=== PATIENT | female | born 1950 | race Caucasian/White ===

== ENCOUNTER → 2017-01-12 | Outpatient (CLI) | payer BC, OTHER ==
[~2017-01-12] MED LIST: ASPCH81X PO; CALC-338 PO; CEPH500C2 PO; CHOL2000 PO; CITA40TA12 PO; CYAN500T PO; PEDICHW80 PO; TRAZ50TA35 PO; VITAMIN B IM; ZNTT/150 PO; ZOLP5TAB PO
== END | disposition home or self-care (01) ==
LOC: C.RDSM 09:00
PROVIDERS: ATTEND Physical Medicine & Rehabilitation Sports Medicine
DX: M75.42 Impingement syndrome of left shoulder (principal); M25.511 Pain in right shoulder

== ENCOUNTER 2017-04-21 18:00 | Emergency (ER) | payer BC ==
[~2017-04-21] VITALS: Ht 158.8 cm; Wt 61.0 kg
[~2017-04-21 18:00] MED LIST changes: -VITAMIN B IM; -ZNTT/150 PO
[2017-04-21 18:04] VITALS: BP 122/72; PULSE 76; TEMP 36.7; O2SAT 97; Ht 158.8 cm; Wt 61.0 kg
[2017-04-21] MEDS ORDERED: XYLOCAINE 1%/SOD BICARB 20 ML VIAL INFIL ONE (18:10)
--- NOTE | 2017-04-22 00:16 | EMERGENCY ROOM VISIT NOTE ---
History First contact with patient: 18:06 Chief Complaint: FOREIGNBODY ANY BODY PART Stated Complaint: SPLINTER IN R ARM History of Present Illness The patient is a 66 year old female who presents to the Emergency Room with complaints of foreign body to right forearm while dusting. Patient states there is a splinter there. She tried to remove it. Tetanus is current. Patient denies numbness, tingling or any other medical complaints. Review of Systems See HPI for pertinent positives & negatives. A total of 6 systems reviewed and were otherwise negative. Past Medical/Surgical History Medical Problems: (1) Anxiety (2) Benign neoplasm of colon (3) BPPV (benign paroxysmal positional vertigo) (4) Depression (5) Hyperlipidemia (6) Hypertension (7) Osteoarthritis (8) Sleep apnea Surgical Problems: (1) H/O esophagogastroduodenoscopy (2) History of pubovaginal sling (3) History of tubal ligation (4) Hx of bariatric surgery (5) s/p repair of trigger finger Family History Asthma FATHER Diabetes mellitus SISTER FH: migraines SISTER FHx: cancer FATHER (throat CA) FHx: diabetes FHx: hypertension MOTHER FHx: lung disease Social History Smoking Status: Never Smoker Alcohol Use: none Drug Use: none Marital Status: Housing Status: lives with significant other Occupation Status: employed Current/Historical Medications Scheduled Aspirin (Aspirin Chewable), 81 MG PO QAM Calcium Citrate-Vitamin D (Citracal/Vitamin D), 2 TABS PO QAM Cephalexin Monohydrate (Keflex), Unknown Dose PO DAILY Cholecalciferol (Vitamin D3), 1 CAP PO QAM Citalopram Hydrobromide (Celexa), 40 MG PO QAM Cyanocobalamin (Vitamin B-12), 500 MCG PO QAM Pediatric Multiple Vitamin W/ (Childrens Multivitamin), 2 TABS PO QAM Trazodone Hcl (Trazodone), 50 MG PO HS Scheduled PRN Zolpidem Tartrate (Ambien), 5 MG PO HS PRN for Sleep Allergies Coded Allergies: YAIR Inhibitors (Verified Adverse Reaction, Intermediate, COUGH, 02/13/17) Physical Exam Vital Signs Date Time Temp Pulse Resp B/P Pulse Ox O2 Delivery O2 Flow Rate FiO2 04/21/17 18:04 36.7 76 16 122/72 97 Room Air Pain Rating (0-10): 0 Physical Exam VITALS: Vitals are noted on the nurse's note and reviewed by myself. Vital signs stable. GENERAL: Pleasant female, in no acute distress, nondiaphoretic, well-developed well-nourished. SKIN: Capillary reflex less than 2 seconds. HEENT: Normocephalic. PERRLA. EOMI. Nares patent. Mucous membranes moist. HEART: Regular rate and rhythm without murmurs gallops or rubs. LUNGS: Clear to auscultation bilaterally without wheezes, rales or rhonchi. No retractions or accessory muscle use. MUSCULOSKELETAL: No gross musculoskeletal defects. Right forearm with palpable splinter in place. NEURO: Patient was alert and oriented to person place and time. Normal sensation to light and sharp touch. No focal neurological deficits. Medical Decision & Procedures ED Course Prior records reviewed and summarized as above. Triage Nursing notes reviewed. Additional history obtained from family. The patient's history was concerning for possible foreign body of the forearm. Differential diagnosis: Etiologies such as foreign body of the forearm, cellulitis, abscess, MRSA infection, DVT, necrotizing fasciitis, dermatitis, drug eruption, as well as others were entertained.. Physical examination: The physical examination was consistent with foreign body of the forearm ER treatment provided: The area is cleansed and Betadine was placed. The area was anesthetized with lidocaine 2 mL's and using forceps the splinter was removed. There is cleansed and dressed with bacitracin and bandage. Patient tolerated procedure well. On reassessment the patient felt better. Diagnostics interpreted by me: Deferred This appears to be isolated foreign body of the forearm that is removed. Patient is advised to apply bacitracin bandage daily and watch for signs and symptoms of infection. She is advised to follow-up family care in a few days or here in the ER sooner for fevers, redness, drainage, worsening signs or symptoms or as needed. Patient was neurovascular and neurologic intact. She is well-appearing.. By the evaluation outlined above emergent etiologies such as abscess, necrotizing fasciitis, DVT, as well as others were deemed relatively unlikely. The pt informed about the findings as listed above. All questions were answered and pleased with the treatment. Return instructions were outlined and the patient was discharged in stable condition. Referral: The patient was referred back to primary care physician for follow-up in 2 to 3 days for a recheck of the current condition. Medical Decision As above Impression Primary Impression: Acute foreign body of right forearm Departure Information Dispostion Home / Self-Care Condition GOOD Referrals Pallavi Miranda M.D. (PCP) Forms WORK / SCHOOL INSTRUCTIONS, HOME CARE DOCUMENTATION FORM, IMPORTANT VISIT INFORMATION Patient Instructions [facility], ED Foreign Body Splinter Removal Additional Instructions Antibiotic ointment and bandage to the areas until healed. Follow up with family doctor or return for any signs of infection (increasing redness, swelling , drainage, or fever). Keep covered when in sun until fully healed then SPF 50 or higher until scar healed. Problem Qualifiers Primary Impression: Acute foreign body of right forearm Encounter type: initial encounter Qualified Codes: S50.851A - Superficial foreign body of right forearm, initial encounter
[2017-05-18] MEDS ORDERED: VITAMIN B IM (07:58)
[2017-05-18] MEDS ORDERED: ZNTT/150 PO (07:58)
== END 2017-04-21 18:27 | disposition home or self-care (01) ==
LOC: C.EDB 18:01 → C.EDD 18:27
DX: S50.851A Superficial foreign body of right forearm, initial encounter (principal); W45.8XXA Other foreign body or object entering through skin, initial encounter; I10 Essential (primary) hypertension; F32.9 Major depressive disorder, single episode, unspecified; M19.90 Unspecified osteoarthritis, unspecified site; Z82.5 Family history of asthma and other chronic lower respiratory diseases; Z83.3 Family history of diabetes mellitus; Z82.0 Family history of epilepsy and other diseases of the nervous system; Z80.8 Family history of malignant neoplasm of other organs or systems; Z82.49 Family history of ischemic heart disease and other diseases of the circulatory system; Z79.82 Long term (current) use of aspirin; Z79.899 Other long term (current) drug therapy

== ENCOUNTER → 2017-06-23 | Outpatient (CLI) | payer BC ==
[~2017-06-23] MED LIST changes: -ASPCH81X PO; -CEPH500C2 PO; -CYAN500T PO; +VITAMIN B IM; +ZNTT/150 PO
--- NOTE | 2017-06-23 09:09 | DIAGNOSTIC IMAGING REPORT ---
LEFT PELVIS UNILATERAL HIP 1 VIEW CLINICAL HISTORY: LEFT HIP PAIN pain COMPARISON: None. DISCUSSION: Moderate degenerative change of the hips bilaterally. No evidence for acetabular protrusion. Moderate degenerative change sacroiliac joints and lower lumbar spine. There is no evidence for soft tissue swelling. IMPRESSION: Moderate degenerative change. No acute process. The above report was generated using voice recognition software. It may contain grammatical, syntax or spelling errors. Electronically signed by: Mikal Goff M.D. 06/23/2017 9:08 AM Dictated Date/Time: 06/23/2017 9:07 AM
== END | disposition home or self-care (01) ==
LOC: C.RDSM 11:14
PROVIDERS: ATTEND Physician Assistant
DX: M25.552 Pain in left hip (principal)

== ENCOUNTER → 2017-07-06 | Outpatient (CLI) | payer BC ==
[~2017-07-06] MED LIST changes: -CHOL2000 PO; -CITA40TA12 PO
== END | disposition home or self-care (01) ==
LOC: C.RDSM 12:26
PROVIDERS: ATTEND Physical Medicine & Rehabilitation Sports Medicine
DX: M17.0 Bilateral primary osteoarthritis of knee (principal)

== ENCOUNTER 2017-09-20 14:35 | Emergency (ER) | payer BC ==
[~2017-09-20] VITALS: Ht 157.5 cm; Wt 61.0 kg
[2017-09-20 14:39] VITALS: TEMP 37.2; Ht 157.5 cm; Wt 61.0 kg
[2017-09-20] MEDS ORDERED: HYDROCODONE/ACETAMOPHEN 5/325MG TAB PO STA (15:39)
[2017-09-20] MEDS ORDERED: NORCO 5/325MG HOME PACK PO ONE (15:45)
[2017-09-20 16:01] LABS: URINE APPEARANCE CLEAR (CLEAR); URINE BILIRUBIN NEG (NEG); URINE COLOR YELLOW; URINE EPITHELIAL CELL AUTO 0-5 /lpf (0-5); URINE NITRITE NEG (NEG); URINE SPECIFIC GRAVITY 1.018 (1.000-1.030); UROBILINOGEN NEG (NEG); ZZUR CULT IF INDIC CLEAN CATCH NO
[2017-09-20 16:04] LABS: MANUAL MICROSCOPIC REQUIRED? NO; REVIEW REQ? NO
[2017-09-20] MEDS ORDERED: CALC600T9 PO (16:10)
[2017-09-20] MEDS ORDERED: TOCI20IN INJ (16:10)
[2017-09-20] MEDS ORDERED: PRLSR20 PO (16:10)
[2017-09-20] MEDS ORDERED: CLX40 PO (16:10)
[2017-09-20] MEDS ORDERED: PRED20TA PO (16:10)
[2017-09-20] MEDS ORDERED: VALA1TAB31 PO (16:23)
[2017-09-20] MEDS ORDERED: HYDR-5688 PO (16:23)
[2017-09-20 16:42] VITALS: BP 122/67; PULSE 71; O2SAT 99
--- NOTE | 2017-09-20 18:42 | EMERGENCY ROOM VISIT NOTE ---
History Report prepared by Laura: Yemi Almaraz Under the Supervision of: Dr. Evan Dennison M.D. First contact with patient: 15:27 Chief Complaint: FLANK PAIN Stated Complaint: PAIN IN LEFT SIDE,RADIATING TO STOMACH History of Present Illness The patient is a 66 year old female who presents to the Emergency Room with complaints of waxing and waning left flank pain that started 4 days ago. She says that the pain radiates to the left side of her abdomen. The patient rates the pain currently as a 7 out of 10 in severity, and at worst is a 9 out of 10 in severity. She notes that her skin around the painful area has been itchy recently. She says that she has taken Tylenol with a bit of relief. The patient adds that she has a history of pancreatis, bariatric surgery, and gallbladder surgery.The patient notes that she was told by her GI doctor that she has a small kidney stone. The patient adds that she has had a bit of trouble urinating. Pt denies LOC, headache, fevers, chills, diaphoresis, visual changes , neck pain, chest pain, breathing difficulties, nausea, vomiting, melena, hematochezia, numbness, weakness, lymphadenopathy, or other complaints. Source of History: patient Onset: 4 days ago Position: other (left flank) Symptom Intensity: at worst a 9 out of 10 in severity Timing: waxes/wanes Associated Symptoms: + abdominal pain (left), + back pain, + urinary symptoms Note: Associated symptoms: Itchy skin where pain is. Review of Systems See HPI for pertinent positives and negatives. A total of ten systems were reviewed and were otherwise negative. Past Medical & Surgical Medical Problems: (1) Anxiety (2) Benign neoplasm of colon (3) BPPV (benign paroxysmal positional vertigo) (4) Depression (5) Hyperlipidemia (6) Hypertension (7) Osteoarthritis (8) Sleep apnea Surgical Problems: (1) H/O esophagogastroduodenoscopy (2) History of pubovaginal sling (3) History of tubal ligation (4) Hx of bariatric surgery (5) s/p repair of trigger finger Family History Asthma FATHER Diabetes mellitus SISTER FH: migraines SISTER FHx: cancer FATHER (throat CA) FHx: diabetes FHx: hypertension MOTHER FHx: lung disease Social History Smoking Status: Never Smoker Alcohol Use: none Drug Use: none Marital Status: Housing Status: lives with significant other Occupation Status: employed Current/Historical Medications Scheduled Calcium Carbonate-Vitamin D (Calcium + D), 2 TABS PO QAM Citalopram (Citalopram Hydrobromide), 40 MG PO QAM Omeprazole (Prilosec), 20 MG PO QAM Pediatric Multiple Vitamin W/ (Childrens Multivitamin), 2 TABS PO QAM Prednisone (Prednisone), 10 MG PO DAILY Ranitidine (Zantac), 150 MG PO BID Tocilizumab (Actemra), 1 DOSE INJ EVERY 2 WEEKS Trazodone Hcl (Trazodone), 50 MG PO HS Valacyclovir Hcl (Valtrex), 1 GM PO TID Scheduled PRN Hydrocodone/Acetaminophen 5MG/325MG ([place] 5MG/325MG), 1-2 TABS PO Q6H PRN for Pain Zolpidem Tartrate (Ambien), 5 MG PO HS PRN for Sleep Allergies Coded Allergies: YAIR Inhibitors (Verified Adverse Reaction, Intermediate, COUGH, 09/20/17) Aspirin (Verified Adverse Reaction, Unknown, instructed by PCP not to take=had bariatric surgery, 09/20/17) Ibuprofen (Verified Adverse Reaction, Unknown, instructed not totake per PCP;had bariatric surgery, 09/20/17) Naproxen (Verified Adverse Reaction, Unknown, instructed by PCP not to take;had bariatric surgery, 09/20/17) Physical Exam Vital Signs Date Time Temp Pulse Resp B/P (MAP) Pulse Ox O2 Delivery O2 Flow Rate FiO2 09/20/17 16:42 71 14 122/67 99 09/20/17 14:39 37.2 81 16 109/69 98 Room Air Physical Exam GENERAL: Awake, alert, well-appearing, in no distress HENT: Normocephalic, atraumatic. Oropharynx unremarkable. EYES: Normal conjunctiva. Sclera non-icteric. NECK: Supple. No nuchal rigidity. FROM. No JVD. RESPIRATORY: Clear to auscultation. CARDIAC: Regular rate, normal rhythm. Extremities warm and well perfused. Pulses equal. ABDOMEN: Soft, non-distended. No tenderness to palpation. No rebound or guarding. No masses. RECTAL: Deferred. MUSCULOSKELETAL: Chest examination reveals no tenderness. The back is symmetrical on inspection without obvious abnormality. There is no CVA tenderness to palpation. No joint edema. LOWER EXTREMITIES: Calves are equal size bilaterally and non-tender. No edema. No discoloration. NEURO: Normal sensorium. No sensory or motor deficits noted. SKIN: T-10 dermatome: there is a vesicular rash on the right side. Medical Decision & Procedures Laboratory Results Test 09/20/17 15:44 Urine Color YELLOW Urine Appearance CLEAR (CLEAR) Urine pH 5.0 (4.5-7.5) Urine Specific [place] 1.018 (1.000-1.030) Urine Protein NEG (NEG) Urine Glucose (UA) NEG (NEG) Urine Ketones NEG (NEG) Urine Occult Blood TRACE (NEG) Urine Nitrite NEG (NEG) Urine Bilirubin NEG (NEG) Urine Urobilinogen NEG (NEG) Urine Leukocyte Esterase NEG (NEG) Urine WBC (Auto) 1-5 /hpf (0-5) Urine RBC (Auto) 0-4 /hpf (0-4) Urine Hyaline Casts (Auto) 0 /lpf (0-5) Urine Epithelial Cells (Auto) 0-5 /lpf (0-5) Urine Bacteria (Auto) NEG (NEG) Laboratory results reviewed by me Medications Administered Medications (Trade) Dose Ordered Sig/Nghia Route Start Time Stop Time Status Last Admin Dose Admin Valacyclovir HCl (Valtrex Tab) 500 mg NOW ONCE PO 09/20/17 15:45 09/20/17 15:46 DC 09/20/17 15:58 500 MG Acetaminophen/ Hydrocodone Bitart ([place] 5/325 Tab) 1 tab NOW STAT PO 09/20/17 15:39 09/20/17 15:43 DC 09/20/17 15:59 1 TAB Acetaminophen/ Hydrocodone Bitart ([place] 5/325mg Home Pack) 1 homepack UD ONCE PO 09/20/17 15:45 09/20/17 15:46 DC 09/20/17 15:59 1 HOMEPACK Valacyclovir HCl (Valtrex Tab) 500 mg NOW ONCE PO 09/20/17 16:30 09/20/17 16:31 DC 09/20/17 16:33 500 MG Valacyclovir HCl (Valtrex Tab) 1,000 mg NOW ONCE PO 09/20/17 16:30 09/20/17 16:31 DC 09/20/17 16:34 1,000 MG ED Course 1533: The patient was evaluated in room C11B. A complete history and physical exam was performed. 1539: Ordered [place] 5/325 Tab 1 tab PO. 1545: Ordered [place] 5/325mg Home Pack 1 homepack PO, Valtrex Tab 500 mg PO. 1611: I reevaluated the patient and she is stable. Discussed results and discharge instructions: she verbalized understanding and agreement. The patient is ready for discharge. Medical Decision Triage Nursing notes reviewed. The patient's presentation and history were concerning for left flank pain Etiologies such as renal colic, appendicitis, diverticulitis, mesenteric ischemia, aortic pathology, infections, inflammatory bowel disease, PUD, biliary pathology, UTI, as well as others were entertained. The patient was evaluated. She describes extreme pain and some urinary symptoms. Physical examination was performed as above. The patient had a dermatomal-like vesicular eruption noted in the T10 dermatome on the left. This looks very consistent with shingles. The patient was tender right over the area of the rash. The rash just began today. Because of this only a urinalysis was sent. This did not reveal any clear evidence of infection and a culture was performed. The patient was treated with hydrocodone and Valtrex 1000 mg in the Emergency Room. She is given 1000 mg to go for this evening as the pharmacies are currently closed. The patient was educated. She will follow -up closely as an outpatient. If she worsens in any way she will be back. I gave my usual and customary discussion regarding this issue. By the evaluation outlined above other emergent etiologies such as those listed in the differential, as well as others, were deemed relatively unlikely. The patient was educated about the findings as listed above. All questions were answered and the patient was pleased with the treatment. Return instructions were outlined and the patient was discharged in stable condition. The patient was referred to her PCP for follow-up for a recheck of the current condition. Medication Reconcilliation Current Medication List: was personally reviewed by me Blood Pressure Screening Patient's blood pressure: Normal blood pressure Impression Primary Impression: Shingles Additional Impression: Left flank pain Scribe Attestation The scribe's documentation has been prepared under my direction and personally reviewed by me in its entirety. I confirm that the note above accurately reflects all work, treatment, procedures, and medical decision making performed by me. Departure Information Dispostion Home / Self-Care Prescriptions Hydrocodone/Acetaminophen 5MG/325MG ([place] 5MG/325MG) Tab 1-2 TABS PO Q6H Y for Pain, #20 TAB Prov: Evan Dennison MD 09/20/17 Valacyclovir Hcl (VALTREX) 1 Gm Tab 1 GM PO TID, #20 TAB Prov: Evan Dennison MD 09/20/17 Referrals Pallavi Miranda M.D. (PCP) Patient Instructions My [facility], Shingles Herpes [place] Additional Instructions Valtrex 1000 mg 3 times daily for 7 days. Hydrocodone/acetaminophen 5/325mg: Take 1-2 pills every 6 hours as needed for pain. Avoid additional Acetaminophen/Tylenol, alcohol, operating machinery or dangerous equipment, working on ladders or roofs, DRIVING, or situations where being under the influence may be dangerous. It is recommended to use a stool softener such as Colace, 100mg twice daily while taking this medication to avoid constipation. Rest and drink plenty of fluids. A urine culture is pending. If this is abnormal you should hear from the Emergency Room in 48 hours. Avoid contact with women or anyone with a compromised immune system. Follow-up with your primary care physician in 2 to 3 days for a recheck of your current condition. Problem Qualifiers
== END 2017-09-20 16:44 | disposition home or self-care (01) ==
LOC: C.EDB 14:37 → C.EDC 16:44
DX: B02.9 Zoster without complications (principal); R10.12 Left upper quadrant pain; R10.32 Left lower quadrant pain; F41.9 Anxiety disorder, unspecified; D12.6 Benign neoplasm of colon, unspecified; H81.10 Benign paroxysmal vertigo, unspecified ear; F32.9 Major depressive disorder, single episode, unspecified; E78.5 Hyperlipidemia, unspecified; I10 Essential (primary) hypertension; M19.90 Unspecified osteoarthritis, unspecified site; G47.30 Sleep apnea, unspecified; Z98.51 Tubal ligation status; Z98.84 Bariatric surgery status; Z82.5 Family history of asthma and other chronic lower respiratory diseases; Z83.3 Family history of diabetes mellitus; Z82.49 Family history of ischemic heart disease and other diseases of the circulatory system; Z82.0 Family history of epilepsy and other diseases of the nervous system

== ENCOUNTER → 2017-11-17 | Outpatient (CLI) | payer BC ==
[~2017-11-17] MED LIST changes: +ACTEMRA INJ; -CALC-338 PO; +CALC600T9 PO; +CHOL1000 PO; +CIPR1TAB10 PO; +CIPR250T3 PO; +CLX40 PO; +FLUT1SPR12; +HYDR-5688 PO; +LORA-741 PO; +OXYB1TAB31 PO; +OXYC-57 PO; +OXYC7.5T65 PO; +PEDICHW50 PO; +PHEN-1042 PO; +PRED-301 PO; +PRED20TA PO; +PRLSR20 PO; +RANI150T85 PO; +TAMS0.4C38 PO; +TOCI20IN IM; +TOCI20IN INJ; -VITAMIN B IM; -ZNTT/150 PO; +ZOLP5TAB6 PO
--- NOTE | 2017-11-17 10:48 | DIAGNOSTIC IMAGING REPORT ---
L UPPER EXT JOINT WITHOUT CLINICAL HISTORY: IMPINGEMENT SYNDROME OF L SHOULDER left shoulder pain x1 year COMPARISON STUDY: Conventional radiographic study dated 01/12/2017 FINDINGS: Imaging was performed in the sagittal, coronal, and axial planes. There are no areas of marrow edema to indicate occult fracture or bone bruise. The bicipital tendon appears normal. Degenerative changes are present within the acromial clavicular joint. There is trace fluid within the subacromial bursa. There is a subcentimeter ganglion present at this level. There is supraspinatus tendinopathy. There is an equivocal tiny full-thickness tear. The post arthrographic study would be more sensitive in this regard. There is no tendinous retraction. There is a suspected tear of the posterior superior glenoid labrum. IMPRESSION: 1. Supraspinatus tendinopathy. Equivocal tiny full-thickness tear. 2. Suspected tear of the posterior superior glenoid labrum 3. Subcentimeter ganglion just inferior to the acromioclavicular joint. Electronically signed by: Jovi Quintanilla M.D. 11/17/2017 10:47 AM Dictated Date/Time: 11/17/2017 10:36 AM
== END | disposition home or self-care (01) ==
LOC: C.MRI 09:32
PROVIDERS: ATTEND Physician Assistant
DX: M75.42 Impingement syndrome of left shoulder (principal); M67.412 Ganglion, left shoulder

== ENCOUNTER → 2017-12-08 | Outpatient (CLI) | payer BC ==
[~2017-12-08] MED LIST changes: -CIPR1TAB10 PO; -CIPR250T3 PO; -FLUT1SPR12; -HYDR-5688 PO; -OXYB1TAB31 PO; -OXYC-57 PO; -OXYC7.5T65 PO; -PEDICHW50 PO; -PHEN-1042 PO; -PRED20TA PO; -RANI150T85 PO; -TAMS0.4C38 PO; -TOCI20IN IM; -TOCI20IN INJ; +ZNTT/150 PO; -ZOLP5TAB PO; -ZOLP5TAB6 PO
--- NOTE | 2017-12-08 14:39 | DIAGNOSTIC IMAGING REPORT ---
MRI OF THE ABDOMEN WITHOUT IV CONTRAST CLINICAL HISTORY: Generalized abdominal pain and nausea. COMPARISON STUDY: Abdominal CT dated 11/25/2013. TECHNIQUE: MRI of the abdomen is performed transverse T1 and T2-weighted sequences in the axial and coronal planes. IV contrast was not administered for this examination due to poor renal function. MRCP and diffusion-weighted imaging was performed. FINDINGS: Lower chest: No pleural effusion is identified. The heart is normal in size. Liver: The liver is normal in size, contour, and signal intensity. There is mild central intrahepatic biliary ductal dilatation. Gallbladder: The gallbladder is surgically absent. The common bile duct is dilated measuring up to 10 mm in diameter. There is no evidence of choledocholithiasis. The pancreatic duct is normal in caliber. Spleen: Normal in size and signal intensity. Pancreas: The pancreas is atrophic. There is a 12 mm ovoid cystic lesion in the pancreatic head seen on axial image #14, likely representing a small sidebranch IPMN. Additional subcentimeter IPMN's are noted. Adrenal glands: Unremarkable. Kidneys: The kidneys are atrophic and without hydronephrosis. Abdominal aorta: Normal in course and caliber. Bowel: Postoperative change suggests a history of Zac-en-Y gastric bypass surgery. No bowel obstruction is seen. Pelvis: Survey images of the pelvis show a 4.0 cm cystic lesion in the left adnexa, likely related to the left ovary. Peritoneum: There is no abdominal ascites. Lymphadenopathy: None. Skeletal structures: Visualized skeletal structures times are normal marrow signal intensity. IMPRESSION: 1. No acute abnormality is identified. 2. 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 No bowel obstruction is seen. 3. There are several sidebranch IPMN's suspected in the pancreas measuring up to 12 mm. If further evaluation is desired then endoscopic ultrasound would be appropriate. 4. There is a 4 cm cystic structure in the left adnexa, likely related to left ovary. Follow-up with a pelvic ultrasound is recommended for further assessment. Electronically signed by: Philip Yung M.D. 12/08/2017 2:38 PM Dictated Date/Time: 12/08/2017 2:14 PM
== END | disposition home or self-care (01) ==
LOC: C.MRI 13:14
PROVIDERS: ATTEND Internal Medicine Hematology & Oncology
DX: K86.2 Cyst of pancreas (principal); E83.10 Disorder of iron metabolism, unspecified

== ENCOUNTER → 2017-12-22 | Day surgery (SDC) | payer BC ==
[2017-12-04 11:38] VITALS: Ht 158.8 cm; Wt 59.5 kg
[2017-12-11 12:36] LABS: BASO % 0.2 %; BASO ABS # 0.02 K/uL (0-0.2); EOS % 0.1 %; EOS ABS # 0.01 K/uL (0-0.5); HEMATOCRIT 37.1 % (37-47); HEMOGLOBIN 11.7 g/dL (12.0-16.0); IG# 0.07 K/uL (0.00-0.02); LYMPH % 10.8 %; LYMPH ABS # 1.16 K/uL (1.2-3.4); MEAN CELL VOLUME 100.8 fL (80-100); MEAN CORPUSCULAR HEMOGLOBIN 31.8 pg (25-34); MEAN CORPUSCULAR HGB CONC 31.5 g/dl (32-36); MEAN PLATELET VOLUME 10.6 fL (7.4-10.4); MONO % 5.2 %; MONO ABS # 0.56 K/uL (0.11-0.59); NEUT ABS # 8.92 K/uL (1.4-6.5); PLATELET COUNT 351 K/uL (130-400); RED CELL DISTRIBUTION WIDTH CV 14.8 % (11.5-14.5); RED CELL DISTRIBUTION WIDTH SD 54.8 fL (36.4-46.3); WHITE BLOOD COUNT 10.74 K/uL (4.8-10.8)
[2017-12-11 13:27] LABS: CALCIUM 9.2 mg/dl (8.5-10.1); CREATININE 1.19 mg/dl (0.60-1.20); POTASSIUM 3.9 mmol/L (3.5-5.1)
[~2017-12-22] VITALS: Ht 158.8 cm; Wt 59.5 kg
[~2017-12-22] MED LIST changes: +ATROPINE SULFATE 0.1 MG/ML 5ML SYR IV PRN; +BUPIVACAINE/EPINEPHRINE 0.5% MPF 1:200,000 30 ML VIAL ONE; +CEFAZOLIN 2000MG IV PUSH 10 ML IV SCH; +DEXAMETHASONE SOD INJ 4 MG/ML VIAL ONE; +EpHEDrine SULFATE INJ 50 MG/ML AMP IV PRN; +EpHEDrine SULFATE INJ 50 MG/ML AMP ONE; +EpINEphrine HCL INJ 1 MG/ML 5ML SYRINGE ONE; +FENTANYL CITRATE INJ 50 MCG/1 ML 2 ML VIAL IV PRN; +FENTANYL CITRATE INJ 50 MCG/1 ML 2 ML VIAL ONE; +GLYCOPYRROLATE INJ 0.2 MG/ML VIAL ONE; +LABETALOL HCL IV 5 MG/ML 20ML IV ONE; +LACTATED RINGER'S 1000ML 1,000 ML IV SCH; +LIDOCAINE HCL 2% 2 ML VIAL (20MG/ML) ONE; +MIDAZOLAM HCL 1 MG/ML 2ML VIAL ONE; +ONDANSETRON INJ 2 MG/ML 2 ML VIAL IV PRN; +ONDANSETRON INJ 2 MG/ML 2 ML VIAL ONE; +OXYCODONE/ACETAMINOPHEN 5-325 TAB PO PRN; +PROPOFOL IV EMULSION 10 MG/ML 20 ML VIAL IV ONE; +ROPIVACAINE 0.5% 5 MG/ML 30 ML VIAL ONE; +SODIUM CHLORIDE 0.9% 1000ML 1,000 ML IV SCH; +SODIUM CHLORIDE 0.9% INJ 10 ML VIAL ONE
--- NOTE | 2017-12-22 07:02 | History & Physical Bridge Note ---
H&P Re-Evaluation Bridge Note: I have examined the patient, reviewed the History & Physical and in the interval since the performance of the History & Physical I have noted the following changes of clinical significance:consent obtained. No changes noted
--- NOTE | 2017-12-22 07:04 | Discharge Instructions ---
Discharge Instructions Date of Service Dec 22, 2017. Visit Reason for Visit: Lt Shoulder Rotator Cuff Tear, Impingement;Z01.818 Discharge Discharge Diagnosis / Problem: same Discharge Goals Goal(s): Decrease discomfort, Improve function, Increase independence Medications Stopped Medications Name(s): na Restart Stopped Medication(s): use all scripts as directed Activity Recommendations Activity Limitations: as noted below Lifting Limitations: until after follow-up appointment Exercise/Sports Limitations: until after follow-up appointment May Resume Sexual Activity: after follow-up appointment Shower/Bathe: keep incision dry Driving or Machine Use: Anesthesia . Post Anesthesia Instructions: If you have had General Anesthesia or IV Sedation: * Do not drive today. * Resume driving when surgeon permits. * Do not make important decisions or sign legal documents today. * Call surgeon for: 1. Temperature elevations greater than 101 degrees F. 2. Uncontrollable pain. 3. Excessive bleeding. 4. Persistent nausea and vomiting. 5. Medication intolerance (nausea, vomiting or rash). * For nausea and vomiting use only clear liquids such as: tea, soda, bouillon until nausea subsides, then gradually increase diet as tolerated. * If you have any concerns or questions, call your surgeon's office. If physician is unavailable and it is an emergency, call 911 or go to the nearest emergency room. . Instructions / Follow-Up Instructions / Follow-Up The following are instructions to follow after "Shoulder Surgery" including, Acromioplasty, Rotator Cuff Repair and Instability Surgery ACTIVITY RECOMMENDATIONS: * Minimize activity after surgery. * No excessive walking, jogging, sports or laboring. * Return to activity is individualized depending on the patient and type of surgery. * Driving is not permitted until at least your first post operative visit. Please ask your doctor when it is safe to resume driving. * Expect increased discomfort with increased activity. Continue to ice the shoulder as needed. SCHOOL/WORK RECOMMENDATIONS: * You may return to sedentary work or school when you are feeling more comfortable. This is usually 3-7 days after surgery. MEDICATIONS: * You will have a prescription for pain medication and an anti-inflammatory medication after surgery. * Use the pain medication for severe pain and the anti-inflammatory for less severe pain. Once the pain medication has run out, try to use the anti-inflammatory medication. If this is not effective, contact the office for assistance. * The pain medication may cause nausea, constipation and drowsiness. You should see how they affect you before driving or similar activity. * The anti-inflammatory medication may cause stomach upset and bleeding. If this occurs let your doctor know immediately . * Take a stool softener like Colace or a laxative like Senokot to prevent constipation. DIET: * Resume previous diet. SPECIAL CARE: ICE: You have the option of an ice cooler, gel packs or ice bags. * If you have an ice cooler, refer to the instructions for that device. The ice cooler may be used continuously. * If you do not have an ice cooler, you will need to use ice bags or gel packs. Do not apply ice directly to the skin. Use a thin dressing or michael shirt between the skin and ice bag. Apply ice for 20-30 minutes and repeat every 2-4 hours. This is especially important for the first 7-10 days after surgery. Once the pain improves, use ice as needed. ELEVATION: * You may be more comfortable sleeping in an upright position. Use the sling to elevate your arm. DRESSING: * Your dressing will be changed at your first therapy appointment approximately 4-5 days after surgery. Band-aids, tape strips or gauze may be applied. You may then change your dressing daily. * Reapply dressing followed by the EBIce cooling pad (if chosen) and then the sling. * Always wash your hands prior to touching the incision area. * Once the stitches are removed, you may leave the wound open to air or cover with gauze. * Expect some bloody drainage for the first few days after surgery. * Leave the tape strips, if present, in place for 5-7 days. * Band-aids and gauze may be changed daily. * There may be a gauze pad in your armpit area. This can be changed daily or replaced by a dry washcloth. SLING/BRACE: * You will need to use a sling or brace after surgery. The length of time the sling is used is dependent upon the type of surgery performed. * Arthroscopic Acromioplasty requires use of the sling for 2-4 weeks for comfort. * Labral procedures and Rotator Cuff Repairs require use of the sling for a longer period of time. Please check with your doctor prior to discontinuing the sling. BATHING: * You may shower or sponge-bathe immediately after surgery. The post operative shoulder dressing is mostly water-tight. You may shower right over this dressing, but be reasonably careful not to get the gauze or incision wet. * Once the dressing has been changed on the fourth or fifth day after surgery, you may shower and get the incision wet. * Wash with regular soap and water. * Do not bathe (submerge the incision), soak, swim or use a hot tub until the incision is completely healed over with normal skin and the doctor has given the OK to proceed. * There is no need to apply any ointments, powders or salves to your incision. * Do not apply alcohol or hydrogen peroxide directly to the incision. * Diluted peroxide (50:50 mixture with sterile saline) may be used to clean dried blood from around the incision area. THERAPY: * You will begin therapy four or five days after surgery. * Organized therapy with the therapist is important for the first 2-4 months after surgery depending on the type of procedure. During that time you will attend therapy 1-3 times per week. * You will also need to do daily exercises for range of motion and strength as instructed. * Patients who have a Capsular Shift Procedure will need to abide by temporary range of motion limitations. * Patients having Rotator Cuff Surgery are not allowed to actively lift their arms until 4-6 weeks after surgery. * Please check with your doctor regarding appropriate motion restrictions. FOLLOW UP VISIT: * If not already scheduled, please call the office at to schedule a follow-up appointment for 10 days after surgery and monthly thereafter. Diet Recommendations Recommended Home Diet: resume previous diet Procedures Procedures Performed: see op note Pending Studies Studies pending at discharge: no Medical Emergencies . Who to Call and When: Medical Emergencies: If at any time you feel your situation is an emergency, please call 911 immediately. . Non-Emergent Contact Non-Emergency issues call your: Specialist Call Non-Emergent contact if: temperature is above 101.5, wound has increased drainage, wound has increased redness, wound has increased pain . . "Provider Documentation" section prepared by Spencer Hernandez. .
--- NOTE | 2017-12-22 10:15 | [facility] Post Operative Brief Note ---
Immediate Operative Summary Operative Date Dec 22, 2017. Pre-Operative Diagnosis Left Shoulder Rotator Cuff Tear, Impingement Post-Operative Diagnosis Same Procedure(s) Performed Left Shoulder Arthroscopy, Rotator Cuff Repair, Subacromial Decompression, Excision of Distal Clavicle Surgeon Dr. Hernandez Stevedoring Superintendent Surgeon(s) Holly Gray PA-c Estimated Blood Loss Trace Findings Consistent with Post-Op Diagnosis Fluids (cc crystalloids) 1400cc Specimens None Drains None Anesthesia Type General Regional Complication(s) none Disposition Accompanied Pt To Recover: no Disposition: Recovery Room / PACU
--- NOTE | 2017-12-22 10:36 | OPERATIVE REPORT ---
DATE OF OPERATION: 12/22/2017 SURGEON: Spencer Hernandez MD. HAND CIGAR MAKING SUPERVISOR: Sam Gray PA-C. No resident or fellow available. PREOPERATIVE DIAGNOSIS: Chronic impingement syndrome with rotator cuff tear. POSTOPERATIVE DIAGNOSIS: Same with AC joint arthropathy. OPERATION PERFORMED: 1. Exam under anesthesia. 2. Diagnostic arthroscopy. 3. Arthroscopic subacromial decompression. 4. Arthroscopic excision of distal clavicle. 5. Arthroscopic moderate rotator cuff repair. PERIOPERATIVE SITUATION: Medically cleared female with intractable shoulder pain with physical exam, x-ray and MRI scan consistent with the above diagnosis. It was also noted that she may have some biceps tendinopathy, but however due to her small size, elected not to do any biceps tenontotomy or tenodesis. She also had a stiff shoulder so was worried about tenodesing. The arm was then examined revealing no instability. It had a slight loss of forward flexion, abduction, external rotation, combined but consistent with her age. OPERATION: The patient was appropriately identified. The patient consented and antibiotics confirmed as being given. Consent verified. The arm was prepped and draped in usual routine fashion and inframedial portal made 2 cm medial, inferior and posterolateral tip of the acromion. Inspection of the joint at that point in time revealed some hyperemia of the synovium, some scarring of the biceps and a moderate rotator cuff tear in the supraspinatus area. This area was then lightly debrided intraarticularly and then the subacromial space entered. There was a large bursa and large CA ligament with frayed tendon. This was then resected with the thermal ablator. The hook of the acromion was then flattened. The AC joint had a big hook inferiorly. This was flattened and then slightly shaved distally. It was minimal excision. Rotator cuff was then debrided of all the tissue and then mobilized and using 2 accessory anterior portals, 3 sutures were placed and 5.5 anchor placed and additional suture was then placed and 1 more anchor, 475 anchor placed anteriorly. This allowed the rotator cuff to be placed back into the most central zone of the footprint. The shoulder was then moved. There was no retraction of the tendon. The shoulder was then examined from the medial side, nothing additional found and then the instruments and fluid were all removed and the portals closed with 4-0 nylon, dressed with Xeroform, 4 x 4 gauze, ABD pads and Ioban dressing. There were 4 portals total. DVT prophylaxis will be mobilization. ESTIMATED BLOOD LOSS: Trace. CRYSTALLOID: Roughly 1400 mL. No pathology pending. I attest to the content of the Intraoperative Record and any orders documented therein. Any exceptions are noted below. MTDD
[2017-12-22 11:20] VITALS: TEMP 36.8
[2017-12-22 12:01] VITALS: BP 104/66; PULSE 87; O2SAT 97
--- NOTE | 2017-12-22 12:07 | Anesthesia Progress Nt - [facility] ---
Anesthesia Post Op Note Date & Time Dec 22, 2017 at 12:06 Vital Signs Pain Intensity: 0 Vital Signs Past 12 Hours Date Time Temp Pulse Resp B/P (MAP) Pulse Ox O2 Delivery O2 Flow Rate FiO2 12/22/17 12:01 87 16 104/66 (79) 97 Room Air 12/22/17 11:20 36.8 85 16 109/67 (81) 95 Room Air 12/22/17 11:12 36.7 86 1 12/22/17 11:12 84 1 98 12/22/17 11:11 116/58 12/22/17 11:07 91 5 12/22/17 11:07 91 5 97 12/22/17 11:06 112/62 12/22/17 11:02 95 3 12/22/17 11:02 95 3 95 12/22/17 11:01 112/60 12/22/17 10:57 94 9 100 12/22/17 10:57 94 9 12/22/17 10:56 111/62 12/22/17 10:52 93 9 12/22/17 10:52 93 9 100 12/22/17 10:51 114/62 12/22/17 10:47 98 12 100 12/22/17 10:47 95 12 12/22/17 10:46 108/63 12/22/17 10:42 95 11 12/22/17 10:42 94 11 99 12/22/17 10:41 107/67 12/22/17 10:37 97 7 12/22/17 10:37 95 7 99 12/22/17 10:36 121/64 12/22/17 10:32 93 14 99 12/22/17 10:32 92 14 12/22/17 10:30 36.2 96 16 116/73 98 Mask 6 12/22/17 10:30 116/73 12/22/17 09:07 0 12/22/17 09:06 0 12/22/17 09:01 66 15 137/63 100 12/22/17 09:01 67 12/22/17 08:56 56 4 128/60 100 12/22/17 08:56 55 12/22/17 08:51 53 13 133/65 100 12/22/17 08:51 53 12/22/17 08:46 60 8 126/65 100 12/22/17 08:46 60 12/22/17 08:41 54 14 131/64 100 12/22/17 08:41 54 12/22/17 08:36 59 16 125/64 100 12/22/17 08:36 59 12/22/17 08:31 67 12/22/17 08:31 67 7 133/69 100 12/22/17 08:26 71 12/22/17 08:26 74 6 146/81 100 12/22/17 08:21 63 0 141/73 100 12/22/17 08:21 63 12/22/17 08:16 71 6 143/73 100 12/22/17 08:16 66 12/22/17 08:14 142/81 12/22/17 08:14 69 12 142/81 (101) 98 Mask 6 12/22/17 08:11 68 0 98 12/22/17 08:11 69 12/22/17 08:06 60 12/22/17 08:06 61 0 98 12/22/17 08:01 61 0 98 12/22/17 08:01 62 12/22/17 07:56 65 0 98 12/22/17 07:56 65 12/22/17 07:51 68 0 12/22/17 07:46 68 12/22/17 07:46 71 0 98 12/22/17 07:41 66 0 12/22/17 07:14 36.6 72 16 116/63 (80) 96 Room Air 12/22/17 07:11 0 12/22/17 07:06 0 116/63 Notes Mental Status: alert / awake / arousable, participated in evaluation Pt Amnestic to Procedure: Yes Nausea / Vomiting: adequately controlled Pain: adequately controlled Airway Patency, RR, SpO2: stable & adequate BP & HR: stable & adequate Hydration State: stable & adequate Anesthetic Complications: no major complications apparent
--- NOTE | 2017-12-22 18:09 | [facility] Operative Report ---
Operative Report Operative Date Dec 22, 2017. Pre-Operative Diagnosis Left Shoulder Rotator Cuff Tear, Impingement Post-Operative Diagnosis Left shoulder Same Procedure(s) Performed Left Shoulder Arthroscopy, Rotator Cuff Repair, Subacromial Decompression, Excision of Distal Clavicle Surgeon Dr. Hernandez Household Personal Assistant Surgeon(s) Holly Gray PA-c Estimated Blood Loss Trace Findings rotator cuff tear, impingement Fluids (cc crystalloids) 1400cc Specimens None Drains none Complication(s) None Disposition Recovery Room / PACU Indications This 67-year-old white female presented to the office with complaints of intractable left shoulder pain. She had tried conservative care measures without success. Shoulder pain was long-standing. She elected to proceed with surgical intervention in hopes of alleviating her pain. Preoperative imaging was obtained. Description of Procedure The patient was administered a regional block and then taken to the operating room where she was given general anesthesia. She was prepped and draped in usual sterile fashion. Please see Dr. Hernandez's operative report for specifics of the procedure. I was present for the entire case from initial patient positioning through final wound closure. Assistance was provided in patient positioning, arthroscopy, implant placement, and final wound closure. Patient was taken to the recovery room in satisfactory condition. I attest to the content of the Intraoperative Record and any orders documented therein. Any exceptions are noted below.
== END | disposition home or self-care (01) ==
LOC: X.SURG 07:01
PROVIDERS: ATTEND Physical Medicine & Rehabilitation Sports Medicine
DX: M75.102 Unspecified rotator cuff tear or rupture of left shoulder, not specified as traumatic (principal); M75.42 Impingement syndrome of left shoulder; G47.33 Obstructive sleep apnea (adult) (pediatric); N18.9 Chronic kidney disease, unspecified; M06.9 Rheumatoid arthritis, unspecified; M19.90 Unspecified osteoarthritis, unspecified site; N18.3 Chronic kidney disease, stage 3 (moderate); K21.9 Gastro-esophageal reflux disease without esophagitis; I12.9 Hypertensive chronic kidney disease with stage 1 through stage 4 chronic kidney disease, or unspecified chronic kidney disease; Z90.49 Acquired absence of other specified parts of digestive tract; Z82.5 Family history of asthma and other chronic lower respiratory diseases; Z82.49 Family history of ischemic heart disease and other diseases of the circulatory system

== ENCOUNTER → 2018-01-04 | Outpatient (CLI) | payer BC ==
[~2018-01-04] MED LIST changes: -ATROPINE SULFATE 0.1 MG/ML 5ML SYR IV PRN; -BUPIVACAINE/EPINEPHRINE 0.5% MPF 1:200,000 30 ML VIAL ONE; -CEFAZOLIN 2000MG IV PUSH 10 ML IV SCH; -DEXAMETHASONE SOD INJ 4 MG/ML VIAL ONE; -EpHEDrine SULFATE INJ 50 MG/ML AMP IV PRN; -EpHEDrine SULFATE INJ 50 MG/ML AMP ONE; -EpINEphrine HCL INJ 1 MG/ML 5ML SYRINGE ONE; -FENTANYL CITRATE INJ 50 MCG/1 ML 2 ML VIAL IV PRN; -FENTANYL CITRATE INJ 50 MCG/1 ML 2 ML VIAL ONE; -GLYCOPYRROLATE INJ 0.2 MG/ML VIAL ONE; -LABETALOL HCL IV 5 MG/ML 20ML IV ONE; -LACTATED RINGER'S 1000ML 1,000 ML IV SCH; -LIDOCAINE HCL 2% 2 ML VIAL (20MG/ML) ONE; -MIDAZOLAM HCL 1 MG/ML 2ML VIAL ONE; -ONDANSETRON INJ 2 MG/ML 2 ML VIAL IV PRN; -ONDANSETRON INJ 2 MG/ML 2 ML VIAL ONE; -OXYCODONE/ACETAMINOPHEN 5-325 TAB PO PRN; -PROPOFOL IV EMULSION 10 MG/ML 20 ML VIAL IV ONE; -ROPIVACAINE 0.5% 5 MG/ML 30 ML VIAL ONE; -SODIUM CHLORIDE 0.9% 1000ML 1,000 ML IV SCH; -SODIUM CHLORIDE 0.9% INJ 10 ML VIAL ONE
== END | disposition home or self-care (01) ==
LOC: C.LAB1850 16:48
PROVIDERS: ATTEND Obstetrics & Gynecology
DX: N83.209 Unspecified ovarian cyst, unspecified side (principal)

== ENCOUNTER → 2018-02-01 | Outpatient (CLI) | payer BC ==
[~2018-02-01] MED LIST changes: +RANI150T85 PO; -ZNTT/150 PO
== END | disposition home or self-care (01) ==
LOC: C.RDSM 08:38
PROVIDERS: ATTEND Physical Medicine & Rehabilitation Sports Medicine
DX: M75.42 Impingement syndrome of left shoulder (principal); Z09 Encounter for follow-up examination after completed treatment for conditions other than malignant neoplasm

== ENCOUNTER → 2018-03-26 | Outpatient (CLI) | payer BC ==
--- NOTE | 2018-03-26 08:29 | DIAGNOSTIC IMAGING REPORT ---
MRI OF THE LUMBAR SPINE WITHOUT CONTRAST CLINICAL HISTORY: Lumbar radiculopathy. Low back pain radiating into right lower extremity. COMPARISON STUDY: Lumbar spine radiographs June 03, 2006 TECHNIQUE: Utilizing a 1.5 Scarlett magnet and dedicated coil, multiplanar, multiecho imaging of the lumbar spine was performed without IV contrast. FINDINGS: For purposes of numbering on this exam, the L5-S1 disc space is assigned to axial image 23 of 25. Vertebral body heights are maintained. There is no marrow replacement or marrow edema. Paravertebral soft tissues are unremarkable. Conus terminates at the lower L1 level. Note is made of a 3.9 cm cystic left adnexal lesion. L1-2: There is a small central disc extrusion with inferior subligamentous migration that results in mild narrowing of the central canal. The neural foramen are patent. L2-3: There is mild facet arthrosis. Central canal and right neural foramen are patent. There is mild narrowing of the left neural foramen. L3-4: There is facet arthrosis with mild disc bulge. There is mild narrowing of the central canal, lateral recesses and neural foramen. L4-5: There is moderate disc space narrowing with disc bulge, eccentric to the left. There is mild narrowing of the central canal and lateral recesses with moderate narrowing of both neural foramen, greater on the left. L5-S1: There is facet arthrosis, greater on the right. Central canal is patent. There is mild narrowing of both neural foramen. IMPRESSION: 1. Moderate multilevel degenerative disc disease and facet arthrosis. No severe central canal stenosis. Mild multilevel central canal stenosis, as detailed above. 2. Moderate bilateral neural foraminal stenosis at L4-L5, greater on the left. 3. No compression fracture. 4. Small central disc extrusion with inferior subligamentous migration at L1-L2 that results in mild narrowing of the central canal. 5. 3.9 cm cystic left adnexal lesion. A follow-up nonemergent pelvic ultrasound is recommended. Electronically signed by: Amado Ramirez M.D. 03/26/2018 8:28 AM Dictated Date/Time: 03/26/2018 8:19 AM
== END | disposition home or self-care (01) ==
LOC: C.MRI 07:32
PROVIDERS: ATTEND Pain Medicine Interventional Pain Medicine
DX: M54.16 Radiculopathy, lumbar region (principal); R19.09 Other intra-abdominal and pelvic swelling, mass and lump

== ENCOUNTER → 2018-06-18 | Outpatient (CLI) | payer BC ==
[~2018-06-18] MED LIST changes: -ACTEMRA INJ; -CALC600T9 PO; -CHOL1000 PO; +FLUT1SPR12; +OPTIRAY 300 IV PRN; +OXYB1TAB31 PO; +PEDICHW50 PO; -PEDICHW80 PO; -PRED-301 PO; +TOCI20IN IM; +ZOLP5TAB6 PO
--- NOTE | 2018-06-18 14:31 | DIAGNOSTIC IMAGING REPORT ---
IVP W/OR W/O TOMOGRAMS CLINICAL HISTORY: URETERAL CALCULUS pain COMPARISON STUDY: 05/04/2018 FINDINGS: Bilateral nephrocalcinosis similar compared to the prior study. No evidence for an obstructing urinary tract calculus. 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 Bladder fills well with no sign deformity of filling defect. Post void shows no significant residual. IMPRESSION: 1. Bilateral nonobstructing nephrocalcinosis. 2. 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 3. No evidence for an obstructing urinary tract calculus. The above report was generated using voice recognition software. It may contain grammatical, syntax or spelling errors. Electronically signed by: Mikal Goff M.D. 06/18/2018 2:29 PM Dictated Date/Time: 06/18/2018 2:26 PM
== END | disposition home or self-care (01) ==
LOC: C.RAD 12:42
PROVIDERS: ATTEND Urology
DX: N20.1 Calculus of ureter (principal); E83.59 Other disorders of calcium metabolism; N29 Other disorders of kidney and ureter in diseases classified elsewhere

== ENCOUNTER → 2018-07-05 | Outpatient (CLI) | payer BC ==
[~2018-07-05] MED LIST changes: +CIPR1TAB10 PO; -OPTIRAY 300 IV PRN; +OXYC7.5T65 PO; +TAMS0.4C38 PO
--- NOTE | 2018-07-05 12:09 | DIAGNOSTIC IMAGING REPORT ---
CHEST 2 VIEWS ROUTINE HISTORY: Preop. N20.0 Nephrolithiasis COMPARISON: Chest 06/17/2015. FINDINGS: The lungs are clear. Cardiac silhouette is normal in size. No pleural effusions. No pneumothorax. Prior cholecystectomy. IMPRESSION: No acute process. Electronically signed by: Delroy Mueller M.D. 07/05/2018 12:07 PM Dictated Date/Time: 07/05/2018 12:03 PM
[2018-07-05 12:35] LABS: BASO % 0.5 %; BASO ABS # 0.03 K/uL (0-0.2); EOS % 2.6 %; EOS ABS # 0.15 K/uL (0-0.5); HEMOGLOBIN 11.7 g/dL (12.0-16.0); IG# 0.01 K/uL (0.00-0.02); LYMPH % 31.9 %; LYMPH ABS # 1.87 K/uL (1.2-3.4); MEAN CELL VOLUME 100.8 fL (80-100); MEAN CORPUSCULAR HEMOGLOBIN 31.9 pg (25-34); MEAN CORPUSCULAR HGB CONC 31.6 g/dl (32-36); MONO % 11.1 %; MONO ABS # 0.65 K/uL (0.11-0.59); NEUT % 53.7 %; NEUT ABS # 3.16 K/uL (1.4-6.5); PLATELET COUNT 229 K/uL (130-400); RED CELL DISTRIBUTION WIDTH CV 13.3 % (11.5-14.5); RED CELL DISTRIBUTION WIDTH SD 49.4 fL (36.4-46.3); WHITE BLOOD COUNT 5.87 K/uL (4.8-10.8)
[2018-07-05 13:15] LABS: BLOOD UREA NITROGEN 22 mg/dl (7-18); CARBON DIOXIDE 26 mmol/L (21-32); CREATININE 1.09 mg/dl (0.60-1.20); POTASSIUM 4.3 mmol/L (3.5-5.1); SODIUM 138 mmol/L (136-145)
== END | disposition home or self-care (01) ==
LOC: C.RAD 10:57
PROVIDERS: ATTEND Urology
DX: N20.0 Calculus of kidney (principal)

== ENCOUNTER → 2018-07-09 | Day surgery (SDC) | payer BC ==
[2018-06-30 13:27] VITALS: Ht 157.5 cm; Wt 59.5 kg
--- NOTE | 2018-07-08 18:36 | DIAGNOSTIC IMAGING REPORT ---
KUB CLINICAL HISTORY: Nephrolithiasis. FINDINGS: 2 AP supine abdominal radiographs are compared to study dated 05/04/2018 and correlated with abdominal CT dated 04/24/2018. Cholecystectomy clips are seen in the right upper quadrant. There is a nonobstructed abdominal bowel gas pattern noting moderate colonic fecal retention. Suture material is seen in the left upper quadrant. A right ureteral stent has been removed from previous. Small nonobstructing calculi project over the right kidney and measure up to 3 mm. No definite calcifications are seen projecting over the left kidney which is largely obscured by overlying bowel contents. There is no radiographic evidence of ureteral stone. A 3.9 cm soft tissue calcification projects of the upper pelvis. A surgical clip is noted in the left pelvis. The skeletal structures are osteopenic. Degenerative change is seen in the hips and lumbar spine. IMPRESSION: 1. A right ureteral stent has been removed. 2. Small nonobstructing right renal calculi are identified. 3. No calcifications are seen projecting over the left kidney or along the course of ureters Electronically signed by: Philip Yung M.D. 07/08/2018 6:35 PM Dictated Date/Time: 07/08/2018 6:32 PM
[~2018-07-09] VITALS: Ht 157.5 cm; Wt 59.5 kg
[~2018-07-09] MED LIST changes: +ATROPINE SULFATE 0.1 MG/ML 5ML SYR IV PRN; +CIPROFLOXACIN 400MG / D5W IV SCH; +DEXAMETHASONE SOD INJ 4 MG/ML VIAL ONE; +EpHEDrine SULFATE INJ 50 MG/ML AMP IV PRN; +FENTANYL CITRATE INJ 50 MCG/1 ML 2 ML VIAL ONE; +LACTATED RINGER'S 1000ML 1,000 ML IV SCH; +LIDOCAINE HCL 2% 2 ML VIAL (20MG/ML) ONE; +MIDAZOLAM HCL 1 MG/ML 2ML VIAL ONE; +ONDANSETRON INJ 2 MG/ML 2 ML VIAL ONE; +PROPOFOL IV EMULSION 10 MG/ML 20 ML VIAL ONE
--- NOTE | 2018-07-09 09:50 | History & Physical Bridge Note ---
H&P Re-Evaluation Bridge Note: I have examined the patient, reviewed the History & Physical and in the interval since the performance of the History & Physical I have noted the following changes of clinical significance: No changes noted
--- NOTE | 2018-07-09 09:57 | Discharge Instructions ---
Discharge Instructions Date of Service Jul 09, 2018. Admission Reason for Admission: Nephrolithiasis Discharge Discharge Diagnosis / Problem: Stone Discharge Goals Goal(s): Decrease discomfort, Improve function Activity Recommendations Activity Limitations: resume your previous activity Lifting Limitations: gradually increase as tolerated Exercise/Sports Limitations: gradually increase as tolerated . Current Hospital Diet Patient's current hospital diet: Discharge Diet Recommended Diet: Regular Diet Procedures Procedures Performed: R ESWL Pending Studies Studies pending at discharge: no Medical Emergencies . Who to Call and When: Medical Emergencies: If at any time you feel your situation is an emergency, please call 911 immediately. . Non-Emergent Contact Non-Emergency issues call your: Primary Care Provider, Urologist Call Non-Emergent contact if: you have a fever, temperature is above 100.5, temperature is above 101, temperature is above 101.5, your pain is not controlled, your pain is worsening, your pain is unusual for you . . "Provider Documentation" section prepared by Angel Cantu. .
--- NOTE | 2018-07-09 10:33 | [facility] Operative Report ---
Operative Report Operative Date Jul 09, 2018. Pre-Operative Diagnosis Right Renal Stone Post-Operative Diagnosis Same Procedure(s) Performed R ESWL Surgeon Pepe Estimated Blood Loss Minimal Findings Right Renal Stone Specimens none Drains None Anesthesia Type General Complication(s) none Disposition Recovery Room / PACU Indications Right stone. Risks and benefits discussed. Description of Procedure Patient was consented and brought back to the operating room. Patient was placed under anesthesia in the supine position. Patient was prepped and draped in the regular sterile fashion. A time out was completed. With the time out completed, The patient was assessed with fluoroscopy. The stone was identified and position was triangulated. At this point, the shock waves commenced. The stone was monitored throughout the process with fluoroscopy to assess progression and maintain position. Please see the [place] [facility] Stone Management Sheet for full report and detailed summary of procedure. With the stone treated, the procedure ended. The patient was cleaned, aroused from anesthesia, and transferred to the pacu in stable condition having tolerated the procedure well with no complications. I was present and participated in all aspects of the procedure. The patient will be monitored in the PACU until transferred. I attest to the content of the Intraoperative Record and any orders documented therein. Any exceptions are noted below.
[2018-07-09 11:13] VITALS: TEMP 36.6
[2018-07-09 11:38] VITALS: BP 132/74; PULSE 80; O2SAT 99
--- NOTE | 2018-07-09 11:52 | Anesthesia Progress Nt - [facility] ---
Anesthesia Post Op Note Date & Time Jul 09, 2018 at 11:51 Vital Signs Pain Intensity: 0 Vital Signs Past 12 Hours Date Time Temp Pulse Resp B/P (MAP) Pulse Ox O2 Delivery O2 Flow Rate FiO2 07/09/18 11:38 80 16 132/74 (93) 99 Room Air 07/09/18 11:13 36.6 84 16 135/82 (99) 99 Room Air 07/09/18 11:05 36.6 07/09/18 11:01 144/70 07/09/18 11:00 89 18 98 07/09/18 11:00 90 18 07/09/18 10:56 142/73 07/09/18 10:55 89 15 07/09/18 10:55 89 15 100 07/09/18 10:54 Room Air 07/09/18 10:51 140/77 07/09/18 10:50 87 10 07/09/18 10:50 87 10 100 07/09/18 10:46 137/74 07/09/18 10:45 90 4 07/09/18 10:45 90 4 100 07/09/18 10:41 152/80 07/09/18 10:40 102 16 07/09/18 10:40 102 16 100 07/09/18 10:37 156/75 07/09/18 10:35 36.6 90 16 156/75 100 Diffusion Mask 5 07/09/18 08:11 36.9 64 16 121/64 (83) 97 Room Air Notes Mental Status: alert / awake / arousable, participated in evaluation Pt Amnestic to Procedure: Yes Nausea / Vomiting: adequately controlled Pain: adequately controlled Airway Patency, RR, SpO2: stable & adequate BP & HR: stable & adequate Hydration State: stable & adequate Anesthetic Complications: no major complications apparent
== END | disposition home or self-care (01) ==
LOC: X.SURG 08:03
PROVIDERS: ATTEND Urology
DX: N20.2 Calculus of kidney with calculus of ureter (principal); N18.3 Chronic kidney disease, stage 3 (moderate); Z88.8 Allergy status to other drugs, medicaments and biological substances; K21.9 Gastro-esophageal reflux disease without esophagitis; M19.90 Unspecified osteoarthritis, unspecified site; F41.9 Anxiety disorder, unspecified; Z87.442 Personal history of urinary calculi; Z95.5 Presence of coronary angioplasty implant and graft

== ENCOUNTER → 2018-07-19 | Outpatient (CLI) | payer BC ==
[~2018-07-19] MED LIST changes: -ATROPINE SULFATE 0.1 MG/ML 5ML SYR IV PRN; -CIPROFLOXACIN 400MG / D5W IV SCH; -DEXAMETHASONE SOD INJ 4 MG/ML VIAL ONE; -EpHEDrine SULFATE INJ 50 MG/ML AMP IV PRN; -FENTANYL CITRATE INJ 50 MCG/1 ML 2 ML VIAL ONE; -LACTATED RINGER'S 1000ML 1,000 ML IV SCH; -LIDOCAINE HCL 2% 2 ML VIAL (20MG/ML) ONE; -MIDAZOLAM HCL 1 MG/ML 2ML VIAL ONE; -ONDANSETRON INJ 2 MG/ML 2 ML VIAL ONE; -PROPOFOL IV EMULSION 10 MG/ML 20 ML VIAL ONE
--- NOTE | 2018-07-19 08:48 | DIAGNOSTIC IMAGING REPORT ---
KUB HISTORY: Follow-up study in a patient with nephrolithiasis N20.0 [id number] COMPARISON: KUB 07/08/2018, CT 04/24/2018 FINDINGS: The bowel gas pattern is non-obstructive. Moderate formed colonic stool suggests constipation. There is no organomegaly. 3.7 cm linear calcification about the upper right hemipelvis redemonstrated correlating with calcified granuloma of the right paraspinal tissues. Bilateral nephrolithiasis redemonstrated with 4 mm calculus projecting over the superior pole right kidney. No ureteral calculi are identified. Surgical clip projects about the left hemipelvis with surgical suture material of the epigastric region related to prior gastric bypass. Prior cholecystectomy. No pneumoperitoneum or pneumatosis. No fracture. Moderate right and mild left hip osteoarthritis with degenerative changes noted about the spine. IMPRESSION: 1. Bilateral nephrolithiasis without ureteral calculi identified. 2. Suggested constipation. Electronically signed by: Eusebio Doe M.D. 07/19/2018 8:46 AM Dictated Date/Time: 07/19/2018 8:43 AM
== END | disposition home or self-care (01) ==
LOC: C.RAD 08:10
PROVIDERS: ATTEND Urology
DX: N20.0 Calculus of kidney (principal)

== ENCOUNTER 2024-12-29 11:33 | Inpatient (IN) ==
[2024-12-29] MEDS ORDERED: SODIUM CHLORIDE 0.9% 100 ML IV PRN ×2 (12:06→12:39)
[2024-12-29] MEDS ORDERED: SODIUM CHLORIDE 0.9% 50 ML IV PRN ×2 (12:06→12:39)
--- NOTE | 2024-12-29 12:08 | Emergency Department Note ---
Impression & Plan Acute upper gastrointestinal bleeding, Acute GI bleeding, Anemia ED Provider Note NAME: STEPHEN PIERRE AGE: 74 SEX: F : 1950 ARRIVES VIA: Walk-In INFORMANT: Patient ED PROVIDER(S): Wolf Solitario DO CHIEF COMPLAINT: Black stools and vomiting coffee-ground emesis HPI: Patient is a 74-year-old female with a past medical history of ULISES, bariatric surgery at [facility] who presents to the ER for periumbilical abdominal pain associated with nausea and vomiting. Symptoms started last night and have been progressing. She admits to black stools and coffee-ground emesis. She does feel lightheaded. She did fall and hit her head when she tried to get up from bed. She notes she was very weak and lightheaded. She admits to a headache. No neck pain. No chest pain or shortness of breath. No dysuria, urgency, or frequency. No other exacerbating or remitting factors. ADDITIONAL HISTORY OBTAINED: Per HPI Chronic Medical/Social Conditions Affecting Care: Per HPI PAST MEDICAL HISTORY:See Below PAST SURGICAL HISTORY:See Below FAMILY HISTORY:See Below SOCIAL HISTORY:See Below HOME MEDICATIONS:See Below ALLERGIES:See Below VITALS:See Below PHYSICAL EXAMINATION: GENERAL: Sitting up in bed, alert, slightly ill-appearing, disheveled HEAD: Contusion to the left frontal region EYE EXAM: normal conjunctiva. PERRL and EOM's grossly intact. OROPHARYNX: Dry mucous membranes NECK: supple, no nuchal rigidity, no adenopathy, non-tender LUNGS: Clear to auscultation. Normal chest wall mechanics HEART: no murmurs, S1 normal and S2 normal ABDOMEN: abdomen soft, non-tender, normo-active bowel sounds, no masses, no rebound or guarding. RECTAL: Hem + black stools UPPER EXTREMITIES: upper extremities are grossly normal. LOWER EXTREMITIES: No pitting edema. NEURO EXAM: Normal sensorium, cranial nerves II-XII grossly intact, normal speech, no gross weakness of arms, no gross weakness of legs. MEDICAL DECISION MAKING: Patient is a 74-year-old female who presents ER for above-stated complaint. IV was established and blood work was obtained. Labs show no significant leukocytosis. Anemia at 9.9 down from baseline 11.5. INR was unremarkable. No blood thinners per patient. BMP with significantly elevated BUN consistent with an upper GI bleed especially in light of black tarry stools heme positive on rectal and vomiting coffee ground emesis. Patient was given Protonix drip and bolus. Lactate was elevated 2.6 and trended down to 1. LFTs and bilirubin were unremarkable. Pro-Constantin was normal. Initially patient was found to be hypothermic at 34 and consequently blood cultures, lactate, Pro-Constantin and IV antibiotics were given. On repeat temperature was significantly elevated at 98. Case was discussed with the hospitalist for further evaluation management treatment. Did discuss with gastroenterology and they recommended admission and they will likely scope. Consults/Care Managements Discussions: Per MDM Triage Nursing notes reviewed. Limited review of prior medical records performed Vital Signs: reviewed and remarkable for hypothermic and tachy Differential diagnosis: Differential diagnosis includes etiologies such as sepsis, UTI, pneumonia, metabolic, electrolyte abnormalities, cardiac sources, intracerebral event, toxicologic, neurological, as well as others were entertained. ER treatment provided: See below Diagnostics interpreted by me include EKG and cardiac monitoring as listed below: -Cardiac Monitoring: An order was placed for continuous cardiac monitoring. The monitor shows a rate of 110 with sinus rhythm. -ECG: none -Laboratory studies:Interpreted by me as stated above in MDM and shown below. Imaging studies: Xrays: As interpreted by me:none CTs show: CT abdomen pelvis per my preliminary interpretation showed no obvious bowel obstruction CT abdomen pelvis per radiology as described above Procedures:none Critical Care: I have personally spent 35 minutes of critical care time in the direct management of this patient. This includes bedside care, interpretation of diagnostic studies, and testing, discussion with consultants, patient, and family members, and other required patient management activities. This 35 minutes is in excess of all separately billable procedures. Past Med/Surg History Problem List Anemia (Acute) Acute GI bleeding (Acute) Acute upper gastrointestinal bleeding (Acute) Coffee ground emesis Melena Hypertension (Chronic) Hyperlipidemia (Chronic) Acute pancreatitis (Acute) Depression (Chronic) Benign neoplasm of colon (Chronic) Pancreatitis (Acute) Acute foreign body of right forearm (Acute) Shingles (Acute) Left flank pain (Acute) Pancreatitis Herpes zoster Hx of bariatric surgery (Chronic) "09/2013" ULISES (acute kidney injury) Encounter for pre-operative examination Nephrolithiasis Renal calculus, bilateral Calculus of left kidney Sleep apnea (Chronic) "resolved" with weight loss > no formal retesting Osteoarthritis (Chronic) BPPV (benign paroxysmal positional vertigo) (Chronic) No issues x 10+ years History of tubal ligation (Chronic) History of pubovaginal sling (Chronic) H/O esophagogastroduodenoscopy (Chronic) Medical History (Updated 12/29/24 @ 14:36 by Wolf Solitario DO) CKD (chronic kidney disease), stage III Hyperlipidemia no meds yet Kidney stones Hypertension 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 Hurd) > hasn't seen in a while> stable Hx of pancreatitis 5+ years ago > led to cholecystectomy Anemia "Mild"/no known hx of blood transfusion Anxiety and depression Restless leg syndrome Surgical History History of cystoscopy Cystoscopy, laser lithotripsy: 04/15/18: LMA#4 at [facility] History of lithotripsy History of repair of rotator cuff R/L History of colonoscopy History of gastric bypass 09/2013 History of cholecystectomy History of tooth extraction History of cataract surgery R/L Family History Sister Family history of diabetes mellitus Father Family history of esophageal cancer Mother Family history of reaction to anesthesia SLOW TO WAKE UP Social History Smoking Status: Former smoker Second Hand Exposure: No; Do You Dip or Chew Tobacco: No; Hx Alcohol Use: No Hx Substance Use: No Preferred Language: Gibraltarian Communication Ability: Effective Cosmetology Teacher Required: No Beliefs That Will Affect Care: None Current Living Situation: Spouse Feels Safe at Home: Yes Assistive Devices: Glasses Allergies Allergies Allergy/AdvReac Type Severity Reaction Status Date / Time YAIR Inhibitors AdvReac Intermediate Cough Verified 03/29/21 07:41 aspirin AdvReac Mild Advised to Verified 03/29/21 07:41 avoid 2/2 hx bariatric surgery ibuprofen AdvReac Mild Advised to Verified 03/29/21 07:41 avoid 2/2 hx bariatric surgery naproxen AdvReac Mild Advised to Verified 03/29/21 07:41 avoid 2/2 hx bariatric surgery Home Meds Home Medications Medication Instructions Recorded Confirmed lorazepam 0.5 mg tablet (Ativan) 0.5 mg PO HS 09/21/18 12/29/24 multivitamin 2 tab PO QAM 09/21/18 12/29/24 acetaminophen 500 mg tablet 1,000 mg PO Q6H PRN Pain 09/23/19 12/29/24 (Tylenol Extra Strength) cholecalciferol (vitamin D3) 25 50 mcg PO DAILY 02/28/23 12/29/24 mcg (1,000 unit) tablet duloxetine 60 mg capsule,delayed 60 mg PO QAM 02/28/23 12/29/24 release potassium citrate 10 mEq (1,080 30 meq PO TID 02/28/23 12/29/24 mg) tablet,extended release trazodone 100 mg tablet 100 mg PO HS 02/28/23 12/29/24 zolpidem 5 mg tablet 5 mg PO HS PRN Insomnia 02/28/23 12/29/24 aspirin 81 mg tablet 81 mg PO DAILY 12/29/24 12/29/24 duloxetine 30 mg capsule,delayed 30 mg PO DAILY 12/29/24 12/29/24 release Results & Data (ED) Vital Signs Vital Signs - 24 hr 12/29/24 11:35 12/29/24 12:00 12/29/24 12:26 Temperature 34.7 C L Temperature Source Oral Pulse Rate 115 H 93 H 93 H Pulse Rate from SpO2 Sensor 96 H Pulse Rhythm Respiratory Rate 20 24 Respiratory Effort / Characteristics Non-Labored Spontaneous Respiratory Depth Normal Blood Pressure 119/66 Blood Pressure Mean 83 Pulse Oximetry 97 97 Oxygen Delivery Method Sepsis Recent Fever Within 48 Hours No Sepsis New/Unexplained Change in Mental Status N/A Sepsis Action Taken by Nursing No Action Required 12/29/24 13:10 12/29/24 13:21 12/29/24 13:27 Temperature 36.5 C Temperature Source Oral Pulse Rate 90 93 H Pulse Rate from SpO2 Sensor 95 H Pulse Rhythm Regular Respiratory Rate 19 18 Respiratory Effort / Characteristics Respiratory Depth Blood Pressure 142/80 H Blood Pressure Mean 100 Pulse Oximetry 96 94 Oxygen Delivery Method Room Air Room Air Sepsis Recent Fever Within 48 Hours Sepsis New/Unexplained Change in Mental Status Sepsis Action Taken by Nursing 12/29/24 13:27 12/29/24 13:36 Temperature Temperature Source Pulse Rate 114 H 95 H Pulse Rate from SpO2 Sensor 110 H 93 H Pulse Rhythm Respiratory Rate 26 H 18 Respiratory Effort / Characteristics Respiratory Depth Blood Pressure 145/83 H Blood Pressure Mean 103 Pulse Oximetry 100 97 Oxygen Delivery Method Room Air Sepsis Recent Fever Within 48 Hours Sepsis New/Unexplained Change in Mental Status Sepsis Action Taken by Nursing Laboratory Data 12/29/24 11:54 12/29/24 11:54 Lab Results 12/29/24 12/29/24 12/29/24 Range/Units 11:52 11:54 12:08 WBC 9.62 (4.8-10.8) K/ul RBC 3.03 L (4.20-5.40) M/uL Hgb 9.9 L (12.0-16.0) g/dl POC Hgb 9.2 L (12.0-16.0) g/dl Hct 30.5 L (37.0-47.0) % POC Hct 27 L (37-47) % MCV 100.7 H (80.0-100.0) fL MCH 32.7 (25.0-34.0) pg MCHC 32.5 (32.0-36.0) g/dL RDW Std Deviation 51.4 H (36.4-46.3) fL RDW Coeff of Brandon 13.8 (11.5-14.5) % Plt Count 379 (130-400) K/uL MPV 9.5 (9.4-12.4) fL Immature Gran % (Auto) 0.7 % Neut % (Auto) 88.0 % Lymph % (Auto) 7.7 % [place] % (Auto) 3.4 % Eos % (Auto) 0.0 % Baso % (Auto) 0.2 % Neut # (Auto) 8.46 H (1.40-6.50) K/uL Lymph # (Auto) 0.74 L (1.20-3.40) K/uL [place] # (Auto) 0.33 (0.11-0.59) K/uL Eos # (Auto) 0.00 (0.00-0.50) K/uL Baso # (Auto) 0.02 (0.00-0.20) K/uL Immature Gran # (Auto) 0.07 (0.01-0.20) K/uL PT 11.2 (9.0-12.0) Seconds INR 1.0 (0.9-1.1) APTT 23 (21-31) Seconds PTT Ratio 0.9 POC Sodium 139 (135-144) mmol/L Sodium 139 (136-145) mmol/L POC Potassium 4.2 (3.3-5.0) mmol/L Potassium 4.4 (3.5-5.1) mmol/L POC Chloride 104 (101-112) mmol/L Chloride 103 (98-107) mmol/L Carbon Dioxide 29 (21-32) mmol/L POC Total CO2 26 (24-31) mmol/L Anion Gap 7 (3-11) POC Anion Gap 15.0 L (16-25) mmol/L POC BUN 42 H (7-18) mg/dl BUN 51 H (6-23) mg/dl Creatinine 1.11 (0.6-1.2) mg/dl POC Creatinine 1.3 (0.6-1.3) mg/dl Est Cr Clr Drug Dosing 32.4 ml/min eGFR 51.84 BUN/Creatinine Ratio 45.9 H (10-20) Glucose 184 H (70-99(Fasting)) mg/dl POC Glucose (other) 174 H (70-99) mg/dl Lactate (0.4-2.0) mmol/L Calcium 8.9 (8.6-10.3) mg/dl POC Ioniz Calcium Abdulkadir 1.12 (1.12-1.32) mmol/l Total Bilirubin 0.9 (0.2-1.0) mg/dl AST 21 (13-39) U/L ALT 17 (7-52) U/L Alkaline Phosphatase 87 (34-104) U/L Total Protein 6.7 (6.0-8.3) gm/dl Albumin 3.6 (3.4-5.0) gm/dl Globulin 3.1 (2.5-4.0) gm/dl Albumin/Globulin Ratio 1.2 (0.9-2) Procalcitonin 0.06 (0-0.5) ng/ml POC Stool Occult Blood (Negative) Blood Type O Positive Antibody Screen NEGATIVE Crossmatch See Detail 12/29/24 12/29/24 12/29/24 Range/Units 12:24 13:27 14:20 WBC (4.8-10.8) K/ul RBC (4.20-5.40) M/uL Hgb (12.0-16.0) g/dl POC Hgb (12.0-16.0) g/dl Hct (37.0-47.0) % POC Hct (37-47) % MCV (80.0-100.0) fL MCH (25.0-34.0) pg MCHC (32.0-36.0) g/dL RDW Std Deviation (36.4-46.3) fL RDW Coeff of Brandon (11.5-14.5) % Plt Count (130-400) K/uL MPV (9.4-12.4) fL Immature Gran % (Auto) % Neut % (Auto) % Lymph % (Auto) % [place] % (Auto) % Eos % (Auto) % Baso % (Auto) % Neut # (Auto) (1.40-6.50) K/uL Lymph # (Auto) (1.20-3.40) K/uL [place] # (Auto) (0.11-0.59) K/uL Eos # (Auto) (0.00-0.50) K/uL Baso # (Auto) (0.00-0.20) K/uL Immature Gran # (Auto) (0.01-0.20) K/uL PT (9.0-12.0) Seconds INR (0.9-1.1) APTT (21-31) Seconds PTT Ratio POC Sodium (135-144) mmol/L Sodium (136-145) mmol/L POC Potassium (3.3-5.0) mmol/L Potassium (3.5-5.1) mmol/L POC Chloride (101-112) mmol/L Chloride (98-107) mmol/L Carbon Dioxide (21-32) mmol/L POC Total CO2 (24-31) mmol/L Anion Gap (3-11) POC Anion Gap (16-25) mmol/L POC BUN (7-18) mg/dl BUN (6-23) mg/dl Creatinine (0.6-1.2) mg/dl POC Creatinine (0.6-1.3) mg/dl Est Cr Clr Drug Dosing ml/min eGFR BUN/Creatinine Ratio (10-20) Glucose (70-99(Fasting)) mg/dl POC Glucose (other) (70-99) mg/dl Lactate 2.6 H* 1.0 (0.4-2.0) mmol/L Calcium (8.6-10.3) mg/dl POC Ioniz Calcium Abdulkadir (1.12-1.32) mmol/l Total Bilirubin (0.2-1.0) mg/dl AST (13-39) U/L ALT (7-52) U/L Alkaline Phosphatase (34-104) U/L Total Protein (6.0-8.3) gm/dl Albumin (3.4-5.0) gm/dl Globulin (2.5-4.0) gm/dl Albumin/Globulin Ratio (0.9-2) Procalcitonin (0-0.5) ng/ml POC Stool Occult Blood Positive A (Negative) Blood Type Antibody Screen Crossmatch Administered Medications Pantoprazole Sodium 40 mg/ (Dextrose) 100 mls @ 20 mls/hr IV Q5H THERESA Stop: 01/28/25 12:29 Last Admin: 12/29/24 13:15 Dose: 8 mg/hr, 20 mls/hr Documented By: RONNIE Discontinued Medications Pantoprazole Sodium 80 mg/ (Dextrose) 120 mls @ 480 mls/hr IV NOW ONE Stop: 12/29/24 12:20 Last Infusion: 12/29/24 13:56 Dose: Infused Documented By: [facility] Admin: 12/29/24 12:51 Dose: 480 mls/hr Documented By: RONNIE Sodium Chloride (Nss) 1,000 mls @ 999 mls/hr IV .Q1H1M ONE Stop: 12/29/24 13:06 Last Infusion: 12/29/24 13:56 Dose: Infused Documented By: [facility] Admin: 12/29/24 12:51 Dose: 999 mls/hr Documented By: RONNIE Piperacillin Sod/Tazobactam Sod (Zosyn) 4.5 gm in 100 mls @ 200 mls/hr IV NOW ONE; Protocol Stop: 12/29/24 12:35 Last Infusion: 12/29/24 13:56 Dose: Infused Documented By: [facility] Admin: 12/29/24 13:06 Dose: 200 mls/hr Documented By: RONNIE Ioversol (Optiray 320 100ml) 93 ml IV ONCE ONE Stop: 12/29/24 12:43 Last Admin: 12/29/24 12:42 Dose: 93 ml Documented By: LAUREANO Pantoprazole Sodium (Pantoprazole Bolus/Drip) 1 each IV NOW STA Stop: 12/29/24 12:07 Last Admin: 12/29/24 13:56 Dose: Not Given Documented By: NEO Imaging Data Radiologist's Impression: Abdomen/Pelvis CT 12/29/24 12:[address] WITH IV CONTRAST CT DOSE: 1689.5 mGy.cm HISTORY: Acute GI bleed gi bleed TECHNIQUE: Multiaxial CT images of the abdomen and pelvis were performed following the IV administration of 93 cc of Optiray, A dose lowering technique was utilized adhering to the principles of ALARA. COMPARISON STUDY: 02/28/2023, 02/08/2020. FINDINGS: Coronary artery calcifications. Cylindrical bibasilar bronchiectasis with subsegmental fibrotic changes of the right middle lobe. Subpleural reticulation of the basal lower lobes. Mild bibasilar mucous plugging. No pneumatosis or pneumoperitoneum. Unremarkable spleen, atrophic pancreas and adrenal glands. 1.8 cm ovoid cystic focus within the right upper quadrant abdomen on image 106 series 9 but the adjacent pancreatic head and duodenum. This is nonspecific however favored to be benign. Cholecystectomy is likely postsurgical biliary ductal dilation. Unremarkable liver. There is patency of the hepatic and portal veins. Nonobstructing calculi in the left kidney measure up to 6 mm. There are a few punctate nonobstructing calculi in the left kidney. No ureteral calculi or hydronephrosis. Unremarkable urinary bladder. There is apparent loculated fluid within the fundal endometrial cavity on image 260 series 9. 6.0 x 3.6 cm left adnexal cystic lesion. This measured 3.9 cm on the study from 2019. Atherosclerosis of the aorta without aneurysm. No lymphadenopathy. Fluid-filled distal esophagus with tiny hiatal hernia. Zac-en-Y gastric bypass. No bowel obstruction. Mild rectal wall thickening. The appendix is reportedly surgically absent. Unremarkable soft tissues. Degenerative changes of the spine, pelvis and hips. IMPRESSION: 1. No bowel obstruction or pneumoperitoneum. 2. Equivocal wall thickening of the rectum. Correlate clinically to exclude a nonspecific proctitis. 3. Loculated fluid within the fundal endometrial cavity, considered pathologic in a postmenopausal patient. Gynecologic follow-up recommended. 4. Chronic left adnexal cystic lesion has slowly increased in size compared to the study from 2019. 5. Nonobstructing bilateral nephrolithiasis. 6. Additional findings as above. ACT 112: Negative or not required by law. The above report was generated using voice recognition software. It may contain grammatical, syntax or spelling errors. Electronically signed by: Haim Doe M.D. 12/29/2024 1:[address] 12/29/24 12:08 CT cervical spine wo con CLINICAL HISTORY: fall. COMPARISON: 02/28/2023 TECHNIQUE: Multiple axial CT images of the cervical spine were obtained without contrast. A dose lowering technique was utilized adhering to the principles of ALARA. FINDINGS: No significant interval changes have occurred. There is no evidence of fracture or traumatic malalignment. Minimal changes of spondylosis are present at C3-4, C4-5, C5-6. The prevertebral soft tissues are not swollen. The odontoid is intact. There is no definite soft tissue lesion of significance. The epiglottis is normal. IMPRESSION: No evidence of acute traumatic cervical spine injury. ACT 112: Negative or not required by law. The above report was generated using voice recognition software. It may contain grammatical, syntax or spelling errors. Electronically signed by: Lupe Mena M.D. 12/29/2024 1:[address] 12/29/24 12:08 CT head/brain wo con CLINICAL HISTORY: fall hit head. TECHNIQUE: Multiple axial CT images of the head were obtained without contrast. A dose lowering technique was utilized adhering to the principles of ALARA. CT DOSE: 624 COMPARISON: 02/28/2023 FINDINGS: There is stable severe patchy periventricular hypodensity, nonspecific, but usually represents chronic small vessel ischemic changes. Stable globus pallidus calcifications, unremarkable in this age group. No intracranial hemorrhage seen. No mass effect, midline shift, or hydrocephalus. There is a small left frontal scalp hematoma. No skull fracture seen. Clear visualized paranasal sinuses and mastoid air cells. IMPRESSION: No acute intracranial findings. Otherwise as described. ACT 112: Negative or not required by law. The above report was generated using voice recognition software. It may contain grammatical, syntax or spelling errors. Electronically signed by: Tyson Perez M.D. 12/29/2024 1:01 PM Discharge Plan Visit Data Chief Complaint: Vomiting Stated Complaint: VOMIT, WEAK, ED Provider: Wolf Solitario Discharge Problem: Acute upper gastrointestinal bleeding, Acute GI bleeding, Anemia Forms Stand Alone Forms: My [facility] Prescriptions Prescriptions: No Action lorazepam [Ativan] 0.5 mg Tablet 0.5 mg PO HS multivitamin Tablet 2 tab PO QAM Rx Instructions: TAKE TWO [place] CHEWABLES EVERY MORNING acetaminophen [Tylenol Extra Strength] 500 mg Tablet 1,000 mg PO Q6H PRN (Reason: Pain) trazodone 100 mg tablet 100 mg PO HS potassium citrate 10 mEq (1,080 mg) tablet extended release 30 meq PO TID duloxetine 60 mg capsule,delayed release(DR/EC) 60 mg PO QAM zolpidem 5 mg tablet 5 mg PO HS PRN (Reason: Insomnia) cholecalciferol (vitamin D3) 25 mcg (1,000 unit) Tablet 50 mcg PO DAILY aspirin 81 mg Tablet 81 mg PO DAILY duloxetine 30 mg capsule,delayed release(DR/EC) 30 mg PO DAILY Rx Instructions: takes in addition to 60mg daily for total of 90 mg Referrals Referrals: Juan Jay DO [Primary Care Provider] - Discharge Problem: Anemia Qualifiers: Anemia type: unspecified type Qualified Code(s): D64.9 - Anemia, unspecified
[2024-12-29 12:17] LABS: Basophils # (auto) 0.02 K/uL (0.00-0.20); Basophils % (auto) 0.2 %; Hematocrit (blood only) 30.5 % (37.0-47.0); Hemoglobin 9.9 g/dl (12.0-16.0); Immature Granulocytes # (auto) 0.07 K/uL (0.01-0.20); Immature Granulocytes % (auto) 0.7 %; Lymphocytes # (auto) 0.74 K/uL (1.20-3.40); Lymphocytes % (auto) 7.7 %; Mean Corpuscular Hemoglobin 32.7 pg (25.0-34.0); Mean Corpuscular Hgb Conc 32.5 g/dL (32.0-36.0); Mean Corpuscular Volume 100.7 fL (80.0-100.0); Mean Platelet Volume 9.5 fL (9.4-12.4); Monocytes # (auto) 0.33 K/uL (0.11-0.59); Monocytes % (auto) 3.4 %; Neutrophils # (auto) 8.46 K/uL (1.40-6.50); Platelet Count 379 K/uL (130-400); RDW Coefficient of Variation 13.8 % (11.5-14.5); RDW Standard Deviation 51.4 fL (36.4-46.3); Red Blood Count 3.03 M/uL (4.20-5.40); White Blood Count 9.62 K/ul (4.8-10.8)
[2024-12-29 12:21] LABS: iSTAT Creatinine 1.3 mg/dl (0.6-1.3); iSTAT Hemoglobin 9.2 g/dl (12.0-16.0); iSTAT Ionized Calcium 1.12 mmol/l (1.12-1.32); iSTAT Potassium 4.2 mmol/L (3.3-5.0)
--- NOTE | 2024-12-29 12:31 | Gastrointestinal Consultation ---
Date of Consultation December 29, 2024 Assessment & Plan (1) Hx of bariatric surgery: 74 year old female w/ history of hyperparathyroidism, giant cell arteritis, HTN, CKD, RLS, DDD, BPPV, anxiety, depression, obesity s/p RYGB in 2012 presenting to the ED w/ report of epigastric abd pain and four episodes coffee ground emesis and melena. She is hemodynamically stable w/ HGB 9.2 and BP 119/66 Last EGD in 2019 w/ erosion at the gastric side of the anastomosis, she denies NSAIDs, ETOH or tobacco use. DDX discussed: erosion, PUD, gastritis, esophagitis, MWT vs other - Follow CT results when able - Continue supportive measures today - NPO after midnight - Trend H&H - Monitor and document GI output - Transfuse PRN per primary team - Continue IV PPI bolus/drip - No NSAIDs - EGD 12/30/24 unless urgently indicated We appreciate assistance in the management of any serological abnormality and corrections to include: hemoglobin >7, INR <2, platelets >50,000, potassium levels >3.5 but <5.3, and sodium levels within 5 points of the reference range prior to endoscopic evaluation. I spent a total of 60 minutes on the date of service in review of patient's record, and previously obtained information in person and appropriate medical visit, discussion and education of plan, with patient and/or caregiver, placing orders for tests/referral/procedures as medically necessary and documentation of pertinent clinical information in patient's medical records for their visit today. Thank you for allowing us to participate in the care of this patient. Please call with any acute changes, questions or concerns. Please see addendum below with additional recommendation from my supervising physician. Supervising Physician Co-Signing Physician Notes I personally saw and examined the patient. I have reviewed the chart and agree with the documentation provided by the BLOOD BANK CALENDAR CONTROL CLERK including discussion about the assessment, treatment and plan. Briefly, 74 year old female w/ history of hyperparathyroidism, giant cell arteritis, HTN, CKD, RLS, DDD, BPPV, anxiety, depression, obesity s/p RYGB in 2012 presenting to the ED w/ report of epigastric abd pain and four episodes coffee ground emesis and melena. She is hemodynamically stable w/ HGB 9.2 and BP 119/66. She is on baby aspirin daily but denies any NSAID use. She does take Tylenol for aches and pains. On arrival to the emergency room she did have some coffee-ground emesis. She is tachycardic and feels a little nauseous. CT shows a fluid-filled esophagus. We will give her IV Reglan IV PPI twice daily fluids and keep her n.p.o. Our plan is to do an endoscopy tomorrow as likely would need intubation in [place] if we were going to do it today given her fluid-filled esophagus and stomach. Keep hemoglobin over 8 History of Present Illness Reason for Consultation: coffee ground emesis Requesting Physician: Dr. Solitario Attending Physician: Dr. Solitario History of Present Illness 74 year old female w/ history of hyperparathyroidism, giant cell arteritis, HTN, CKD, RLS, DDD, BPPV, anxiety, depression, obesity s/p RYGB in 2012 presenting to the ED w/ report of coffee ground emesis and dark stools - GI was asked to evaluate. Pt was seen and evaluated, chart reviewed. Family at bedside. Nursing staff in room in anticipation of CT scan. She notes symptoms started last evening. Upper abd pain/discomfort followed by large volume emesis. Black in col or. Endorses shortly after emesis she developed dark, tarry stools. She estimates about four episodes of coffee ground emesis and four episodes of melena. No report of hematemesis hematochezia. Suggests last episode of emesis was around 09/09 today. There is report of a fall - head CT, cervical spine CT and abd/pelvis CT ordered. HGB 11.2 --> 9.9 --> 9.2 BUN 42 w/ MILLER DISTILLERY 1.3 On a baby ASA No other NSAIDs No ETOH Denies tobacco Head CT: pending Cervical spine CT: pending CTAP 2024: pending Colonoscopy 2022: Diverticulosis in the sigmoid colon and in the descending colon. One 4 mm polyp at the hepatic flexure, removed with a cold snare. Resected and retrieved. The examination was otherwise normal. EGD 2019: There was no submucosal nodule at 15 cm. There was a small inlet patch at 15 cm. There was columnar appearing mucosa beginning at 35 cm. The GE junction was at 36 cm. This was biopsied. There was a gastroenteric anastamosis. The stomach pouch was normal. There was an erosion at the gastric side of the anastamosis. There was some granulation tissue and nodularity at the GE junction. This was biopsied.The small intestine was normal. EGD 2019: There was a small nodule in the upper esophagus at 15 cm that was soft to probing and biopsied. There was a small papilloma in the distal esophagus. The esophagus and gastroesophageal junction were examined with white light from a forward view and retroflexed position. There were esophageal mucosal changes secondary to established short-segment Lewis's disease. These changes involved the mucosa at the upper extent of the gastric folds (36 cm from the incisors) extending to the Z-line (35 cm from the incisors). One tongue of salmon-colored mucosa was present. The maximum longitudinal extent of these esophageal mucosal changes was 1 cm in length. Mucosa was biopsied with a cold forceps for histology. One specimen bottle was sent to pathology. There was evidence of a prior gastric bypass. The stomach mucosa and anastamosis was entirely normal. Random biopsies taken from throughout the stomach. The small intestine was normal. EGD 2014: Normal esophagus. Biopsied.Z-line regular, 34 cm from the incisors. R oux-en-Y gastrojejunostomy. The gastrojejunal anastomosis had healthy appearing mucosa. Biopsied. Normal examined jejunum. Colonoscopy 2012: The examined portion of the ileum was normal. Mild diverti culosis in the sigmoid colon.Internal hemorrhoids. One 10 mm polyp in the transverse colon. Allergies Allergy/AdvReac Type Severity Reaction Status Date / Time YAIR Inhibitors AdvReac Intermediate Cough Verified 03/29/21 07:41 aspirin AdvReac Mild Advised to Verified 03/29/21 07:41 avoid 2/2 hx bariatric surgery ibuprofen AdvReac Mild Advised to Verified 03/29/21 07:41 avoid 2/2 hx bariatric surgery naproxen AdvReac Mild Advised to Verified 03/29/21 07:41 avoid 2/2 hx bariatric surgery Home Medications Medication Instructions Recorded Confirmed Type lorazepam 0.5 mg tablet (Ativan) 0.5 mg PO HS 09/21/18 12/29/24 History multivitamin 2 tab PO QAM 09/21/18 12/29/24 History acetaminophen 500 mg tablet 1,000 mg PO Q6H PRN Pain 09/23/19 12/29/24 History (Tylenol Extra Strength) cholecalciferol (vitamin D3) 25 50 mcg PO DAILY 02/28/23 12/29/24 History mcg (1,000 unit) tablet duloxetine 60 mg capsule,delayed 60 mg PO QAM 02/28/23 12/29/24 History release potassium citrate 10 mEq (1,080 30 meq PO TID 02/28/23 12/29/24 History mg) tablet,extended release trazodone 100 mg tablet 100 mg PO HS 02/28/23 12/29/24 History zolpidem 5 mg tablet 5 mg PO HS PRN Insomnia 02/28/23 12/29/24 History aspirin 81 mg tablet 81 mg PO DAILY 12/29/24 12/29/24 History duloxetine 30 mg capsule,delayed 30 mg PO DAILY 12/29/24 12/29/24 History release Patient History Medical History (Updated 12/29/24 @ 14:36 by Wolf Solitario DO) CKD (chronic kidney disease), stage III Hyperlipidemia no meds yet Kidney stones Hypertension Giant cell arteritis remote hx (2018) > resolved Degenerative disc disease Urinary urgency Chronic kidney disease Stage III, follows with [facility] nephrology (Dr. Hurd) > hasn't seen in a while> stable Hx of pancreatitis 5+ years ago > led to cholecystectomy Anemia "Mild"/no known hx of blood transfusion Anxiety and depression Restless leg syndrome Surgical History History of cystoscopy Cystoscopy, laser lithotripsy: 04/15/18: LMA#4 at [facility] History of lithotripsy History of repair of rotator cuff R/L History of colonoscopy History of gastric bypass 09/2013 History of cholecystectomy History of tooth extraction History of cataract surgery R/L Family History Sister Family history of diabetes mellitus Father Family history of esophageal cancer Mother Family history of reaction to anesthesia SLOW TO WAKE UP Social History Smoking Status: Former smoker Second Hand Exposure: No; Do You Dip or Chew Tobacco: No; Hx Alcohol Use: No Hx Substance Use: No Preferred Language: [place] Communication Ability: Effective Machine Installer Required: No Beliefs That Will Affect Care: None Current Living Situation: Spouse Feels Safe at Home: Yes Assistive Devices: Glasses Review of Systems Review of Systems: All other findings negative except as noted in HPI. Physical Exam Constitutional: WD/WN, vitals as above Respiratory: normal respiratory effort Cardiovascular: Rate/Rhythm: regular rate and regular rhythm Gastrointestinal (Abdomen): normal bowel sounds, soft, nontender, no hepatosplenomegaly Skin: no rashes, warm and dry Results & Data Vital Signs (Past 12 Hours) Vital Signs Temp Pulse Resp BP Pulse Ox 12/29/24 11:35 94.5 F L 115 H 20 119/66 97 Laboratory Results 12/29/24 12/29/24 12/29/24 Range/Units 12:08 11:54 11:52 WBC 9.62 (4.8-10.8) K/ul RBC 3.03 L (4.20-5.40) M/uL Hgb 9.9 L (12.0-16.0) g/dl POC Hgb 9.2 L (12.0-16.0) g/dl Hct 30.5 L (37.0-47.0) % POC Hct 27 L (37-47) % MCV 100.7 H (80.0-100.0) fL MCH 32.7 (25.0-34.0) pg MCHC 32.5 (32.0-36.0) g/dL RDW Std Deviation 51.4 H (36.4-46.3) fL RDW Coeff of Brandon 13.8 (11.5-14.5) % Plt Count 379 (130-400) K/uL MPV 9.5 (9.4-12.4) fL Immature Gran % (Auto) 0.7 % Neut % (Auto) 88.0 % Lymph % (Auto) 7.7 % Ada % (Auto) 3.4 % Eos % (Auto) 0.0 % Baso % (Auto) 0.2 % Neut # (Auto) 8.46 H (1.40-6.50) K/uL Lymph # (Auto) 0.74 L (1.20-3.40) K/uL Ada # (Auto) 0.33 (0.11-0.59) K/uL Eos # (Auto) 0.00 (0.00-0.50) K/uL Baso # (Auto) 0.02 (0.00-0.20) K/uL Immature Gran # (Auto) 0.07 (0.01-0.20) K/uL PT Pending INR Pending APTT Pending PTT Ratio Pending POC Sodium 139 (135-144) mmol/L Sodium Pending POC Potassium 4.2 (3.3-5.0) mmol/L Potassium Pending POC Chloride 104 (101-112) mmol/L Chloride Pending Carbon Dioxide Pending POC Total CO2 26 (24-31) mmol/L Anion Gap Pending POC Anion Gap 15.0 L (16-25) mmol/L POC BUN 42 H (7-18) mg/dl BUN Pending Creatinine Pending POC Creatinine 1.3 (0.6-1.3) mg/dl Est Cr Clr Drug Dosing Pending eGFR Pending BUN/Creatinine Ratio Pending Glucose Pending POC Glucose (other) 174 H (70-99) mg/dl Calcium Pending POC Ioniz Calcium Abdulkadir 1.12 (1.12-1.32) mmol/l Total Bilirubin Pending AST Pending ALT Pending Alkaline Phosphatase Pending Total Protein Pending Albumin Pending Globulin Pending Albumin/Globulin Ratio Pending Blood Type Pending Antibody Screen Pending PG Care Time/CCT Total # of Minutes Spent Total Time Spent with Patient: Total time spent is greater than 50% in coordination of care (as documented) at patient's floor/unit and/or counseling patient: Coding Level of Care Code 57320 INT INP/OBS CARE MIN Diagnoses Hx of bariatric surgery Z98.84
[2024-12-29 12:37] LABS: Albumin Globulin Ratio 1.2 (0.9-2); Albumin Level 3.6 gm/dl (3.4-5.0); BUN Creatinine Ratio 45.9 (10-20); Bilirubin,Total 0.9 mg/dl (0.2-1.0); Calcium 8.9 mg/dl (8.6-10.3); Creatinine Clr Calc Pharmacy 32.4 ml/min; Globulin 3.1 gm/dl (2.5-4.0); Potassium 4.4 mmol/L (3.5-5.1); Total Protein 6.7 gm/dl (6.0-8.3)
[2024-12-29] MEDS: OPTIRAY 320 100ml IV ONE (12:42)
[2024-12-29] MEDS: PANTOprazole 80 MG in DEXTROSE 5% 100 ML IV ONE (12:51)
[2024-12-29] MEDS: SODIUM CHLORIDE 0.9% 1,000 ML IV ONE (12:51)
[2024-12-29 12:52] LABS: Partial Thromboplastin Ratio 0.9; Partial Thromboplastin Time 23 Seconds (21-31); Prothrombin Time 11.2 Seconds (9.0-12.0)
--- NOTE | 2024-12-29 13:02 | CT Scan Report ---
CT cervical spine wo con CLINICAL HISTORY: fall. COMPARISON: 02/28/2023 TECHNIQUE: Multiple axial CT images of the cervical spine were obtained without contrast. A dose low ering technique was utilized adhering to the principles of ALARA. FINDINGS: No significant interval changes have occurred. There is no evidence of fracture or traumati c malalignment. Minimal changes of spondylosis are present at C3-4, C4-5, C5-6. The prevertebral soft tissues are not swollen. The odontoid is intact. There is no definite soft tissue lesion of signific ance. The epiglottis is normal. IMPRESSION: No evidence of acute traumatic cervical spine injury. ACT 112: Negative or not required by law. The above report was generated using voice recognition software. It may contain grammatical, syntax o r spelling errors. Electronically signed by: Lupe Mena M.D. 12/29/2024 1:01 PM
--- NOTE | 2024-12-29 13:03 | CT Scan Report ---
CT head/brain wo con CLINICAL HISTORY: fall hit head. TECHNIQUE: Multiple axial CT images of the head were obtained without contrast. A dose lowering tech nique was utilized adhering to the principles of ALARA. CT DOSE: 624 COMPARISON: 02/28/2023 FINDINGS: There is stable severe patchy periventricular hypodensity, nonspecific, but usually represe nts chronic small vessel ischemic changes. Stable globus pallidus calcifications, unremarkable in thi s age group. No intracranial hemorrhage seen. No mass effect, midline shift, or hydrocephalus. There is a small left frontal scalp hematoma. No skull fracture seen. Clear visualized paranasal sinuses an d mastoid air cells. IMPRESSION: No acute intracranial findings. Otherwise as described. ACT 112: Negative or not required by law. The above report was generated using voice recognition software. It may contain grammatical, syntax o r spelling errors. Electronically signed by: Tyson Perez M.D. 12/29/2024 1:01 PM
[2024-12-29] MEDS: PIPERACILLIN/TAZOBACTAM 4.5 GM/100 ML BAG IV ONE (13:06)
[2024-12-29] MEDS: PANTOprazole 40 MG in DEXTROSE 5% MINI-B 100 ML IV SCH (13:15)
--- NOTE | 2024-12-29 13:22 | History & Physical Report ---
Date of Service December 29, 2024 Assessment & Plan (1) Melena: (2) Coffee ground emesis: (3) CKD (chronic kidney disease), stage III: (4) Hypertension: (5) Anxiety and depression: Plan This is a 74-year-old female with PMH of hypertension, history of gastric bypass, CKD 3, restless leg syndrome, mood disorder, giant cell arteritis, hyperparathyroidism and other medical problems listed below presents from home with epigastric pain, nausea and vomiting since yesterday evening. Upper GI bleed History of gastric bypass surgery Coffee ground emesis and melena since last night, last episode of emesis 10 AM today Hgb 9.9 (11.2 in Sep 2024), symptomatic with lightheadedness Lactate 2.6 -> trend Transfusing 1u PRBCs now, repeat CBC Q6H starting this evening Continue PPI bolus and drip GI evaluated in ED - planning for EGD 12/30/24 unless urgently indicated NPO except meds + sips for now NPO after midnight Holding aspirin, no NSAIDs IV fluids, antiemetics History of hypokalemia Takes 30meq Kcl TID at home - continue, repeat BMP this evening Abnormal CT abd/pelvis Loculated fluid within the fundal endometrial cavity, considered pathologic in a postmenopausal patient. Gynecologic follow-up recommended Added routine pelvic ultrasound for tomorrow Fall Hit head at home overnight No acute findings on CT head, cervical CT spine Fall precautions, volume resuscitation May benefit from PT/OT later once stabilized CKD III Cr 1.1 (baseline 1.1-1.3) Monitor with daily BMP Mood disorder Insomnia Grieving recent loss of Continue duloxetine, ativan, trazodone DVT Ppx: SCDs given GI bleed as above Code status: FULL PCP: Pierre Dispo: Admitted to PCU Patient seen in collaboration with Dr. Novak. Please see addendum. I spent a total of 75 minutes coordinating, documenting, and providing care for this patient excluding time spent in the performance of separately billed services or time spent by another provider/QHP. History of Present Illness Chief Complaint: melena Primary Care Provider: Juan Jay, DO This is a 74-year-old female with PMH of hypertension, history of gastric bypass, CKD 3, restless leg syndrome, mood disorder, giant cell arteritis, hyperparathyroidism and other medical problems listed below presents from home with epigastric pain, nausea and vomiting since yesterday evening. Symptoms started last evening and describes as sudden lower abdominal cramping pain that then moved towards her upper abdomen. Had a large volume emesis that was black in color, followed by 3 additional episodes of coffee-ground emesis. Also endorses 4 episodes of black stool that started last evening and continued overnight. Last episode of vomiting was around 10 AM this AM prior to arrival. Did have a fall overnight when she tried to get up from bed. No LOC. Still feels weak and lightheaded. Pain and nausea have improved since arrival. No additional emesis or melanotic events while in ER. Does have remote history of gastric bypass surgery. Does not use ibuprofen but has been on aspirin 81mg since knee surgery in September. Does not remember being instructed on how long to continue taking it. Otherwise uses PRN Tylenol for pain. Of note, patient's passed recently and has experiencing insomnia and reduced appetite. Had duloxetine increased from 60 to 90mg daily and has been using ativan and trazodone to sleep. No F/C, cough, congestion, CP, SOB, palpitations, dysuria. Allergies Allergy/AdvReac Type Severity Reaction Status Date / Time YAIR Inhibitors AdvReac Intermediate Cough Verified 03/29/21 07:41 aspirin AdvReac Mild Advised to Verified 03/29/21 07:41 avoid 2/2 hx bariatric surgery ibuprofen AdvReac Mild Advised to Verified 03/29/21 07:41 avoid 2/2 hx bariatric surgery naproxen AdvReac Mild Advised to Verified 03/29/21 07:41 avoid 2/2 hx bariatric surgery Home Medications Medication Instructions Recorded Confirmed Type lorazepam 0.5 mg tablet (Ativan) 0.5 mg PO HS 09/21/18 12/29/24 History multivitamin 2 tab PO QAM 09/21/18 12/29/24 History acetaminophen 500 mg tablet 1,000 mg PO Q6H PRN Pain 09/23/19 12/29/24 History (Tylenol Extra Strength) cholecalciferol (vitamin D3) 25 50 mcg PO DAILY 02/28/23 12/29/24 History mcg (1,000 unit) tablet duloxetine 60 mg capsule,delayed 60 mg PO QAM 02/28/23 12/29/24 History release potassium citrate 10 mEq (1,080 30 meq PO TID 02/28/23 12/29/24 History mg) tablet,extended release trazodone 100 mg tablet 100 mg PO HS 02/28/23 12/29/24 History zolpidem 5 mg tablet 5 mg PO HS PRN Insomnia 02/28/23 12/29/24 History aspirin 81 mg tablet 81 mg PO DAILY 12/29/24 12/29/24 History duloxetine 30 mg capsule,delayed 30 mg PO DAILY 12/29/24 12/29/24 History release Past Med/Surg History Problem List Anemia (Acute) Acute GI bleeding (Acute) Acute upper gastrointestinal bleeding (Acute) Coffee ground emesis Melena Hypertension (Chronic) Hyperlipidemia (Chronic) Acute pancreatitis (Acute) Depression (Chronic) Benign neoplasm of colon (Chronic) Pancreatitis (Acute) Acute foreign body of right forearm (Acute) Shingles (Acute) Left flank pain (Acute) Pancreatitis Herpes zoster Hx of bariatric surgery (Chronic) "09/2013" ULISES (acute kidney injury) Encounter for pre-operative examination Nephrolithiasis Renal calculus, bilateral Calculus of left kidney Sleep apnea (Chronic) "resolved" with weight loss > no formal retesting Osteoarthritis (Chronic) BPPV (benign paroxysmal positional vertigo) (Chronic) No issues x 10+ years History of tubal ligation (Chronic) History of pubovaginal sling (Chronic) H/O esophagogastroduodenoscopy (Chronic) Medical History (Updated 12/29/24 @ 14:36 by Wolf Solitario DO) CKD (chronic kidney disease), stage III Hyperlipidemia no meds yet Kidney stones Hypertension Giant cell arteritis remote hx (2018) > resolved Degenerative disc disease Urinary urgency Chronic kidney disease Stage III, follows with [facility] nephrology (Dr. Hurd) > hasn't seen in a while> stable Hx of pancreatitis 5+ years ago > led to cholecystectomy Anemia "Mild"/no known hx of blood transfusion Anxiety and depression Restless leg syndrome Surgical History History of cystoscopy Cystoscopy, laser lithotripsy: 04/15/18: LMA#4 at [facility] History of lithotripsy History of repair of rotator cuff R/L History of colonoscopy History of gastric bypass 09/2013 History of cholecystectomy History of tooth extraction History of cataract surgery R/L Family History Sister Family history of diabetes mellitus Father Family history of esophageal cancer Mother Family history of reaction to anesthesia SLOW TO WAKE UP Social History Smoking Status: Former smoker Second Hand Exposure: No; Do You Dip or Chew Tobacco: No; Hx Alcohol Use: No Hx Substance Use: No Preferred Language: Estonian Communication Ability: Effective Automatic Maintainer Required: No Beliefs That Will Affect Care: None Current Living Situation: Spouse Feels Safe at Home: Yes Assistive Devices: Glasses Review of Systems Review of Systems: At least ten systems reviewed and negative except as noted in the HPI. Physical Exam Physical Exam: General Appearance: WD/WN, vitals as above, NAD, sitting up in bed, pleasant, appears ill Head: normocephalic, atraumatic Eyes: normal inspection, PERRL, conjunctivae normal, anicteric sclerae ENT: external ear and nose normal, oropharynx normal Neck: normal visual inspection, trachea midline, no thyromegaly Respiratory: normal respiratory effort, lungs clear to auscultation, no wheeze, rales, rhonchi. No accessory muscle use Cardiovascular: tachycardic rate, regular rhythm, normal peripheral pulses, no BLE edema. Vessels: no JVD Chest: normal inspection of chest Abdomen/GI: normal bowel sounds, soft, nontender, no hepatosplenomegaly Extremities/Musculoskeletal: no cyanosis or clubbing, extremities motor strength 5/5 Neurologic: PERRL, EOMI, accommodation nl, no face palsy, no dysarthria, CN's II-XI intact bilaterally and moves all extremities Psychiatric: A+Ox3, euthymic affect Skin: no rashes, warm/dry, + pale Results & Data Results & Data Vital Signs (Past 12 Hours) Vital Signs Temp Pulse Resp BP Pulse Ox 12/29/24 13:10 36.5 C 12/29/24 12:26 93 H 12/29/24 11:35 34.7 C L 115 H 20 119/66 97 Laboratory Results Short CBC 12/29/24 Range/Units 11:54 WBC 9.62 (4.8-10.8) K/ul Hgb 9.9 L (12.0-16.0) g/dl Hct 30.5 L (37.0-47.0) % Plt Count 379 (130-400) K/uL BMP 12/29/24 11:54 Sodium 139 Potassium 4.4 Chloride 103 Carbon Dioxide 29 BUN 51 H Creatinine 1.11 Glucose 184 H Calcium 8.9 Liver Function 12/29/24 Range/Units 11:54 Total Bilirubin 0.9 (0.2-1.0) mg/dl AST 21 (13-39) U/L ALT 17 (7-52) U/L Alkaline Phosphatase 87 (34-104) U/L Albumin 3.6 (3.4-5.0) gm/dl Diagnostic Findings Abdomen/Pelvis CT 12/29/24 12:[address] WITH IV CONTRAST CT DOSE: 1689.5 mGy.cm HISTORY: Acute GI bleed gi bleed TECHNIQUE: Multiaxial CT images of the abdomen and pelvis were performed following the IV administration of 93 cc of Optiray, A dose lowering technique was utilized adhering to the principles of ALARA. COMPARISON STUDY: 02/28/2023, 02/08/2020. FINDINGS: Coronary artery calcifications. Cylindrical bibasilar bronchiectasis with subsegmental fibrotic changes of the right middle lobe. Subpleural reticulation of the basal lower lobes. Mild bibasilar mucous plugging. No pneumatosis or pneumoperitoneum. Unremarkable spleen, atrophic pancreas and adrenal glands. 1.8 cm ovoid cystic focus within the right upper quadrant abdomen on image 106 series 9 but the adjacent pancreatic head and duodenum. This is nonspecific however favored to be benign. Cholecystectomy is likely postsurgical biliary ductal dilation. Unremarkable liver. There is patency of the hepatic and portal veins. Nonobstructing calculi in the left kidney measure up to 6 mm. There are a few punctate nonobstructing calculi in the left kidney. No ureteral calculi or hydronephrosis. Unremarkable urinary bladder. There is apparent loculated fluid within the fundal endometrial cavity on image 260 series 9. 6.0 x 3.6 cm left adnexal cystic lesion. This measured 3.9 cm on the study from 2019. Atherosclerosis of the aorta without aneurysm. No lymphadenopathy. Fluid-filled distal esophagus with tiny hiatal hernia. Zac-en-Y gastric bypass. No bowel obstruction. Mild rectal wall thickening. The appendix is reportedly surgically absent. Unremarkable soft tissues. Degenerative changes of the spine, pelvis and hips. IMPRESSION: 1. No bowel obstruction or pneumoperitoneum. 2. Equivocal wall thickening of the rectum. Correlate clinically to exclude a nonspecific proctitis. 3. Loculated fluid within the fundal endometrial cavity, considered pathologic in a postmenopausal patient. Gynecologic follow-up recommended. 4. Chronic left adnexal cystic lesion has slowly increased in size compared to the study from 2019. 5. Nonobstructing bilateral nephrolithiasis. 6. Additional findings as above. ACT 112: Negative or not required by law. The above report was generated using voice recognition software. It may contain grammatical, syntax or spelling errors. Electronically signed by: Haim Doe M.D. 12/29/2024 1:[address] 12/29/24 12:08 CT cervical spine wo con CLINICAL HISTORY: fall. COMPARISON: 02/28/2023 TECHNIQUE: Multiple axial CT images of the cervical spine were obtained without contrast. A dose lowering technique was utilized adhering to the principles of ALARA. FINDINGS: No significant interval changes have occurred. There is no evidence of fracture or traumatic malalignment. Minimal changes of spondylosis are present at C3-4, C4-5, C5-6. The prevertebral soft tissues are not swollen. The odontoid is intact. There is no definite soft tissue lesion of significance. The epiglottis is normal. IMPRESSION: No evidence of acute traumatic cervical spine injury. ACT 112: Negative or not required by law. The above report was generated using voice recognition software. It may contain grammatical, syntax or spelling errors. Electronically signed by: Lupe Mena M.D. 12/29/2024 1:[address] 12/29/24 12:08 CT head/brain wo con CLINICAL HISTORY: fall hit head. TECHNIQUE: Multiple axial CT images of the head were obtained without contrast. A dose lowering technique was utilized adhering to the principles of ALARA. CT DOSE: 624 COMPARISON: 02/28/2023 FINDINGS: There is stable severe patchy periventricular hypodensity, nonspecific, but usually represents chronic small vessel ischemic changes. Stable globus pallidus calcifications, unremarkable in this age group. No intracranial hemorrhage seen. No mass effect, midline shift, or hydrocephalus. There is a small left frontal scalp hematoma. No skull fracture seen. Clear visualized paranasal sinuses and mastoid air cells. IMPRESSION: No acute intracranial findings. Otherwise as described. ACT 112: Negative or not required by law. The above report was generated using voice recognition software. It may contain grammatical, syntax or spelling errors. Electronically signed by: Tyson Perez M.D. 12/29/2024 1:01 PM Code Status & VTE Plan VTE Prophylaxis Plan VTE Prophylaxis will be ordered: Yes Supervising Physician Co-Signing Physician Notes Patient seen and examined independently. Discussed with over provider Patient is a 74-year-old female with past medical history of bariatric bypass surgery who presents to the hospital with coffee-ground emesis, melena and epigastric pain. CBC reveals hemoglobin of 9 g/dL; lower than her baseline of 11.2. On physical examination; Constitutional: Awake, alert oriented x 3. Appears tired, pale. Respiratory: Bilateral vesicular breath sound Cardiovascular: RRR, no murmur, no edema Vessels: no JVD or carotid bruit Chest: normal inspection of chest Abdomen: Tenderness present in epigastric region. Musculoskeletal: no cyanosis or clubbing, extremities motor strength 5/5 Skin: no rashes, warm and dry normal turgor Neurologic: PERRL, EOMI, accommodation nl, no face palsy, no dysarthria CN's II- XI intact bilaterally and moves all extremities Assessment/plan Upper GI bleed; Continue on Protonix drip CBC every 6 hours; transfuse if hemoglobin is less than 7 or acute hemorrhage is present. Patient is going to receive 1 unit of packed RBC at this time. Reached out to GI if patient can undergo EGD today; awaiting to hear back. Ana for nausea Stop aspirin indefinitely I have reviewed the advanced practitioner's documentation, and I agree with, and take responsibility for the plan of care I spent a total of 30 minutes coordinating, documenting, and providing care for this patient excluding time spent in the performance of separately billed services. All of the aforementioned completed while collaborating with the assigned advanced practitioner for a full treatment plan
--- NOTE | 2024-12-29 13:34 | CT Scan Report ---
ABDOMEN AND PELVIS CT WITH IV CONTRAST CT DOSE: 1689.5 mGy.cm HISTORY: Acute GI bleed gi bleed TECHNIQUE: Multiaxial CT images of the abdomen and pelvis were performed following the IV administrat ion of 93 cc of Optiray, A dose lowering technique was utilized adhering to the principles of ALARA. COMPARISON STUDY: 02/28/2023, 02/08/2020. FINDINGS: Coronary artery calcifications. Cylindrical bibasilar bronchiectasis with subsegmental fibr otic changes of the right middle lobe. Subpleural reticulation of the basal lower lobes. Mild bibasil ar mucous plugging. No pneumatosis or pneumoperitoneum. Unremarkable spleen, atrophic pancreas and adrenal glands. 1.8 cm ovoid cystic focus within the right upper quadrant abdomen on image 106 series 9 but the adjacent pancreatic head and duodenum. This is nonspecific however favored to be benign. Cholecystectomy is likely postsurgical biliary ductal dilat ion. Unremarkable liver. There is patency of the hepatic and portal veins. Nonobstructing calculi in the left kidney measure up to 6 mm. There are a few punctate nonobstructing calculi in the left kidney. No ureteral calculi or hydronephrosis. Unremarkable urinary bladder. The re is apparent loculated fluid within the fundal endometrial cavity on image 260 series 9. 6.0 x 3.6 cm left adnexal cystic lesion. This measured 3.9 cm on the study from 2019. Atherosclerosis of the ao rta without aneurysm. No lymphadenopathy. Fluid-filled distal esophagus with tiny hiatal hernia. Zac-en-Y gastric bypass. No bowel obstruction . Mild rectal wall thickening. The appendix is reportedly surgically absent. Unremarkable soft tissue s. Degenerative changes of the spine, pelvis and hips. IMPRESSION: 1. No bowel obstruction or pneumoperitoneum. 2. Equivocal wall thickening of the rectum. Correlate clinically to exclude a nonspecific proctitis. 3. Loculated fluid within the fundal endometrial cavity, considered pathologic in a postmenopausal pa tient. Gynecologic follow-up recommended. 4. Chronic left adnexal cystic lesion has slowly increased in size compared to the study from 2019. 5. Nonobstructing bilateral nephrolithiasis. 6. Additional findings as above. ACT 112: Negative or not required by law. The above report was generated using voice recognition software. It may contain grammatical, syntax o r spelling errors. Electronically signed by: Haim Doe M.D. 12/29/2024 1:32 PM
[2024-12-29] MEDS: PANTOPRAZOLE BOLUS/DRIP IV STA (13:56)
[2024-12-29] MEDS ORDERED: ONDANSETRON INJ 2 MG/ML 2 ML VIAL IV PRN (14:58)
[2024-12-29] MEDS: ONDANSETRON INJ 2 MG/ML 2 ML VIAL ONE (15:00)
[2024-12-29] MEDS: SODIUM CHLORIDE 0.9% 1,000 ML IV SCH (15:19)
[2024-12-29] MEDS ORDERED: ZOLPIDEM TARTRATE 5 MG TAB PO PRN (15:59)
--- NOTE | 2024-12-29 16:01 | Electrocardiogram Report ---
Test Reason : Blood Pressure : */* mmHG Vent. Rate : 108 BPM Atrial Rate : 108 BPM P-R Int : 156 ms QRS Dur : 66 ms QT Int : 336 ms P-R-T Axes : 44 42 96 degrees QTcB Int : 450 ms Sinus tachycardia Anteroseptal infarct (cited on or before 28-Feb-2023) Abnormal ECG When compared with ECG of 28-Feb-2023 17:45, No significant change was found Confirmed by Max Hernandez ([id number]) on 12/29/2024 4:01:16 PM Referred By: NO PCP Confirmed By: Max Hernandez
[2024-12-29] MEDS: SODIUM CHLORIDE 0.9% 500 ML IV ONE (16:50)
[2024-12-29] MEDS: ALPRAZolam 0.25 MG TABLET PO ONE (16:50)
[2024-12-29] MEDS: POTASSIUM CITRATE 10 MEQ TAB PO SCH (17:36)
--- OUTSIDE RECORDS SUMMARY | 2024-12-29 17:56 | External Medical Summary | Summary of Care ---
Author Name Unknown Organization [facility] Address [address] [place] [address] Phone [phone] Care Team Providers Care Business Development Manager Name Role Phone Arlen Jay DO Primary Care Provider Reason for Visit * Reason Onset Date Comments Medication Refill 12/19/2024 Encounter Details Date Type Department Care Team (Late st Contact Info) Description 12/19/2024 Refill Family Practice [facility] [address] [place] [address] Arlen Jay DO [address] [place] [address] BRADY (generalized anxiety disorder) Allergies Active Allergy Reactions Criticality Noted Date Comments Kraig Inhibitors 05/17/2007 Cough Nsaids Other (Please comment) 07/02/2018 Due to kidney issues documented as of this encounter (statuses as of 12/20/2024) Medications acetaminophen (TYLENOL) 500 MG Tablet 2 Tablets. 9 Active Multivitamins Oral Capsule Take 1 Capsule by mouth in the morning. Active Vitamin D 50 MCG (1999) Oral Tablet Take 2,000 Units by mouth in the morning. 12/15/202 2 Active Potassium Citrate ER 10 MEQ (1080 MG) Oral Tablet Extended Release (Urocit-K)Indicati ons:Hypertensive kidney disease with stage 3b chronic kidney disease (HCC) take 3 tablets by mouth three times a day (MORNING, NOON, BEDTIME) 270 Tablet 3 4 Active Zolpidem Tartrate 5 MG Oral Tablet (Ambien)Indication s:Major depressive disorder, single episode, moderate (HCC) Take 1 Tablet by mouth at bedtime as needed for Sleep. 30 Tablet 5 4 Active traZODone HCl 100 MG Oral Tablet (Desyrel)Indicatio ns:Persistent insomnia take 1 tablet by mouth at bedtime 90 Tablet 3 4 Active Solifenacin Succinate 5 MG Oral Tablet (VESIcare) Take 1 Tablet by mouth in the morning. 90 Tablet 3 4 Active Mirabegron ER 50 MG Oral Tablet Extended Release 24 Hour (Myrbetriq) Take 1 Tablet by mouth in the morning. 90 Tablet 3 4 Active DULoxetine HCl 60 MG Oral Capsule Delayed Release Particles (Cymbalta)Indicati ons:Osteoarthritis of right knee, unspecified osteoarthritis type TAKE 1 CAPSULE BY MOUTH EVERY MORNING DO NOT CRUSH, CHEW, AND/OR DIVIDE 90 Capsule 5 4 Active Aspirin 81 MG Oral Tablet Delayed ReleaseIndications :Status post total right knee replacement Take 1 tablet by mouth in the morning, and 1 tablet by mouth at bedtime. - Oral 60 Tablet 4 Active Ferrous Sulfate 325 (65 Fe) MG Oral Tablet (Feosol)Indication s:Status post total right knee replacement Take 1 tablet by mouth at noon, and 1 tablet by mouth in the evening. - Oral. 14 Tablet 4 Active oxyCODONE HCl 5 MG Oral Tablet (Oxy IR)Indications:Sta tus post total right knee replacement Take 1 Tablet by mouth every 4 hours as needed for Pain, Severe. 30 Tablet 4 Active Sennosides 8.6 MG Oral Tablet (Senokot)Indicatio ns:Status post total right knee replacement Take 2 tablets by mouth in the morning. 14 Tablet 4 Active oxyCODONE HCl 5 MG Oral Capsule (Oxy IR)Indications:Aft ercare following right knee joint replacement surgery,Status post total right knee replacement Take 1 Capsule by mouth every 6 hours as needed for Pain, Severe. 20 Capsule 4 Active DULoxetine HCl 30 MG Oral Capsule Delayed Release Particles (Cymbalta)Indicati ons:Grief,Primary osteoarthritis of right knee Take 1 Capsule by mouth in the morning. Take in addition to the 60mg dose for a total of 90mg daily. Do not cut, crush or chew. 90 Capsule 3 4 Active LORazepam 0.5 MG Oral Tablet (Ativan)Indication s:BRADY (generalized anxiety disorder) Take 1 Tablet by mouth every 8 hours as needed for Anxiety. 30 Tablet 5 Active LORazepam 0.5 MG Oral Tablet (Ativan)Indication s:BRADY (generalized anxiety disorder) TAKE 1 TABLET BY MOUTH EVERY 8 HOURS NEEDED FOR ANXIETY 30 Tablet 4 025 Discontin ued(Refil l) documented as of this encounter (statuses as of 12/20/2024) Active Problems Problem Noted Date Diagnosed Date Primary osteoarthritis of right knee 09/15/2024 Depression with anxiety 05/25/2024 Persistent insomnia 05/25/2024 OAB (overactive bladder) 05/25/2024 Hyperparathyroidism 05/12/2022 Chronic kidney disease, stage 3b 12/09/2021 Overview: Per CKD protocol Senile osteoporosis 02/10/2020 DDD (degenerative disc disease), lumbar 12/15/19 18 Giant cell arteritis 07/09/2017 BPPV (benign paroxysmal positional vertigo) 11/2013 Gastric bypass status for obesity 10/18/2013 Restless legs syndrome 07/18/2011 HTN, goal below 130/80 10/05/2009 Overview (10/05/2009): Modified per HTN Taxonomy. documented as of this encounter (statuses as of 12/20/2024) Resolved Problems Problem Noted Date Diagnosed Date Resolved Date Hypertensive kidney disease with stage 3b chronic kidney disease 12/09/2021 05/25/2024 Overview: Per CKD protocol Chronic kidney disease, stage 3a 04/09/2021 12/12/2021 Overview: Per CKD protocol Other anemias due to enzyme disorders 02/18/2021 05/25/2024 Hypertensive kidney disease with stage 3a chronic kidney disease 10/08/2020 12/12/2021 Overview: Per CKD protocol Chronic inflammatory demyeli nating polyneuritis 02/14/2020 02/14/2020 Hypertensive kidney disease with chronic kidney disease stage III 05/03/2019 10/11/2020 Overview: Per CKD protocol Encounter for examination fo r normal comparison and control in clinical research program 03/01/2019 07/02/2020 Overview (03/18/2021): DO NOT DELETE [facility] [place] DETECT Study: Project # [id number], Supervisor Assembly: Tyson Atwood, PhD. SUMMARY: Goal: Establish test characteristics (sensitivity, specificity, PPV, NPV) of a circulating tumor DNA (ctDNA)-based test for cancer. Hypothesis: Circulating tumor DNA (ctDNA) and elevated protein biomarkers (together, the marker panel) can be detected in asymptomatic individuals with early cancer. Specific Aim 1: Determine the prevalence of a positive marker panel test in a prospective clinical cohort of 10,000 asymptomatic women ages 65 to 75 years. Specific Aim 2: Determine the sensitivity, specificity, positive predictive value (PPV) and negative predictive value (NPV) of a marker panel test to identify histologically proven cancers that develop within 5-years of the marker panel evaluation. CONTACTS: During normal business hours, contact study staff at ; after hours Supervisor Assembly via the [facility] hospital popcorn machine operator . Please contact study team before resolving/deleting from patients problem list. Study phone number: [phone]. Diagnosis changed due to Research Module. Go to Snapshot for study details. Encounter for examination fo r normal comparison and control in clinical research program 03/01/2019 07/31/2022 Overview (03/18/2021): DO NOT DELETE [facility] [place] DETECT Study: Project # [id number], Supervisor Assembly: Jack Herrera, MS, MPH. SUMMARY: Goal: Establish test characteristics (sensitivity, specificity, PPV, NPV) of a circulating tumor DNA (ctDNA)-based test for cancer. - Hypothesis: Circulating tumor DNA (ctDNA) and elevated protein biomarkers (together, the marker panel) can be detected in asymptomatic individuals with early cancer. - Specific Aim 1: Determine the prevalence of a positive marker panel test in a prospective clinical cohort of 10,000 asymptomatic women ages 65 to 75 years. - Specific Aim 2: Determine the sensitivity, specificity, positive predictive value (PPV) and negative predictive value (NPV) of a marker panel test to identify histologically proven cancers that develop within 5-years of the marker panel evaluation. - CONTACTS: During normal business hours, contact study staff at ; after hours Supervisor Assembly via the [facility] hospital popcorn machine operator . - Please contact study team before resolving/deleting from patients problem list. Study phone number: [phone]. Diagnosis changed due to Research Module. Go to Snapshot for study details. Major depressive disorder, s dunia episode, moderate 05/13/2018 05/25/2024 Kidney disease, chronic, sta ge III (GFR 30-59 ml/min) 03/09/2018 05/11/2019 Overview: Per CKD protocol #1 Long-term use of immunosuppressant medication 12/15/19 18 05/25/2024 Elevated sedimentation rate 07/08/2017 02/14/2020 Elevated ferritin 07/08/2017 05/25/2024 Anemia 07/08/2017 05/25/2024 Gallstone pancreatitis 06/20/201505/11 Rhinitis, nonallergic 02/26/20152023 Lichenoid keratosis 03/03/2013 05/11/20 17 Obstructive sleep apnea 07/18/201104/30 Overview (08/31/2017): 07/30 to 09/14/11 -- 96% days >=4 hrs, AHI 1.4, 90th% pressure 8.6, no excessive leak 08/12/11 CPAP/RA -- low 84%, time <89% 3:40 mins, ZAN 2.3 07/18/11 - CPAP 7-10 05/2011 PSG -- CPAP 7, hypoxia 03/2011 PSG -- AHI 30 AHP ICD-10 update of inactive term HYPOXEMIA, nocturnal: Resolved with CPAP 07/18/2011 05/11/2017 Overview (08/19/2011): 08/12/11 Nocturnal ox CPAP/RA -- low 84%, time <89% 3:40 mins, ZAN 2.3 Herpes zoster 07/21/2010 05/11/2017 Dysfunction of eustachian tube 07/21/2010 05/11/2017 Obesity, Class II, BMI 35-39 .9, isolated (see actual BMI) 05/13/2010 05/11/2017 Overview (05/13/2010): Per Obesity Protocol, #19 HTN, goal below 140/90 07/28/200810/05 Overview (10/05/2009): Modified per HTN Taxonomy. Other demyelinating diseases of central nervous system 02/19/2007 05/11/2017 Overview (03/21/2011): ? MS ADVANCE DIRECTIVE INFORMATION 05/11/2006 05/25/2024 Overview (05/11/2006): No, Advance Directive brochure given to patient. DUPLICATED COLLECTION SYSTEM ON LEFT KIDNEY 01/16/2004 05/25/2024 GENERALIZED ANXIETY DIS 08/24/200101/29 Depression 03/18/2000 05/11/2017 Corns and callosities 09/04/19982006 Menopause 08/01/1998 02/19/2007 Major depressive disorder 12/14/1997 Overview (09/22/2017): ICD-10 update of inactive term Displacement of lumbar inter vertebral disc without myelopathy 05/11/2017 Thrombocytopathy 05/01/2016 Rotator cuff syndrome of right shoulder 05/25/2024 History of giant cell arteritis 02/14/2020 documented as of this encounter (statuses as of 12/20/2024) Immunizations Name Administration Dates Next Due COVID-19 mRNA, LNP-s, No Pre serve, 2-Dose Series (Moderna) 01/12/2021,12/29/2020 COVID-19, LNP-s, No Preserve , Felton-sucrose, Ages 12+ (Pfizer) 09/30/2021 COVID-19, MRNA-LNP, 24-25, P R, 30MCG/0.3ML, IM, 12YRS AND ABOVE ([facility]) 08/22/2024 COVID-19, MRNA-LNP, PF, 30 M CG/0.3 mL, 12 YRS AND ABOVE, IM ([facility]) 09/11/2023 PPD 07/15/2022,07/21/2019 Pneumococcal Conjugate Vacc, 13 Valent (Prevnar) 06/07/2015,11/13/2014 Pneumococcal Polysaccharide PPV23 (Pneumovax) 05/11/2017 RSV Vac., Bivalent, Perfusio n F, Pf,0.5 Ml (Abrysvo) 09/16/2023 Season Influenza, Quad, PF, Adjuvanted, 65+ Yrs, IM (FLUAD) 08/17/2020 Seasonal Influenza Vac., MDV , IM, 0.5 mL (Fluzone) 11/13/2014,09/30/2012,10/17/2011,12/11,09/27/2008 Seasonal Influenza, High Dos e, Trivalent, PF, IM (Fluzone HD) 08/22/2024 Seasonal Influenza, PF, 6 M & above, IM , (FluLaval or Fluzone) 08/23/2018,08/19/2017 Seasonal Influenza, Quadriva lent Hd (Fluzone Hd) 08/01/2022,08/26/2021 Seasonal Influenza, Quadriva lent, No Preserve, IM 09/16/2016,09/04/2015 Seasonal Influenza, Trivalen t, Adjuvanted, 65+ YRS, PF, (Fluad) 09/05/2019 TDAP (age 10 and older)(Boostrix) 05/13/2018 TDAP, Age 7 and older, IM (Adacel) 09/27/2008 Varicella Zoster Vaccine (Adult) 07/16/2013 Zoster Vaccine Recombinant (Shingrix) 02/02/2019 ,11/10/2018 documented as of this encounter Social History Tobacco Use Types Packs/Day Years Used Date Smoking Tobacco: Never Smokeless Tobacco: Never Comments:no passive smoke Alcohol Use Standard Drinks/Week Comments No 0 (1 standard drink = 0.6 oz pur e alcohol) PHQ-2 Answer Date Recorded PHQ Adult Total Score 2 01/18/2024 Hunger Vital Sign Answer Date Recorded Within the past 12 months, y ou worried that your food would run out before you got the money to buy more. Never true 09/29/20 24 Within the past 12 months, t he food you bought just didn't last and you didn't have money to get more. Never true 09/29/2024 Childcare Answer Date Recorded Do you feel overwhelmed with taking care of a child, family member or friend? No 09/29/2024 Does your family need help f inding childcare? (Household - for ages 0-17 years) Not on file 09/29/2024 Clothing Answer Date Recorded Have you been unable to get clothing when it was really needed? No 09/29/2024 Is your family able to get c lothes or diapers when needed? (Household - for ages 0-17 years) Not on file 09/29/2024 Personal Safety Answer Date Recorded Do you feel unsafe or have concerns for your saf ety? No 10/17/2024 Do you have concerns for you r family's safety? (Household - for ages 0-17 years) Not on file 10/17/2024 Utilities Answer Date Recorded Do you have trouble paying y our heating, water, or electric bill? No 10/17/2024 Is your family able to pay t he heat, water, or electric bill? (Household - for ages 0-17 years) Not on file 10/17/2024 Does your family have access to good internet? (Household - for ages 0-17 years) Not on file 10/17/2024 Employment Status Answer Date Recorded Are you unemployed or without regular income? No 09/29/2024 Does the household have a re gular source of income? (Household - for ages 0-17 years) Not on file 09/29/2024 Social Connections Answer Date Recorded How often do you feel lonely or isolated from th ose around you? Never 09/29/2024 Financial Resource Strain Answer Date R ecorded Do you have any trouble payi ng for your medications, or do you think you might in the future? No 09/29/2024 Does your family have troubl e paying for medicine? (Household - for ages 0-17 years) Not on file 09/29/2024 Transportation Needs Answer Date Record ed Do you have trouble getting a ride to medical visits or work? (Adult - for ages 18 years and over) Not on file 10/17/2024 Does your family have a hard time getting a ride to doctors visits? (Household - for ages 0-17 years) Not on file 10/17/2024 Has lack of transportation k ept you from medical appointments, meetings, work, or from getting things needed for daily living? Check all that apply. No 10/17/2024 Do you (or your family) have trouble finding or paying for a ride (transportation)? (Household - for ages 0-17 years) Not on file 10/17/2024 Housing Stability Answer Date Recorded Do you currently live in a s helter or have no steady place to sleep at night? No 10/17/2024 Do you think you are at risk of becoming homeless? (Adult - for ages 18 years and over) Not on file 10/17/2024 Does your family worry about paying for your home or becoming homeless? (Household - for ages 0-17 years) Not on file 1 12/17/2023 Are you homeless or worried that you might be in the future? No 10/17/2024 Are you (or your family) gnozález eless or worried that you might be in the future? (Household - for ages 0-17 years) Not on file Food Insecurity Answer Date Recorded Do you need food for this week? No 10/17/2024 Are you able to get enough f ood for your family? (Household - for ages 0-17 years) Not on file 10/17/2024 Does your family need food t his week? (Household - for ages 0-17 years) Not on file 10/17/2024 Do you always have enough fo od for your family? 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 Answer Date of Assessment Author No 10/17/2024 2:53 PM Mira Henao RN * Are you blind or do you have serious difficulty seeing, even when wearing glasses? Answer Date of Assessment Author No 10/17/2024 2:53 PM Mira Henao RN * Do you have serious difficulty walking or climbing stairs? (5 years old or older) Answer Date of Assessment Author No 10/17/2024 2:53 PM Mira Henao RN * Do you have difficulty dressing or bathing? (5 years old or older) Answer Date of Assessment Author No 10/17/2024 2:53 PM Mira Henao RN * Because of a physical, mental, or emotional condition, do you have difficulty doing errands alone such as visiting a doctors office or shopping? (15 years old or older) Answer Date of Assessment Author No 10/17/2024 2:53 PM Mira Henao RN documented as of this encounter Mental Status * Because of a physical, mental, or emotional condition, do you have serious difficulty concentrating, remembering, or making decisions? (5 years old or older) Answer Entry Date Author No 10/17/2024 2:53 PM Mira Henao RN documented in this encounter Miscellaneous Notes * Telephone Encounter - Arlen Jay DO - 12/20/2024 9:38 AM EST Signed Prescriptions: Disp Refills LORazepam 0.5 MG Oral Tablet (Ativan) 30 Tab*0 Sig: Take 1 Tablet by mouth every 8 hours as needed for Anxiety. Authorizing Provider: ARLEN JAY * Telephone Encounter - Sara Ojeda [facility] - 12/19/2024 4:09 PM ESTPending Prescriptions: Disp Refills LORazepam 0.5 MG Oral Tablet (Ativan) 30 Tab*0 Sig: Take 1 Tablet by mouth every 8 hours as needed for Anxiety. * Telephone Encounter - Sara Ojeda [facility] - 12/19/2024 4:06 PM EST I have reviewed the patients controlled substance dispensing history in the Prescription Drug Monitoring Program in compliance with the [facility] regulations before prescribing a controlled substance. PDMP checked on 12/19/2024. Pending Prescriptions: Disp Refills LORazepam 0.5 MG Oral Tablet (Ativan) 30 Tab*0 Sig: Take 1 Tablet by mouth every 8 hours as needed for Anxiety. Last Visit: 11/07/2024 (in office), Visit date not found (telemedicine) Next Visit: Visit date not found Date medication was last filled: 11/02/24 Date medication is due for refill: 11/11/24 Pharmacy: [id number] Is this request for a controlled substance? Yes and Urine Drug Screen Not completed Toxicology results: No results found. However, due to the size of the patient record, not all encounters were searched.Please check Results Review for a complete set of results. Please approve if appropriate. Thank you, Sara Ojeda, PharmD Clinical Pharmacist [facility] ([facility]) 12/19/24 4:07 PM [phone] * Telephone Encounter - Florence Riley CPhT - 12/19/2024 10:39 AM EST Did you pend patient's preferred pharmacy and medication before forwarding?yes Pharmacy: [id number] [address] [facility] Pending Prescriptions: Disp Refills LORazepam 0.5 MG Oral Tablet (Ativan) 30 Tab*0 Sig: Take 1 Tablet by mouth every 8 hours as needed for Anxiety. Last Visit: 11/07/2024 (in office), Visit date not found (telemedicine) Next Visit: Visit date not found If no future appointments scheduled, and last appointment is greater than a year ago, please schedule patient for a follow-up appointment Last date the medication was ordered: 11/02/24 Is this request for a controlled substance?Yes, What was the last refill date 11/02/24 w/ quantity 30 and dosage 0.5 MG and Urine Drug Screen Not completed Urine Drug Screen:No results found. However, due to the size of the patient record, not all encounters were searched. Please check Results Review for a complete set of results. Patient Phone Numbers Labs: Lab Results Component Value Date/Time CREAT 1.1 (H) 10/18/2024 04:41 AM CREAT 1.2 (H) 08/14/2020 10:17 AM POTASSIUM 4.0 10/18/2024 04:41 AM POTASSIUM 4.9 08/14/2020 10:17 AM TSH 1.64 09/29/2024 12:25 PM TSH 1.83 08/14/2020 10:18 AM LDL 61 09/29/2024 12:25 PM LDL 72 08/14/2020 10:17 AM LDL NOT APPLICABLE 08/14/2020 10:17 AM ALT 15 09/29/2024 12:25 PM ALT <5 (L) 08/07/2020 12:03 PM HGBA1C 5.0 10/15/2024 08:31 AM HGBA1C 5.4 08/14/2020 10:17 AM documented in this encounter Plan of Treatment Upcoming Encounters Date Type Department Care Team (Late st Contact Info) Description 12/22/2024 2:45 PM EST Imaging Radiology [facility] [facility] [place] [address] [place] [phone] 12/29/2024 2:40 PM EST Office Visit Nephrology, [facility] [address] [facility] [place] [address] Stacy Hoang MD [address] [facility] [place] [address] 01/19/2025 3:00 PM EST Office Visit Orthopaedics [facility] [address] [place] [phone] Maikel Norman PA-C [address] [place] [address] 01/23/2025 12:30 PM EST Office Visit Hematology/Oncology [facility] [address] [facility] [place] [phone] Megan Robledo MD [address] [facility] [place] [address] 06/30/2025 1:45 PM EDT Office Visit Dermatology [facility] [address] [facility] [place] [address] Sarwta Shoemaker MD [address] [facility] [place] [address] 07/11/2025 10:15 AM EDT Office Visit [facility], [facility] [place] [address] Chapito Solorzano MD [address] [place] [address] Health Maintenance Due Date Last Done Comments Adult Wellness Visit 2015 *BISPHONATE OR OTHER ACCEPTABLE MEDICATION NEEDED FOR OSTEOPOROSIS (REFER TO SMARTSET #1146) 06/06/2023 COVID-19 Vaccine ( season) 2024 08/22/2024, 08/22/2024, 09/11/2023, Additional history exists Depression Monitoring 01/18/2025 01/18/2024 GFR 04/17/2025 10/18/2024, 09/01, 05/16/2024, Additional history exists Albumin/Creatinine Ratio 09/29/2025 024, 07/13/2023, 09/10/2022, Additional history exists CKD PHOS USE SMARTSET 59240 09/29/202509/01, 07/13/2023, 12/20/2021, Additional history exists CKD HGB USE SMARTSET 90490 10/18/202510/18, 10/17/2024, 09/29/2024, Additional history exists DXA Scan 12/09/2025 12/09/2023, 1205/2021, 10/25/2019, Additional history exists DTap/Tdap Vaccines (3 - Td or Tdap) 05/13/2028 05/13/2018, 09/27/2008 Pneumococcal Vaccine: 50+ Years Completed 05/11/2017, 06/07/2015, 11/13/2014 Zoster Vaccines Completed 02/02/2019, 10/30, 07/16/2013 VITAMIN D LEVEL ONCE IN A LIFETIME-USE SMARTSET# [id number] Completed 09/10/2022, 02/21/2022, 12/02/2021, Additional history exists Colonoscopy Discontinued 08/24/2023, 08/01, 06/08/2018, Additional history exists Colorectal Cancer Screening Discontinued RETIRED - COLONOSCOPY-EVERY 5 YRS AGES 18-100 Discontinued 08/24/2023, 08/24/2023, 06/08/2018, Additional history exists Influenza Vaccine (FLU shot) Completed 08/22/2024, 08/01/2022, 08/26/2021, Additional history exists Cologuard Discontinued Fecal Occult Blood Test Discontinued HPV (Gardasil) Vaccine Aged Out No lo nger eligible based on patient's age to complete this topic Hepatitis B Vaccine Aged Out No longe r eligible based on patient's age to complete this topic MENINGOCOCCAL (MENACTRA/MENVEO) Aged Out No longer eligible based on patient's age to complete this topic Sigmoidoscopy Discontinued documented as of this encounter Medical Devices Implanted Type Area Business Integration Manager Device Identifier Shelf Expiration Date Model / Serial / Lot Cement Bone Simplex Hv & G - [id number] Implanted:Qty: 1 on 10/17/2024 by Morales Hendricks, DO at OR [facility] Right: Knee SATYA : ORTH[employer] 09/29/2025 6195-1-010 / / [id number] Cement Bone Simplex Hv & G - [id number] Implanted:Qty: 1 on 10/17/2024 by Morales Hendricks DO at OR [facility] Right: Knee [employer]YA : ORTH[employer] 08/29/2025 6195-1-010 / / [id number] Femoral Rt Size 5 T - [id number] Implanted:Qty: 1 on 10/17/2024 by Morales Hendricks, DO at OR [facility] Right: Knee [employer]YA : ORTHOP[employer] 07/22/2029 [id number] / / [id number] Knee Baseplate Tri Tib Sz 4 - [id number] Implanted:Qty: 1 on 10/17/2024 by Morales Hendricks, DO at [facility] Right: Knee [employer]YA : ORTH[employer] 02/15/2028 5521-[id number] / / [id number] Knee X3 Ins Pos Cs Sz4 9 - [id number] Implanted:Qty: 1 on 10/17/2024 by Morales Hendricks, DO at OR [facility] Right: Knee [employer]YA : ORTHOPA[employer] 06/26/2029 [id number] / / [id number] documented as of this encounter Visit Diagnoses Diagnosis BRADY (generalized anxiety disorder) Generalized anxiety disorder documented in this encounter Advance Directives * Full Code (Latest Code Status on File) Date Activated Date Inactivated Comments 10/17/2024 1:10 PM 10/19/2024 1:55 PM This order reflects the patients wishes and were consensually agreed upon. Question Answer Comments Discussion of Advance Directives occurred with: Patient * Full Code Date Activated Date Inactivated Comments 12/14/2023 8:58 AM 12/14/2023 2:20 PM This order r eflects the patients wishes and were consensually agreed upon. Question Answer Comments Discussion of Advance Directives occurred with: Patient * Full Code Date Activated Date Inactivated Comments 12/14/2023 6:39 AM 12/14/2023 8:58 AM This order r eflects the patients wishes and were consensually agreed upon. Question Answer Comments Discussion of Advance Directives occurred with: Patient * Full Code Date Activated Date Inactivated Comments 06/17/2015 10:21 PM 06/20/2015 3:18 PM This order reflects the patients wishes and were consensually agreed upon. Question Answer Comments Discussion of Advance Directives occurred with: Patient Does the patient have a Living Will? No Does the patient have Health Care Power of Attor paolo? No * Full Code Date Activated Date Inactivated Comments 10/06/2013 4:09 PM 10/08/2013 4:24 PM This order r eflects the patients wishes and were consensually agreed upon. Care Teams Business Development Manager Relationship Specialty Start Date End Date Arlen Jay DO [address] [place] [address] PCP - General Family Medicine 12/22/19 documented as of this encounter
--- OUTSIDE RECORDS SUMMARY | 2024-12-29 17:56 | External Medical Summary | Summary of Care ---
Author Name Unknown Organization [facility] Address [address] [place] [address] Phone [phone] Care Team Providers Care Dispatcher Clerk Name Role Phone Juan Jay DO Primary Care Provider Reason for Visit * Reason Onset Date Comments Advice 12/26/2024 Encounter Details Date Type Department Care Team (Late st Contact Info) Description 12/26/2024 Telephone Nephrology, [facility] [address] [place] [address] Services, Scheduling [address] [place] [address] Advice Allergies Active Allergy Reactions Criticality Noted Date Comments Kraig Inhibitors 05/17/2007 Cough Nsaids Other (Please comment) 07/02/2018 Due to kidney issues documented as of this encounter (statuses as of 12/26/2024) Medications acetaminophen (TYLENOL) 500 MG Tablet 2 Tablets. 9 Active Multivitamins Oral Capsule Take 1 Capsule by mouth in the morning. Active Vitamin D 50 MCG (2000 UT) Oral Tablet Take 2,000 Units by mouth in the morning. 2 Active Potassium Citrate ER 10 MEQ (1080 MG) Oral Tablet Extended Release (Urocit-K)Indicatio ns:Hypertensive kidney disease with stage 3b chronic kidney disease (HCC) take 3 tablets by mouth three times a day (MORNING, NOON, BEDTIME) 270 Tablet 3 4 Active Zolpidem Tartrate 5 MG Oral Tablet (Ambien)Indications :Major depressive disorder, single episode, moderate (HCC) Take 1 Tablet by mouth at bedtime as needed for Sleep. 30 Tablet 5 4 Active traZODone HCl 100 MG Oral Tablet (Desyrel)Indication s:Persistent insomnia take 1 tablet by mouth at [...] 60 MG Oral Capsule Delayed Release Particles (Cymbalta)Indicatio ns:Osteoarthritis of right knee, unspecified osteoarthritis type TAKE 1 CAPSULE BY MOUTH EVERY MORNING DO NOT CRUSH, CHEW, AND/OR DIVIDE 90 Capsule 5 4 Active Aspirin 81 MG Oral Tablet Delayed ReleaseIndications: Status post total right knee replacement Take 1 tablet by mouth in the morning, and 1 tablet by mouth at bedtime. - Oral 60 Tablet 4 Active Ferrous Sulfate 325 (65 Fe) MG Oral Tablet (Feosol)Indications :Status post total right knee replacement Take 1 tablet by mouth at noon, and 1 tablet by mouth in the evening. - Oral. 14 Tablet 4 Active oxyCODONE HCl 5 MG Oral Tablet (Oxy IR)Indications:Stat us post total right knee replacement Take 1 Tablet by mouth every 4 hours as needed for Pain, Severe. 30 Tablet 4 Active Sennosides 8.6 MG Oral Tablet (Senokot)Indication s:Status post total right knee replacement Take 2 tablets by mouth in the morning. 14 Tablet 4 Active oxyCODONE HCl 5 MG Oral Capsule (Oxy IR)Indications:Afte rcare following right knee joint replacement surgery,Status post total right knee replacement Take 1 Capsule by mouth every 6 hours as needed for Pain, Severe. 20 Capsule 4 Active DULoxetine HCl 30 MG Oral Capsule Delayed Release Particles (Cymbalta)Indicatio ns:Grief,Primary osteoarthritis of right knee Take 1 Capsule by mouth in the morning. Take in addition to the 60mg dose for a total of 90mg daily. Do not cut, crush or chew. 90 Capsule 3 4 Active LORazepam 0.5 MG Oral Tablet (Ativan)Indications :BRADY (generalized anxiety disorder) Take 1 Tablet by mouth every 8 hours as needed for Anxiety. 30 Tablet 5 Active documented as of this encounter (statuses as of 12/26/2024) Active Problems Problem Noted Date Diagnosed Date [...] as of this encounter (statuses as of 12/26/2024) Resolved Problems Problem Noted Date Diagnosed Date [...] 03/01/2019 07/02/2020 Overview (03/18/2021): DO NOT DELETE [facility] Study: Project # [id number], Ribbon Weaver: Tyson Atwood, PhD. SUMMARY: Goal: Establish test [...] contact study staff at ; after hours Ribbon Weaver via the [facility] hospital driller operator . Please contact study team before resolving/deleting from patients problem list. Study phone number: [phone]. Diagnosis changed due to Research Module. Go to Snapshot for study details. Encounter for examination fo r normal comparison and control in clinical research program 03/01/2019 07/31/2022 Overview (03/18/2021): DO NOT DELETE - [facility] DETECT Study: Project # [id number], Ribbon Weaver: Jack Herrera, MS, MPH. SUMMARY: Goal: Establish [...] contact study staff at ; after hours Ribbon Weaver via the [facility] hospital driller operator . - Please contact study team before resolving/deleting from patients problem list. Study phone number: [phone]. Diagnosis changed due to Research Module. Go [...] Rhinitis, nonallergic 02/26/20152023 Lichenoid keratosis 03/03/2013 05/11/20 Obstructive sleep apnea 07/18/201104/30 Overview (08/31/2017): 07/30 [...] as of this encounter (statuses as of 12/26/2024) Immunizations Name Administration Dates Next Due COVID-19 mRNA, LNP-s, No Pre serve, 2-Dose Series (Moderna) 01/12/2021,12/29/2020 COVID-19, LNP-s, No Preserve , Felton-sucrose, Ages 12+ (Pfizer) 09/30/2021 COVID-19, MRNA-LNP, 24-25, P R, 30MCG/0.3ML, IM, 12YRS AND ABOVE (Pfizer-Comirnaty) 08/22/2024 COVID-19, MRNA-LNP, PF, 30 M CG/0.3 mL, 12 YRS AND ABOVE, IM (OPTIMIZERx-Comirnaty) 09/11/2023 PPD 07/15/2022,07/21/2019 Pneumococcal Conjugate Vacc, 13 [...] 09/29/2024 Does the household have a re lar source of income? 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 Will [address] new order and pt is going to obtain container to collect the test. * Telephone Encounter - Ciera Lama OSA - 12/26/2024 2:18 PM EST Received call from pt, she said that she has an appt on Thursday with Dr Hoang and would like to supervisor picking crew her kit from the office for the 24 hr urine test tomorrow so that she can have it done prior to the appt. Please reach out to pt at [phone]. Thank You, Ernestine documented in this encounter Plan of Treatment Upcoming Encounters Date Type Department Care Team (Late st Contact Info) Description 12/29/2024 2:40 PM EST Office Visit Nephrology, [address] [place] [address] Stacy Hoang MD [address] [facility] [place] [address] 01/19/2025 3:00 PM EST Office Visit Orthopaedics [facility] [address] [facility] [place] [phone] Maikel Norman PA-C [address] [place] [address] 01/23/2025 12:30 PM EST Office Visit Hematology/Oncology [facility] [address] [facility] [place] [phone] Megan Robledo MD [address] [facility] [place] [address] 06/30/2025 1:45 PM EDT Office Visit Dermatology [facility] [address] [facility] [place] [address] Sarwat Shoemaker MD [address] [facility] [place] [address] 07/11/2025 10:15 AM EDT Office Visit Urology, [facility] [address] [facility] [place] [address] Chapito Solorzano MD [address] [place] [address] Scheduled Orders Name Type Priority Associated Diagnoses Orde r Schedule URORISK(R) PANEL Lab Routine Nephrolithiasis Hyperkalemia Expected: 12/26/2024 (Approximate), Expires: 12/26/2025 Health Maintenance Due Date Last Done Comments Adult Wellness Visit 2015 *BISPHONATE OR OTHER ACCEPTABLE MEDICATION NEEDED FOR OSTEOPOROSIS (REFER TO SMARTSET #1146) 06/06/2023 COVID-19 Vaccine ( season) 2024 08/22/2024, 08/22/2024, 09/11/2023, Additional history exists Depression Monitoring 01/18/2025 01/18/2024 GFR 04/17/2025 10/18/2024, 09/01, 05/16/2024, Additional history exists Albumin/Creatinine Ratio 09/29/2025 024, 07/13/2023, 09/10/2022, Additional history exists CKD PHOS USE SMARTSET 16271 09/29/202509/01, 07/13/2023, 12/20/2021, Additional history exists CKD HGB USE SMARTSET 75123 10/18/202510/18, 10/17/2024, 09/29/2024, Additional history exists DXA Scan 12/09/2025 12/09/2023, 1205/2021, 10/25/2019, Additional history exists DTap/Tdap Vaccines (3 - Td or Tdap) 05/13/2028 05/13/2018, 09/27/2008 Pneumococcal Vaccine: 50+ Years Completed 05/11/2017, 06/07/2015, 11/13/2014 Zoster Vaccines Completed 02/02/2019, 10/30, 07/16/2013 VITAMIN D LEVEL ONCE IN A LIFETIME-USE SMARTSET# [id number] Completed 09/10/2022, 02/21/2022, 12/02/2021, Additional history exists [...] this encounter Medical Devices Implanted Type Area Head Mechanic Device Identifier Shelf Expiration Date Model / Serial / Lot Cement Bone Simplex Hv & G - [id number] Implanted:Qty: 1 on 10/17/2024 by Morales Hendricks, at OR [facility] Right: Knee SATYA : ORTHOPAEDICS 09/29/2025 6195-1-010 / / [id number] Cement Bone Simplex Hv & G - [id number] Implanted:Qty: 1 on 10/17/2024 by Morales Hendricks DO at OR [facility] Right: Knee SATYA : ORTHOPAEDICS 08/29/2025 6195-1-010 / / [id number] Component Femoral Rt Size 5 T - [id number] Implanted:Qty: 1 on 10/17/2024 by Morales Hendricks DO at OR [facility] Right: Knee SATYA : ORTHOPAEDICS 07/22/2029 5510-F-502 / / [id number] Knee Baseplate Tri Tib Sz 4 - [id number] Implanted:Qty: 1 on 10/17/2024 by Morales Hendricks DO at OR [facility] Right: Knee SATYA : ORTHOPAEDICS 02/15/2028 5521-B-400 / / [id number] Knee X3 Ins Pos Cs Sz4 9 - [id number] Implanted:Qty: 1 on 10/17/2024 by Morales Hendricks DO at OR [facility] Right: Knee SATYA : ORTHOPAEDICS 06/26/2029 5531-G-409 -E / / [id number] documented as of this encounter Visit Diagnoses Diagnosis Nephrolithiasis- Primary Calculus of kidney Hyperkalemia Hyperpotassemia documented in this encounter Advance Directives * [...] and were consensually agreed upon. Care Teams Dispatcher Clerk Relationship Specialty Start Date End Date Juan Jay DO [address] [place] [address] PCP - General Family Medicine 12/22/19 documented as of this encounter
--- OUTSIDE RECORDS SUMMARY | 2024-12-29 17:56 | External Medical Summary | Summary of Care ---
Author Name Unknown Organization [facility] Address [address] [place] [address] Phone [phone] Care Team Providers Care Anode Machine Operator Name Role Phone Juan Jay DO Primary Care Provider Encounter Details Date Type Department Care Team (Late st Contact Info) Description 12/20/2024 Patient Reported Data Patient Survey Ortho FORCE Allergies Active Allergy Reactions Criticality Noted Date [...] 03/01/2019 07/02/2020 Overview (03/18/2021): DO NOT DELETE [facility] DETECT Study: Project # [id number], Classified Advertising Supervisor: Tyson Atwood, PhD. SUMMARY: Goal: Establish test [...] contact study staff at ; after hours Classified Advertising Supervisor via the [facility] hospital lasting machine operator . Please contact study team before resolving/deleting from patients problem list. Study phone number: [phone]. Diagnosis changed due to Research Module. Go to Snapshot for study details. Encounter for examination fo r normal comparison and control in clinical research program 03/01/2019 07/31/2022 Overview (03/18/2021): DO NOT DELETE - [facility] DETECT Study: Project # [id number], Classified Advertising Supervisor: Jack Herrera, MS, MPH. SUMMARY: Goal: Establish [...] contact study staff at ; after hours Classified Advertising Supervisor via the [facility] hospital lasting machine operator . - Please contact study team before resolving/deleting from patients problem list. Study phone number: [phone]. Diagnosis changed due to Research Module. 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 [address] [place] [phone] 12/29/2024 2:40 PM EST Office Visit Nephrology, [facility] [address] [place] [address] Stacy Hoang MD 200 [facility] [place] [address] 01/19/2025 3:00 PM EST Office Visit Orthopaedics [facility] [address] [place] [phone] Maikel Norman PA-C [address] [place] [address] 01/23/2025 12:30 PM EST Office Visit Hematology/Oncology [facility] [address] [facility] [place] [phone] Megan Robledo MD [address] [facility] [place] [address] 06/30/2025 1:45 PM EDT Office Visit Dermatology [facility] [address] [facility] [place] [address] Sarwat Shoemaker MD [facility] [place] [address] 07/11/2025 10:15 AM EDT Office Visit Urology, [facility] [address] [place] [address] Chapito Solorzano MD [address] [place] [address] Health Maintenance Due Date Last Done Comments Adult Wellness Visit 2015 *BISPHONATE OR OTHER ACCEPTABLE MEDICATION NEEDED FOR OSTEOPOROSIS (REFER TO SMARTSET #1146) 06/06/2023 COVID-19 Vaccine ( season) 2024 08/22/2024, 08/22/2024, 09/11/2023, Additional history exists Depression Monitoring 01/18/2025 01/18/2024 GFR 04/17/2025 10/18/2024, 09/01, 05/16/2024, Additional history exists Albumin/Creatinine Ratio 09/29/2025 024, 07/13/2023, 09/10/2022, Additional history exists CKD PHOS USE SMARTSET 61300 09/29/202509/01, 07/13/2023, 12/20/2021, Additional history exists CKD HGB USE SMARTSET 99086 10/18/202510/18, 10/17/2024, 09/29/2024, Additional history exists DXA Scan 12/09/2025 12/09/2023, 05/2021, 10/25/2019, Additional history exists DTap/Tdap Vaccines (3 - Td or Tdap) 05/13/2028 05/13/2018, 09/27/2008 Pneumococcal Vaccine: 50+ Years Completed 05/11/2017, 06/07/2015, 11/13/2014 Zoster Vaccines Completed 02/02/2019, 10/30, 07/16/2013 VITAMIN D LEVEL ONCE IN A LIFETIME-USE SMARTSET# [id number] Completed 09/10/2022, 02/21/2022, 12/02/2021, Additional history exists [...] this encounter Medical Devices Implanted Type Area Field Operations Manager Device Identifier Shelf Expiration Date Model / Serial / Lot Cement Bone Simplex Hv & G - [id number] Implanted:Qty: 1 on 10/17/2024 by Morales Hendricks DO at OR [facility] Right: Knee SATYA : ORTHOPAEDICS 09/29/2025 6195-1-010 / / [id number] Cement Bone Simplex Hv & G - [id number] Implanted:Qty: 1 on 10/17/2024 by Morales Hendricks DO at OR [facility] Right: Knee SATYA : ORTHOPAEDICS 08/29/2025 6195-1-010 / / [id number] Component Femoral Rt Size 5 T - [id number] Implanted:Qty: 1 on 10/17/2024 by Morales Hendricks DO at OR [facility] Right: Knee SATYA : ORTHOPAEDICS 07/22/2029 5510-F-502 / / [id number] Knee Baseplate Tri Tib Sz 4 - [id number] Implanted:Qty: 1 on 10/17/2024 by Morales Hendricks DO at OR [facility] Right: Knee SATYA : ORTHOPAEDICS 02/15/2028 5521-B-400 / / [id number] Knee X3 Ins Pos Cs Sz4 9 - [id number] Implanted:Qty: 1 on 10/17/2024 by Morales Hendricks DO at OR [facility] Right: Knee SATYA : ORTHOPAEDICS 06/26/2029 5531-G-409 -E / / [id number] documented as of this encounter Advance Directives * Full Code [...] and were consensually agreed upon. Care Teams Anode Machine Operator Relationship Specialty Start Date End Date Juan Jay DO [facility] [place] [address] PCP - General Family Medicine 12/22/19 documented as of this encounter
--- OUTSIDE RECORDS SUMMARY | 2024-12-29 17:56 | External Medical Summary | Summary of Care ---
Author Name Unknown Organization [facility] Address [address] [place] [address] Phone [phone] Care Team Providers Care Emergency Department Aide Name Role Phone Juan Jay DO Primary Care Provider Reason for Visit * Reason Onset Date Comments Appointment 12/05/2024 Encounter Details Date Type Department Care Team (Late st Contact Info) Description 12/05/2024 Telephone Urology, [facility] [address] [place] [address] Services, Scheduling [address] [place] [address] Appointment Allergies Active Allergy Reactions Criticality Noted Date Comments Kraig Inhibitors 05/17/2007 Cough Nsaids Other (Please comment) 07/02/2018 Due to kidney issues documented as of this encounter (statuses as of 12/06/2024) Medications acetaminophen (TYLENOL) 500 MG Tablet 2 [...] for Pain, Severe. 20 Capsule 4 Active LORazepam 0.5 MG Oral Tablet (Ativan)Indications :BRADY (generalized anxiety disorder) TAKE 1 TABLET BY MOUTH EVERY 8 HOURS NEEDED FOR ANXIETY 30 Tablet 4 Active DULoxetine HCl 30 MG Oral Capsule Delayed Release Particles (Cymbalta)Indicatio ns:Grief,Primary osteoarthritis of right knee Take 1 Capsule by mouth in the morning. Take in addition to the 60mg dose for a total of 90mg daily. Do not cut, crush or chew. 90 Capsule 3 4 Active documented as of this encounter (statuses as of 12/06/2024) Active Problems Problem Noted Date Diagnosed Date [...] as of this encounter (statuses as of 12/06/2024) Resolved Problems Problem Noted Date Diagnosed Date [...] 07/02/2020 Overview (03/18/2021): DO NOT DELETE Jose Hooja MERCEDES Study: Project # [id number], Computed Tomography Technician: Tyson Atwood, PhD. SUMMARY: Goal: Establish test [...] contact study staff at ; after hours Computed Tomography Technician via the [facility] hospital shipping and receiving operator . Please contact study team before resolving/deleting from patients problem list. Study phone number: [phone]. Diagnosis changed due to Research Module. Go to Snapshot for study details. Encounter for examination fo r normal comparison and control in clinical research program 03/01/2019 07/31/2022 Overview (03/18/2021): DO NOT DELETE - [employer] DETECT Study: Project # [id number], Computed Tomography Technician: Jack Herrera, MS, MPH. SUMMARY: Goal: Establish [...] contact study staff at ; after hours Computed Tomography Technician via the [facility] hospital shipping and receiving operator . - Please contact study team before resolving/deleting from patients problem list. Study phone number: [phone]. Diagnosis changed due to Research Module. Go [...] as of this encounter (statuses as of 12/06/2024) Immunizations Name Administration Dates Next Due COVID-19 mRNA, LNP-s, No Pre serve, 2-Dose Series (Moderna) 01/12/2021,12/29/2020 COVID-19, LNP-s, No Preserve , [place]-sucrose, Ages 12+ (Pfizer) 09/30/2021 COVID-19, MRNA-LNP, 24-25, P R, 30MCG/0.3ML, IM, 12YRS AND ABOVE ([facility]-Comirnat) 08/22/2024 COVID-19, MRNA-LNP, PF, 30 M CG/0.3 mL, 12 YRS AND ABOVE, IM (PFIZER-Comirnaty) 09/11/2023 PPD 07/15/2022,07/21/2019 Pneumococcal Conjugate Vacc, 13 Valent (Prevnar) 06/07/2015,11/13/2014 Pneumococcal Polysaccharide PPV23 (Pneumovax) 05/11/2017 RSV Vac., Bivalent, Perfusio n F, Pf,0.5 Ml (Abrysvo) 09/16/2023 Season Influenza, Quad, PF, Adjuvanted, 65+ Yrs, IM (FLUAD) 08/17/2020 Seasonal Influenza Vac., MDV , IM, 0.5 mL (Fluzone) 11/13/2014,09/30/2012,10/17/2011,12/11,09/27/2008,09/23/2005,10/08/2004 ,09/27/2003,09/29/2002,11/08/2001,08/30 Seasonal Influenza, High Dos e, Trivalent, PF, [...] 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 * Telephone Encounter - Alexus Najera OSA - 12/05/2024 4:21 PM EST Pt requesting an office visit appointment. She was unable to attend the one scheduled for a Video call on 11/11/[address] Solorzano due to her passing and knee surgery. Pt was due for a 3 month follow up visit and states that she will like to go in to be seen. Please call back. documented in this encounter Plan of Treatment Upcoming Encounters Date Type Department Care Team (Late st Contact Info) Description 12/13/2024 10:00 AM EST Therapy Psychology [facility] 132 [facility] [place] [address] Chyna Walsh, [facility] [address] [place] [address] 12/19/2024 11:30 AM EST Imaging Radiology [facility] 1st [facility] 132 [facility] [place] [address] 12/29/2024 2:40 PM EST Office Visit Nephrology, [facility] [address] [facility] [place] [address] Stacy Hoang MD [address] [facility] [place] [address] 01/19/2025 3:00 PM EST Office Visit Orthopaedics [facility] [address] [place] [phone] Maikel Norman PA-C [address] [place] [address] 01/23/2025 12:30 PM EST Office Visit Hematology/Oncology [facility] [address] [place] [phone] Megan Robledo MD [address] [place] [address] 06/30/2025 1:45 PM EDT Office Visit Dermatology [facility] [address] [place] [address] Sarwat Shoemaker MD [address] [facility] [place] [address] 07/11/2025 10:15 AM EDT Office Visit Urology, [facility] 132 [facility] [place] [address] Chapito Solorzano MD [address] [place] [address] Health Maintenance Due Date Last Done Comments Adult Wellness Visit 2015 *BISPHONATE OR OTHER ACCEPTABLE MEDICATION NEEDED FOR OSTEOPOROSIS (REFER TO SMARTSET #1146) 06/06/2023 COVID-19 Vaccine ( season) 2024 08/22/2024, 08/22/2024, 09/11/2023, Additional history exists Depression Monitoring 01/18/2025 01/18/2024 GFR 04/17/2025 10/18/2024, 09/01, 05/16/2024, Additional history exists Albumin/Creatinine Ratio 09/29/2025 024, 07/13/2023, 09/10/2022, Additional history exists CKD PHOS USE SMARTSET 31864 09/29/202509/01, 07/13/2023, 12/20/2021, Additional history exists CKD HGB USE SMARTSET 12143 10/18/202510/18, 10/17/2024, 09/29/2024, Additional history exists DXA Scan 12/09/2025 12/09/2023, 05/2021, 10/25/2019, Additional history exists DTap/Tdap Vaccines (3 - Td or Tdap) 05/13/2028 05/13/2018, 09/27/2008 Pneumococcal Vaccine: 50+ Years Completed 05/11/2017, 06/07/2015, 11/13/2014 Zoster Vaccines Completed 02/02/2019, 10/30, 07/16/2013 VITAMIN D LEVEL ONCE IN A LIFETIME-USE SMARTSET# 74113 Completed 09/10/2022, 02/21/2022, 12/02/2021, Additional history exists [...] this encounter Medical Devices Implanted Type Area Entry Analyst Device Identifier Shelf Expiration Date Model / Serial / Lot Cement Bone Simplex Hv & G - [id number] Implanted:Qty: 1 on 10/17/2024 by Morales Hendricks DO at OR [facility] Right: Knee SATYA : ORTHOPAEDICS 09/29/2025 6195-1-010 / / [id number] Cement Bone Simplex Hv & G - [id number] Implanted:Qty: 1 on 10/17/2024 by Morales Hendricks DO at OR [facility] Right: Knee SATYA : ORTHOPAEDICS 08/29/2025 6195-1-010 / / [id number] Component Femoral Rt Size 5 T - [id number] Implanted:Qty: 1 on 10/17/2024 by Morales Hendricks DO at OR [facility] Right: Knee SATYA : ORTHOPAEDICS 07/22/2029 5510-F-502 / / [id number] Knee Baseplate Tri Tib Sz 4 - [id number] Implanted:Qty: 1 on 10/17/2024 by Morales Hendricks DO at OR [facility] Right: Knee SATYA : ORTHOPAEDICS 02/15/2028 5521-B-400 / / [id number] Knee X3 Ins Pos Cs Sz4 9 - [id number] Implanted:Qty: 1 on 10/17/2024 by Morales Hendricks DO at OR [facility] Right: Knee SATYA : ORTHOPAEDICS 06/26/2029 5531-G-409 [...] and were consensually agreed upon. Care Teams Emergency Department Aide Relationship Specialty Start Date End Date Juan Jay DO [address] [place] [address] PCP - General Family Medicine 12/22/19 documented as of this encounter
--- OUTSIDE RECORDS SUMMARY | 2024-12-29 17:57 | External Medical Summary | Summary of Care ---
Author Name Unknown Organization [facility] Address [address] [place] [address] Phone [phone] Care Team Providers Care Jewel Hole Cornerer Name Role Phone Juan Jay DO Primary Care Provider Encounter Details Date Type Department Care Team (Late st Contact Info) Description 11/25/2024 Patient Reported Data Patient Survey Ortho [facility] Allergies Active Allergy Reactions Criticality Noted Date Comments Kraig Inhibitors 05/17/2007 Cough Nsaids Other (Please comment) 07/02/2018 Due to kidney issues documented as of this encounter (statuses as of 11/25/2024) Medications acetaminophen (TYLENOL) 500 MG Tablet 2 [...] as of this encounter (statuses as of 11/25/2024) Active Problems Problem Noted Date Diagnosed Date [...] as of this encounter (statuses as of 11/25/2024) Resolved Problems Problem Noted Date Diagnosed Date [...] 03/01/2019 07/02/2020 Overview (03/18/2021): DO NOT DELETE [employer] DETECT Study: Project # [id number], Drop Hammer Operator Helper: Tyson Atwood, PhD. SUMMARY: Goal: Establish test [...] contact study staff at ; after hours Drop Hammer Operator Helper via the [facility] hospital casting machine operator automatic . Please contact study team before resolving/deleting from patients problem list. Study phone number: [phone]. Diagnosis changed due to Research Module. Go to Snapshot for study details. Encounter for examination fo r normal comparison and control in clinical research program 03/01/2019 07/31/2022 Overview (03/18/2021): DO NOT DELETE - Jose [facility] DETECT Study: Project # [id number], Drop Hammer Operator Helper: Jack Herrera, MS, MPH. SUMMARY: Goal: Establish [...] contact study staff at ; after hours Drop Hammer Operator Helper via the [facility] hospital casting machine operator automatic . - Please contact study team before resolving/deleting from patients problem list. Study phone number: [phone]. Diagnosis changed due to Research Module. 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 [...] Care Team (Late st Contact Info) Description 12/01/2024 2:00 PM EST Office Visit Orthopaedics [facility] [address] [place] [address] Maikel Norman PA-C [address] [place] [address] 12/13/2024 10:00 AM EST Therapy Psychology [facility] [address] [place] [address] Chyna Walsh, [facility] 132 [facility] [place] [address] 12/19/2024 11:30 AM EST Imaging Radiology [facility] 1st [facility] [address] [place] [address] 01/23/2025 12:30 PM EST Office Visit [facility]ology[facility] [place] [address] [place] [phone] Megan Robledo MD [address] [place] [address] Health Maintenance Due Date Last Done Comments Adult Wellness Visit 2015 *BISPHONATE OR OTHER ACCEPTABLE MEDICATION NEEDED FOR OSTEOPOROSIS (REFER TO SMARTSET #1146) 06/06/2023 COVID-19 Vaccine ( season) 2024 08/22/2024, 08/22/2024, 09/11/2023, Additional history exists Depression Monitoring 01/18/2025 01/18/2024 GFR 04/17/2025 10/18/2024, 09/01, 05/16/2024, Additional history exists Albumin/Creatinine Ratio 09/29/2025 024, 07/13/2023, 09/10/2022, Additional history exists CKD PHOS USE SMARTSET 28917 09/29/202509/01, 07/13/2023, 12/20/2021, Additional history exists CKD HGB USE SMARTSET 55031 10/18/202510/18, 10/17/2024, 09/29/2024, Additional history exists DXA Scan 12/09/2025 12/09/2023, 1205/2021, 10/25/2019, Additional history exists DTap/Tdap Vaccines (3 - Td or Tdap) 05/13/2028 05/13/2018, 09/27/2008 Pneumococcal Vaccine: 50+ Years Completed 05/11/2017, 06/07/2015, 11/13/2014 Zoster Vaccines Completed 02/02/2019, 10/30, 07/16/2013 VITAMIN D LEVEL ONCE IN A LIFETIME-USE SMARTSET# [id number] Completed 09/10/2022, 02/21/2022, 12/02/2021, Additional history exists [...] this encounter Medical Devices Implanted Type Area Physical Therapist Device Identifier Shelf Expiration Date Model / Serial / Lot Cement Bone Simplex Hv & G - [id number] Implanted:Qty: 1 on 10/17/2024 by Morales Hendricks, DO at OR [facility] Right: Knee SATYA : ORTHOPAEDICS 09/29/2025 6195-1-010 / / [id number] Cement Bone Simplex Hv & G - [id number] Implanted:Qty: 1 on 10/17/2024 by Morales Hendricks, at OR [facility] Right: Knee SATYA : ORTHOPAEDICS 08/29/2025 6195-1-010 / / [id number] Component Femoral Rt Size 5 T - [id number] Implanted:Qty: 1 on 10/17/2024 by Morales Hendricks DO at OR [facility] Right: Knee SATYA : ORTHOPAEDICS 07/22/2029 5510-F-502 / / [id number] Knee Baseplate Tri Tib Sz 4 - [id number] Implanted:Qty: 1 on 10/17/2024 by Morales Hendricks, DO at OR [facility] Right: Knee SATYA : ORTHOPAEDICS 02/15/2028 5521-B-400 / / [id number] Knee X3 Ins Pos Cs Sz4 9 - [id number] Implanted:Qty: 1 on 10/17/2024 by Morales Hendricks, at OR [facility] Right: Knee SATYA : ORTHOPAEDICS [...] and were consensually agreed upon. Care Teams Jewel Hole Cornerer Relationship Specialty Start Date End Date Juan Jay DO [address] [place] [address] PCP - General Family Medicine 12/22/19 documented as of this encounter
--- OUTSIDE RECORDS SUMMARY | 2024-12-29 17:57 | External Medical Summary | Summary of Care ---
Author Name Unknown Organization [facility] Address [address] [place] [address] Phone [phone] Care Team Providers Care Computer Project Manager Name Role Phone Juan Jay DO Primary Care Provider Reason for Visit * Reason Onset Date Comments Appointment 12/05/2024 Encounter Details Date Type Department Care Team (Late st Contact Info) Description 12/05/2024 Telephone Urology, [facility] [address] [place] [address] Services, Scheduling [address] [place] [address] Appointment Allergies Active Allergy Reactions Criticality Noted Date Comments Kraig Inhibitors 05/17/2007 Cough Nsaids Other (Please comment) 07/02/2018 Due to kidney issues documented as of this encounter (statuses as of 12/05/2024) Medications acetaminophen (TYLENOL) 500 MG Tablet 2 [...] as of this encounter (statuses as of 12/05/2024) Active Problems Problem Noted Date Diagnosed Date [...] as of this encounter (statuses as of 12/05/2024) Resolved Problems Problem Noted Date Diagnosed Date [...] 03/01/2019 07/02/2020 Overview (03/18/2021): DO NOT DELETE [employer] MERCEDES Study: Project # [id number], Newspaper Delivery Driver: Tyson Atwood, PhD. SUMMARY: Goal: Establish test [...] contact study staff at ; after hours Newspaper Delivery Driver via the [facility] hospital handle sander operator . Please contact study team before resolving/deleting from patients problem list. Study phone number: [phone]. Diagnosis changed due to Research Module. Go to Snapshot for study details. Encounter for examination fo r normal comparison and control in clinical research program 03/01/2019 07/31/2022 Overview (03/18/2021): DO NOT DELETE - [employer] DETECT Study: Project # [id number], Newspaper Delivery Driver: Jack Herrera, MS, MPH. SUMMARY: Goal: Establish [...] contact study staff at ; after hours Newspaper Delivery Driver via the [facility] hospital handle sander operator . - Please contact study team before resolving/deleting from patients problem list. Study phone number: [phone]. Diagnosis changed due to Research Module. Go [...] as of this encounter (statuses as of 12/05/2024) Immunizations Name Administration Dates Next Due COVID-19 mRNA, LNP-s, No Pre serve, 2-Dose Series (Moderna) 01/12/2021,12/29/2020 COVID-19, LNP-s, No Preserve , Fel[place]-sucrose, Ages 12+ (Pfizer) 09/30/2021 COVID-19, MRNA-LNP, 24-25, P R, 30MCG/0.3ML, IM, 12YRS AND ABOVE (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 [...] encounter Miscellaneous Notes * Telephone Encounter - Alexus Najera OSA [...] Description 12/13/2024 10:00 AM EST Therapy Psychology [facility] 132 [facility] [place] [address] Chyna Walsh, [facility] 132 [facility] [place] [address] 12/19/2024 11:30 AM EST Imaging Radiology [facility] 1st [facility] [address] [place] [address] 12/29/2024 2:40 PM EST Office Visit Nephrology, [facility] 200 [facility], [place] [address] Stacy Hoang MD [address] [facility] [place] [address] 01/23/2025 12:30 PM EST Office Visit Hematology/Oncology [facility] [address] [facility] [place] [phone] Megan Robledo MD 200 [facility], [place] [address] 06/30/2025 1:45 PM EDT Office Visit Dermatology [facility] [address] [facility], [place] [address] Sarwat Shoemaker MD [address] [facility], [place] [address] Health Maintenance Due Date Last Done Comments Adult Wellness Visit 2015 *BISPHONATE OR OTHER ACCEPTABLE MEDICATION NEEDED FOR OSTEOPOROSIS (REFER TO SMARTSET #1146) 06/06/2023 COVID-19 Vaccine ( season) 2024 08/22/2024, 08/22/2024, 09/11/2023, Additional history exists Depression Monitoring 01/18/2025 01/18/2024 GFR 04/17/2025 10/18/2024, 09/01, 05/16/2024, Additional history exists Albumin/Creatinine Ratio 09/29/2025 024, 07/13/2023, 09/10/2022, Additional history exists CKD PHOS USE SMARTSET 17275 09/29/202509/01, 07/13/2023, 12/20/2021, Additional history exists CKD HGB USE SMARTSET 21111 10/18/202510/18, 10/17/2024, 09/29/2024, Additional history exists DXA Scan 12/09/2025 12/09/2023, 05/2021, 10/25/2019, Additional history exists DTap/Tdap Vaccines (3 - Td or Tdap) 05/13/2028 05/13/2018, 09/27/2008 Pneumococcal Vaccine: 50+ Years Completed 05/11/2017, 06/07/2015, 11/13/2014 Zoster Vaccines Completed 02/02/2019, 10/30, 07/16/2013 VITAMIN D LEVEL ONCE IN A LIFETIME-USE SMARTSET# 51751 Completed 09/10/2022, 02/21/2022, 12/02/2021, Additional history exists [...] this encounter Medical Devices Implanted Type Area Burglar Alarm Inspector Device Identifier Shelf Expiration Date Model / Serial / Lot Cement Bone Simplex Hv & G - [id number] Implanted:Qty: 1 on 10/17/2024 by Morales Hendricks DO at OR [facility] Right: Knee SATYA : ORTHOPAEDICS 09/29/2025 6195-1-010 / / [id number] Cement Bone Simplex Hv & G - [id number] Implanted:Qty: 1 on 10/17/2024 by Morales Hendricks DO at OR [facility] Right: Knee SATYA : ORTHOPAEDICS 08/29/2025 6195-1-010 / / [id number] Femoral Rt Size 5 T - [id number] Implanted:Qty: 1 on 10/17/2024 by Morales Hendricks, DO at OR [facility] Right: Knee SATYA : ORTHOPAEDICS 07/22/2029 5510-F-502 / / [id number] Knee Baseplate Tri Tib Sz 4 - [id number] Implanted:Qty: 1 on 10/17/2024 by Morales Hendricks, DO at OR [facility] Right: Knee SATYA : ORTHOPAEDICS 02/15/2028 5521-B-400 / / [id number] Knee X3 Ins Pos Cs Sz4 9 - [id number] Implanted:Qty: 1 on 10/17/2024 by Morales Hendricks, DO at OR [facility] Right: Knee SATYA : ORTHOPAEDICS [...] and were consensually agreed upon. Care Teams Computer Project Manager Relationship Specialty Start Date End Date Juan Jay DO [address] [place] [address] PCP - General Family Medicine 12/22/19 documented as of this encounter
--- OUTSIDE RECORDS SUMMARY | 2024-12-29 17:57 | External Medical Summary | Summary of Care ---
Author Name Unknown Organization [facility] Address [address] [place] [address] Phone [phone] Care Team Providers Care Anthropology Department Chair Name Role Phone Juan Jay DO Primary Care Provider Encounter Details Date Type Department Care Team (Late st Contact Info) Description 12/01/2024 Patient Reported Data Patient Survey Ortho OBERD Allergies Active Allergy Reactions Criticality Noted Date Comments Kraig Inhibitors 05/17/2007 Cough Nsaids Other (Please comment) 07/02/2018 Due to kidney issues documented as of this encounter (statuses as of 12/01/2024) Medications acetaminophen (TYLENOL) 500 MG Tablet 2 [...] as of this encounter (statuses as of 12/01/2024) Active Problems Problem Noted Date Diagnosed Date [...] as of this encounter (statuses as of 12/01/2024) Resolved Problems Problem Noted Date Diagnosed Date [...] 03/01/2019 07/02/2020 Overview (03/18/2021): DO NOT DELETE [email or web address] DETECT Study: Project # [id number], Lbd Teacher: Tyson Atwood, PhD. SUMMARY: Goal: Establish test [...] contact study staff at ; after hours Lbd Teacher via the [facility] hospital rough and truing machine operator . Please contact study team before resolving/deleting from patients problem list. Study phone number: [phone]. Diagnosis changed due to Research Module. Go to Snapshot for study details. Encounter for examination fo r normal comparison and control in clinical research program 03/01/2019 07/31/2022 Overview (03/18/2021): DO NOT DELETE - Jose [facility] DETECT Study: Project # [id number], Lbd Teacher: Jack Herrera, MS, MPH. SUMMARY: Goal: Establish [...] contact study staff at ; after hours Lbd Teacher via the [facility] hospital rough and truing machine operator . - Please contact study team before resolving/deleting from patients problem list. Study phone number: [phone]. Diagnosis changed due to Research Module. 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 [place] [address] 12/19/2024 11:30 AM EST Imaging Radiology [address] [place] [address] 01/23/2025 12:30 PM EST Office Visit Hematology/Oncology [facility] [address] [place] [phone] Megan Robledo MD [address] [place] [address] Health Maintenance Due Date Last Done Comments Adult Wellness Visit 2015 *BISPHONATE OR OTHER ACCEPTABLE MEDICATION NEEDED FOR OSTEOPOROSIS (REFER TO SMARTSET #1146) 06/06/2023 COVID-19 Vaccine ( season) 2024 08/22/2024, 08/22/2024, 09/11/2023, Additional history exists Depression Monitoring 01/18/2025 01/18/2024 GFR 04/17/2025 10/18/2024, 09/01, 05/16/2024, Additional history exists Albumin/Creatinine Ratio 09/29/2025 024, 07/13/2023, 09/10/2022, Additional history exists CKD PHOS USE SMARTSET 81321 09/29/202509/01, 07/13/2023, 12/20/2021, Additional history exists CKD HGB USE SMARTSET 81745 10/18/202510/18, 10/17/2024, 09/29/2024, Additional history exists DXA Scan 12/09/2025 12/09/2023, 05/2021, 10/25/2019, Additional history exists DTap/Tdap Vaccines (3 - Td or Tdap) 05/13/2028 05/13/2018, 09/27/2008 Pneumococcal Vaccine: 50+ Years Completed 05/11/2017, 06/07/2015, 11/13/2014 Zoster Vaccines Completed 02/02/2019, 10/30, 07/16/2013 VITAMIN D LEVEL ONCE IN A LIFETIME-USE SMARTSET# [id number] Completed 09/10/2022, 02/21/2022, 12/02/2021, Additional history exists [...] this encounter Medical Devices Implanted Type Area Steam Pan Sponger Device Identifier Shelf Expiration Date Model / Serial / Lot Cement Bone Simplex Hv & G - [id number] Implanted:Qty: 1 on 10/17/2024 by Morales Hendricks DO at OR [facility] Right: Knee SATYA : ORTHOPAEDICS 09/29/2025 6195-1-010 / / [id number] Cement Bone Simplex Hv & G - [id number] Implanted:Qty: 1 on 10/17/2024 by Morales Hendricks DO at OR [facility] Right: Knee SATYA : ORTHOPAEDICS 08/29/2025 6195-1-010 / / [id number] Component Femoral Rt Size 5 T - [id number] Implanted:Qty: 1 on 10/17/2024 by Morales Hendricks DO at OR [facility] Right: Knee SATYA : ORTHOPAEDICS 07/22/2029 5510-F-502 / / [id number] Knee Baseplate Tri Tib Sz 4 - [id number] Implanted:Qty: 1 on 10/17/2024 by Morales Hendricks DO at OR [facility] Right: Knee SATYA : ORTHOPAEDICS 02/15/2028 5521-B-400 / / [id number] Knee X3 Ins Pos Cs Sz4 9 - [id number] Implanted:Qty: 1 on 10/17/2024 by Morales Hendricks DO at OR [facility] Right: Knee SATYA : ORTHOPAEDICS 06/26/2029 [...] and were consensually agreed upon. Care Teams Anthropology Department Chair Relationship Specialty Start Date End Date Juan Jay DO [address] [place] [address] PCP - General Family Medicine 12/22/19 documented as of this encounter
--- OUTSIDE RECORDS SUMMARY | 2024-12-29 17:57 | External Medical Summary | Summary of Care ---
Author Name Unknown Organization [facility] Address [address] [place] [address] Phone [phone] Care Team Providers Care Air Conditioning Coil Assembler Name Role Phone Juan Jay DO Primary [...] 03/01/2019 07/02/2020 Overview (03/18/2021): DO NOT DELETE [facility] DETECT Study: Project # [id number], Industrial Roof Plumber: Tyson Atwood, PhD. SUMMARY: Goal: Establish test [...] contact study staff at ; after hours Industrial Roof Plumber via the [facility] briquetter operator . Please contact study team before resolving/deleting from patients problem list. Study phone number: [phone]. Diagnosis changed due to Research Module. Go to Snapshot for study details. Encounter for examination fo r normal comparison and control in clinical research program 03/01/2019 07/31/2022 Overview (03/18/2021): DO NOT DELETE - Jose [facility] DETECT Study: Project # [id number], Industrial Roof Plumber: Jack Herrera, MS, MPH. SUMMARY: Goal: Establish [...] contact study staff at ; after hours Industrial Roof Plumber via the [facility] briquetter operator . - Please contact study team before resolving/deleting from patients problem list. Study phone number: [phone]. Diagnosis changed due to Research Module. 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 Not [...] 12/01/2024 2:00 PM EST Office Visit Orthopaedics [facility] [address] [place] [address] Maikel Norman PA-C [address] [place] [address] 12/13/2024 10:00 AM EST Therapy Psychology [facility] [address] [place] [address] Chyna Walsh, [facility] 132 [facility] [place] [address] 12/19/2024 11:30 AM EST Imaging Radiology [facility] 1st [facility] [address] [place] [address] 01/23/2025 12:30 PM EST [facility] [place] [address] [place] [phone] Megan Robledo MD [address] [place] [address] Health Maintenance Due Date Last Done Comments Adult Wellness Visit 2015 *BISPHONATE OR OTHER ACCEPTABLE MEDICATION NEEDED FOR OSTEOPOROSIS (REFER TO SMARTSET #1146) 06/06/2023 COVID-19 Vaccine ( season) 2024 08/22/2024, 08/22/2024, 09/11/2023, Additional history exists Depression Monitoring 01/18/2025 01/18/2024 GFR 04/17/2025 10/18/2024, 09/01, 05/16/2024, Additional history exists Albumin/Creatinine Ratio 09/29/2025 024, 07/13/2023, 09/10/2022, Additional history exists CKD PHOS USE SMARTSET 35682 09/29/202509/01, 07/13/2023, 12/20/2021, Additional history exists CKD HGB USE SMARTSET 83201 10/18/202510/18, 10/17/2024, 09/29/2024, Additional history exists DXA Scan 12/09/2025 12/09/2023, 1205/2021, 10/25/2019, Additional history exists DTap/Tdap Vaccines (3 - Td or Tdap) 05/13/2028 05/13/2018, 09/27/2008 Pneumococcal Vaccine: 50+ Years Completed 05/11/2017, 06/07/2015, 11/13/2014 Zoster Vaccines Completed 02/02/2019, 10/30, 07/16/2013 VITAMIN D LEVEL ONCE IN A LIFETIME-USE SMARTSET# 59952 Completed 09/10/2022, 02/21/2022, 12/02/2021, Additional history exists [...] this encounter Medical Devices Implanted Type Area Corrosion Control Fitter Device Identifier Shelf Expiration Date Model / Serial / Lot Cement Bone Simplex Hv & G - [id number] Implanted:Qty: 1 on 10/17/2024 by Morales Hendricks, DO at OR [facility] Right: Knee SATYA : ORTHOPAEDICS 09/29/2025 6195-1-010 / / [id number] Cement Bone Simplex Hv & G - [id number] Implanted:Qty: 1 on 10/17/2024 by Morales Hendricks, at OR [facility] Right: Knee SATYA : ORTHOPAEDICS 08/29/2025 6195-1-010 / / [id number] Component Femoral Rt Size 5 T - [id number] Implanted:Qty: 1 on 10/17/2024 by Morales Hendricks DO at OR [facility] Right: Knee SATYA : ORTHOPAEDICS 07/22/2029 5510-F-502 / / [id number] Knee Baseplate Tri Tib Sz 4 - [id number] Implanted:Qty: 1 on 10/17/2024 by Morales Hendricks, DO at OR [facility] Right: Knee SATYA : ORTHOPAEDICS 02/15/2028 5521-B-400 / / [id number] Knee X3 Ins Pos Cs Sz4 9 - [id number] Implanted:Qty: 1 on 10/17/2024 by Morales Hendricks, at OR [facility] Right: Knee SATYA : ORTHOPAEDICS 06/26/2029 [...] and were consensually agreed upon. Care Teams Air Conditioning Coil Assembler Relationship Specialty Start Date End Date Juan Jay DO [address] [place] [address] PCP - General Family Medicine 12/22/19 documented as of this encounter
--- OUTSIDE RECORDS SUMMARY | 2024-12-29 17:57 | External Medical Summary | Summary of Care ---
Author Name Unknown Organization [facility] Address [address] [place] [address] Phone [phone] Care Team Providers Care Medical Videographer Name Role Phone Juan Jay DO Primary Care Provider Reason for Referral * Evaluate & Treat - Unlimited Visits (Within 10 days (routine)) - Authorized Specialty Diagnoses / Procedures Referred By Mike mulligan Referred To Contact HOME CARE / Home Care Diagnoses Aftercare following right knee joint replacement surgery Status post total right knee replacement Maikel Norman PA-C [address] [place] [address] [place] [address] Phone: tel: fax: Referral ID Status Reason Start Date Expiration Date Visits Requested Visits Authorized [id number] Authorized Specialty Services Required 12/01/[phone] Question Answer Referral Priority Within 10 days (routine) Where should this appointment be scheduled? [facility] Comments Documentation of Ipkj-bk-Grkj Encounter Addendum Patient Name: Paige Cervantes I certify that this patient is under my care and that I, or a nurse practitioner or physician's assistant professor of psychology working with me, had a lbbo-ce-jqse encounter that meets the physician goik-sa-ldgn encounter requirements with this patient on: 12/01/2024. The encounter with the patient was in whole, or in part, for the following medical condition, which is the primary reason for home health care (List medical condition): Convalescence from surgery I certify that, based on my findings, the following services are medically necessary home health services: Physical Therapy To provide the following care/treatments: (All hospitalists not following the patient after discharge should complete this section): Total right knee arthroplasty rehabilitative protocol with focus on extension range of motion. My clinical findings support the need for the above services because: Ambulatory dysfunction; recent surgery. Further, I certify that my clinical findings support that this patient is homebound (i.e. Absences from home require considerable and taxing effort and are for medical reasons or oriental orthodox services or infrequently or of short duration when for other reason) because: Ambulatory dysfunction; recent surgery Physician Signature: Date of Signature: Physician Printed Name: Maikel Norman PA-C Reason for Visit * Reason Comments Post-Op R knee Encounter Details Date Type Department Care Team (Late st Contact Info) Description 12/01/2024 2:00 PM EST Office Visit Orthopaedics [address] [place] [address] Maikel Norman PA-C [address] [place] [address] [place] [phone] Aftercare following right knee joint replacement surgery*; Status post total right knee replacement Allergies Active Allergy Reactions Criticality Noted Date [...] 07/02/2020 Overview (03/18/2021): DO NOT DELETE Jose [facility] DETECT Study: Project # [id number], Ems Coordinator: Tyson Atwood, PhD. SUMMARY: Goal: Establish test [...] contact study staff at ; after hours Ems Coordinator via the [facility] extruder operator . Please contact study team before resolving/deleting from patients problem list. Study phone number: [phone]. Diagnosis changed due to Research Module. Go to Snapshot for study details. Encounter for examination fo r normal comparison and control in clinical research program 03/01/2019 07/31/2022 Overview (03/18/2021): DO NOT DELETE AT [employer] DETECT Study: Project # [id number], Ems Coordinator: Jack Herrera, MS, MPH. SUMMARY: Goal: Establish [...] contact study staff at ; after hours Ems Coordinator via the [facility] extruder operator . - Please contact study team before resolving/deleting from patients problem list. Study phone number: [phone]. Diagnosis changed due to Research Module. 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 Chief Complaint Patient presents with Post-Op R knee HPI: Arleen is a very pleasant 74-year-old female who presents to the clinic today for surgical follow up 6 weeks removed from total right knee arthroplasty. Today she reports that she is doing quite well, and has been progressing well with physical therapy. She reports that she is quite pleased withher recovery thus far, despite the recent passing of her in October. She reports that painis minimal, and is usually most prominent in the evening times over the lateral and medial aspects of the knee. She denies fevers, chills, or night sweats. No reported calf pain. She is tolerating her activities and ambulation well. Review of patient's allergies indicates: Allergen Reactions Kraig Inhibitors Cough Nsaids Other (Please comment) Due to kidney issues Current Outpatient Medications Medication Sig Dispense Refill acetaminophen (TYLENOL) 500 MG Tablet 2 Tablets. Multivitamins Oral Capsule Take 1 Capsule by mouth in the morning. Vitamin D 50 MCG (2000 UT) Oral Tablet Take 2,000 Units by mouth in the morning. Potassium Citrate ER 10 MEQ (1080 MG) Oral Tablet Extended Release (Urocit-K) take 3 tablets by mouth three times a day (MORNING, NOON, BEDTIME) 270 Tablet 3 Zolpidem Tartrate 5 MG Oral Tablet (Ambien) Take 1 Tablet by mouth at bedtime as needed for Sleep. 30 Tablet 5 traZODone HCl 100 MG Oral Tablet (Desyrel) take 1 tablet by mouth at bedtime 90 Tablet 3 Solifenacin Succinate 5 MG Oral Tablet (VESIcare) Take 1 Tablet by mouth in the morning. 90 Tablet 3 Mirabegron ER 50 MG Oral Tablet Extended Release 24 Hour (Myrbetriq) Take 1 Tablet by mouth in the morning. 90 Tablet 3 DULoxetine HCl 60 MG Oral Capsule Delayed Release Particles (Cymbalta) TAKE 1 CAPSULE BY MOUTH EVERY MORNING DO NOT CRUSH, CHEW, AND/OR DIVIDE 90 Capsule 5 Aspirin 81 MG Oral Tablet Delayed Release Take 1 tablet by mouth in the morning, and 1 tablet by mouth at bedtime. - Oral 60 Tablet 0 Ferrous Sulfate 325 (65 Fe) MG Oral Tablet (Feosol) Take 1 tablet by mouth at noon, and 1 tablet bymouth in the evening. - Oral. 14 Tablet 0 oxyCODONE HCl 5 MG Oral Tablet (Oxy IR) Take 1 Tablet by mouth every 4 hours as needed for Pain, Severe. 30 Tablet 0 Sennosides 8.6 MG Oral Tablet (Senokot) Take 2 tablets by mouth in the morning. 14 Tablet 0 oxyCODONE HCl 5 MG Oral Capsule (Oxy IR) Take 1 Capsule by mouth every 6 hours as needed for Pain, Severe. 20 Capsule 0 LORazepam 0.5 MG Oral Tablet (Ativan) TAKE 1 TABLET BY MOUTH EVERY 8 HOURS NEEDED FOR ANXIETY 30Tablet 0 DULoxetine HCl 30 MG Oral Capsule Delayed Release Particles (Cymbalta) Take 1 Capsule by mouth in the morning. Take in addition to the 60mg dose for a total of 90mg daily. Do not cut, crush or chew. 90 Capsule 3 No current facility-administered medications for this visit. OBJECTIVE: Diagnostic studies: Repeat x-rays of the right knee obtained in the office today were viewed, independently interpreted, compared with previous, and demonstrate a stable total right knee arthroplasty prosthesis without evidence of hardware complication or prosthetic loosening. Vital Signs: LMP 04/30/2001 Physical Exam: Examination of the right knee reveals a well-healing surgical incision and pin sites without evidence of complication or infection. There is no erythema, ecchymosis, or skin breakdown. No palpable effusion or significant soft tissue swelling. There is an area of acute ecchymosis over the anterior aspect of the leg which appears to be resolving. She is able to demonstrate a straight leg raise and range the knee from roughly 5 shy of full extension to roughly 115 to 120 flexion without difficulty. Collateral stability is intact and without laxity. Calf is supple and nontender. She is distally neurovascularly intact. Gait assessment is nonantalgic and of normal ashlee without the use ofan assistive device.. ASSESSMENT: Aftercare following right knee joint replacement surgery (Primary) - XR KNEE 3 VIEWS - HOME HEALTH REFERRAL OP Status post total right knee replacement - HOME HEALTH REFERRAL OP Follow Up: Return in about 6 weeks (around 01/12/2025) for Clinic Visit. | For: Clinic Visit PLAN: She is doing remarkably well just 6 weeks removed from her right knee replacement. She is progressing well with physical therapy and is tolerating her activities. Her updated radiographs were reviewed with her in the office today demonstrating a stable prosthesis. We discussed continued physical therapy for maximization of her rehabilitation with regard to extension knee. I recommended patient continue to progress her activities as tolerated and ambulate frequently. Patient may utilize aukj-eum-yylzchq medications as needed at night for pain. I would like patient to follow up in 6 weeks for clinical re- evaluation and repeat x-rays of the right knee before being seen. Patient was certainly urged to contact clinic in the interim with any questions, concerns, or worsening of symptoms. Patient is comfortable with the plan, questions were answered. This chart was completed in part utilizing [employer] Speech Voice Recognition Software. Grammatical errors, random word insertions, pronoun errors, and incomplete sentences are an occasional consequence of this system due to software limitations, ambient noise, and hardware issues. Any formal questions or concerns about the content, text, or information contained within the body of this dictation should be directly addressed to the provider for clarification. Maikel Norman PA-C 12/01/2024 2:04 PM documented in this encounter Nursing Notes * Monica Hammonds LPN - 12/01/2024 1:47 PM EST Pt presents for post op visit, s/p R TKA 10/07/2024. States has 'a little pain on the sides today', a 1-2/10. Has in home PT 2 times/week, planning discharge next week. documented in this encounter Plan of Treatment Upcoming Encounters Date Type Department Care Team (Late st Contact Info) Description 12/13/2024 10:00 AM EST Therapy Psychology [facility] 132 [facility] [place] [address] Chyna Walsh, SUPERVISOR PHOSPHORIC ACID 132 [facility] [place] [address] 12/19/2024 11:30 AM EST Imaging Radiology [facility] 1st [facility] 132 [facility] [place] [address] 01/23/2025 12:30 PM EST Office Visit Hematology/Oncology [address] [place] [address] [place] [phone] Megan Robledo MD 200 [facility] [place] [address] Pending Results Name Type Priority Associated Diagnoses Date /Time XR KNEE 3 VIEWS Medical Imaging Routine Aftercare following right knee joint replacement surgery 12/01/2024 2:01 PM EST Scheduled Referrals Name Type Priority Associated Diagnoses Orde r Schedule HOME HEALTH REFERRAL OP Referral Within 10 days (routine) Aftercare following right knee joint replacement surgery Status post total right knee replacement Ordered: 12/01/2024 Health Maintenance Due Date Last Done Comments Adult Wellness Visit 2015 *BISPHONATE OR OTHER ACCEPTABLE MEDICATION NEEDED FOR OSTEOPOROSIS (REFER TO SMARTSET #1146) 06/06/2023 COVID-19 Vaccine ( season) 2024 08/22/2024, 08/22/2024, 09/11/2023, Additional history exists Depression Monitoring 01/18/2025 01/18/2024 GFR 04/17/2025 10/18/2024, 09/01, 05/16/2024, Additional history exists Albumin/Creatinine Ratio 09/29/2025 024, 07/13/2023, 09/10/2022, Additional history exists CKD PHOS USE SMARTSET 41721 09/29/202509/01, 07/13/2023, 12/20/2021, Additional history exists CKD HGB USE SMARTSET 23091 10/18/202510/18, 10/17/2024, 09/29/2024, Additional history exists DXA Scan 12/09/2025 12/09/2023, 1205/2021, 10/25/2019, Additional history exists DTap/Tdap Vaccines (3 - Td or Tdap) 05/13/2028 05/13/2018, 09/27/2008 Pneumococcal Vaccine: 50+ Years Completed 05/11/2017, 06/07/2015, 11/13/2014 Zoster Vaccines Completed 02/02/2019, 10/30, 07/16/2013 VITAMIN D LEVEL ONCE IN A LIFETIME-USE SMARTSET# [id number] Completed 09/10/2022, 02/21/2022, 12/02/2021, Additional history exists [...] this encounter Medical Devices Implanted Type Area Acls Nurse Device Identifier Shelf Expiration Date Model / Serial / Lot Cement Bone Simplex Hv & G - [id number] Implanted:Qty: 1 on 10/17/2024 by Morales Hendricks DO at OR [facility] Right: Knee SATYA : ORTHOPAEDICS 09/29/2025 6195-1-010 / / [id number] Cement Bone Simplex Hv & G - [id number] Implanted:Qty: 1 on 10/17/2024 by Morales Hendricks DO at OR [facility] Right: Knee SATYA : ORTHOPAEDICS 08/29/2025 6195-1-010 / / [id number] Component Femoral Rt Size 5 T - [id number] Implanted:Qty: 1 on 10/17/2024 by Morales Hendricks DO at OR [facility] Right: Knee SATYA : ORTHOPAEDICS 07/22/2029 5510-F-502 / / [id number] Knee Baseplate Tri Tib Sz 4 - [id number] Implanted:Qty: 1 on 10/17/2024 by Morales Hendricks DO at OR [facility] Right: Knee SATYA : ORTHOPAEDICS 02/15/2028 5521-B-400 / / [id number] Knee X3 Ins Pos Cs Sz4 9 - [id number] Implanted:Qty: 1 on 10/17/2024 by Morales Hendricks DO at OR [facility] Right: Knee SATYA : ORTHOPAEDICS 06/26/2029 5531-G-409 -E / / [id number] documented as of this encounter Visit Diagnoses Diagnosis Aftercare following right knee joint replacement surgery- Primary Status post total right knee replacement documented in this encounter Advance Directives * [...] and were consensually agreed upon. Care Teams Medical Videographer Relationship Specialty Start Date End Date Juan Jay DO [address] [place] [address] PCP - General Family Medicine 12/22/19 documented as of this encounter"
--- OUTSIDE RECORDS SUMMARY | 2024-12-29 17:57 | External Medical Summary | Summary of Care ---
Author Name Unknown Organization [facility] Address [address] [place] [address] Phone [phone] Care Team Providers Care Inspector Precision Name Role Phone Juan Jay DO Primary [...] 03/01/2019 07/02/2020 Overview (03/18/2021): DO NOT DELETE [facility] DETECT Study: Project # [id number], Dining Room Host/Hostess: Tyson Atwood, PhD. SUMMARY: Goal: Establish test [...] contact study staff at ; after hours Dining Room Host/Hostess via the [facility] hospital marshmallow machine operator . Please contact study team before resolving/deleting from patients problem list. Study phone number: [phone]. Diagnosis changed due to Research Module. Go to Snapshot for study details. Encounter for examination fo r normal comparison and control in clinical research program 03/01/2019 07/31/2022 Overview (03/18/2021): DO NOT DELETE - Jose [facility] DETECT Study: Project # [id number], Dining Room Host/Hostess: Jack Herrera, MS, MPH. SUMMARY: Goal: Establish [...] contact study staff at ; after hours Dining Room Host/Hostess via the [facility] hospital marshmallow machine operator . - Please contact study team before resolving/deleting from patients problem list. Study phone number: [phone]. Diagnosis changed due to Research Module. 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 [...] of Assessment Author No 10/17/2024 2:53 PM Mria Henao RN * Do you have serious [...] 12/01/2024 2:00 PM EST Office Visit [facility] [address] [place] [address] Maikel Norman PA-C [address] [place] [address] 12/13/2024 10:00 AM EST Therapy Psychology [facility] [address] [place] [address] Chyna Walsh, [facility] 132 [facility] [place] [address] 12/19/2024 11:30 AM EST Imaging Radiology [facility] 1st [facility] [address] [place] [address] 01/23/2025 12:30 PM EST Office Visit Hematology/Oncology [facility] [place] [address] [place] [phone] Megan Robledo MD [address] [place] [address] Health Maintenance Due Date Last Done Comments Adult Wellness Visit 2015 *BISPHONATE OR OTHER ACCEPTABLE MEDICATION NEEDED FOR OSTEOPOROSIS (REFER TO SMARTSET #1146) 06/06/2023 COVID-19 Vaccine ( season) 2024 08/22/2024, 08/22/2024, 09/11/2023, Additional history exists Depression Monitoring 01/18/2025 01/18/2024 GFR 04/17/2025 10/18/2024, 09/01, 05/16/2024, Additional history exists Albumin/Creatinine Ratio 09/29/2025 024, 07/13/2023, 09/10/2022, Additional history exists CKD PHOS USE SMARTSET 68459 09/29/202509/01, 07/13/2023, 12/20/2021, Additional history exists CKD HGB USE SMARTSET 08013 10/18/202510/18, 10/17/2024, 09/29/2024, Additional history exists DXA Scan 12/09/2025 12/09/2023, 1205/2021, 10/25/2019, Additional history exists DTap/Tdap Vaccines (3 - Td or Tdap) 05/13/2028 05/13/2018, 09/27/2008 Pneumococcal Vaccine: 50+ Years Completed 05/11/2017, 06/07/2015, 11/13/2014 Zoster Vaccines Completed 02/02/2019, 10/30, 07/16/2013 VITAMIN D LEVEL ONCE IN A LIFETIME-USE SMARTSET# 45151 Completed 09/10/2022, 02/21/2022, 12/02/2021, Additional history exists [...] this encounter Medical Devices Implanted Type Area Photographer Helper Device Identifier Shelf Expiration Date Model / Serial / Lot Cement Bone Simplex Hv & G - [id number] Implanted:Qty: 1 on 10/17/2024 by Morales Hendricks, DO at OR [facility] Right: Knee SATYA : ORTHOPAEDICS 09/29/2025 6195-1-010 / / [id number] Cement Bone Simplex Hv & G - [id number] Implanted:Qty: 1 on 10/17/2024 by Morales Hendricks, at OR [facility] Right: Knee SATYA : ORTHOPAEDICS 08/29/2025 6195-1-010 / / [id number] Femoral Rt Size 5 T - [id number] Implanted:Qty: 1 on 10/17/2024 by Morales Hendricks DO at OR [facility] Right: Knee SATYA : ORTHOPAEDICS 07/22/2029 5510-F-502 / / [id number] Knee Baseplate Tri Tib Sz 4 - [id number] Implanted:Qty: 1 on 10/17/2024 by Morales Hendricks, DO at OR [facility] Right: Knee SATYA : ORTHOPAEDICS 02/15/2028 5521-B-400 / / [id number] Knee X3 Ins Pos Cs Sz4 9 - [id number] Implanted:Qty: 1 on 10/17/2024 by Morales Hendricks, at OR [facility] Right: Knee SATYA : ORTHOPAEDICS [...] and were consensually agreed upon. Care Teams Inspector Precision Relationship Specialty Start Date End Date Juan Jay DO [address] [place] [address] PCP - General Family Medicine 12/22/19 documented as of this encounter
--- OUTSIDE RECORDS SUMMARY | 2024-12-29 17:57 | External Medical Summary | Summary of Care ---
Author Name Unknown Organization [facility] Address [address] [place] [address] Phone [phone] Care Team Providers Care Network Coordinator Name Role Phone Juan Jay DO Primary [...] 03/01/2019 07/02/2020 Overview (03/18/2021): DO NOT DELETE [facility] DETECT Study: Project # [id number], Distributor Publications: Tyson Atwood, PhD. SUMMARY: Goal: Establish test [...] contact study staff at ; after hours Distributor Publications via the [facility] automatic lathe operator . Please contact study team before resolving/deleting from patients problem list. Study phone number: [phone]. Diagnosis changed due to Research Module. Go to Snapshot for study details. Encounter for examination fo r normal comparison and control in clinical research program 03/01/2019 07/31/2022 Overview (03/18/2021): DO NOT DELETE - Jose [facility] DETECT Study: Project # [id number], Distributor Publications: Jack Herrera, MS, MPH. SUMMARY: Goal: Establish [...] contact study staff at ; after hours Distributor Publications via the [facility] hospital automatic lathe operator . - Please contact study team before resolving/deleting from patients problem list. Study phone number: [phone]. Diagnosis changed due to Research Module. 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 Not [...] Description 12/13/2024 10:00 AM EST Therapy Psychology [facility] 132 [facility] [place] [address] Chyna Walsh FLEX O WRITER OPERATOR 132 [facility] [place] [address] 12/19/2024 11:30 AM EST Imaging Radiology [address] [place] [address] 01/23/2025 12:30 PM EST Office Visit Hematology/Oncology [facility] [address] [place] [phone] Megan Robledo MD [address] [place] [address] Health Maintenance Due Date Last Done Comments Adult Wellness Visit 2015 *BISPHONATE OR OTHER ACCEPTABLE MEDICATION NEEDED FOR OSTEOPOROSIS (REFER TO SMARTSET #1146) 06/06/2023 COVID-19 Vaccine ( season) 2024 08/22/2024, 08/22/2024, 09/11/2023, Additional history exists Depression Monitoring 01/18/2025 01/18/2024 GFR 04/17/2025 10/18/2024, 09/01, 05/16/2024, Additional history exists Albumin/Creatinine Ratio 09/29/2025 024, 07/13/2023, 09/10/2022, Additional history exists CKD PHOS USE SMARTSET 91404 09/29/202509/01, 07/13/2023, 12/20/2021, Additional history exists CKD HGB USE SMARTSET 01491 10/18/202510/18, 10/17/2024, 09/29/2024, Additional history exists DXA Scan 12/09/2025 12/09/2023, 05/2021, 10/25/2019, Additional history exists DTap/Tdap Vaccines (3 - Td or Tdap) 05/13/2028 05/13/2018, 09/27/2008 Pneumococcal Vaccine: 50+ Years Completed 05/11/2017, 06/07/2015, 11/13/2014 Zoster Vaccines Completed 02/02/2019, 10/30, 07/16/2013 VITAMIN D LEVEL ONCE IN A LIFETIME-USE SMARTSET# 91506 Completed 09/10/2022, 02/21/2022, 12/02/2021, Additional history exists [...] this encounter Medical Devices Implanted Type Area Transmission Builder Device Identifier Shelf Expiration Date Model / Serial / Lot Cement Bone Simplex Hv & G - [id number] Implanted:Qty: 1 on 10/17/2024 by Morales Hendricks DO at OR [facility] Right: Knee SATYA : ORTHOPAEDICS 09/29/2025 6195-1-010 / / [id number] Cement Bone Simplex Hv & G - [id number] Implanted:Qty: 1 on 10/17/2024 by Morales Hendricks DO at OR [facility] Right: Knee SATYA : ORTHOPAEDICS 08/29/2025 6195-1-010 / / [id number] Component Femoral Rt Size 5 T - [id number] Implanted:Qty: 1 on 10/17/2024 by Morales Hendricks DO at OR [facility] Right: Knee SATYA : ORTHOPAEDICS 07/22/2029 5510-F-502 / / [id number] Knee Baseplate Tri Tib Sz 4 - [id number] Implanted:Qty: 1 on 10/17/2024 by Morales Hendricks DO at OR [facility] Right: Knee SATYA : ORTHOPAEDICS 02/15/2028 5521-B-400 / / [id number] Knee X3 Ins Pos Cs Sz4 9 - [id number] Implanted:Qty: 1 on 10/17/2024 by Morales Hendricks DO at OR [facility] Right: Knee SATYA : ORTHOPAEDICS 06/26/2029 5531-G-409 [...] and were consensually agreed upon. Care Teams Network Coordinator Relationship Specialty Start Date End Date Juan Jay DO [address] [place] [address] PCP - General Family Medicine 12/22/19 documented as of this encounter
--- OUTSIDE RECORDS SUMMARY | 2024-12-29 17:57 | External Medical Summary | Summary of Care ---
Author Name Unknown Organization [facility] Address [address] [facility] [address] Phone [phone] Care Team Providers Care Deputy Sheriff/Investigator Name Role Phone Juan Jay DO Primary Care Provider Encounter Details Date Type Department Care Team (Late st Contact Info) Description 11/09/2024 Orders Only PATIENT PORTAL DO NOT DELETE THIS DEPT USED BY [place] [id number] Allergies Active Allergy Reactions Criticality Noted Date Comments Kraig Inhibitors 05/17/2007 Cough Nsaids Other (Please comment) 07/02/2018 Due to kidney issues documented as of this encounter (statuses as of 11/09/2024) Medications acetaminophen (TYLENOL) 500 MG Tablet 2 [...] as of this encounter (statuses as of 11/09/2024) Active Problems Problem Noted Date Diagnosed Date [...] as of this encounter (statuses as of 11/09/2024) Resolved Problems Problem Noted Date Diagnosed Date [...] 03/01/2019 07/02/2020 Overview (03/18/2021): DO NOT DELETE [facility] DETECT Study: Project # [id number], Job Compositor: Tyson Atwood, PhD. SUMMARY: Goal: Establish test [...] contact study staff at ; after hours Job Compositor via the [facility] hospital capping machine operator . Please contact study team before resolving/deleting from patients problem list. Study phone number: [phone]. Diagnosis changed due to Research Module. Go to Snapshot for study details. Encounter for examination fo r normal comparison and control in clinical research program 03/01/2019 07/31/2022 Overview (03/18/2021): DO NOT DELETE - [facility] DETECT Study: Project # [id number], Job Compositor: Jack Herrera, MS, MPH. SUMMARY: Goal: Establish [...] contact study staff at ; after hours Job Compositor via the [facility] hospital capping machine operator . - Please contact study team before resolving/deleting from patients problem list. Study phone number: [phone]. Diagnosis changed due to Research Module. 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 [...] 12/01/2024 2:00 PM EST Office Visit Orthopaedics [facility] 132 [facility] [place] [address] Maikel Norman PA-C [address] [place] [address] 12/13/2024 10:00 AM EST Therapy Psychology [facility] [address] [address] Chyna Walsh, [facility] 132 [facility] [place] [address] 12/19/2024 11:30 AM EST Imaging Radiology [facility]st [facility] [address] [place] [address] 01/23/2025 12:30 PM EST Office Visit Hematology/Oncology [place] [facility] [place] 200 [facility] [place] [phone] Megan Robledo MD [address] [place] [address] Health Maintenance Due Date Last Done Comments Adult Wellness Visit 2015 *BISPHONATE OR OTHER ACCEPTABLE MEDICATION NEEDED FOR OSTEOPOROSIS (REFER TO SMARTSET #1146) 06/06/2023 COVID-19 Vaccine ( season) 2024 08/22/2024, 08/22/2024, 09/11/2023, Additional history exists Depression Monitoring 01/18/2025 01/18/2024 GFR 04/17/2025 10/18/2024, 09/01, 05/16/2024, Additional history exists Albumin/Creatinine Ratio 09/29/2025 024, 07/13/2023, 09/10/2022, Additional history exists CKD PHOS USE SMARTSET 20097 09/29/202509/01, 07/13/2023, 12/20/2021, Additional history exists CKD HGB USE SMARTSET 35354 10/18/202510/18, 10/17/2024, 09/29/2024, Additional history exists DXA Scan 12/09/2025 12/09/2023, 1205/2021, 10/25/2019, Additional history exists DTap/Tdap Vaccines (3 - Td or Tdap) 05/13/2028 05/13/2018, 09/27/2008 Pneumococcal Vaccine: 65+ Years Completed 05/11/2017, 06/07/2015, 11/13/2014 Zoster Vaccines Completed 02/02/2019, 10/30, 07/16/2013 VITAMIN D LEVEL ONCE IN A LIFETIME-USE SMARTSET# 27438 Completed 09/10/2022, 02/21/2022, 12/02/2021, Additional history exists [...] this encounter Medical Devices Implanted Type Area Harvesting Supervisor Device Identifier Shelf Expiration Date Model / Serial / Lot Cement Bone Simplex Hv & G - [id number] Implanted:Qty: 1 on 10/17/2024 by Morales Hendricks DO at OR [facility] Right: Knee SATYA : ORTHOPAEDICS 09/29/2025 6195-1-010 / / [id number] Cement Bone Simplex Hv & G - [id number] Implanted:Qty: 1 on 10/17/2024 by Morales Hendricks DO at OR [facility] Right: Knee SATYA : ORTHOPAEDICS 08/29/2025 6195-1-010 / / [id number] Component Femoral Rt Size 5 T - [id number] Implanted:Qty: 1 on 10/17/2024 by Morales Hendricks DO at OR [facility] Right: Knee SATYA : ORTHOPAEDICS 07/22/2029 5510-F-502 / / [id number] Knee Baseplate Tri Tib Sz 4 - [id number] Implanted:Qty: 1 on 10/17/2024 by Morales Hendricks DO at OR [facility] Right: Knee SATYA : ORTHOPAEDICS 02/15/2028 5521-B-400 / / [id number] Knee X3 Ins Pos Cs Sz4 9 - [id number] Implanted:Qty: 1 on 10/17/2024 by Morales Hendricks DO at OR [facility] Right: Knee SATYA : ORTHOPAEDICS 06/26/2029 [...] and were consensually agreed upon. Care Teams Deputy Sheriff/Investigator Relationship Specialty Start Date End Date Juan Jay DO [address] [place] [address] PCP - General Family Medicine 12/22/19 documented as of this encounter
--- OUTSIDE RECORDS SUMMARY | 2024-12-29 17:57 | External Medical Summary | Summary of Care ---
Author Name Unknown Organization [facility] Address [address] [place] [address] Phone [phone] Care Team Providers Care Baling Press Operator Name Role Phone Juan Jay DO [...] 03/01/2019 07/02/2020 Overview (03/18/2021): DO NOT DELETE [facility] DETECT Study: Project # [id number], Boat Deckhand: Tyson Atwood, PhD. SUMMARY: Goal: Establish test [...] contact study staff at ; after hours Boat Deckhand via the [facility] hospital press operator carbon products . Please contact study team before resolving/deleting from patients problem list. Study phone number: [phone]. Diagnosis changed due to Research Module. Go to Snapshot for study details. Encounter for examination fo r normal comparison and control in clinical research program 03/01/2019 07/31/2022 Overview (03/18/2021): DO NOT DELETE - Jose [facility] DETECT Study: Project # [id number], Boat Deckhand: Jack Herrera, MS, MPH. SUMMARY: Goal: Establish [...] contact study staff at ; after hours Boat Deckhand via the [facility] hospital press operator carbon products . - Please contact study team before resolving/deleting from patients problem list. Study phone number: [phone]. Diagnosis changed due to Research Module. 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 Not [...] Description 12/13/2024 10:00 AM EST Therapy Psychology [facility] 132 [facility] [place] [address] Chyna Walsh ORTHOTIC/PROSTHETIC CLINICIAN 132 [facility] [place] [address] 12/19/2024 11:30 AM EST Imaging Radiology [address] [place] [address] 01/23/2025 12:30 PM EST Office Visit Hematology/Oncology [facility] [address] [place] [phone] Megan Robledo MD [address] [place] [address] Health Maintenance Due Date Last Done Comments Adult Wellness Visit 2015 *BISPHONATE OR OTHER ACCEPTABLE MEDICATION NEEDED FOR OSTEOPOROSIS (REFER TO SMARTSET #1146) 06/06/2023 COVID-19 Vaccine ( season) 2024 08/22/2024, 08/22/2024, 09/11/2023, Additional history exists Depression Monitoring 01/18/2025 01/18/2024 GFR 04/17/2025 10/18/2024, 09/01, 05/16/2024, Additional history exists Albumin/Creatinine Ratio 09/29/2025 024, 07/13/2023, 09/10/2022, Additional history exists CKD PHOS USE SMARTSET 53206 09/29/202509/01, 07/13/2023, 12/20/2021, Additional history exists CKD HGB USE SMARTSET 73976 10/18/202510/18, 10/17/2024, 09/29/2024, Additional history exists DXA Scan 12/09/2025 12/09/2023, 05/2021, 10/25/2019, Additional history exists DTap/Tdap Vaccines (3 - Td or Tdap) 05/13/2028 05/13/2018, 09/27/2008 Pneumococcal Vaccine: 50+ Years Completed 05/11/2017, 06/07/2015, 11/13/2014 Zoster Vaccines Completed 02/02/2019, 10/30, 07/16/2013 VITAMIN D LEVEL ONCE IN A LIFETIME-USE SMARTSET# 51092 Completed 09/10/2022, 02/21/2022, 12/02/2021, Additional history exists [...] this encounter Medical Devices Implanted Type Area Skin Care Therapist Device Identifier Shelf Expiration Date Model / Serial / Lot Cement Bone Simplex Hv & G - [id number] Implanted:Qty: 1 on 10/17/2024 by Morales Hendricks DO at OR [facility] Right: Knee STAYA : ORTHOPAEDICS 09/29/2025 6195-1-010 / / [id number] Cement Bone Simplex Hv & G - [id number] Implanted:Qty: 1 on 10/17/2024 by Morales Hendricks DO at OR [facility] Right: Knee SATYA : ORTHOPAEDICS 08/29/2025 6195-1-010 / / [id number] Component Femoral Rt Size 5 T - [id number] Implanted:Qty: 1 on 10/17/2024 by Morales Hendricks DO at OR [facility] Right: Knee SATYA : ORTHOPAEDICS 07/22/2029 5510-F-502 / / [id number] Knee Baseplate Tri Tib Sz 4 - [id number] Implanted:Qty: 1 on 10/17/2024 by Morales Hendricks DO at OR [facility] Right: Knee SATYA : ORTHOPAEDICS 02/15/2028 5521-B-400 / / [id number] Knee X3 Ins Pos Cs Sz4 9 - [id number] Implanted:Qty: 1 on 10/17/2024 by Morales Hendricks DO at OR [facility] Right: Knee SATYA : ORTHOPAEDICS 06/26/2029 [...] and were consensually agreed upon. Care Teams Baling Press Operator Relationship Specialty Start Date End Date Juan Jay DO [address] [place] [address] PCP - General Family Medicine 12/22/19 documented as of this encounter
--- OUTSIDE RECORDS SUMMARY | 2024-12-29 17:58 | External Medical Summary | Summary of Care ---
Author Name Unknown Organization [facility] Address [address] [place] [address] Phone [phone] Care Team Providers Care Home Health Rn Name Role Phone Juan Jay DO Primary Care Provider Encounter Details Date Type Department Care Team (Late st Contact Info) Description 10/24/2024 Patient Reported Data Patient Survey Ortho FORCE Allergies Active Allergy Reactions Criticality Noted Date Comments Kraig Inhibitors 05/17/2007 Cough Nsaids Other (Please comment) 07/02/2018 Due to kidney issues documented as of this encounter (statuses as of 10/24/2024) Medications acetaminophen (TYLENOL) 500 MG Tablet 2 [...] AND/OR DIVIDE 90 Capsule 5 4 Active LORazepam 0.5 MG Oral Tablet (Ativan)Indications :BRADY (generalized anxiety disorder) Take 1 Tablet by mouth every 8 hours as needed for Anxiety. 30 Tablet 4 Active Aspirin 81 MG Oral Tablet [...] in the morning. 14 Tablet 4 Active documented as of this encounter (statuses as of 10/24/2024) Active Problems Problem Noted Date Diagnosed Date Primary osteoarthritis of right knee 09/15/2024 Depression with anxiety 05/25/2024 Persistent insomnia 05/25/2024 OAB (overactive bladder) 05/25/2024 Hyperparathyroidism 05/12/2022 Chronic kidney disease, stage 3b 12/09/2021 Overview: Per CKD protocol Senile osteoporosis 02/10/2020 DDD (degenerative disc disease), lumbar 12/15/19 18 Giant cell arteritis 07/09/2017 BPPV (benign paroxysmal positional vertigo) 07/0 11/2013 Gastric bypass status for obesity 10/18/2013 Restless legs syndrome 07/18/2011 HTN, goal below 130/80 10/05/2009 Overview (10/05/2009): Modified per HTN Taxonomy. documented as of this encounter (statuses as of 10/24/2024) Resolved Problems Problem Noted Date Diagnosed Date [...] 03/01/2019 07/02/2020 Overview (03/18/2021): DO NOT DELETE [facility] DETECT Study: Project # [id number], Hydrotel Operator: Tyson Atwood, PhD. SUMMARY: Goal: Establish test [...] contact study staff at ; after hours Hydrotel Operator via the [facility] underground truck operator . Please contact study team before resolving/deleting from patients problem list. Study phone number: [phone]. Diagnosis changed due to Research Module. Go to Snapshot for study details. Encounter for examination fo r normal comparison and control in clinical research program 03/01/2019 07/31/2022 Overview (03/18/2021): DO NOT DELETE - [facility] Study: Project # [id number], Hydrotel Operator: Jack Herrera, MS, MPH. SUMMARY: Goal: Establish [...] contact study staff at ; after hours Hydrotel Operator via the [facility] underground truck operator . - Please contact study team before resolving/deleting from patients problem list. Study phone number: [phone]. Diagnosis changed due to Research Module. 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 [...] Entry Date Author No 10/17/2024 2:53 PM EST Mira Jay RN documented in this encounter Plan of Treatment Upcoming Encounters Date Type Department Care Team (Late st Contact Info) Description 10/25/2024 2:30 PM EST Office Visit Orthopaedics, [place] [address] [place] [address] Maikel Norman PA-C [address] [place] [address] 11/03/2024 4:20 PM EST Office Visit Family Practice [facility] [address] [place] [address] Juan Jay DO [address] [address] 11/11/2024 10:00 AM EST Telemedicine Urology [facility] [address] [place] [address] Chapito Solorzano MD [address] [address] 12/19/2024 11:30 AM EST Imaging Radiology [facility] [address] [place] [address] 01/23/2025 12:30 PM EST Office Visit Hematology/Oncology [facility] [place] [address] [place] [id number] Megan Robledo MD [address] [facility] [place] [place] [address] Health Maintenance Due Date Last Done Comments Cologuard 1994 Fecal Occult Blood Test 1994 Sigmoidoscopy 1994 Adult Wellness Visit 2015 *BISPHONATE OR OTHER ACCEPTABLE MEDICATION NEEDED FOR OSTEOPOROSIS (REFER TO SMARTSET #1146) 06/06/2023 COVID-19 Vaccine ( season) 2024 08/22/2024, 09/11/2023, 09/30/2021, Additional history exists Mammogram 12/16/2024 12/16/2023, 11/30, 11/04/2021, Additional history exists Depression Monitoring 01/18/2025 01/18/2024 GFR 04/17/2025 10/18/2024, 09/01, 05/16/2024, Additional history exists Albumin/Creatinine Ratio 09/29/2025 024, 07/13/2023, 09/10/2022, Additional history exists CKD PHOS USE SMARTSET 93930 09/29/202509/01, 07/13/2023, 12/20/2021, Additional history exists CKD HGB USE SMARTSET 66359 10/18/202510/18, 10/17/2024, 09/29/2024, Additional history exists DXA Scan 12/09/2025 12/09/2023, 12/05/2021, 10/25/2019, Additional history exists DTap/Tdap Vaccines (3 - Td or Tdap) 05/13/2028 05/13/2018, 09/27/2008 Lipid Panel 09/29/2029 09/29/2024, 06/30, 09/10/2022, Additional history exists Colonoscopy 08/24/2033 08/24/2023, 08/01, 06/08/2018, Additional history exists Colorectal Cancer Screening 08/24/2033 Pneumococcal Vaccine: 65+ Years Completed 05/11/2017, 06/07/2015, 11/13/2014 Zoster Vaccines Completed 02/02/2019, 10/30, 07/16/2013 VITAMIN D LEVEL ONCE IN A LIFETIME-USE SMARTSET# 17989 Completed 09/10/2022, 02/21/2022, 12/02/2021, Additional history exists RETIRED - COLONOSCOPY-EVERY 5 YRS AGES 18-100 Discontinued 08/24/2023, 08/24/2023, 06/08/2018, Additional history exists Influenza Vaccine (FLU shot) Completed 08/22/2024, 08/01/2022, 08/26/2021, Additional history exists HPV (Gardasil) Vaccine Aged Out No lo nger eligible based on patient's age to complete this topic Hepatitis B Vaccine Aged Out No longe r eligible based on patient's age to complete this topic MENINGOCOCCAL (MENACTRA/MENVEO) Aged Out No longer eligible based on patient's age to complete this topic documented as of this encounter Medical Devices Implanted Type Area Customer Assistance Representative Device Identifier Shelf Expiration Date Model / Serial / Lot Cement Bone Simplex Hv & G - [id number] Implanted:Qty: 1 on 10/17/2024 by Morales Hendricks DO at OR [facility] Right: Knee SATYA : ORTHOPAEDICS 09/29/2025 6195-1-010 / / [id number] Cement Bone Simplex Hv & G - [id number] Implanted:Qty: 1 on 10/17/2024 by Morales Hendricks DO at OR [facility] Right: Knee SATYA : ORTHOPAEDICS 08/29/2025 6195-1-010 / / [id number] Femoral Rt Size 5 T - [id number] Implanted:Qty: 1 on 10/17/2024 by Morales Hendricks DO at OR [facility] Right: Knee SATYA : ORTHOPAEDICS 07/22/2029 5510-F-502 / / [id number] Knee Baseplate Tri Tib Sz 4 - [id number] Implanted:Qty: 1 on 10/17/2024 by Morales Hendricks DO at OR [facility] Right: Knee SATYA : ORTHOPAEDICS 02/15/2028 5521-B-400 / / [id number] Knee X3 Ins Pos Cs Sz4 9 - [id number] Implanted:Qty: 1 on 10/17/2024 by Morales Hendricks DO at OR [facility] Right: Knee SATYA : ORTHOPAEDICS 06/26/2029 [...] and were consensually agreed upon. Care Teams Home Health Rn Relationship Specialty Start Date End Date Juan Jay DO [address] [place] [address] PCP - General Family Medicine 12/22/19 documented as of this encounter
--- OUTSIDE RECORDS SUMMARY | 2024-12-29 17:58 | External Medical Summary | Summary of Care ---
Author Name Unknown Organization [facility] Address [address] [facility] [address] Phone [phone] Care Team Providers Care Contractor Buyer Name Role Phone Juan Jay DO Primary Care Provider Encounter Details Date Type Department Care Team (Latest Contact Info) Description 10/25/2024 2:26 PM EST - 10/25/2024 11:59 PM EST Hospital Encounter Orthopaedics, [place] [address] [place], [place] [phone] Arrived Discharge Disposition: Home - Self Care Allergies Active Allergy Reactions Criticality Noted Date Comments Kraig Inhibitors 05/17/2007 Cough Nsaids Other (Please comment) 07/02/2018 Due to kidney issues documented as of this encounter (statuses as of 10/26/2024) Medications acetaminophen (TYLENOL) 500 MG Tablet 2 [...] as needed for Pain, Severe. 20 Capsule Active documented as of this encounter (statuses as of 10/26/2024) Active Problems Problem Noted Date Diagnosed Date [...] as of this encounter (statuses as of 10/26/2024) Resolved Problems Problem Noted Date Diagnosed Date [...] 03/01/2019 07/02/2020 Overview (03/18/2021): DO NOT DELETE [facility] Study: Project # [id number], Garnisher: Tyson Atwood, PhD. SUMMARY: Goal: Establish test [...] contact study staff at ; after hours Garnisher via the [facility] subway train operator . Please contact study team before resolving/deleting from patients problem list. Study phone number: [phone]. Diagnosis changed due to Research Module. Go to Snapshot for study details. Encounter for examination fo r normal comparison and control in clinical research program 03/01/2019 07/31/2022 Overview (03/18/2021): DO NOT DELETE - [facility] DETECT Study: Project # [id number], Garnisher: Jack Herrera, MS, MPH. SUMMARY: Goal: Establish [...] contact study staff at ; after hours Garnisher via the [facility] subway train operator . - Please contact study team before resolving/deleting from patients problem list. Study phone number: [phone]. Diagnosis changed due to Research Module. Go [...] as of this encounter (statuses as of 10/26/2024) Immunizations Name Administration Dates Next Due COVID-19 [...] No 09/29/2024 Does the household have a [facility] source of income? 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 [address] [address] Juan Jay, DO [address] [place] [address] 11/07/2024 11:00 AM EST Office Visit [facility] [address] [address] Juan Jay, [address] [address] 11/11/2024 10:00 AM EST Telemedicine Urology [facility] [address] [place] [address] Chapito Solorzano MD [address] [address] 12/01/2024 2:00 PM EST Office Visit Orthopaedics [facility] [address] [address] Maikel Norman PA-C [address] [place] [address] 12/19/2024 11:30 AM EST Imaging Radiology [facility] [address] [facility] [place] [address] 01/23/2025 12:30 PM EST Office Visit Hematology/Oncology [facility] [address] [facility] [place] [phone] Megan Robledo MD [address] [facility] [place] [address] Pending Results Name Type Priority Associated Diagnoses Date /Time XR KNEE 3 VIEWS Medical Imaging Routine Aftercare following right knee joint replacement surgery 10/25/2024 4:09 PM EST Health Maintenance Due Date Last Done Comments [...] 09/01, 05/16/2024, Additional history exists Albumin/Creatinine Ratio 09/29/202509/29/2 024, 07/13/2023, 09/10/2022, Additional history exists CKD PHOS USE SMARTSET 75608 09/29/202509/01, 07/13/2023, 12/20/2021, Additional history exists CKD HGB USE SMARTSET 86560 10/18/202510/18, 10/17/2024, 09/29/2024, Additional history exists DXA [...] D LEVEL ONCE IN A LIFETIME-USE SMARTSET# 18277 Completed 09/10/2022, 02/21/2022, 12/02/2021, Additional history exists [...] this encounter Medical Devices Implanted Type Area Code Enforcement Inspector Device Identifier Shelf Expiration Date Model / Serial / Lot Cement Bone Simplex Hv & G - [id number] Implanted:Qty: 1 on 10/17/2024 by Morales Hendricks, DO at OR [facility] Right: Knee SATYA : ORTHOPAEDICS 09/29/2025 6195-1-010 / / [id number] Cement Bone Simplex Hv & G - [id number] Implanted:Qty: 1 on 10/17/2024 by Morales Hendricks, DO at OR [facility] Right: Knee SATYA : ORTHOPAEDICS 08/29/2025 6195-1-010 / / [id number] Component Femoral Rt Size 5 T - [id number] Implanted:Qty: 1 on 10/17/2024 by Morales Hendricks, DO at OR [facility] Right: Knee SATYA : ORTHOPAEDICS 07/22/2029 5510-F-502 / / [id number] Knee Baseplate Tri Tib Sz 4 - [id number] Implanted:Qty: 1 on 10/17/2024 by Morales Hendricks, DO at OR [facility] Right: Knee SATYA : ORTHOPAEDICS 02/15/2028 5521-B-400 / / [id number] Knee X3 Ins Pos Cs Sz4 9 - [id number] Implanted:Qty: 1 on 10/17/2024 by Morales Hendricks, DO at OR [facility] Right: Knee SATYA : ORTHOPAEDICS 06/26/2029 [...] and were consensually agreed upon. Care Teams Contractor Buyer Relationship Specialty Start Date End Date Juan Jay DO [address] [address] PCP - General Family Medicine 12/22/19 documented as of this encounter
--- OUTSIDE RECORDS SUMMARY | 2024-12-29 17:58 | External Medical Summary | Summary of Care ---
Author Name Unknown Organization [facility] Address [address] [place] [address] Phone [phone] Care Team Providers Care Automatic Drill Operator Name Role Phone Juan Jay DO Primary Care Provider Reason for Referral * Evaluate & Treat - Unlimited Visits (Within 3 days (urgent)) - Authorized Specialty Diagnoses / Procedures Referred By Mike mulligan Referred To Contact HOME CARE / Home Care Diagnoses Aftercare following joint replacement surgery Status post total right knee replacement Maikel Norman PA-C [facility] [place] [address] Phone: tel: fax: Referral ID Status Reason Start Date Expiration Date Visits Requested Visits Authorized [id number] Authorized Specialty Services Required 4 [phone] Question Answer Referral Priority Within 3 days (urgent) Where should this appointment be scheduled? External - Any Comments Documentation of Mkjc-bd-Fyzb Encounter Addendum Patient Name: Paige Cervantes I certify that this patient is under my care and that I, or a nurse practitioner or physician's mri assistant working with me, had a tkyt-dx-yrhs encounter that meets the physician vkjk-cf-nftt encounter requirements with this patient on: 10/25/2024. The encounter with the patient was in [...] patient after discharge should complete this section): Rehabilitation total right knee arthroplasty rehabilitative protocol, focus on range of motion and strengthening. My clinical findings support the need for the above services because: Access to transportation, ambulatory dysfunction; recent surgery. Further, I certify that my clinical findings support that this patient is homebound (i.e. Absences from home require considerable and taxing effort and are for medical reasons or jew services or infrequently or of short duration when for other reason) because: Ambulatory dysfunction; recent surgery. Physician Signature: Date of Signature: Physician Printed Name: Maikel Norman PA-C Reason for Visit * Reason Comments Post-Op DOS: 10/07/24 R TKA Encounter Details Date Type Department Care Team (Late st Contact Info) Description 10/25/2024 2:30 PM EST Office Visit Orthopaedics, [facility] [address] [place] [address] Maikel Norman PA-C [address] [place] [address] Aftercare following right knee joint replacement surgery*; Status post total right knee replacement Allergies Active Allergy Reactions Criticality Noted Date Comments Kraig Inhibitors 05/17/2007 Cough Nsaids Other (Please comment) 07/02/2018 Due to kidney issues documented as of this encounter (statuses as of 10/25/2024) Medications acetaminophen (TYLENOL) 500 MG Tablet 2 [...] for Pain, Severe. 20 Capsule 4 Active documented as of this encounter (statuses as of 10/25/2024) Active Problems Problem Noted Date Diagnosed Date [...] as of this encounter (statuses as of 10/25/2024) Resolved Problems Problem Noted Date Diagnosed Date [...] 07/02/2020 Overview (03/18/2021): DO NOT DELETE [facility] DETECT Study: Project # [id number], Material Processor: Tyson Atwood, PhD. SUMMARY: Goal: Establish test [...] contact study staff at ; after hours Material Processor via the [facility] tempering machine operator . Please contact study team before resolving/deleting from patients problem list. Study phone number: [phone]. Diagnosis changed due to Research Module. Go to Snapshot for study details. Encounter for examination fo r normal comparison and control in clinical research program 03/01/2019 07/31/2022 Overview (03/18/2021): DO NOT DELETE - [employer] DETECT Study: Project # [id number], Material Processor: Jack Herrera, MS, MPH. SUMMARY: Goal: Establish [...] contact study staff at ; after hours Material Processor via the [facility] tempering machine operator . - Please contact study team before resolving/deleting from patients problem list. Study phone number: [phone]. Diagnosis changed due to Research Module. Go [...] as of this encounter (statuses as of 10/25/2024) Immunizations Name Administration Dates Next Due COVID-19 mRNA, LNP-s, No Pre serve, 2-Dose Series (Moderna) 01/12/2021,12/29/2020 COVID-19, LNP-s, No Preserve , Felton-sucrose, Ages 12+ ([place]) 09/30/2021 COVID-19, MRNA-LNP, 24-25, P R, 30MCG/0.3ML, [...] No 09/29/2024 Does the household have a presbyterian kaseman hospitallar source of income? (Household - for ages [...] of Assessment Author No 10/17/2024 2:53 PM Marva Henao RN * Because of a physical, [...] Progress Notes * Maikel Norman PA-C - 10/25/2024 2:35 PM EST ORTHOPAEDIC SURGERY - Post-Op Clinic Note SUBJECTIVE: Paige Cervantes is a 73 year old female. Chief Complaint Patient presents with Post-Op DOS: 10/07/24 R TKA HPI: Paige is a very pleasant 73-year-old female who presents to the clinic today for surgical follow up 1 week removed from total right knee arthroplasty. Today she reports that she is doing well despite significant difficulty she has experienced at her rehab center. She reports pain is relatively well controlled. She denies fevers, chills, although she did experience a bout of night sweats which she states was related to her just being warm. No reported chest pain, shortness of breath, or calf pain. She is eager to return home from her rehab facility. Review of patient's allergies indicates: Allergen Reactions [...] CRUSH, CHEW, AND/OR DIVIDE 90 Capsule 5 LORazepam 0.5 MG Oral Tablet (Ativan) Take 1 Tablet by mouth every 8 hours as needed for Anxiety. 30 Tablet 0 Aspirin 81 MG Oral Tablet Delayed Release [...] needed for Pain, Severe. 20 Capsule 0 No current facility-administered medications for this visit. OBJECTIVE: Diagnostic studies: Updated radiographs of the right knee obtained in the office today were viewed, independently interpreted, compared with previous, and demonstrate a stable total right knee arthroplasty prosthesis without evidence of hardware complication or loosening. Vital Signs: LMP 04/30/2001 Physical Exam: Examination of the right knee reveals well-healing surgical incision and pin sites without evidenceof bleeding, drainage, or signs of infection. There is no erythema, skin breakdown, soft tissue swelling, or palpable effusion. There is no significant tenderness to palpation. She is able to demonstrate a straight leg raise and range the knee from roughly 5 shy of full extension to roughly 95 to100 flexion. Collateral stability is intact. Calf is supple and nontender. She is distally neurovascularly intact with appropriate sensation to light touch, pulses, and intact distal motor functionto include strong great toe dorsiflexion. ASSESSMENT: Aftercare following joint replacement surgery (Primary) - XR KNEE 3 VIEWS - HOME HEALTH REFERRAL OP - oxyCODONE HCl 5 MG Oral Capsule (Oxy IR); Take 1 Capsule by mouth every 6 hours as needed for Pain, Severe. Status post total right knee replacement - HOME HEALTH REFERRAL OP - oxyCODONE HCl 5 MG Oral Capsule (Oxy IR); Take 1 Capsule by mouth every 6 hours as needed for Pain, Severe. Follow Up: Return in about 5 weeks (around 11/29/2024) for Clinic Visit. | For: Clinic Visit PLAN: She is doing quite well 1 week removed from her right knee replacement despite significant difficulty she has experienced at her rehab facility. We discussed her updated x-rays in the office today demonstrating a stable prosthesis, and discussed her well-healing surgical incisions. We also discussed her excellent range of motion with regard to flexion, and discussed the importance of qdyan-om-zuthjh exercises to achieve full extension. Patient is understanding. An updated referral for home health was placed due to patient's inability to secure transportation for outpatient therapy. I also placed an updated prescription for pain medication per patient's request as patient will be returning home tomorrow. Patient may shower normally. We discussed she may drive in 2-3 weeks' time. We also discussed continuation of her postoperative medications as directed as well as regular ice and elevation. I would like patient to follow up in 4-5 weeks for clinical re-evaluation and repeat x-rays of the right knee before being seen. Patient was certainly urged to contact clinic in the interim with any questions, concerns, or worsening of symptoms. Patient is comfortable with the plan, and all questions were answered. This chart was completed in part utilizing [employer] Speech Voice Recognition Software. Grammatical errors, random word insertions, pronoun errors, and incomplete sentences are an occasional consequence of this system due to software limitations, ambient noise, and hardware issues. Any formal questions or concerns about the content, text, or information contained within the body of this dictation should be directly addressed to the provider for clarification. Maikel Norman PA-C 10/25/2024 2:35 PM documented in this encounter Nursing Notes * Michelle Larkin, RN - 10/25/2024 2:46 PM EST DOS: 10/07/24; R TKA Dressing intact on arrival. Using walker. Rates pain at 3/10, increases to 9- 10/10 with PT / exercise. documented in this encounter Plan of Treatment Upcoming Encounters Date Type Department Care Team (Late st Contact Info) Description 11/03/2024 4:20 PM EST Office Visit [facility] [address] [address] Juan Jay, [address] [address] 11/07/2024 11:00 AM EST Office Visit [facility] [address] [address] Juan Jay, [address] [place] [address] 11/11/2024 10:00 AM EST Telemedicine Urology [facility] [address] [address] Chapito Solorzano MD [address] [address] 12/01/2024 2:00 PM EST Office Visit Orthopaedics [facility] [address] [facility] [place] [address] Maikel Norman PA-C [address] [place] [address] 12/19/2024 11:30 AM EST Imaging Radiology [facility] [address] [facility] [place] [address] 01/23/2025 12:30 PM EST Office Visit Hematology/Oncology [facility] [address] [place] [id number] Megan Robledo MD [address] [place] [address] Pending Results Name Type Priority Associated Diagnoses Date /Time XR KNEE 3 VIEWS Medical Imaging Routine Aftercare following right knee joint replacement surgery 10/25/2024 2:28 PM EST Scheduled Referrals Name Type Priority Associated Diagnoses Orde r Schedule HOME HEALTH REFERRAL OP Referral Within 3 days (urgent) Aftercare following right knee joint replacement surgery Status post total right knee replacement Ordered: 10/25/2024 Health Maintenance Due Date Last Done Comments [...] 09/01, 05/16/2024, Additional history exists Albumin/Creatinine Ratio 09/29/202509/29/ 024, 07/13/2023, 09/10/2022, Additional history exists CKD PHOS USE SMARTSET 01762 09/29/202509/01, 07/13/2023, 12/20/2021, Additional history exists CKD HGB USE SMARTSET 32754 10/18/202510/18, 10/17/2024, 09/29/2024, Additional history exists DXA [...] D LEVEL ONCE IN A LIFETIME-USE SMARTSET# [id number] Completed 09/10/2022, 02/21/2022, 12/02/2021, Additional history exists [...] this encounter Medical Devices Implanted Type Area Sports Agent Device Identifier Shelf Expiration Date Model / Serial / Lot Cement Bone Simplex Hv & G - [id number] Implanted:Qty: 1 on 10/17/2024 by Morales Hendricks, DO at OR [facility] Right: Knee [employer] : ORTHOPAEDICS 09/29/2025 6195-1-010 / / [id number] Cement Bone Simplex Hv & G - [id number] Implanted:Qty: 1 on 10/17/2024 by Morales Hendricks, DO at OR [facility] Right: Knee [employer] : ORTHOPAEDICS 08/29/2025 [id number] / / [id number] Component Femoral Rt Size 5 T - [id number] Implanted:Qty: 1 on 10/17/2024 by Morales Hendricks, DO at OR [facility] Right: Knee [employer] : ORTHOPAEDICS 07/22/2029 [id number] / / [id number] Knee Baseplate Tri Tib Sz 4 - [id number] Implanted:Qty: 1 on 10/17/2024 by Morales Hendricks, at OR [facility] Right: Knee [employer] : ORTHOPAEDICS 02/15/2028 [id number] / / [id number] Knee X3 Ins Pos Cs Sz4 9 - [id number] Implanted:Qty: 1 on 10/17/2024 by Morales Hendricks, at OR [facility] Right: Knee [employer] : ORTHOPAEDICS 06/26/2029 [...] and were consensually agreed upon. Care Teams Automatic Drill Operator Relationship Specialty Start Date End Date Juan Jay DO [address] [address] PCP - General Family Medicine 12/22/19 documented as of this encounter"
--- OUTSIDE RECORDS SUMMARY | 2024-12-29 17:58 | External Medical Summary | Summary of Care ---
Author Name Unknown Organization [facility] Address [address] [place] [address] Phone [phone] Care Team Providers Care Class B Truck Driver Name Role Phone Arlen Jay DO Primary Care Provider Reason for Referral * Evaluate & Treat - Unlimited Visits (Within 10 days (routine)) - Authorized Specialty Diagnoses / Procedures Referred By Mike mulilgan Referred To Contact Psychology Diagnoses Grief Arlen Jay DO [address] [place] [address] Phone: tel: fax: Referral ID Status Reason Start Date Expiration Date Visits Requested Visits Authorized [id number] Authorized Specialty Services Required 11/07/2024 999 999 Question Answer Referral Priority Within 10 days (routine) Where should this appointment be scheduled? [facility] Is this referral for medication management? No Reason for Referral: Adjustment/Stress/Grief Reason for Visit * Reason Comments Return Visit Pt here for 6 mo ret urn, pt's passed this past Thursday. Encounter Details Date Type Department Care Team (Latest Contact Info) Description 11/07/2024 1:20 PM EST Office Visit Family Practice [facility] [address] [place] [address] Arlen Jay, DO [address] [place] [address] Hyperparathyroidism (HCC)*; Giant cell arteritis (HCC); HTN, goal below 130/80; Gastric bypass status for obesity; Chronic kidney disease, stage 3b (HCC); S/P TKR (total knee replacement), right; Vitamin D deficiency; Other iron deficiency anemia; Grief; Primary osteoarthritis of right knee Allergies Active Allergy Reactions Criticality Noted Date Comments Kraig Inhibitors 05/17/2007 Cough Nsaids Other (Please comment) 07/02/2018 Due to kidney issues documented as of this encounter (statuses as of 11/07/2024) Medications acetaminophen (TYLENOL) 500 MG Tablet 2 Tablets. 9 Active Multivitamins Oral Capsule Take 1 Capsule by mouth in the morning. Active Vitamin D 50 MCG (2000 UT) Oral Tablet Take 2,000 Units by mouth in the morning. 2 Active Potassium Citrate ER 10 MEQ (1080 MG) Oral Tablet Extended Release (Urocit-K)Deborahtio ns:Hypertensive kidney disease with stage 3b chronic [...] as of this encounter (statuses as of 11/07/2024) Active Problems Problem Noted Date Diagnosed Date [...] as of this encounter (statuses as of 11/07/2024) Resolved Problems Problem Noted Date Diagnosed Date [...] 03/01/2019 07/02/2020 Overview (03/18/2021): DO NOT DELETE [facility] DETECT Study: Project # [id number], Driver/Merchandiser: Tyson Atwood, PhD. SUMMARY: Goal: Establish test [...] contact study staff at ; after hours Driver/Merchandiser via the [facility] base draw operator . Please contact study team before resolving/deleting from patients problem list. Study phone number: [phone]. Diagnosis changed due to Research Module. Go to Snapshot for study details. Encounter for examination fo r normal comparison and control in clinical research program 03/01/2019 07/31/2022 Overview (03/18/2021): DO NOT DELETE - [facility] Study: Project # [id number], Driver/Merchandiser: Jack Herrera, MS, MPH. SUMMARY: Goal: Establish [...] contact study staff at ; after hours Driver/Merchandiser via the [facility] base draw operator . - Please contact study team before resolving/deleting from patients problem list. Study phone number: [phone]. Diagnosis changed due to Research Module. Go to [employer] for study details. 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 Answer Date of Assessment Author No 10/17/2024 2:53 PM EST Mira Jay RN * Are you blind or do you have serious difficulty seeing, even when wearing glasses? Answer Date of Assessment Author No 10/17/2024 2:53 PM EST Mira Jay RN * Do you have serious difficulty [...] documented in this encounter Progress Notes * Quan Jayvotacos Sims, - 11/07/2024 1:22 PM EST Images from the original note were not included. Assessment and Plan Assessment & Plan Post-operative Knee Replacement Pain and swelling noted, particularly on both sides of the knee. The patient is managing pain with oxycodone at night. -Continue physical therapy at home. -Apply Vaseline to the knee a couple of times a day to help with dry skin and to loosen up the tissue under the scar. -Follow-up with Dr. Abraham on December 01. HTN Well controlled Continue to monitor lab work Hx of gastric bipass Stable, weight in good place Ckd stage 3b Actually reading out stage 3a right now Renal function is doing well Grief and Anxiety Recent loss of , experiencing difficulty sleeping and decreased appetite. Currently taking lorazepam at night and duloxetine 60mg daily. -Increase duloxetine by adding 20mg daily to help with anxiety and mood. -Consider grief counseling with [facility], pending insurance coverage. Iron Deficiency Last ferritin level was on the low side of normal. -Reduce iron supplementation to every other day to improve absorption and lessen impact on GI system. General Health Maintenance -Check Vitamin D level at next lab draw. -Encourage high-calorie meals and addition of olive oil to diet to maintain weight. Monitor for continued weight loss. History of Present Illness Paige Cervantes is a 74 year old female that presents for Return Visit (Pt here for 6 mo return, pt's passed this past Thursday.) History of Present Illness The patient, a recent , presents for a follow-up visit after undergoing knee replacement surgery. She reports experiencing pain and discomfort in her knee, particularly on both sides. The pain is described as a sensation of "snakes" in the area. The patient notes that the pain is more pronounced at night, causing difficulty in sleeping. She is currently taking oxycodone at night to manage the pain. In addition to her physical health, the patient is also dealing with the recent loss of her . She expresses feelings of guilt and responsibility for his , despite acknowledging his declining health. The patient is currently not working and is receiving home-based physical therapy. She reports that she is managing to get around as needed and has even started driving again. The patient also mentions a history of low iron levels and is currently taking iron supplements daily. She is also taking lorazepam at night and duloxetine for pain management. The patient has been adhering to her medication regimen but expresses concern about becoming dependent on lorazepam. Physical Exam Vitals: 11/07/24 1317 Temp: 98.4 F (36.9 C) Pulse: 74 Resp: 16 SpO2: 94% BP: 140/82 Physical Exam Constitutional: Appearance: Normal appearance. HENT: Head: Normocephalic and atraumatic. Eyes: Extraocular Movements: Extraocular movements intact. Pupils: Pupils are equal, round, and reactive to light. Cardiovascular: Rate and Rhythm: Normal rate and regular rhythm. Pulmonary: Effort: Pulmonary effort is normal. Breath sounds: Normal breath sounds. Neurological: General: No focal deficit present. Mental Status: She is alert and oriented to person, place, and time. Psychiatric: Mood and Affect: Mood normal. Behavior: Behavior normal. Wrap-Up Time: Total time today was 42 minutes excluding any time spent in the performance of separately billed services. Text in this note was generated using an ambient documentation service. I discussed the use of a device to record and summarize our discussion today. All persons present during the encounter consented to its use. documented in this encounter Miscellaneous Notes * Addendum Note - Arlen Jay DO - 11/07/2024 4:53 PM ESTAddended by: ARLEN JAY on: 11/07/2024 04:53 PM Modules accepted: Orders documented in this encounter Plan of Treatment Upcoming Encounters Date Type Department Care Team (Late st Contact Info) Description 12/01/2024 2:00 PM EST Office Visit Orthopaedics [address] [place] [address] Maikel Norman PA-C [address] [place] [address] 12/13/2024 10:00 AM EST Therapy Psychology [address] [place] [address] Chyna Walsh, [facility] [address] [facility] [place] [address] 12/19/2024 11:30 AM EST Imaging Radiology [facility] [address] [place] [address] 01/23/2025 12:30 PM EST Office Visit Hematology/Oncology [facility] [address] [facility] [id number] Megan Robledo MD [address] [facility] [place] [address] Scheduled Orders Name Type Priority Associated Diagnoses Orde r Schedule 25-HYDROXY VITAMIN D Lab Routine Vitamin D deficiency Expected: 11/07/2024 (Approximate), Expires: 11/07/2025 FERRITIN Lab Routine Other iron deficiency anemia Expected: 11/07/2024 (Approximate), Expires: 11/07/2025 IRON SCREEN, INCLUDING TIBC Lab Routine Other iron deficiency anemia Expected: 11/07/2024 (Approximate), Expires: 11/07/2025 Scheduled Referrals Name Type Priority Associated Diagnoses Orde r Schedule ADULT/PEDS PSYCHOLOGY REFERRAL OP Referral Within 10 days (routine) Grief Ordered: 11/07/2024 Health Maintenance Due Date Last Done Comments Adult Wellness Visit 2015 *BISPHONATE OR OTHER ACCEPTABLE MEDICATION NEEDED FOR OSTEOPOROSIS (REFER TO SMARTSET #1146) 06/06/2023 COVID-19 Vaccine ( season) 2024 08/22/2024, 08/22/2024, 09/11/2023, Additional history exists Depression Monitoring 01/18/2025 01/18/2024 GFR 04/17/2025 10/18/2024, 09/01, 05/16/2024, Additional history exists Albumin/Creatinine Ratio 09/29/2025 024, 07/13/2023, 09/10/2022, Additional history exists CKD PHOS USE SMARTSET 71188 09/29/202509/01, 07/13/2023, 12/20/2021, Additional history exists CKD HGB USE SMARTSET 32822 10/18/202510/18, 10/17/2024, 09/29/2024, Additional history exists DXA Scan 12/09/2025 12/09/2023, 05/2021, 10/25/2019, Additional history exists DTap/Tdap Vaccines (3 - Td or Tdap) 05/13/2028 05/13/2018, 09/27/2008 Pneumococcal Vaccine: 65+ Years Completed 05/11/2017, 06/07/2015, 11/13/2014 Zoster Vaccines Completed 02/02/2019, 10/30, 07/16/2013 VITAMIN D LEVEL ONCE IN A LIFETIME-USE SMARTSET# 22830 Completed 09/10/2022, 02/21/2022, 12/02/2021, Additional history exists [...] this encounter Medical Devices Implanted Type Area Bond Runner Device Identifier Shelf Expiration Date Model / Serial / Lot Cement Bone Simplex Hv & G - [id number] Implanted:Qty: 1 on 10/17/2024 by Morales Hendricks DO at OR [facility] Right: Knee SATYA : ORTHOPAEDICS 09/29/2025 6195-1-010 / / [id number] Cement Bone Simplex Hv & G - [id number] Implanted:Qty: 1 on 10/17/2024 by Morales Hendricks DO at OR [facility] Right: Knee SATYA : ORTHOPAEDICS 08/29/2025 6195-1-010 / / [id number] Component Femoral Rt Size 5 T - [id number] Implanted:Qty: 1 on 10/17/2024 by Morales Hendricks DO at OR [facility] Right: Knee SATYA : ORTHOPAEDICS 07/22/2029 5510-F-502 / / [id number] Knee Baseplate Tri Tib Sz 4 - [id number] Implanted:Qty: 1 on 10/17/2024 by Morales Hendricks DO at OR [facility] Right: Knee SATYA : ORTHOPAEDICS 02/15/2028 5521-B-400 / / [id number] Knee X3 Ins Pos Cs Sz4 9 - [id number] Implanted:Qty: 1 on 10/17/2024 by Morales Hendricks DO at OR [facility] Right: Knee SATYA : ORTHOPAEDICS 06/26/2029 5531-G-409 -[id number] / / [id number] documented as of this encounter Visit Diagnoses Diagnosis Hyperparathyroidism (HCC)- Primary Hyperparathyroidism, unspecified Giant cell arteritis (HCC) Giant cell arteritis HTN, goal below 130/80 Unspecified essential hypertension Gastric bypass status for obesity Bariatric surgery status Chronic kidney disease, stage 3b (HCC) S/P TKR (total knee replacement), right Vitamin D deficiency Unspecified vitamin D deficiency Other iron deficiency anemia Grief Adjustment disorder with depressed mood Primary osteoarthritis of right knee Primary localized osteoarthrosis, lower leg documented in this encounter Advance Directives * [...] and were consensually agreed upon. Care Teams Class B Truck Driver Relationship Specialty Start Date End Date Arlen Jay DO [address] [place] [address] PCP - General Family Medicine 12/22/19 documented as of this encounter
--- OUTSIDE RECORDS SUMMARY | 2024-12-29 17:58 | External Medical Summary | Summary of Care ---
Author Name Unknown Organization [facility] Address [address] [place] [address] Phone [phone] Care Team Providers Care Energy Sales Consultant Name Role Phone Juan Jay DO Primary Care Provider Reason for Visit * Reason Onset Date Comments Advice 10/21/2024 Encounter Details Date Type Department Care Team (Late st Contact Info) Description 10/21/2024 Telephone Orthopaedics [facility] [address] [place] [address] Morales Hendricks DO [address] [place] [address] Advice Allergies Active Allergy Reactions Criticality Noted Date Comments Kraig Inhibitors 05/17/2007 Cough Nsaids Other (Please comment) 07/02/2018 Due to kidney issues documented as of this encounter (statuses as of 10/21/2024) Medications acetaminophen (TYLENOL) 500 MG Tablet 2 Tablets. 9 Active Multivitamins Oral Capsule Take 1 Capsule by mouth in the morning. Active Vitamin D 50 MCG (1999 UT) Oral Tablet Take 2,000 Units by [...] by mouth in the morning. 14 Tablet Active documented as of this encounter (statuses as of 10/21/2024) Active Problems Problem Noted Date Diagnosed Date [...] as of this encounter (statuses as of 10/21/2024) Resolved Problems Problem Noted Date Diagnosed Date [...] [facility] DETECT Study: Project # [id number], Digital Strategist Senior Manager: Tyson Atwood, PhD. SUMMARY: Goal: Establish test [...] contact study staff at ; after hours Digital Strategist Senior Manager via the [facility] combination operator . Please contact study team before resolving/deleting from patients problem list. Study phone number: [phone]. Diagnosis changed due to Research Module. Go to Snapshot for study details. Encounter for examination fo r normal comparison and control in clinical research program 03/01/2019 07/31/2022 Overview (03/18/2021): DO NOT DELETE - [facility] Study: Project # [id number], Digital Strategist Senior Manager: Jack Herrera, MS, MPH. SUMMARY: Goal: Establish [...] contact study staff at ; after hours Digital Strategist Senior Manager via the [facility] combination operator . - Please contact study team before resolving/deleting from patients problem list. Study phone number: [phone]. Diagnosis changed due to Research Module. 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 (5 years old or older) Answer Entry Date Author No 10/17/2024 2:53 PM EST Mira Jay RN documented in this encounter Miscellaneous Notes * Telephone Encounter - Cassia Acosta MED ASSIST - 10/21/2024 4:01 PM EST Called and left message for patient to return to call * Telephone Encounter - Aleisha Jay OSA - 10/21/2024 9:23 AM EST Pt had knee surgery on Thursday. The rehab she is at to be with her is not working out well. They have 2 times now almost given her the wrong medication. She is asking for Dr. Hendricks to send for authorization for her to get home health. She said she knows she will heal better that way. She is also interested in PT. She said homemaker services. Please call pt back. She would like a return call as she said they are not helping her at all. Please call: [phone] documented in this encounter Plan of Treatment Upcoming Encounters Date Type Department Care Team (Late st Contact Info) Description 10/25/2024 2:30 PM EST Office Visit Orthopaedics, [facility] [address] [place] [address] Maikel Norman PA-C [address] [place] [address] 11/03/2024 4:20 PM EST Office Visit Family Practice [facility] [address] [place] [address] Juan Jay DO [address] [place] [address] 11/11/2024 10:00 AM EST Telemedicine Urology [facility] [address] [place] [address] Chapito Solorzano MD [address] [place] [address] 12/19/2024 11:30 AM EST Imaging Radiology [address] [place] [address] 01/23/2025 12:30 PM EST Office Visit Hematology/Oncology [facility] [address] [place] [id number] Megan Robledo MD [address] [facility] [place] [address] Health Maintenance Due Date Last Done Comments [...] Additional history exists CKD PHOS USE SMARTSET 72700 09/29/202509/01, 07/13/2023, 12/20/2021, Additional history exists CKD HGB USE SMARTSET 40424 10/18/202510/18, 10/17/2024, 09/29/2024, Additional history exists DXA [...] D LEVEL ONCE IN A LIFETIME-USE SMARTSET# 99747 Completed 09/10/2022, 02/21/2022, 12/02/2021, Additional history exists [...] this encounter Medical Devices Implanted Type Area Material Handler Floorperson Device Identifier Shelf Expiration Date Model / Serial / Lot Cement Bone Simplex Hv & G - [id number] Implanted:Qty: 1 on 10/17/2024 by Morales Hendricks, DO at OR [facility] Right: Knee SATYA : ORTHOPAEDICS 09/29/2025 6195-1-010 / / [id number] Cement Bone Simplex Hv & G - [id number] Implanted:Qty: 1 on 10/17/2024 by Morales Hendricks, DO at [facility] Right: Knee SATYA : ORTHOPAEDICS 08/29/2025 6195-1-010 / / [id number] Femoral Rt Size 5 T - [id number] Implanted:Qty: 1 on 10/17/2024 by Morales Hendricks DO at OR [facility] Right: Knee SATYA : ORTHOPAEDICS 07/22/2029 5510-F-502 / / [id number] Knee Baseplate Tri Tib Sz 4 - [id number] Implanted:Qty: 1 on 10/17/2024 by Morales Hendricks DO at OR [facility] Right: Knee SATYA : ORTHOPAEDICS 02/15/2028 5521-B-400 / / [id number] Knee X3 Ins Pos Cs Sz4 9 - [id number] Implanted:Qty: 1 on 10/17/2024 by Morales Hendricks DO at OR [facility] Right: Knee SATYA : [...] and were consensually agreed upon. Care Teams Energy Sales Consultant Relationship Specialty Start Date End Date Juan Jay DO [address] [place] [address] PCP - General Family Medicine 12/22/19 documented as of this encounter
--- OUTSIDE RECORDS SUMMARY | 2024-12-29 17:58 | External Medical Summary | Summary of Care ---
Author Name Unknown Organization [facility] Address [address] [place] [address] Phone [phone] Care Team Providers Care Soda Jerker Name Role Phone Juan Jay DO Primary Care Provider Reason for Visit * Reason Onset Date Comments Advice 10/21/2024 Encounter Details Date Type Department Care Team (Late st Contact Info) Description 10/21/2024 Telephone Orthopaedics [facility] [address] [place] [address] Morales Hendricks DO [address] [place] [address] Advice Allergies Active Allergy Reactions Criticality Noted [...] 03/01/2019 07/02/2020 Overview (03/18/2021): DO NOT DELETE [facility] DETECT Study: Project # [id number], Moving Consultant: Tyson Atwood, PhD. SUMMARY: Goal: Establish test [...] contact study staff at ; after hours Moving Consultant via the [facility] sweatband decorating machine operator . Please contact study team before resolving/deleting from patients problem list. Study phone number: [phone]. Diagnosis changed due to Research Module. Go to Snapshot for study details. Encounter for examination fo r normal comparison and control in clinical research program 03/01/2019 07/31/2022 Overview (03/18/2021): DO NOT DELETE - [facility] Study: Project # [id number], Moving Consultant: Jack Herrera, MS, MPH. SUMMARY: Goal: Establish [...] contact study staff at ; after hours Moving Consultant via the [facility] sweatband decorating machine operator . - Please contact study team before resolving/deleting from patients problem list. Study phone number: [phone]. Diagnosis changed due to Research Module. Go [...] No 09/29/2024 Does the household have a [facility] source of income? 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 Please call: [phone] documented in this encounter Plan of Treatment Upcoming Encounters Date Type Department Care Team (Late st Contact Info) Description 10/25/2024 2:30 PM EST Office Visit Orthopaedics, [facility] [address] [place] [address] Maikel Norman PA-C [address] [place] [address] 11/03/2024 4:20 PM EST Office Visit Family Practice [facility] [address] [facility] [place] [address] Juan Jay DO [address] [place] [address] 11/11/2024 10:00 AM EST Telemedicine Urology [facility] [address] [place] [address] Chapito Solorzano MD [address] [place] [address] 12/19/2024 11:30 AM EST Imaging Radiology [address] [place] [address] 01/23/2025 12:30 PM EST Office Visit Hematology/Oncology [facility] [address] [place] [phone] Megan Robledo MD [address] [place] [address] Health Maintenance Due Date Last Done Comments [...] Additional history exists CKD PHOS USE SMARTSET 14082 09/29/202509/01, 07/13/2023, 12/20/2021, Additional history exists CKD HGB USE SMARTSET 50925 10/18/202510/18, 10/17/2024, 09/29/2024, Additional history exists DXA [...] D LEVEL ONCE IN A LIFETIME-USE SMARTSET# 66864 Completed 09/10/2022, 02/21/2022, 12/02/2021, Additional history exists [...] this encounter Medical Devices Implanted Type Area Cocoa Roaster Device Identifier Shelf Expiration Date Model / Serial / Lot Cement Bone Simplex Hv & G - [id number] Implanted:Qty: 1 on 10/17/2024 by Morales Hendricks, DO at OR [facility] Right: Knee SATYA : ORTHOPAEDICS 09/29/2025 6195-1-010 / / [id number] Cement Bone Simplex Hv & G - [id number] Implanted:Qty: 1 on 10/17/2024 by Morales Hendricks, DO at OR [facility] Right: Knee SATYA : ORTHOPAEDICS 08/29/2025 6195-1-010 / / [id number] Femoral Rt Size 5 T - [id number] Implanted:Qty: 1 on 10/17/2024 by Morales Hendricks, at OR [facility] Right: Knee SATYA : ORTHOPAEDICS 07/22/2029 5510-F-502 / / [id number] Knee Baseplate Tri Tib Sz 4 - [id number] Implanted:Qty: 1 on 10/17/2024 by Morales Hendricks, at OR [facility] Right: Knee SATYA : ORTHOPAEDICS 02/15/2028 5521-B-400 / / [id number] Knee X3 Ins Pos Cs Sz4 9 - [id number] Implanted:Qty: 1 on 10/17/2024 by Morales Hendricks, at OR [facility] Right: Knee SATYA : ORTHOPAEDICS 06/26/2029 [...] and were consensually agreed upon. Care Teams Soda Jerker Relationship Specialty Start Date End Date Juan Jay DO [address] [place] [address] PCP - General Family Medicine 12/22/19 documented as of this encounter
--- OUTSIDE RECORDS SUMMARY | 2024-12-29 17:58 | External Medical Summary | Summary of Care ---
Author Name Unknown Organization [facility] Address [address] [place] [address] Phone [phone] Care Team Providers Care Nail Specialist Name Role Phone Arlen Jay DO Primary Care Provider Reason for Visit * Reason Comments eRx-Medication Refill Encounter Details Date Type Department Care Team (Late st Contact Info) Description 10/31/2024 Refill Family Practice [facility] [address] [place] [address] Arlen Jay DO [address] [place] [address] BRADY (generalized anxiety disorder) Allergies Active Allergy Reactions Criticality Noted Date Comments Kraig Inhibitors 05/17/2007 Cough Nsaids Other (Please comment) 07/02/2018 Due to kidney issues documented as of this encounter (statuses as of 11/02/2024) Medications acetaminophen (TYLENOL) 500 MG Tablet 2 Tablets. 09/23/20 19 Active Multivitamins Oral Capsule Take 1 Capsule by mouth in the morning. Active Vitamin D 50 MCG (1999 UT) Oral Tablet Take 2,000 Units by mouth in the morning. 11/13/20 22 Active Potassium Citrate ER 10 MEQ (1080 MG) Oral Tablet Extended Release (Urocit-K)Indicati ons:Hypertensive kidney disease with stage 3b chronic kidney disease (HCC) take 3 tablets by mouth three times a day (MORNING, NOON, BEDTIME) 270 Tablet 3 12/23/19 24 Active Zolpidem Tartrate 5 MG Oral Tablet (Ambien)Indication s:Major depressive disorder, single episode, moderate (HCC) Take 1 Tablet by mouth at bedtime as needed for Sleep. 30 Tablet 5 01/26/20 24 Active traZODone HCl 100 MG Oral Tablet (Desyrel)Indicatio ns:Persistent insomnia take 1 tablet by mouth at bedtime 90 Tablet 3 03/14/20 24 Active Solifenacin Succinate 5 MG Oral Tablet (VESIcare) Take 1 Tablet by mouth in the morning. 90 Tablet 3 08/02/20 24 Active Mirabegron ER 50 MG Oral Tablet Extended Release 24 Hour (Myrbetriq) Take 1 Tablet by mouth in the morning. 90 Tablet 3 08/02/20 24 Active DULoxetine HCl 60 MG Oral Capsule Delayed Release Particles (Cymbalta)Indicati ons:Osteoarthritis of right knee, unspecified osteoarthritis type TAKE 1 CAPSULE BY MOUTH EVERY MORNING DO NOT CRUSH, CHEW, AND/OR DIVIDE 90 Capsule 5 08/11/20 24 Active Aspirin 81 MG Oral Tablet Delayed ReleaseIndications :Status post total right knee replacement Take 1 tablet by mouth in the morning, and 1 tablet by mouth at bedtime. - Oral 60 Tablet 10/19/20 24 Active Ferrous Sulfate 325 (65 Fe) MG Oral Tablet (Feosol)Indication s:Status post total right knee replacement Take 1 tablet by mouth at noon, and 1 tablet by mouth in the evening. - Oral. 14 Tablet 10/19/20 24 Active oxyCODONE HCl 5 MG Oral Tablet (Oxy IR)Indications:Sta tus post total right knee replacement Take 1 Tablet by mouth every 4 hours as needed for Pain, Severe. 30 Tablet 10/19/20 24 Active Sennosides 8.6 MG Oral Tablet (Senokot)Indicatio ns:Status post total right knee replacement Take 2 tablets by mouth in the morning. 14 Tablet 10/19/20 24 Active oxyCODONE HCl 5 MG Oral Capsule (Oxy IR)Indications:Aft ercare following right knee joint replacement surgery,Status post total right knee replacement Take 1 Capsule by mouth every 6 hours as needed for Pain, Severe. 20 Capsule 10/25/20 24 Active LORazepam 0.5 MG Oral Tablet (Ativan)Indication s:BRADY (generalized anxiety disorder) TAKE 1 TABLET BY MOUTH EVERY 8 HOURS NEEDED FOR ANXIETY 30 Tablet 11/02/20 24 Active LORazepam 0.5 MG Oral Tablet (Ativan)Indication s:BRADY (generalized anxiety disorder) Take 1 Tablet by mouth every 8 hours as needed for Anxiety. 30 Tablet 10/11/20 24 024 Discontinued documented as of this encounter (statuses as of 11/02/2024) Active Problems Problem Noted Date Diagnosed Date [...] as of this encounter (statuses as of 11/02/2024) Resolved Problems Problem Noted Date Diagnosed Date [...] 07/02/2020 Overview (03/18/2021): DO NOT DELETE [facility] DETECT Study: Project # [id number], Oriental Rug Repairer: Tyson Atwood, PhD. SUMMARY: Goal: Establish test [...] contact study staff at ; after hours Oriental Rug Repairer via the [facility] hospital vac press operator . Please contact study team before resolving/deleting from patients problem list. Study phone number: [phone]. Diagnosis changed due to Research Module. Go to Snapshot for study details. Encounter for examination fo r normal comparison and control in clinical research program 03/01/2019 07/31/2022 Overview (03/18/2021): DO NOT DELETE - [facility] DETECT Study: Project # [id number], Oriental Rug Repairer: Jack Herrera, MS, MPH. SUMMARY: Goal: Establish [...] contact study staff at ; after hours Oriental Rug Repairer via the [facility] hospital vac press operator . - Please contact study team before resolving/deleting from patients problem list. Study phone number: [phone]. Diagnosis changed due to Research Module. 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 file Not [...] Telephone Encounter - Arlen Jay DO - 11/02/2024 10:21 AM EST Signed Prescriptions: Disp Refills LORazepam 0.5 MG Oral Tablet (Ativan) 30 Tab*0 Sig: TAKE 1 TABLET BY MOUTH EVERY 8 HOURS NEEDED FOR ANXIETY Authorizing Provider: ARLEN JAY * Telephone Encounter - Richelle Arriaga [facility] - 11/02/2024 6:07 AM EST Pending Prescriptions: Disp Refills LORazepam 0.5 MG Oral Tablet (Ativan) 30 Tab*0 Sig: TAKE 1 TABLET BY MOUTH EVERY 8 HOURS NEEDED FOR ANXIETY * Telephone Encounter - Richelle Arriaga RP - 11/02/2024 6:07 AM EST I have reviewed the patients controlled substance dispensing history in the Prescription Drug Monitoring Program in compliance with the [facility] regulations before prescribing a controlled substance. PDMP checked on 11/02/2024. Pending Prescriptions: Disp Refills LORazepam 0.5 MG Oral Tablet (Ativan) [Ph*30 Tab*0 Sig: TAKE 1 TABLET BY MOUTH EVERY 8 HOURS NEEDED FOR ANXIETY Last Visit: 09/29/2024 (in office), Visit date not found (telemedicine) Next Visit: 11/03/2024 Date medication was last filled: 10/19 Date medication is due for refill: 10/29 Pharmacy: [id number] [facility] Is this request for a controlled substance? Yes and Urine Drug Screen Not completed Toxicology results: No results found. However, due to the size of the patient record, not all encounters were searched.Please check Results Review for a complete set of results. Please approve if appropriate. Thank you, Richelle Arriaga, PharmD. Clinical Pharmacist [facility] ([facility]) 11/02/2024, 6:07 AM documented in this encounter Plan of Treatment Upcoming Encounters Date Type Department Care Team (Late st Contact Info) Description 11/03/2024 4:20 PM EST Office Visit [facility] [address] [place] [address] Arlen Jay, [address] [place] [address] 11/11/2024 10:00 AM EST Telemedicine Urology [facility] [address] [place] [address] Chapito Solorzano MD [address] [place] [address] 12/01/2024 2:00 PM EST Office Visit Orthopaedics [facility] 132 [facility] [place] [address] Maikel Norman PA-C [address] [place] [address] 12/19/2024 11:30 AM EST Imaging Radiology [facility] [address] [facility] [place] [address] 01/23/2025 12:30 PM EST Office Visit Hematology/Oncology [facility] [address] [place] [address] Megan Robledo MD [address] [place] [address] Health Maintenance Due Date Last Done Comments Adult Wellness Visit 2015 *BISPHONATE OR OTHER ACCEPTABLE MEDICATION NEEDED FOR OSTEOPOROSIS (REFER TO SMARTSET #1146) 06/06/2023 COVID-19 Vaccine ( season) 2024 08/22/2024, 09/11/2023, 09/30/2021, Additional history exists Depression Monitoring 01/18/2025 01/18/2024 GFR 04/17/2025 10/18/2024, 09/01, 05/16/2024, Additional history exists Albumin/Creatinine Ratio 09/29/2025 024, 07/13/2023, 09/10/2022, Additional history exists CKD PHOS USE SMARTSET 72625 09/29/202509/01, 07/13/2023, 12/20/2021, Additional history exists CKD HGB USE SMARTSET 13975 10/18/202510/18, 10/17/2024, 09/29/2024, Additional history exists DXA Scan 12/09/2025 12/09/2023, 1205/2021, 10/25/2019, Additional history exists DTap/Tdap Vaccines (3 - Td or Tdap) 05/13/2028 05/13/2018, 09/27/2008 Pneumococcal Vaccine: 65+ Years Completed 05/11/2017, 06/07/2015, 11/13/2014 Zoster Vaccines Completed 02/02/2019, 10/30, 07/16/2013 VITAMIN D LEVEL ONCE IN A LIFETIME-USE SMARTSET# 85858 Completed 09/10/2022, 02/21/2022, 12/02/2021, Additional history exists [...] this encounter Medical Devices Implanted Type Area Wreath And Garland Maker Hand Device Identifier Shelf Expiration Date Model / Serial / Lot Cement Bone Simplex Hv & G - [id number] Implanted:Qty: 1 on 10/17/2024 by Morales Hendricks, DO at OR [facility] Right: Knee SATYA : ORTHOPAEDICS 09/29/2025 6195-1-010 / / [id number] Cement Bone Simplex Hv & G - [id number] Implanted:Qty: 1 on 10/17/2024 by Morales Hendricks DO at OR [facility] Right: Knee SATYA : ORTHOPAEDICS 08/29/2025 6195-1-010 / / [id number] Component Femoral Rt Size 5 T - [id number] Implanted:Qty: 1 on 10/17/2024 by Morales Hendricks, DO at OR [facility] Right: Knee SATYA : ORTHOPAEDICS 07/22/2029 5510-F-502 / / [id number] Knee Baseplate Tri Tib Sz 4 - [id number] Implanted:Qty: 1 on 10/17/2024 by Morales Hendricks, DO at OR [facility] Right: Knee SATYA : ORTHOPAEDICS 02/15/2028 5521-B-400 / / [id number] Knee X3 Ins Pos Cs Sz4 9 - [id number] Implanted:Qty: 1 on 10/17/2024 by Morales Hendricks, DO at OR [facility] Right: Knee SATYA : ORTHOPAEDICS 06/26/2029 [...] and were consensually agreed upon. Care Teams Nail Specialist Relationship Specialty Start Date End Date Arlen Jay DO [address] [place] [address] PCP - General Family Medicine 12/22/19 documented as of this encounter
--- OUTSIDE RECORDS SUMMARY | 2024-12-29 17:58 | External Medical Summary | Summary of Care ---
Author Name Unknown Organization [facility] Address [address] [place] [address] Phone [phone] Care Team Providers Care Head Custodian Name Role Phone Juan Jay DO Primary Care Provider Reason for Visit * Reason Comments Consultation Encounter Details Date Type Department Care Team (Late st Contact Info) Description 11/07/2024 1:30 PM EST Therapy Psychology [facility] [place] [address] Chyna Walsh, [facility] [address] [place] [address] Observation for suspected mental condition* Allergies Active Allergy Reactions Criticality Noted Date [...] DELETE [facility] DETECT Study: Project # [id number], Ceo And Founder: Tyson Atwood, PhD. SUMMARY: Goal: Establish test [...] contact study staff at ; after hours Ceo And Founder via the [facility] hospital bullet assembly press operator . Please contact study team before resolving/deleting from patients problem list. Study phone number: [phone]. Diagnosis changed due to Research Module. Go to Snapshot for study details. Encounter for examination fo r normal comparison and control in clinical research program 03/01/2019 07/31/2022 Overview (03/18/2021): DO NOT DELETE - [facility] DETECT Study: Project # [id number], Ceo And Founder: Jack Herrera, MS, MPH. SUMMARY: Goal: Establish [...] contact study staff at ; after hours Ceo And Founder via the [facility] hospital bullet assembly press operator . - Please contact study team before resolving/deleting from patients problem list. Study phone number: [phone]. Diagnosis changed due to Research Module. 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 Presenting Problem: I met with pt briefly today at the request of pt's PCP. Dr Jay. Therapist introduced self and explained role of Adult [facility] and therapists role. Also obtained brief information about Paige's situation. Provided support . Paige expressed interest and a follow up appointment was made for an initial intake visit. Psychoeducation was given on the role of behavioral health in [facility] care. Plan and Recommendations: Patient will receive a brief course of behavioral health treatment with Primary Care Behavioral Health. Chyna Walsh LCSW Primary Care Behavioral Health Psychology [address] [place] [address] documented in this encounter Plan of Treatment Upcoming Encounters Date Type Department Care Team (Late st Contact Info) Description 12/01/2024 2:00 PM EST Office Visit Orthopaedics [facility] 132 [facility] [place] [address] Maikel Norman PA-C [address] [place] [address] 12/13/2024 10:00 AM EST Therapy Psychology [facility] 132 [facility] [place] [address] Chyna Walsh LCSW 132 [facility] [place] [address] 12/19/2024 11:30 AM EST Imaging Radiology [facility] 1st Floor, [place] 132 [facility] [place] [address] 01/23/2025 12:30 PM EST Office Visit Hematology/Oncology [facility] [address] [facility] [place] [phone] Megan Robledo MD [address] [facility] [place] [address] Health Maintenance Due Date Last Done Comments Adult Wellness Visit 2015 *BISPHONATE OR OTHER ACCEPTABLE MEDICATION NEEDED FOR OSTEOPOROSIS (REFER TO SMARTSET #1146) 06/06/2023 COVID-19 Vaccine ( season) 2024 08/22/2024, 08/22/2024, 09/11/2023, Additional history exists Depression Monitoring 01/18/2025 01/18/2024 GFR 04/17/2025 10/18/2024, 09/01, 05/16/2024, Additional history exists Albumin/Creatinine Ratio 09/29/2025 024, 07/13/2023, 09/10/2022, Additional history exists CKD PHOS USE SMARTSET 80847 09/29/202509/01, 07/13/2023, 12/20/2021, Additional history exists CKD HGB USE SMARTSET 84612 10/18/202510/18, 10/17/2024, 09/29/2024, Additional history exists DXA Scan 12/09/2025 12/09/2023, 05/2021, 10/25/2019, Additional history exists DTap/Tdap Vaccines (3 - Td or Tdap) 05/13/2028 05/13/2018, 09/27/2008 Pneumococcal Vaccine: 65+ Years Completed 05/11/2017, 06/07/2015, 11/13/2014 Zoster Vaccines Completed 02/02/2019, 10/30, 07/16/2013 VITAMIN D LEVEL ONCE IN A LIFETIME-USE SMARTSET# 77440 Completed 09/10/2022, 02/21/2022, 12/02/2021, Additional history exists [...] this encounter Medical Devices Implanted Type Area Adjunct Physics Instructor Device Identifier Shelf Expiration Date Model / Serial / Lot Cement Bone Simplex Hv & G - [id number] Implanted:Qty: 1 on 10/17/2024 by Morales Hendricks, DO at OR [facility] Right: Knee SATYA : ORTHOPAEDICS 09/29/2025 6195-1-010 / / [id number] Cement Bone Simplex Hv & G - [id number] Implanted:Qty: 1 on 10/17/2024 by Morales Hendricks, at OR [facility] Right: Knee SATYA : ORTHOPAEDICS 08/29/2025 6195-1-010 / / [id number] Femoral Rt Size 5 T - [id number] Implanted:Qty: 1 on 10/17/2024 by Morales Hendricks DO at OR [facility] Right: Knee SATYA : ORTHOPAEDICS 07/22/2029 5510-F-502 / / [id number] Knee Baseplate Tri Tib Sz 4 - [id number] Implanted:Qty: 1 on 10/17/2024 by Morales Hendricks DO at OR [facility] Right: Knee SATYA : ORTHOPAEDICS 02/15/2028 5521-B-400 / / [id number] Knee X3 Ins Pos Cs Sz4 9 - [id number] Implanted:Qty: 1 on 10/17/2024 by Morales Hendricks DO at OR [facility] Right: Knee SATYA : ORTHOPAEDICS 06/26/2029 5531-G-409 -E / / [id number] documented as of this encounter Visit Diagnoses Diagnosis Observation for suspected mental condition- Primary Observation of other suspected mental condition documented in this encounter Advance Directives * [...] and were consensually agreed upon. Care Teams Head Custodian Relationship Specialty Start Date End Date Juan Jay DO [address] [place] [address] PCP - General Family Medicine 12/22/19 documented as of this encounter
--- OUTSIDE RECORDS SUMMARY | 2024-12-29 17:58 | External Medical Summary | Summary of Care ---
Author Name Unknown Organization [facility] Address [address] [place] [address] Phone [phone] Care Team Providers Care Operations Welder Name Role Phone Juan Jay DO Primary Care Provider Encounter Details Date Type Department Care Team (Late st Contact Info) Description 11/05/2024 Patient Reported Data Patient Survey Ortho FORCE Allergies Active Allergy Reactions Criticality Noted Date Comments Kraig Inhibitors 05/17/2007 Cough Nsaids Other (Please comment) 07/02/2018 Due to kidney issues documented as of this encounter (statuses as of 11/05/2024) Medications acetaminophen (TYLENOL) 500 MG Tablet 2 [...] NEEDED FOR ANXIETY 30 Tablet 4 Active documented as of this encounter (statuses as of 11/05/2024) Active Problems Problem Noted Date Diagnosed Date [...] as of this encounter (statuses as of 11/05/2024) Resolved Problems Problem Noted Date Diagnosed Date [...] 03/01/2019 07/02/2020 Overview (03/18/2021): DO NOT DELETE [facility] DETECT Study: Project # [id number], Thread Pulling Machine Attendant: Tyson Atwood, PhD. SUMMARY: Goal: Establish test [...] contact study staff at ; after hours Thread Pulling Machine Attendant via the [facility] hospital blow mold operator . Please contact study team before resolving/deleting from patients problem list. Study phone number: [phone]. Diagnosis changed due to Research Module. Go to Snapshot for study details. Encounter for examination fo r normal comparison and control in clinical research program 03/01/2019 07/31/2022 Overview (03/18/2021): DO NOT DELETE - [facility] Study: Project # [id number], Thread Pulling Machine Attendant: Jack Herrera, MS, MPH. SUMMARY: Goal: Establish [...] contact study staff at ; after hours Thread Pulling Machine Attendant via the [facility] blow mold operator . - Please contact study team before resolving/deleting from patients problem list. Study phone number: [phone]. Diagnosis changed due to Research Module. Go to [employer] for study details. Major depressive disorder, s [...] as of this encounter (statuses as of 11/05/2024) Immunizations Name Administration Dates Next Due COVID-19 [...] Team (Late st Contact Info) Description 11/07/2024 1:20 PM EST Office Visit Family Practice [facility] [address] [place] [address] Juan Jay DO [address] [place] [address] 11/11/2024 10:00 AM EST Telemedicine Urology [facility] [address] [place] [address] Chapito Solorzano MD [address] [place] [address] 12/01/2024 2:00 PM EST Office Visit Orthopaedics [facility] [address] [place] [address] Maikel Norman PA-C [address] [place] [address] 12/19/2024 11:30 AM EST Imaging Radiology [facility] 1st [facility] [address] [place] [address] 01/23/2025 12:30 PM EST Office Visit Hematology/Oncology [facility] [address] [place] [id number] Megan Robledo MD [address] [place] [address] Health Maintenance Due Date Last Done Comments Adult Wellness Visit 2015 *BISPHONATE OR OTHER ACCEPTABLE MEDICATION NEEDED FOR OSTEOPOROSIS (REFER TO SMARTSET #1146) 06/06/2023 COVID-19 Vaccine ( season) 2024 08/22/2024, 09/11/2023, 09/30/2021, Additional history exists Depression Monitoring 01/18/2025 01/18/2024 GFR 04/17/2025 10/18/2024, 09/01, 05/16/2024, Additional history exists Albumin/Creatinine Ratio 09/29/2025 024, 07/13/2023, 09/10/2022, Additional history exists CKD PHOS USE SMARTSET 63358 09/29/202509/01, 07/13/2023, 12/20/2021, Additional history exists CKD HGB USE SMARTSET 28730 10/18/202510/18, 10/17/2024, 09/29/2024, Additional history exists DXA Scan 12/09/2025 12/09/2023, 05/2021, 10/25/2019, Additional history exists DTap/Tdap Vaccines (3 - Td or Tdap) 05/13/2028 05/13/2018, 09/27/2008 Pneumococcal Vaccine: 65+ Years Completed 05/11/2017, 06/07/2015, 11/13/2014 Zoster Vaccines Completed 02/02/2019, 10/30, 07/16/2013 VITAMIN D LEVEL ONCE IN A LIFETIME-USE SMARTSET# 84876 Completed 09/10/2022, 02/21/2022, 12/02/2021, Additional history exists [...] this encounter Medical Devices Implanted Type Area Data Analytics Architect Device Identifier Shelf Expiration Date Model / Serial / Lot Cement Bone Simplex Hv & G - [id number] Implanted:Qty: 1 on 10/17/2024 by Morales Hendricks, DO at [place] [facility] Right: Knee SATYA : ORTHOPAEDICS 09/29/2025 6195-1-010 / / [id number] Cement Bone Simplex Hv & G - [id number] Implanted:Qty: 1 on 10/17/2024 by Morales Hendricks, DO at OR [facility] Right: Knee SATYA : ORTHOPAEDICS 08/29/2025 6195-1-010 / / [id number] Femoral Rt Size 5 T - [id number] Implanted:Qty: 1 on 10/17/2024 by Morales Hendricks, DO at [place] [facility] Right: Knee SATYA : ORTHOPAEDICS 07/22/2029 5510-F-502 / / [id number] Knee Baseplate Tri Tib Sz 4 - [id number] Implanted:Qty: 1 on 10/17/2024 by Morales Hendricks, DO at [place] [facility] Right: Knee SATYA : ORTHOPAEDICS 02/15/2028 5521-B-400 / / [id number] Knee X3 Ins Pos Cs Sz4 9 - [id number] Implanted:Qty: 1 on 10/17/2024 by Morales Hendricks, DO at [place] [facility] Right: Knee SATYA : ORTHOPAEDICS [...] and were consensually agreed upon. Care Teams Operations Welder Relationship Specialty Start Date End Date Juan Jay DO [address] [address] PCP - General Family Medicine 12/22/19 documented as of this encounter
--- OUTSIDE RECORDS SUMMARY | 2024-12-29 17:58 | External Medical Summary | Summary of Care ---
Author Name Unknown Organization [facility] Address [address] [place] [address] Phone [phone] Care Team Providers Care Sales Relationship Manager Name Role Phone Juan Jay DO Primary Care Provider Reason for Referral * Evaluate & Treat - Unlimited Visits (Within 10 days (routine)) - Authorized Specialty Diagnoses / Procedures Referred By Mike mulligan Referred To Contact Psychology Diagnoses Grief Juan Jay DO [address] [place] [address] Phone: tel: fax: Referral ID Status Reason Start Date Expiration Date Visits Requested Visits Authorized [id number] Authorized Specialty Services Required 11/07/2024 999 999 [...] 1:20 PM EST Office Visit Family Practice [facility] [address] [place] [place] [address] Jaun Jay, DO [address] [place] [address] Hyperparathyroidism (HCC)*; Giant cell arteritis (HCC); HTN, goal below 130/80; Gastric bypass status for obesity; Chronic kidney disease, stage 3b (HCC); S/P TKR (total knee replacement), right; Vitamin D deficiency; Other iron deficiency anemia; Grief Allergies Active Allergy Reactions Criticality Noted Date [...] 07/02/2020 Overview (03/18/2021): DO NOT DELETE [facility] DETECT Study: Project # [id number], Computational Mathematician: Tyson Atwood, PhD. SUMMARY: Goal: Establish test [...] contact study staff at ; after hours Computational Mathematician via the [facility] hospital dry kiln operator helper . Please contact study team before resolving/deleting from patients problem list. Study phone number: [phone]. Diagnosis changed due to Research Module. Go to [employer] for study details. Encounter for examination fo r normal comparison and control in clinical research program 03/01/2019 07/31/2022 Overview (03/18/2021): DO NOT DELETE - [facility] Study: Project # [id number], Computational Mathematician: Jack Herrera, MS, MPH. SUMMARY: Goal: Establish [...] contact study staff at ; after hours Computational Mathematician via the [facility] hospital dry kiln operator helper . - Please contact study team before resolving/deleting from patients problem list. Study phone number: [phone]. Diagnosis changed due to Research Module. Go to [employer] for study details. 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 documented in this encounter Plan of Treatment Upcoming Encounters Date Type Department Care Team (Late st Contact Info) Description 12/01/2024 2:00 PM EST Office Visit Orthopaedics [facility] [address] [facility] [place] [address] Maikel Norman PA-C [address] [place] [address] 12/13/2024 10:00 AM EST Therapy Psychology [facility] [address] [place] [address] Chyna Walsh, [facility] [address] [place] [address] 12/19/2024 11:30 AM EST Imaging Radiology [facility] 1st [facility] [address] [place] [address] 01/23/2025 12:30 PM EST Office Visit Hematology/Oncology [facility] [address] [facility] [place] [address] Megan Robledo MD [address] [facility] [place] [address] Scheduled Orders Name Type Priority Associated Diagnoses [...] Additional history exists CKD PHOS USE SMARTSET 33564 09/29/202509/01, 07/13/2023, 12/20/2021, Additional history exists CKD HGB USE SMARTSET 35804 10/18/202510/18, 10/17/2024, 09/29/2024, Additional history exists DXA Scan 12/09/2025 12/09/2023, 1205/2021, 10/25/2019, Additional history exists DTap/Tdap Vaccines (3 - Td or Tdap) 05/13/2028 05/13/2018, 09/27/2008 Pneumococcal Vaccine: 65+ Years Completed 05/11/2017, 06/07/2015, 11/13/2014 Zoster Vaccines Completed 02/02/2019, 10/30, 07/16/2013 VITAMIN D LEVEL ONCE IN A LIFETIME-USE SMARTSET# 43404 Completed 09/10/2022, 02/21/2022, 12/02/2021, Additional history exists [...] this encounter Medical Devices Implanted Type Area Director Of Fundraising Device Identifier Shelf Expiration Date Model / Serial / Lot Cement Bone Simplex Hv & G - [id number] Implanted:Qty: 1 on 10/17/2024 by Morales Hendricks, DO at OR [facility] Right: Knee SATYA : ORTHOPAEDICS 09/29/2025 6195-1-010 / / [id number] Cement Bone Simplex Hv & G - [id number] Implanted:Qty: 1 on 10/17/2024 by Morales Hendricks, DO at [place] [facility] Right: Knee SATYA : ORTHOPAEDICS 08/29/2025 6195-1-010 / / [id number] Component Femoral Rt Size 5 T - [id number] Implanted:Qty: 1 on 10/17/2024 by Morales Hendricks, DO at [place] [facility] Right: Knee SATYA : ORTHOPAEDICS 07/22/2029 5510-F-502 / / [id number] Knee Baseplate Tri Tib Sz 4 - [id number] Implanted:Qty: 1 on 10/17/2024 by Morales Hendricks, at OR [facility] Right: Knee SATYA : ORTHOPAEDICS 02/15/2028 5521-B-400 / / [id number] Knee X3 Ins Pos Cs Sz4 9 - [id number] Implanted:Qty: 1 on 10/17/2024 by Morales Hendricks, DO at [place] [facility] Right: Knee SATYA : ORTHOPAEDICS [...] anemia Grief Adjustment disorder with depressed mood documented in this encounter Advance Directives * [...] and were consensually agreed upon. Care Teams Sales Relationship Manager Relationship Specialty Start Date End Date Juan Jay DO [address] [place] [address] PCP - General Family Medicine 12/22/19 documented as of this encounter
--- OUTSIDE RECORDS SUMMARY | 2024-12-29 17:59 | External Medical Summary | Summary of Care ---
Author Name Unknown Organization [facility] Address [address] [place] [address] Phone [phone] Care Team Providers Care Welder Railcar Mechanic Name Role Phone Juan Jay DO Primary Care Provider Reason for Visit * Reason Onset Date Comments Advice 10/21/2024 Encounter Details Date Type Department Care Team (Late st Contact Info) Description 10/21/2024 Telephone Orthopaedics [facility] [address] [place] [address] Morales Hendricks DO [address] [place] [address] Advice Allergies Active Allergy Reactions Criticality Noted [...] [facility] DET[facility] Study: Project # [id number], Drugless Physician: Tyson Atwood, PhD. SUMMARY: Goal: Establish test [...] contact study staff at ; after hours Drugless Physician via the [facility] grinder set up operator jig . Please contact study team before resolving/deleting from patients problem list. Study phone number: [phone]. Diagnosis changed due to Research Module. Go to Snapshot for study details. Encounter for examination fo r normal comparison and control in clinical research program 03/01/2019 07/31/2022 Overview (03/18/2021): DO NOT DELETE - [facility] Study: Project # [id number], Drugless Physician: Jack Herrera, MS, MPH. SUMMARY: Goal: Establish [...] contact study staff at ; after hours Drugless Physician via the [facility] grinder set up operator jig . - Please contact study team before resolving/deleting from patients problem list. Study phone number: [phone]. Diagnosis changed due to Research Module. 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 [facility] a [facility]. Please call her back Thank you Elizabeth documented in this encounter Plan of Treatment Upcoming Encounters Date Type Department Care Team (Late st Contact Info) Description 10/25/2024 2:30 PM EST Office Visit Orthopaedics, [facility] [address] [place] [address] Maikel Norman PA-C [address] [place] [address] 11/03/2024 4:20 PM EST Office Visit Family Practice [facility] [address] [place] [address] Juan Jay DO [address] [place] [address] [address] 11/11/2024 10:00 AM EST Telemedicine Urology [facility] [address] [place] [address] Chapito Solorzano MD [address] [address] 12/19/2024 11:30 AM EST Imaging Radiology [address], [place] [address] [place] [address] 01/23/2025 12:30 PM EST Office Visit Hematology/Oncology [facility] 200 [facility] [place] [address] Megan Robledo MD [address] [place] [address] Health Maintenance Due Date Last Done Comments [...] Additional history exists CKD PHOS USE SMARTSET 76430 09/29/202509/01, 07/13/2023, 12/20/2021, Additional history exists CKD HGB USE SMARTSET 59060 10/18/202510/18, 10/17/2024, 09/29/2024, Additional history exists DXA [...] D LEVEL ONCE IN A LIFETIME-USE SMARTSET# 94157 Completed 09/10/2022, 02/21/2022, 12/02/2021, Additional history exists [...] this encounter Medical Devices Implanted Type Area Ship Yard Electrical Person Device Identifier Shelf Expiration Date Model / Serial / Lot Cement Bone Simplex Hv & G - [id number] Implanted:Qty: 1 on 10/17/2024 by Morales Hendricks DO at [place] [facility] Right: Knee SATYA : ORTHOPAEDICS 09/29/2025 6195-1-010 / / [id number] Cement Bone Simplex Hv & G - [id number] Implanted:Qty: 1 on 10/17/2024 by Morales Hendricks DO at [place] [facility] Right: Knee SATYA : ORTHOPAEDICS 08/29/2025 6195-1-010 / / [id number] Component Femoral Rt Size 5 T - [id number] Implanted:Qty: 1 on 10/17/2024 by Morales Hendricks DO at OR [facility] Right: Knee SATYA : ORTHOPAEDICS 07/22/2029 5510-F-502 / / 4P4PU Knee Baseplate Tri Tib Sz 4 - [id number] Implanted:Qty: 1 on 10/17/2024 by Morales Hendricks, DO at [facility] Right: Knee SATYA : ORTHOPAEDICS 02/15/2028 5521-B-400 / / [id number] Knee X3 Ins Pos Cs Sz4 9 - [id number] Implanted:Qty: 1 on 10/17/2024 by Morales Hendricks, DO at [place] [facility] Right: Knee SATYA : ORTHOPAEDICS 06/26/2029 [...] and were consensually agreed upon. Care Teams Welder Railcar Mechanic Relationship Specialty Start Date End Date Juan Jay DO [address] [place] [address] [address] PCP - General Family Medicine 12/22/19 documented as of this encounter
--- OUTSIDE RECORDS SUMMARY | 2024-12-29 17:59 | External Medical Summary | Summary of Care ---
Author Name Unknown Organization [facility] Address [address] [place] [address] Phone [phone] Care Team Providers Care Tomato Pulper Operator Name Role Phone Juan Jay DO Primary Care Provider Reason for Visit * Reason Onset Date Comments Advice 10/21/2024 Encounter Details Date Type Department Care Team (Late st Contact Info) Description 10/21/2024 Telephone Orthopaedics [facility] [address] [place] [address] Morales Hendricks DO [address] [place] [address] Advice Allergies Active Allergy Reactions Criticality Noted [...] DELETE [facility] DETECT Study: Project # [id number], Government Services Professional: Tyson Atwood, PhD. SUMMARY: Goal: Establish test [...] contact study staff at ; after hours Government Services Professional via the [facility] control operator flow coat . Please contact study team before resolving/deleting from patients problem list. Study phone number: [phone]. Diagnosis changed due to Research Module. Go to Snapshot for study details. Encounter for examination fo r normal comparison and control in clinical research program 03/01/2019 07/31/2022 Overview (03/18/2021): DO NOT DELETE - [facility] Study: Project # [id number], Government Services Professional: Jack Herrera, MS, MPH. SUMMARY: Goal: Establish [...] contact study staff at ; after hours Government Services Professional via the [facility] control operator flow coat . - Please contact study team before resolving/deleting from patients problem list. Study phone number: [phone]. Diagnosis changed due to Research Module. Go [...] having a very difficult time at the [facility]. Please call her back Thank you Elizabeth documented in this encounter Plan of Treatment Upcoming Encounters Date Type Department Care Team (Late st Contact Info) Description 10/25/2024 2:30 PM EST Office Visit Orthopaedics, [facility] [address] [place] [address] Maikel Norman PA-C [address] [place] [address] 11/03/2024 4:20 PM EST Office Visit Family Practice [facility] [address] [place] [address] Juan Jay DO [address] [place] [address] 11/11/2024 10:00 AM EST Telemedicine Urology [facility] [address] [place] [address] Chapito Solorzano MD [address] [place] [address] 12/19/2024 11:30 AM EST Imaging Radiology [address], [place] [address] [place] [address] 01/23/2025 12:30 PM EST Office Visit Hematology/Oncology [facility] 200 [facility] [place] [address] Megan Robledo MD [address] [place] [address] Health Maintenance Due Date Last Done Comments [...] Additional history exists CKD PHOS USE SMARTSET 73165 09/29/202509/01, 07/13/2023, 12/20/2021, Additional history exists CKD HGB USE SMARTSET 48642 10/18/202510/18, 10/17/2024, 09/29/2024, Additional history exists DXA [...] D LEVEL ONCE IN A LIFETIME-USE SMARTSET# 65401 Completed 09/10/2022, 02/21/2022, 12/02/2021, Additional history exists [...] this encounter Medical Devices Implanted Type Area Engagement Executive Device Identifier Shelf Expiration Date Model / Serial / Lot Cement Bone Simplex Hv & G - [id number] Implanted:Qty: 1 on 10/17/2024 by Morales Hendricks DO at [place] [facility] Right: Knee SATYA : ORTHOPAEDICS 09/29/2025 6195-1-010 / / [id number] Cement Bone Simplex Hv & G - [id number] Implanted:Qty: 1 on 10/17/2024 by Morales Hendricks DO at OR [facility] Right: Knee SATYA : ORTHOPAEDICS 08/29/2025 6195-1-010 / / [id number] Femoral Rt Size 5 T - [id number] Implanted:Qty: 1 on 10/17/2024 by Morales Henrdicks DO at [place] [facility] Right: Knee SATYA : ORTHOPAEDICS 07/22/2029 5510-F-502 / / [id number] Knee Baseplate Tri Tib Sz 4 - [id number] Implanted:Qty: 1 on 10/17/2024 by Morales Hendricks, DO at [place] [facility] Right: Knee SATYA : ORTHOPAEDICS 02/15/2028 5521-B-400 / / [id number] Knee X3 Ins Pos Cs Sz4 9 - [id number] Implanted:Qty: 1 on 10/17/2024 by Morales Hendricks, DO at [place] [facility] Right: Knee SATYA : ORTHOPAEDICS 06/26/2029 [...] and were consensually agreed upon. Care Teams Tomato Pulper Operator Relationship Specialty Start Date End Date Juan Jay DO [address] [place] [address] PCP - General Family Medicine 12/22/19 documented as of this encounter
[2024-12-29] MEDS: ACETAMINOPHEN 500 MG TAB PO PRN (19:25)
[2024-12-29] MEDS: METOCLOPRAMIDE HCL INJ 5 MG/ML 2 ML VIAL IV STA (19:25)
[2024-12-29 19:39] LABS: Anisocytosis Present; Basophils # (auto) 0.03 K/uL (0.00-0.20); Basophils % (auto) 0.2 %; Hematocrit (blood only) 31.6 % (37.0-47.0); Hemoglobin 10.1 g/dl (12.0-16.0); Immature Granulocytes # (auto) 0.08 K/uL (0.01-0.20); Immature Granulocytes % (auto) 0.6 %; Lymphocytes # (auto) 1.23 K/uL (1.20-3.40); Lymphocytes % (auto) 9.8 %; Mean Corpuscular Hemoglobin 29.2 pg (25.0-34.0); Mean Corpuscular Volume 91.3 fL (80.0-100.0); Mean Platelet Volume 9.1 fL (9.4-12.4); Monocytes # (auto) 1.15 K/uL (0.11-0.59); Monocytes % (auto) 9.2 %; Neutrophils % (auto) 80.2 %; Platelet Count 280 K/uL (130-400); RDW Coefficient of Variation 20.7 % (11.5-14.5); RDW Standard Deviation 69.7 fL (36.4-46.3); Red Blood Count 3.46 M/uL (4.20-5.40); White Blood Count 12.49 K/ul (4.8-10.8)
[2024-12-29] MEDS: traZODone HCL 100 MG TAB PO SCH (19:40)
[2024-12-29] MEDS: LORazepam 0.5 MG TAB PO SCH (20:19)
--- NOTE | 2024-12-29 20:51 | Communication Note ---
Date of Service: December 29, 2024 Patient noted to be tachycardic as per RN. Heart rate 140s. SBP 140s. Patient anxious as per RN. EKG as per my interpretation : Rate 140, SVT, normal axis, no ischemia AP SVT Anxiety IV Lopressor 1 dose now Anxiolytic as needed TTE, Cardiology consult in a.m. re: SVT
[2024-12-29] MEDS: METOPROLOL TARTRATE 1 MG/ML VIAL IV STA (21:02)
[2024-12-29 21:05] LABS: Magnesium 1.8 mg/dl (1.7-2.4)
[2024-12-29 21:35] LABS: Thyroid Stimulating Hormone 1.287 uIu/ml (0.300-4.500)
[2024-12-29] MEDS: MAGNESIUM SULFATE / D5W 1 GM/100 ML BAG IV ONE (22:19)
[2024-12-29 22:50] LABS: Basophils # (auto) 0.02 K/uL (0.00-0.20); Basophils % (auto) 0.2 %; Eosinophils # (auto) 0.02 K/uL (0.00-0.50); Eosinophils % (auto) 0.2 %; Hematocrit (blood only) 28.7 % (37.0-47.0); Hemoglobin 9.5 g/dl (12.0-16.0); Immature Granulocytes # (auto) 0.06 K/uL (0.01-0.20); Immature Granulocytes % (auto) 0.6 %; Lymphocytes # (auto) 1.54 K/uL (1.20-3.40); Lymphocytes % (auto) 14.9 %; Mean Corpuscular Hemoglobin 30.3 pg (25.0-34.0); Mean Corpuscular Hgb Conc 33.1 g/dL (32.0-36.0); Mean Corpuscular Volume 91.4 fL (80.0-100.0); Mean Platelet Volume 9.6 fL (9.4-12.4); Monocytes # (auto) 1.06 K/uL (0.11-0.59); Monocytes % (auto) 10.2 %; Neutrophils # (auto) 7.65 K/uL (1.40-6.50); Neutrophils % (auto) 73.9 %; Platelet Count 257 K/uL (130-400); RDW Coefficient of Variation 21.1 % (11.5-14.5); RDW Standard Deviation 71.2 fL (36.4-46.3); Red Blood Count 3.14 M/uL (4.20-5.40); White Blood Count 10.35 K/ul (4.8-10.8)
[2024-12-29 23:09] LABS: Anisocytosis Present
[2024-12-29 23:18] LABS: BUN Creatinine Ratio 41.1 (10-20); Calcium 7.6 mg/dl (8.6-10.3); Creatinine Clr Calc Pharmacy 33.6 ml/min; Potassium 4.7 mmol/L (3.5-5.1)
--- NOTE | 2024-12-30 02:43 | Ultrasound Report ---
EXAM: US pelvic complete CLINICAL HISTORY: abnormal CT results TECHNIQUE: Static ultrasound images of pelvis with Grayscale and Doppler were submitted for review. COMPARISON: CT, 04/24/2018 14:50:19 MAJOR DONOR COORDINATOR FINDINGS: The uterus is enodmetrial cavity is distended with fluid with internal hyperechoic contents. No defnite mass seen at cervix. The endometrium appears grossly normal. Right ovary is atrophic Left adnexal cystic lesion measuring about 7.3x3.8x3.6cm is seen with incomplete septation. Left ovary is not well appreciated. There is no free fluid in the cul-de-sac. IMPRESSION: 1. Enodmetrial cavity is distended with fluid and internal hyperechoic contents- Possibility of Hematometra vs pyometra likely secondary to nonspecific age related cervical stenosis. New finding 2. Left adnexal cystic lesion -likely hydrosalpinx vs left ovarian complex cyst. Interval increase in size of the lesion. 3. Suggested MRI Pelvis for further evaluation. Electronically signed by Maikel Rios 12-30-2024 02:42 AM
[2024-12-30 04:33] LABS: Basophils # (auto) 0.04 K/uL (0.00-0.20); Basophils % (auto) 0.5 %; Eosinophils # (auto) 0.08 K/uL (0.00-0.50); Hemoglobin 9.2 g/dl (12.0-16.0); Immature Granulocytes # (auto) 0.06 K/uL (0.01-0.20); Immature Granulocytes % (auto) 0.8 %; Lymphocytes # (auto) 1.39 K/uL (1.20-3.40); Lymphocytes % (auto) 17.7 %; Mean Corpuscular Hemoglobin 30.6 pg (25.0-34.0); Mean Corpuscular Hgb Conc 32.9 g/dL (32.0-36.0); Mean Platelet Volume 9.4 fL (9.4-12.4); Monocytes # (auto) 0.89 K/uL (0.11-0.59); Monocytes % (auto) 11.3 %; Neutrophils # (auto) 5.41 K/uL (1.40-6.50); Neutrophils % (auto) 68.7 %; Platelet Count 255 K/uL (130-400); RDW Coefficient of Variation 21.1 % (11.5-14.5); RDW Standard Deviation 71.6 fL (36.4-46.3); Red Blood Count 3.01 M/uL (4.20-5.40); White Blood Count 7.87 K/ul (4.8-10.8)
[2024-12-30 04:51] LABS: Anisocytosis Present
[2024-12-30 04:54] LABS: Albumin Globulin Ratio 1.1 (0.9-2); Albumin Level 2.8 gm/dl (3.4-5.0); BUN Creatinine Ratio 33.6 (10-20); Bilirubin,Total 1.3 mg/dl (0.2-1.0); Calcium 7.7 mg/dl (8.6-10.3); Globulin 2.5 gm/dl (2.5-4.0); Potassium 4.2 mmol/L (3.5-5.1); Total Protein 5.3 gm/dl (6.0-8.3)
[2024-12-30] MEDS: cloNIDine HCL 0.1 MG TAB PO ONE (07:17)
[2024-12-30] MEDS: DULoxetine HCL 60 MG CAP PO SCH (07:51)
[2024-12-30] MEDS: MULTIVITAMIN TAB PO SCH (07:52)
[2024-12-30] MEDS: METOPROLOL TARTRATE 25 MG TAB PO SCH (07:53)
[2024-12-30] MEDS: DULoxetine HCL 30 MG CAP PO SCH (07:54)
--- NOTE | 2024-12-30 09:31 | Gastroenterology Progress Note ---
Date of Service December 30, 2024 Assessment & Plan (1) Hx of bariatric surgery: Plan: 74 year old female w/ history of hyperparathyroidism, giant cell arteritis, HTN, CKD, RLS, DDD, BPPV, anxiety, depression, obesity s/p RYGB in 2012 presenting to the ED w/ report of epigastric abd pain and four episodes coffee ground emesis and melena. She is hemodynamically stable w/ HGB 9.2 and BP 119/66 Last EGD in 2019 w/ erosion at the gastric side of the anastomosis, she denies NSAIDs, ETOH or tobacco use. DDX discussed: erosion, PUD, gastritis, esophagitis, MWT vs other. She has remained hemodynamically stable overnight w/ HGB 9.2, BP 130/70. There was report of SVT overnight. - Maintain NPO status for EGD evaluation today - Continue supportive measures - Trend H&H - Monitor and document GI output - Transfuse PRN per primary team - Continue IV PPI bolus/drip - No NSAIDs - Follow up incidentals on CTAP per primary team - Her IPMN is followed by Dr. Oglesby at [facility] We appreciate assistance in the management of any serological abnormality and corrections to include: hemoglobin >7, INR <2, platelets >50,000, potassium levels >3.5 but <5.3, and sodium levels within 5 points of the reference range prior to endoscopic evaluation. Thank you for allowing us to participate in the care of this patient. Please call with any acute changes, questions or concerns. Please see addendum below with additional recommendation from my supervising physician. Admission and Anticipated Discharge Date Admission Date: December 29, 2024 Supervising Physician Co-Signing Physician Notes I personally saw and examined the patient. I have reviewed the chart and agree with the documentation provided by the HATCHERY ATTENDANT including discussion about the assessment, treatment and plan. EGD today. Melena better, hgb 9.2 svt noted. plan for or egd. Subjective Pt was seen and evaluated, chart reviewed. Remains NPO for EGD evaluation this AM. Abd pain resolved. No further nausea/vomiting. Last emesis was prior to ED arrival. No further BM's. HGB 11.2 --> 9.9 --> 9.2 --> 9.2 BUN 42 --> 39 On a baby ASA. No other NSAIDs. No ETOH. Denies tobacco Head CT: negative for acute findings Cervical spine CT: negative for acute findings CTAP 2024: no acute GI findings but there was report of fluid filled esophagus and small HH, proctitis Colonoscopy 2022: Diverticulosis in the sigmoid colon and in the descending colon. One 4 mm polyp at the hepatic flexure, removed with a cold snare. Resected and retrieved. The examination was otherwise normal. EGD 2019: There was no submucosal nodule at 15 cm. There was a small inlet patch at 15 cm. There was columnar appearing mucosa beginning at 35 cm. The GE junction was at 36 cm. This was biopsied. There was a gastroenteric anastamosis. The stomach pouch was normal. There was an erosion at the gastric side of the anastamosis. There was some granulation tissue and nodularity at the GE junction. This was biopsied.The small intestine was normal. Review of Systems Review of Systems: All other findings negative except as noted in HPI. Physical Exam Constitutional: WD/WN, vitals as above Respiratory: normal respiratory effort, lungs clear to auscultation Cardiovascular: Rate/Rhythm: regular rate and regular rhythm Gastrointestinal (Abdomen): normal bowel sounds, soft, nontender, no hepatosplenomegaly Skin: no rashes, warm and dry Results & Data Results & Data Vital Signs (Past 12 Hours) Vital Signs Temp Pulse Pulse Pulse Resp BP BP 12/30/24 07:26 97.9 F 79 19 130/70 12/30/24 03:16 98.1 F 58 L 16 145/75 H 12/29/24 23:45 70 12/29/24 23:00 118 H 12/29/24 23:00 97.9 F 79 16 132/78 12/29/24 21:30 76 Pulse Ox O2 Del Method 12/30/24 07:26 96 Room Air 12/30/24 03:16 93 Room Air 12/29/24 23:45 12/29/24 23:00 12/29/24 23:00 95 Room Air 12/29/24 21:30 Laboratory Results 12/30/24 12/29/24 12/29/24 Range/Units 04:12 22:22 19:02 WBC 7.87 10.35 (4.8-10.8) K/ul RBC 3.01 L 3.14 L (4.20-5.40) M/uL Hgb 9.2 L 9.5 L (12.0-16.0) g/dl POC Hgb (12.0-16.0) g/dl Hct 28.0 L 28.7 L (37.0-47.0) % POC Hct (37-47) % MCV 93.0 91.4 (80.0-100.0) fL MCH 30.6 30.3 (25.0-34.0) pg MCHC 32.9 33.1 (32.0-36.0) g/dL RDW Std Deviation 71.6 H 71.2 H (36.4-46.3) fL RDW Coeff of Brandon 21.1 H 21.1 H (11.5-14.5) % Plt Count 255 257 (130-400) K/uL MPV 9.4 9.6 (9.4-12.4) fL Immature Gran % (Auto) 0.8 0.6 % Neut % (Auto) 68.7 73.9 % Lymph % (Auto) 17.7 14.9 % Angelina % (Auto) 11.3 10.2 % Eos % (Auto) 1.0 0.2 % Baso % (Auto) 0.5 0.2 % Neut # (Auto) 5.41 7.65 H (1.40-6.50) K/uL Lymph # (Auto) 1.39 1.54 (1.20-3.40) K/uL Angelina # (Auto) 0.89 H 1.06 H (0.11-0.59) K/uL Eos # (Auto) 0.08 0.02 (0.00-0.50) K/uL Baso # (Auto) 0.04 0.02 (0.00-0.20) K/uL Immature Gran # (Auto) 0.06 0.06 (0.01-0.20) K/uL Anisocytosis Present Present PT (9.0-12.0) Seconds INR (0.9-1.1) APTT (21-31) Seconds PTT Ratio POC Sodium (135-144) mmol/L Sodium 141 140 (136-145) mmol/L POC Potassium (3.3-5.0) mmol/L Potassium 4.2 4.7 (3.5-5.1) mmol/L POC Chloride (101-112) mmol/L Chloride 109 H 109 H (98-107) mmol/L Carbon Dioxide 28 25 (21-32) mmol/L POC Total CO2 (24-31) mmol/L Anion Gap 4 6 (3-11) POC Anion Gap (16-25) mmol/L POC BUN (7-18) mg/dl BUN 39 H 44 H (6-23) mg/dl Creatinine 1.16 1.07 (0.6-1.2) mg/dl POC Creatinine (0.6-1.3) mg/dl Est Cr Clr Drug Dosing 31.0 33.6 ml/min eGFR 49.17 54.17 BUN/Creatinine Ratio 33.6 H 41.1 H (10-20) Glucose 97 96 (70-99(Fasting)) mg/dl POC Glucose (other) (70-99) mg/dl Lactate (0.4-2.0) mmol/L Calcium 7.7 L 7.6 L (8.6-10.3) mg/dl POC Ioniz Calcium Abdulkadir (1.12-1.32) mmol/l Magnesium 1.8 (1.7-2.4) mg/dl Total Bilirubin 1.3 H (0.2-1.0) mg/dl AST 17 (13-39) U/L ALT 14 (7-52) U/L Alkaline Phosphatase 67 (34-104) U/L Total Protein 5.3 L D (6.0-8.3) gm/dl Albumin 2.8 L (3.4-5.0) gm/dl Globulin 2.5 (2.5-4.0) gm/dl Albumin/Globulin Ratio 1.1 (0.9-2) Procalcitonin (0-0.5) ng/ml TSH 1.287 (0.300-4.500) uIu/ml POC Stool Occult Blood (Negative) Blood Type Blood Type Recheck Antibody Screen Crossmatch 12/29/24 12/29/24 12/29/24 Range/Units 19:01 14:20 13:54 WBC 12.49 H (4.8-10.8) K/ul RBC 3.46 L (4.20-5.40) M/uL Hgb 10.1 L (12.0-16.0) g/dl POC Hgb (12.0-16.0) g/dl Hct 31.6 L (37.0-47.0) % POC Hct (37-47) % MCV 91.3 D (80.0-100.0) fL MCH 29.2 (25.0-34.0) pg MCHC 32.0 (32.0-36.0) g/dL RDW Std Deviation 69.7 H (36.4-46.3) fL RDW Coeff of Brandon 20.7 H (11.5-14.5) % Plt Count 280 (130-400) K/uL MPV 9.1 L (9.4-12.4) fL Immature Gran % (Auto) 0.6 % Neut % (Auto) 80.2 % Lymph % (Auto) 9.8 % Angelina % (Auto) 9.2 % Eos % (Auto) 0.0 % Baso % (Auto) 0.2 % Neut # (Auto) 10.00 H (1.40-6.50) K/uL Lymph # (Auto) 1.23 (1.20-3.40) K/uL Angelina # (Auto) 1.15 H (0.11-0.59) K/uL Eos # (Auto) 0.00 (0.00-0.50) K/uL Baso # (Auto) 0.03 (0.00-0.20) K/uL Immature Gran # (Auto) 0.08 (0.01-0.20) K/uL Anisocytosis Present PT (9.0-12.0) Seconds INR (0.9-1.1) APTT (21-31) Seconds PTT Ratio POC Sodium (135-144) mmol/L Sodium (136-145) mmol/L POC Potassium (3.3-5.0) mmol/L Potassium (3.5-5.1) mmol/L POC Chloride (101-112) mmol/L Chloride (98-107) mmol/L Carbon Dioxide (21-32) mmol/L POC Total CO2 (24-31) mmol/L Anion Gap (3-11) POC Anion Gap (16-25) mmol/L POC BUN (7-18) mg/dl BUN (6-23) mg/dl Creatinine (0.6-1.2) mg/dl POC Creatinine (0.6-1.3) mg/dl Est Cr Clr Drug Dosing ml/min eGFR BUN/Creatinine Ratio (10-20) Glucose (70-99(Fasting)) mg/dl POC Glucose (other) (70-99) mg/dl Lactate 1.0 (0.4-2.0) mmol/L Calcium (8.6-10.3) mg/dl POC Ioniz Calcium Abdulkadir (1.12-1.32) mmol/l Magnesium (1.7-2.4) mg/dl Total Bilirubin (0.2-1.0) mg/dl AST (13-39) U/L ALT (7-52) U/L Alkaline Phosphatase (34-104) U/L Total Protein (6.0-8.3) gm/dl Albumin (3.4-5.0) gm/dl Globulin (2.5-4.0) gm/dl Albumin/Globulin Ratio (0.9-2) Procalcitonin (0-0.5) ng/ml TSH (0.300-4.500) uIu/ml POC Stool Occult Blood (Negative) Blood Type Blood Type Recheck O Positive Antibody Screen Crossmatch 12/29/24 12/29/24 12/29/24 Range/Units 13:27 12:24 12:08 WBC (4.8-10.8) K/ul RBC (4.20-5.40) M/uL Hgb (12.0-16.0) g/dl POC Hgb 9.2 L (12.0-16.0) g/dl Hct (37.0-47.0) % POC Hct 27 L (37-47) % MCV (80.0-100.0) fL MCH (25.0-34.0) pg MCHC (32.0-36.0) g/dL RDW Std Deviation (36.4-46.3) fL RDW Coeff of Brandon (11.5-14.5) % Plt Count (130-400) K/uL MPV (9.4-12.4) fL Immature Gran % (Auto) % Neut % (Auto) % Lymph % (Auto) % Angelina % (Auto) % Eos % (Auto) % Baso % (Auto) % Neut # (Auto) (1.40-6.50) K/uL Lymph # (Auto) (1.20-3.40) K/uL Angelina # (Auto) (0.11-0.59) K/uL Eos # (Auto) (0.00-0.50) K/uL Baso # (Auto) (0.00-0.20) K/uL Immature Gran # (Auto) (0.01-0.20) K/uL Anisocytosis PT (9.0-12.0) Seconds INR (0.9-1.1) APTT (21-31) Seconds PTT Ratio POC Sodium 139 (135-144) mmol/L Sodium (136-145) mmol/L POC Potassium 4.2 (3.3-5.0) mmol/L Potassium (3.5-5.1) mmol/L POC Chloride 104 (101-112) mmol/L Chloride (98-107) mmol/L Carbon Dioxide (21-32) mmol/L POC Total CO2 26 (24-31) mmol/L Anion Gap (3-11) POC Anion Gap 15.0 L (16-25) mmol/L POC BUN 42 H (7-18) mg/dl BUN (6-23) mg/dl Creatinine (0.6-1.2) mg/dl POC Creatinine 1.3 (0.6-1.3) mg/dl Est Cr Clr Drug Dosing ml/min eGFR BUN/Creatinine Ratio (10-20) Glucose (70-99(Fasting)) mg/dl POC Glucose (other) 174 H (70-99) mg/dl Lactate 2.6 H* (0.4-2.0) mmol/L Calcium (8.6-10.3) mg/dl POC Ioniz Calcium Abdulkadir 1.12 (1.12-1.32) mmol/l Magnesium (1.7-2.4) mg/dl Total Bilirubin (0.2-1.0) mg/dl AST (13-39) U/L ALT (7-52) U/L Alkaline Phosphatase (34-104) U/L Total Protein (6.0-8.3) gm/dl Albumin (3.4-5.0) gm/dl Globulin (2.5-4.0) gm/dl Albumin/Globulin Ratio (0.9-2) Procalcitonin (0-0.5) ng/ml TSH (0.300-4.500) uIu/ml POC Stool Occult Blood Positive A (Negative) Blood Type Blood Type Recheck Antibody Screen Crossmatch 12/29/24 12/29/24 Range/Units 11:54 11:52 WBC 9.62 (4.8-10.8) K/ul RBC 3.03 L (4.20-5.40) M/uL Hgb 9.9 L (12.0-16.0) g/dl POC Hgb (12.0-16.0) g/dl Hct 30.5 L (37.0-47.0) % POC Hct (37-47) % MCV 100.7 H (80.0-100.0) fL MCH 32.7 (25.0-34.0) pg MCHC 32.5 (32.0-36.0) g/dL RDW Std Deviation 51.4 H (36.4-46.3) fL RDW Coeff of Brandon 13.8 (11.5-14.5) % Plt Count 379 (130-400) K/uL MPV 9.5 (9.4-12.4) fL Immature Gran % (Auto) 0.7 % Neut % (Auto) 88.0 % Lymph % (Auto) 7.7 % Angelina % (Auto) 3.4 % Eos % (Auto) 0.0 % Baso % (Auto) 0.2 % Neut # (Auto) 8.46 H (1.40-6.50) K/uL Lymph # (Auto) 0.74 L (1.20-3.40) K/uL Angelina # (Auto) 0.33 (0.11-0.59) K/uL Eos # (Auto) 0.00 (0.00-0.50) K/uL Baso # (Auto) 0.02 (0.00-0.20) K/uL Immature Gran # (Auto) 0.07 (0.01-0.20) K/uL Anisocytosis PT 11.2 (9.0-12.0) Seconds INR 1.0 (0.9-1.1) APTT 23 (21-31) Seconds PTT Ratio 0.9 POC Sodium (135-144) mmol/L Sodium 139 (136-145) mmol/L POC Potassium (3.3-5.0) mmol/L Potassium 4.4 (3.5-5.1) mmol/L POC Chloride (101-112) mmol/L Chloride 103 (98-107) mmol/L Carbon Dioxide 29 (21-32) mmol/L POC Total CO2 (24-31) mmol/L Anion Gap 7 (3-11) POC Anion Gap (16-25) mmol/L POC BUN (7-18) mg/dl BUN 51 H (6-23) mg/dl Creatinine 1.11 (0.6-1.2) mg/dl POC Creatinine (0.6-1.3) mg/dl Est Cr Clr Drug Dosing 32.4 ml/min eGFR 51.84 BUN/Creatinine Ratio 45.9 H (10-20) Glucose 184 H (70-99(Fasting)) mg/dl POC Glucose (other) (70-99) mg/dl Lactate (0.4-2.0) mmol/L Calcium 8.9 (8.6-10.3) mg/dl POC Ioniz Calcium Abdulkadir (1.12-1.32) mmol/l Magnesium (1.7-2.4) mg/dl Total Bilirubin 0.9 (0.2-1.0) mg/dl AST 21 (13-39) U/L ALT 17 (7-52) U/L Alkaline Phosphatase 87 (34-104) U/L Total Protein 6.7 (6.0-8.3) gm/dl Albumin 3.6 (3.4-5.0) gm/dl Globulin 3.1 (2.5-4.0) gm/dl Albumin/Globulin Ratio 1.2 (0.9-2) Procalcitonin 0.06 (0-0.5) ng/ml TSH (0.300-4.500) uIu/ml POC Stool Occult Blood (Negative) Blood Type O Positive Blood Type Recheck Antibody Screen NEGATIVE Crossmatch See Detail PG Care Time/CCT Total # of Minutes Spent Total Time Spent with Patient: Total time spent is greater than 50% in coordination of care (as documented) at patient's floor/unit and/or counseling patient: Coding Level of Care Code None Diagnoses Hx of bariatric surgery Z98.84
--- NOTE | 2024-12-30 11:05 | Cardiology Consultation ---
Date of Consultation December 30, 2024 Assessment & Plan (1) Atrial tachycardia: (2) Acute upper gastrointestinal bleeding: (3) Anemia: Plan 74-year-old female admitted with upper GI bleed and anemia. GIB possibly precipitated by daily NSAID use (low-dose aspirin in setting of prior gastric bypass surgery). Paroxysmal atrial tachycardia without associated symptoms recorded 12/29/2024. Likely related to acute GI bleeding, and volume depletion. * Continue metoprolol 12.5 mg twice daily. * Maintain adequate hydration, serum potassium greater than 4.0, and serum magnesium greater than 2.0. * Preliminary review of bedside echocardiogram demonstrates preserved LV systol ic function, normal wall motion, no significant valvular pathology. * Continue telemetry monitoring during hospitalization. Earnest Messina DO, [facility] History of Present Illness Reason for Consultation: SVT Requesting Physician: Dr. Gustavo Sharma Attending Physician: Ventura Agrawal MD History of Present Illness 74-year-old female admitted with abdominal discomfort, coffee-ground emesis, and vomiting. Reduced hemoglobin noted on admission. Admits to consuming taking low-dose aspirin daily over the past few months since her knee replacement. Denies any other NSAID use. At approximately 4 PM 12/29/2024 she developed supraventricular tachycardia, likely atrial tachycardia per telemetry, at a rate of 130 bpm. Tachycardia was sustained until approximately 9:20 PM. She spontaneously converted to sinus rhythm. She was asymptomatic throughout the episode. Denies palpitations, lightheadedness, dizziness, syncope, or near syncope. No chest discomfort or unusual shortness of breath. Reports rare palpitations over the past 12 months lasting a few seconds. Describes these palpitations as "fluttering". Denies personal history of coronary disease, congestive heart failure, rheumatic fever as a child, or diabetes. Allergies Allergy/AdvReac Type Severity Reaction Status Date / Time YAIR Inhibitors AdvReac Intermediate Cough Verified 03/29/21 07:41 aspirin AdvReac Mild Advised to Verified 03/29/21 07:41 avoid 2/2 hx bariatric surgery ibuprofen AdvReac Mild Advised to Verified 03/29/21 07:41 avoid 2/2 hx bariatric surgery naproxen AdvReac Mild Advised to Verified 03/29/21 07:41 avoid 2/2 hx bariatric surgery Home Medications Medication Instructions Recorded Confirmed Type lorazepam 0.5 mg tablet (Ativan) 0.5 mg PO HS 09/21/18 12/29/24 History multivitamin 2 tab PO QAM 09/21/18 12/29/24 History acetaminophen 500 mg tablet 1,000 mg PO Q6H PRN Pain 09/23/19 12/29/24 History (Tylenol Extra Strength) cholecalciferol (vitamin D3) 25 50 mcg PO DAILY 02/28/23 12/29/24 History mcg (1,000 unit) tablet duloxetine 60 mg capsule,delayed 60 mg PO QAM 02/28/23 12/29/24 History release potassium citrate 10 mEq (1,080 30 meq PO TID 02/28/23 12/29/24 History mg) tablet,extended release trazodone 100 mg tablet 100 mg PO HS 02/28/23 12/29/24 History zolpidem 5 mg tablet 5 mg PO HS PRN Insomnia 02/28/23 12/29/24 History aspirin 81 mg tablet 81 mg PO DAILY 12/29/24 12/29/24 History duloxetine 30 mg capsule,delayed 30 mg PO DAILY 12/29/24 12/29/24 History release Patient History Medical History CKD (chronic kidney disease), stage III Hyperlipidemia no meds yet Kidney stones Hypertension Giant cell arteritis remote hx (2018) > resolved Degenerative disc disease Urinary urgency Chronic kidney disease Stage III, follows with [facility] nephrology (Dr. Hurd) > hasn't seen in a [facility]> stable Hx of pancreatitis 5+ years ago > led to cholecystectomy Anemia "Mild"/no known hx of blood transfusion Anxiety and depression Restless leg syndrome Surgical History History of cystoscopy Cystoscopy, laser lithotripsy: 04/15/18: LMA#4 at [facility] History of lithotripsy History of repair of rotator cuff R/L History of colonoscopy History of gastric bypass 09/2013 History of cholecystectomy History of tooth extraction History of cataract surgery R/L Family History Sister Family history of diabetes mellitus Father Family history of esophageal cancer Mother Family history of reaction to anesthesia SLOW TO WAKE UP Social History (Reviewed 12/30/24 @ 10:54 by ROBERTO Garcia Smoking Status: Former smoker Second Hand Exposure: No; Do You Dip or Chew Tobacco: No; Hx Alcohol Use: No Hx Substance Use: No Preferred Language: Luxembourger Communication Ability: Effective Zinc Plater Required: No Beliefs That Will Affect Care: None Current Living Situation: Alone Other Information That Helps Us Care for You: No Feels Safe at Home: Yes Safety Concerns: Feels Safe At This Time and Afraid for Self Assistive Devices: Glasses Review of Systems Review of Systems: All systems reviewed & are unremarkable except as noted in Subjective Physical Exam Constitutional: well nourished; no acute distress Respiratory: no respiratory distress, no labored breathing and no retractions Auscultation: lungs clear to auscultation bilaterally; no crackles, no rales, no rhonchi and no wheezes Cardiovascular: Rate/Rhythm: regular rate and regular rhythm Heart Sounds: normal S1 and normal S2; no murmur Vessels: radial pulses present; no JVD and no carotid bruit Extremities: no edema Gastrointestinal (Abdomen): Inspection/Auscultation: abdomen normal to inspection and normal bowel sounds; abdomen not distended Percussion/Palpation: abdomen nontender, no guarding and abdomen not rigid Neurologic: CN's II-XI intact bilaterally and moves all extremities; no focal motor deficits Psychiatric: A+Ox3, euthymic affect Results & Data Vital Signs (Past 12 Hours) Vital Signs Temp Pulse Pulse Pulse Resp BP BP 12/30/24 10:00 63 12/30/24 07:26 36.6 C 79 19 130/70 12/30/24 03:16 36.7 C 58 L 16 145/75 H 12/29/24 23:45 70 12/29/24 23:00 118 H 12/29/24 23:00 36.6 C 79 16 132/78 Pulse Ox O2 Del Method 12/30/24 10:00 12/30/24 07:26 96 Room Air 12/30/24 03:16 93 Room Air 12/29/24 23:45 12/29/24 23:00 12/29/24 23:00 95 Room Air Laboratory Results Cardiac Enzymes 12/29/24 12/30/24 Range/Units 11:54 04:12 AST 21 17 (13-39) U/L Coagulation 12/29/24 Range/Units 11:54 PT 11.2 (9.0-12.0) Seconds APTT 23 (21-31) Seconds CBC 12/29/24 12/29/24 12/29/24 Range/Units 11:54 19:01 22:22 WBC 9.62 12.49 H 10.35 (4.8-10.8) K/ul RBC 3.03 L 3.46 L 3.14 L (4.20-5.40) M/uL Hgb 9.9 L 10.1 L 9.5 L (12.0-16.0) g/dl Hct 30.5 L 31.6 L 28.7 L (37.0-47.0) % Plt Count 379 280 257 (130-400) K/uL Neut # (Auto) 8.46 H 10.00 H 7.65 H (1.40-6.50) K/uL Lymph # (Auto) 0.74 L 1.23 1.54 (1.20-3.40) K/uL Andrew # (Auto) 0.33 1.15 H 1.06 H (0.11-0.59) K/uL Eos # (Auto) 0.00 0.00 0.02 (0.00-0.50) K/uL Baso # (Auto) 0.02 0.03 0.02 (0.00-0.20) K/uL 12/30/24 Range/Units 04:12 WBC 7.87 (4.8-10.8) K/ul RBC 3.01 L (4.20-5.40) M/uL Hgb 9.2 L (12.0-16.0) g/dl Hct 28.0 L (37.0-47.0) % Plt Count 255 (130-400) K/uL Neut # (Auto) 5.41 (1.40-6.50) K/uL Lymph # (Auto) 1.39 (1.20-3.40) K/uL Andrew # (Auto) 0.89 H (0.11-0.59) K/uL Eos # (Auto) 0.08 (0.00-0.50) K/uL Baso # (Auto) 0.04 (0.00-0.20) K/uL Comprehensive Metabolic Panel 12/29/24 12/29/2412/30/25 Range/Units 11:54 22:22 04:12 Sodium 139 140 141 (136-145) mmol/L Potassium 4.4 4.7 4.2 (3.5-5.1) mmol/L Chloride 103 109 H 109 H (98-107) mmol/L Carbon Dioxide 29 25 28 (21-32) mmol/L BUN 51 H 44 H 39 H (6-23) mg/dl Creatinine 1.11 1.07 1.16 (0.6-1.2) mg/dl Glucose 184 H 96 97 (70-99(Fasting)) mg/dl Calcium 8.9 7.6 L 7.7 L (8.6-10.3) mg/dl AST 21 17 (13-39) U/L ALT 17 14 (7-52) U/L Alkaline Phosphatase 87 67 (34-104) U/L Total Protein 6.7 5.3 L D (6.0-8.3) gm/dl Albumin 3.6 2.8 L (3.4-5.0) gm/dl Intake and Output 12/29/24 12/30/24 12/30/24 22:59 06:59 14:59 Intake Total 1500.667 / 3750.667 1030 / 3750.667 Balance 1500.667 / 3750.667 1030 / 3750.667 Intake: IV 880.667 / 3100.667 1000 / 3100.667 / 77 Magnesium Sulfate / D5w 1 gm In 100 / 100 100 ml @ 50 mls/hr IV ONE ONE Rx#:[id number] PANTOprazole 40 mg In Dextrose 180.667 / 280.667 100 / 280.667 / 5% Mini-B 100 ml @ 8 MG/HR 20 mls/hr IV Q5H [facility] Rx#:[id number] Sodium Chloride 0.9% 1,000 ml @ 700 / 1500 800 / 1500 80 mls/hr IV .[id number] [facility] Rx#: [id number] Oral Intake (Blood Product) Amt 310 / 310 Packed Cells, Leukoreduced 310 / 310 Unit [id number] Other 310 / 310 Packed Cells, Leukoreduced 310 / 310 Unit [id number] Other: Other Intake Source Packed Cells, Leukoreduced 310 Unit [id number] # Unmeasured Voids 1 1 Weight 46.9 kg 47.8 kg Weight Measurement Method Stated by Patient [facility] in [facility] (3) Anemia Anemia type: unspecified type Qualified Code(s): D64.9 - Anemia, unspecified
--- NOTE | 2024-12-30 11:44 | Anesthesiology Consultation ---
Date of Service December 30, 2024 Assessment & Plan (1) Encounter for pre-operative examination: Chart Review Chart Review: Acceptable Risk for Surgery and Patient NOT seen in Pre Admission Testing Consults Requested none History Surgery Operation Date: 12/30/24 10:00 Proposed Procedures p Esophagogastroduodenoscopy - Raul Segal MD Height/Weight Height: 5 ft 2 in Weight: 47.8 kg Allergies Allergy/AdvReac Type Severity Reaction Status Date / Time YAIR Inhibitors AdvReac Intermediate Cough Verified 03/29/21 07:41 aspirin AdvReac Mild Advised to Verified 03/29/21 07:41 avoid 2/2 hx bariatric surgery ibuprofen AdvReac Mild Advised to Verified 03/29/21 07:41 avoid 2/2 hx bariatric surgery naproxen AdvReac Mild Advised to Verified 03/29/21 07:41 avoid 2/2 hx bariatric surgery Medications Home Medications Medication Instructions Recorded Confirmed Last Taken lorazepam 0.5 mg tablet (Ativan) 0.5 mg PO HS 09/21/18 12/29/24 03/28/21 multivitamin 2 tab PO QAM 09/21/18 12/29/24 03/28/21 acetaminophen 500 mg tablet 1,000 mg PO Q6H PRN Pain 09/23/19 12/29/24 02/03/21 18:30 (Tylenol Extra Strength) cholecalciferol (vitamin D3) 25 50 mcg PO DAILY 02/28/23 12/29/24 Unknown mcg (1,000 unit) tablet duloxetine 60 mg capsule,delayed 60 mg PO QAM 02/28/23 12/29/24 Unknown release potassium citrate 10 mEq (1,080 30 meq PO TID 02/28/23 12/29/24 Unknown mg) tablet,extended release trazodone 100 mg tablet 100 mg PO HS 02/28/23 12/29/24 Unknown zolpidem 5 mg tablet 5 mg PO HS PRN Insomnia 02/28/23 12/29/24 Unknown aspirin 81 mg tablet 81 mg PO DAILY 12/29/24 12/29/24 Unknown duloxetine 30 mg capsule,delayed 30 mg PO DAILY 12/29/24 12/29/24 Unknown release Active Medications Generic Name Dose Route Start Last Admin Trade Name Freq PRN Reason Stop Dose Admin Acetaminophen 1,000 mg 12/29/24 15:59 12/30/24 01:17 Acetaminophen 500 Mg Tab PO 01/28/25 15:58 1,000 mg Q6H PRN Administration Pain Duloxetine HCl 60 mg 12/30/24 09:00 12/30/24 07:54 Duloxetine Hcl 60 Mg Cap PO 01/29/25 08:59 60 mg QAM THERESA Administration Duloxetine HCl 30 mg 12/30/24 09:00 12/30/24 07:54 Duloxetine Hcl 30 Mg Cap PO 01/29/25 08:59 30 mg DAILY THERESA Administration Pantoprazole Sodium 40 mg/ 100 mls @ 20 mls/hr 12/29/24 12:30 12/30/24 07:51 Dextrose IV 01/28/25 12:29 8 mg/hr Q5H THERESA 20 mls/hr Administration 8 MG/HR Lorazepam 0.5 mg 12/29/24 21:00 12/29/24 20:19 Lorazepam 0.5 Mg Tab PO 01/28/25 20:59 0.5 mg HS THERESA Administration Metoprolol Tartrate 12.5 mg 12/30/24 09:00 12/30/24 07:53 Metoprolol Tartrate 25 Mg Tab PO 01/29/25 08:59 12.5 mg BID THERESA Administration Multivitamins 1 tab 12/30/24 09:00 12/30/24 07:52 Multivitamin Tab PO 01/29/25 08:59 1 tab QAM THERESA Administration Potassium Citrate 30 meq 12/29/24 15:59 12/30/24 07:52 Potassium Citrate 10 Meq Tab PO 01/28/25 15:58 30 meq TID THERESA Administration Trazodone HCl 100 mg 12/29/24 21:00 12/29/24 19:40 Trazodone Hcl 100 Mg Tab PO 01/28/25 20:59 100 mg HS THERESA Administration Past Medical History Medical History CKD (chronic kidney disease), stage III Hyperlipidemia no meds yet Kidney stones Hypertension Giant cell arteritis remote hx (2018) > resolved Degenerative disc disease Urinary urgency Chronic kidney disease Stage III, follows with [facility] nephrology (Dr. Hurd) > hasn't seen in a while> stable Hx of pancreatitis 5+ years ago > led to cholecystectomy Anemia "Mild"/no known hx of blood transfusion Anxiety and depression Restless leg syndrome Assessment & Plan (1) Atrial tachycardia: (2) Acute upper gastrointestinal bleeding: (3) Anemia: Plan 74-year-old female admitted with upper GI bleed and anemia. GIB possibly precipitated by daily NSAID use (low-dose aspirin in setting of prior gastric bypass surgery). Paroxysmal atrial tachycardia without associated symptoms recorded 12/29/2024. Likely related to acute GI bleeding, and volume depletion. * Continue metoprolol 12.5 mg twice daily. * Maintain adequate hydration, serum potassium greater than 4.0, and serum magnesium greater than 2.0. * Preliminary review of bedside echocardiogram demonstrates preserved LV systolic function, normal wall motion, no significant valvular pathology. * Continue telemetry monitoring during hospitalization. Past Family History Family History Sister Family history of diabetes mellitus Father Family history of esophageal cancer Mother Family history of reaction to anesthesia SLOW TO WAKE UP Past Surgical History Surgical History History of cystoscopy Cystoscopy, laser lithotripsy: 04/15/18: LMA#4 at [facility] History of lithotripsy History of repair of rotator cuff R/L History of colonoscopy History of gastric bypass 09/2013 History of cholecystectomy History of tooth extraction History of cataract surgery R/L Social History Smoking Status: Former smoker Do You Dip or Chew Tobacco: No Hx Alcohol Use: No Hx Substance Use: No substance use type: does not use Physical Exam Vital Signs Last Vital Signs Temp 36.6 C 12/30/24 11:12 Pulse 94 H 12/30/24 11:12 Resp 18 12/30/24 11:12 BP 125/71 12/30/24 11:12 Pulse Ox 97 12/30/24 11:12 O2 Del Method Room Air 12/30/24 11:12 Testing Laboratory Results 12/30/24 04:12 12/30/24 04:12 PT 11.2 Seconds (9.0-12.0) 12/29/24 11:54 INR 1.0 (0.9-1.1) 12/29/24 11:54 APTT 23 Seconds (21-31) 12/29/24 11:54 Blood Type O Positive 12/29/24 11:52 Antibody Screen NEGATIVE 12/29/24 11:52 Electrocardiogram Date: 12/30/24 Findings: + NSR @ (83) NSR. Septal infarct, age undetermined. Abnormal ECG. Echocardiogram Date: 12/30/24 LV systolic function is normal. EF 60-65% LV wall motion is normal. No sig valvular pathology Other Testing ABDOMEN AND PELVIS CT WITH IV CONTRAST CT DOSE: 1689.5 mGy.cm HISTORY: Acute GI bleed gi bleed TECHNIQUE: Multiaxial CT images of the abdomen and pelvis were performed following the IV administration of 93 cc of Optiray, A dose lowering technique was utilized adhering to the principles of ALARA. COMPARISON STUDY: 02/28/2023, 02/08/2020. FINDINGS: Coronary artery calcifications. Cylindrical bibasilar bronchiectasis with subsegmental fibrotic changes of the right middle lobe. Subpleural reticulation of the basal lower lobes. Mild bibasilar mucous plugging. No pneumatosis or pneumoperitoneum. Unremarkable spleen, atrophic pancreas and adrenal glands. 1.8 cm ovoid cystic focus within the right upper quadrant abdomen on image 106 series 9 but the adjacent pancreatic head and duodenum. This is nonspecific however favored to be benign. Cholecystectomy is likely postsurgical biliary ductal dilation. Unremarkable liver. There is patency of the hepatic and portal veins. Nonobstructing calculi in the left kidney measure up to 6 mm. There are a few punctate nonobstructing calculi in the left kidney. No ureteral calculi or hydronephrosis. Unremarkable urinary bladder. There is apparent loculated fluid within the fundal endometrial cavity on image 260 series 9. 6.0 x 3.6 cm left adnexal cystic lesion. This measured 3.9 cm on the study from 2019. Atherosclerosis of the aorta without aneurysm. No lymphadenopathy. Fluid-filled distal esophagus with tiny hiatal hernia. Zac-en-Y gastric bypass. No bowel obstruction. Mild rectal wall thickening. The appendix is reportedly surgically absent. Unremarkable soft tissues. Degenerative changes of the spine, pelvis and hips. IMPRESSION: 1. No bowel obstruction or pneumoperitoneum. 2. Equivocal wall thickening of the rectum. Correlate clinically to exclude a nonspecific proctitis. 3. Loculated fluid within the fundal endometrial cavity, considered pathologic in a postmenopausal patient. Gynecologic follow-up recommended. 4. Chronic left adnexal cystic lesion has slowly increased in size compared to the study from 2019. 5. Nonobstructing bilateral nephrolithiasis. 6. Additional findings as above. CT head/brain wo con 12/29/24 CLINICAL HISTORY: fall hit head. TECHNIQUE: Multiple axial CT images of the head were obtained without contrast. A dose lowering technique was utilized adhering to the principles of ALARA. CT DOSE: 624 COMPARISON: 02/28/2023 FINDINGS: There is stable severe patchy periventricular hypodensity, nonspecific, but usually represents chronic small vessel ischemic changes. Stable globus pallidus calcifications, unremarkable in this age group. No intracranial hemorrhage seen. No mass effect, midline shift, or hydrocephalus. There is a small left frontal scalp hematoma. No skull fracture seen. Clear visualized paranasal sinuses and mastoid air cells.
[2024-12-30] MEDS ORDERED: ONDANSETRON INJ 2 MG/ML 2 ML VIAL ONE (12:13)
[2024-12-30] MEDS ORDERED: LIDOCAINE 2% 2 ML VIAL/AMP(20MG/ML) INFIL ONE (12:13)
[2024-12-30] MEDS ORDERED: DEXAMETHASONE SOD INJ 4 MG/ML VIAL ONE (12:13)
[2024-12-30] MEDS ORDERED: PROPOFOL IV EMULSION 10 MG/ML 20 ML VIAL IV ONE (12:13)
[2024-12-30] MEDS ORDERED: fentaNYL citrate PF 100 MCG/2 ML VIAL ONE (12:14)
[2024-12-30] MEDS ORDERED: SUCCINYLCHOLINE CHLORIDE 20 MG/ML 10 ML VIAL IV ONE (12:14)
[2024-12-30] MEDS ORDERED: ROCURONIUM BROMIDE 10 MG/ML 5 ML VIAL IV ONE (12:14)
[2024-12-30] MEDS ORDERED: fentaNYL citrate PF 100 MCG/2 ML VIAL IV PRN (12:17)
[2024-12-30] MEDS ORDERED: ONDANSETRON INJ 2 MG/ML 2 ML VIAL IV PRN (12:17)
[2024-12-30] MEDS ORDERED: ATROPINE SULFATE 0.1 MG/ML 10ML SYR IV PRN (12:17)
[2024-12-30] MEDS ORDERED: ePHEDrine sulfate 50 MG/ML AMP IV PRN (12:17)
[2024-12-30] MEDS: SODIUM CHLORIDE 0.9% 500 ML IV SCH (12:46)
[2024-12-30] MEDS ORDERED: PHENYLEPHRINE 100MCG/ML 5ML SYR ONE (13:10)
--- NOTE | 2024-12-30 13:25 | GI REPORT ---
[facility] Patient: STEPHEN PIERRE : 1950 Sex at : Female Age: 74 Years Procedure: Upper GI endoscopy Date: 12/30/2024 Attending Physician: Raul Segal MD Referring MD: No Pcp Indications: - Melena - Coffee-ground emesis Medications: - Monitored Anesthesia Care Complications: - No immediate complications. Estimated Blood Loss: - Estimated blood loss: None. Procedure: - Prior to the procedure, a History and Physical was performed, and patient medications and allergies were reviewed. The patient's tolerance of previous anesthesia was also reviewed. The risks and benefits of the procedure and the sedation options and risks were discussed with the patient. All questions were answered, and informed consent was obtained. Prior Anticoagulants: The patient has taken no anticoagulant or antiplatelet agents. ASA Grade Assessment: III - A patient with severe systemic disease. After reviewing the risks and benefits, the patient was deemed in satisfactory condition to undergo the procedure. - The EGD scope was introduced through the mouth and advanced to the jejunum. - The upper GI endoscopy was accomplished without difficulty. - The patient tolerated the procedure well. Findings: - LA Grade A (one or more mucosal breaks less than 5 mm, not extending between tops of 2 mucosal folds) esophagitis with no bleeding was found at the gastroesophageal junction (on retroflexion). 3 prior biopsies negative for Lewis's - Evidence of a gastric bypass was found in the gastric body. This was characterized by congestion. NO ulceration noted at the anastomosis. - The examined jejunum was normal. Afferent and efferent limb was normal. Impression: - LA Grade A reflux esophagitis with no bleeding. - 3 prior biopsies negative for Lewis's - A gastric bypass was found, characterized by congestion. - NO ulceration noted at the anastomosis. - Normal examined jejunum. - Afferent and efferent limb was normal. - No specimens collected. Recommendation: - Discharge patient to home (ambulatory). - Resume previous diet. - Continue present medications. - Await pathology results. - Return to primary care physician as previously scheduled. - Patient has a contact number available for emergencies. The signs and symptoms of potential delayed complications were discussed with the patient. Return to normal activities tomorrow. Written discharge instructions were provided to the patient. - Use Protonix (pantoprazole) 40 mg PO daily for 3 months. - NO great source for melena or dark stools. Prior Colonoscopy was negative. Suggest outpt capsule endoscopy. - start full liquid diet and advance. Procedure Code(s): - 08816, Esophagogastroduodenoscopy, flexible, transoral; diagnostic, including collection of specimen(s) by brushing or washing, when performed (separate procedure) Diagnosis Code(s): - K92.1, Melena (includes Hematochezia) - K92.0, Hematemesis - K21.00, Gastro-esophageal reflux disease with esophagitis, without bleeding - Z98.84, Bariatric surgery status CPT(R) - 202 copyright [employer]. All Rights Reserved. The CPT codes, CCI edits and ICD codes generated are intended as suggestions and were generated based on input data. These codes are preliminary and upon needlemaker review may be revised to meet current compliance and payer requirements. The provider is responsible for the final determination of appropriate codes, and modifiers. Raul Segal MD This document has been electronically signed. Note Initiated:12/30/2024 Note Completed:12/30/2024 1:25 PM [id number]
--- NOTE | 2024-12-30 14:26 | Electrocardiogram Report ---
Test Reason : Blood Pressure : */* mmHG Vent. Rate : 129 BPM Atrial Rate : 129 BPM P-R Int : 192 ms QRS Dur : 74 ms QT Int : 278 ms P-R-T Axes : * 51 118 degrees QTcB Int : 407 ms Sinus tachycardia Nonspecific T wave abnormality Abnormal ECG When compared with ECG of 29-Dec-2024 11:53, Criteria for Anteroseptal infarct are no longer Present Nonspecific T wave abnormality, worse in Anterolateral leads Confirmed by Max Hernandez ([id number]) on 12/30/2024 2:26:23 PM Referred By: NO PCP Confirmed By: Max Hernandez
--- NOTE | 2024-12-30 14:30 | Electrocardiogram Report ---
Test Reason : Blood Pressure : */* mmHG Vent. Rate : 140 BPM Atrial Rate : * BPM P-R Int : * ms QRS Dur : 72 ms QT Int : 306 ms P-R-T Axes : * 30 83 degrees QTcB Int : 467 ms Supraventricular tachycardia Poor R-wave progression ; consider anterior infarct, lead placement, or normal variant Abnormal ECG When compared with ECG of 29-Dec-2024 16:13, (unconfirmed) Nonspecific T wave abnormality no longer evident in Anterior leads Confirmed by Max Hernandez ([id number]) on 12/30/2024 2:30:42 PM Referred By: NO PCP Confirmed By: Max Hernandez
--- NOTE | 2024-12-30 14:31 | Electrocardiogram Report ---
Test Reason : Blood Pressure : */* mmHG Vent. Rate : 83 BPM Atrial Rate : 83 BPM P-R Int : 196 ms QRS Dur : 72 ms QT Int : 374 ms P-R-T Axes : 36 28 65 degrees QTcB Int : 439 ms Normal sinus rhythm Septal infarct , age undetermined Abnormal ECG When compared with ECG of 29-Dec-2024 20:41, (unconfirmed) Significant changes have occurred Confirmed by Max Hernandez ([id number]) on 12/30/2024 2:31:06 PM Referred By: NO PCP Confirmed By: Max Hernandez
--- NOTE | 2024-12-30 14:40 | Anesthesiology Progress Note ---
Date of Service December 30, 2024 Anesthesia Post Procedure Vital Signs Vital Signs: Temp Pulse Pulse Pulse Resp BP BP 12/30/24 14:11 36.8 C 78 17 12/30/24 13:55 37.0 C 95 H 21 12/30/24 13:45 98 H 23 12/30/24 13:35 99 H 22 12/30/24 13:25 36.2 C L 77 26 H 12/30/24 12:35 37 C 95 H 16 12/30/24 11:12 36.6 C 94 H 18 12/30/24 10:00 63 12/30/24 07:26 36.6 C 79 19 12/30/24 03:16 36.7 C 58 L 16 145/75 H 12/29/24 23:45 70 12/29/24 23:00 118 H 12/29/24 23:00 36.6 C 79 16 132/78 12/29/24 21:30 76 12/29/24 21:02 135 H 135/83 12/29/24 19:00 36.8 C 135 H 21 144/95 H 12/29/24 18:07 36.7 C 130 H 18 128/91 12/29/24 16:36 36.7 C 132 H 18 12/29/24 16:05 37.1 C 128 H 19 155/88 H 12/29/24 15:35 36.7 C 125 H 18 147/86 H 12/29/24 15:35 37.2 C 98 H 17 12/29/24 15:20 133 H 20 130/83 12/29/24 15:20 37.4 C 98 H 17 12/29/24 15:04 36.6 C 99 H 18 138/87 BP Pulse Ox O2 Del Method O2 Flow Rate 12/30/24 14:11 134/71 96 Room Air 12/30/24 13:55 130/67 94 Room Air 12/30/24 13:45 145/74 H 94 Room Air 12/30/24 13:35 136/70 97 Room Air 12/30/24 13:25 141/72 H 99 Oxymask 4 12/30/24 12:35 137/66 95 Room Air 12/30/24 11:12 125/71 97 Room Air 12/30/24 10:00 12/30/24 07:26 130/70 96 Room Air 12/30/24 03:16 93 Room Air 12/29/24 23:45 12/29/24 23:00 12/29/24 23:00 95 Room Air 12/29/24 21:30 12/29/24 21:02 12/29/24 19:00 96 Room Air 12/29/24 18:07 95 12/29/24 16:36 130/83 95 Room Air 12/29/24 16:05 98 12/29/24 15:35 96 12/29/24 15:35 158/82 H 98 Room Air 12/29/24 15:20 95 12/29/24 15:20 155/80 H 96 Room Air 12/29/24 15:04 99 Pain Intensity Bilateral Lower Abdomen: Pain Intensity: 7 Transfer of Care Handoff Completed per policy Notes Mental Status: alert / awake / arousable and participated in evaluation Patient Amnestic to Procedure: Yes Nausea / Vomiting: adequately controlled Pain: adequately controlled Airway Patency, RR, SpO2: stable & adequate BP & HR: stable & adequate Hydration State: stable & adequate Anesthetic Complications: no major complications apparent and Pt Satisfied with anesthetic care
--- NOTE | 2024-12-30 15:42 | XRay Report ---
XR ankle RT min 3V routine CLINICAL HISTORY: right ankle pain s/p fall COMPARISON: None FINDINGS: No fracture or dislocation. No significant degenerative change. IMPRESSION: No acute findings. ACT 112: Negative or not required by law. Electronically signed by: Tyson Perez M.D. 12/30/2024 3:41 PM
--- NOTE | 2024-12-30 15:43 | XRay Report ---
XR knee RT 3V CLINICAL HISTORY: right knee pain post fall COMPARISON: None FINDINGS: Right knee prosthesis shows no hardware complication. No fracture or dislocation. IMPRESSION: No acute findings. ACT 112: Negative or not required by law. Electronically signed by: Tyson Perez M.D. 12/30/2024 3:42 PM
--- NOTE | 2024-12-30 18:09 | Hospitalist Progress Note ---
Date of Service December 30, 2024 Assessment & Plan (1) Melena: (2) Coffee ground emesis: (3) CKD (chronic kidney disease), stage III: (4) Hypertension: (5) Anxiety and depression: Plan This is a 74-year-old female with PMH of hypertension, history of gastric bypass, CKD 3, restless leg syndrome, mood disorder, giant cell arteritis, hyperparathyroidism and other medical problems listed below presents from home with epigastric pain, nausea and vomiting since yesterday evening. Upper GI bleed History of gastric bypass surgery -Coffee ground emesis and melena since last night -Hgb 9.9 (11.2 in Sep 2024), symptomatic with lightheadedness -s/p 1 unit of blood PLan: -GI consult, EGD today, appreciate recs -Continue PPI bolus and drip -NPO except meds + sips -Holding aspirin, no NSAIDs -IV fluids, antiemetics History of hypokalemia -Takes 30meq Kcl TID at home - continue, repeat BMP this evening Abnormal CT abd/pelvis -Loculated fluid within the fundal endometrial cavity, considered pathologic in a postmenopausal patient. Gynecologic follow-up recommended -pelvic US recommended MRI pelvis Plan: -MR pelvis ordered for further evaluation Fall -Hit head at home overnight -No acute findings on CT head, cervical CT spine -Fall precautions, volume resuscitation -PT/OT ordered -knee xray and ankle xray of right lower extremity ordered given pain CKD III -Cr 1.1 (baseline 1.1-1.3) -Monitor with daily BMP Mood disorder Insomnia -Grieving recent loss of -Continue duloxetine, ativan, trazodone Feeding/fluids: NPO Analgesia: tylenol Sedation: na Thromboprophylaxis: SCD Head up position: na Ulcer prophylaxis: protonix Glycemic control: na Spontaneous breathing trial: na Bowel care: start miralax prn Indwelling catheter removal: na Deescalation of antibiotics: na I spent a total of 50 minutes in direct patient care, including [id number] time with the patient and/or family, reviewing medical records, ordering and reviewing diagnostic tests, and coordinating care with other healthcare providers. This time includes: history taking, physical examination, medical decision making, counseling, ECG interpretation, imaging interpretation, lab interpretation, orders, and education, excluding time spent in the performance of separately billed services. Admission and Anticipated Discharge Date Admission Date: December 29, 2024 Subjective 74-year-old female with past medical history of atrial tachycardia, pancreatitis, BPPV who presented for melena. In the ED, noted to have drop in hemoglobin, admitted to medicine for further workup, received blood in ED as well. GI consulted on medicine, recommended EGD. Patient seen and examined at bedside. Patient is doing okay today. She is nerv ous about the EGD. Discussed possible outcomes and neck steps. Patient was appreciative of the update. Review of Systems Review of Systems: CONSTITUTIONAL: Patient denies fevers, chills, sweats and weight changes. EYES: Patient denies any visual symptoms. EARS, NOSE, AND THROAT: No difficulties with hearing. No symptoms of rhinitis or sore throat. CARDIOVASCULAR: Patient denies chest pains, palpitations, orthopnea and paroxysmal nocturnal dyspnea. RESPIRATORY: No dyspnea on exertion, no wheezing or cough. GI: melena : No urinary hesitancy or dribbling. No nocturia or urinary frequency. No abnormal urethral discharge. MUSCULOSKELETAL: No myalgias or arthralgias. NEUROLOGIC: No chronic headaches, no seizures. Patient denies numbness, tingling or weakness. PSYCHIATRIC: Patient denies problems with mood disturbance. No problems with anxiety. ENDOCRINE: No excessive urination or excessive thirst. DERMATOLOGIC: Patient denies any rashes or skin changes. Physical Exam Physical Exam: Gen: A&O 3 NAD HEENT: NCAT, EOMI, not icteric. External ears normal. No rhinorrhea. Moist mucous membranes. Neck: Supple, full range of motion, no observable masses, No meningeal sign. Lungs: No Respiratory distress. CV: RRR, no edema. Abdomen: Soft, nondistended, No rebound tenderness. MSK: No joint swelling, no redness. Skin: No rashes, petechiae, lesions. Normal color per patient. Neuro: Normal Gait, Grossly intact. Psych: Appropriate for situation. Results & Data Results & Data Vital Signs (Past 12 Hours) Vital Signs Temp Pulse Pulse Pulse Resp BP Pulse Ox 12/30/24 16:13 87 12/30/24 15:56 36.5 C 82 18 114/62 93 12/30/24 14:11 36.8 C 78 17 134/71 96 12/30/24 13:55 37.0 C 95 H 21 130/67 94 12/30/24 13:45 98 H 23 145/74 H 94 12/30/24 13:35 99 H 22 136/70 97 12/30/24 13:25 36.2 C L 77 26 H 141/72 H 99 12/30/24 12:35 37 C 95 H 16 137/66 95 12/30/24 11:12 36.6 C 94 H 18 125/71 97 12/30/24 10:00 63 12/30/24 07:26 36.6 C 79 19 130/70 96 O2 Del Method O2 Flow Rate 12/30/24 16:13 12/30/24 15:56 Room Air 12/30/24 14:11 Room Air 12/30/24 13:55 Room Air 12/30/24 13:45 Room Air 12/30/24 13:35 Room Air 12/30/24 13:25 Oxymask 4 12/30/24 12:35 Room Air 12/30/24 11:12 Room Air 12/30/24 10:00 12/30/24 07:26 Room Air Laboratory Results - Personally reviewed, hemoglobin drop since admission, pelvic ultrasound revealing fluid collection needs to be followed up outpatient Medications Administered Acetaminophen (Acetaminophen 500 Mg Tab) 1,000 mg PO Q6H PRN PRN Reason: Pain Stop: 01/28/25 15:58 Last Admin: 12/30/24 01:17 Dose: 1,000 mg Documented By: Admin: 12/29/24 19:25 Dose: 1,000 mg Documented By: TIFFANY Duloxetine HCl (Duloxetine Hcl 60 Mg Cap) 60 mg PO QAM THERESA Stop: 01/29/25 08:59 Last Admin: 12/30/24 07:54 Dose: 60 mg Documented By: Admin: 12/30/24 07:53 Dose: 60 mg Documented By: SUKHWINDER Duloxetine HCl (Duloxetine Hcl 30 Mg Cap) 30 mg PO DAILY THERESA Stop: 01/29/25 08:59 Last Admin: 12/30/24 07:54 Dose: 30 mg Documented By: SUKHWINDER Sodium Chloride (Nss) 500 mls @ 15 mls/hr IV .Q24H THERESA Stop: 12/31/24 07:29 Last Infusion: 12/30/24 14:27 Dose: Infused Documented By: Infusion: 12/30/24 13:03 Dose: 0 mls/hr Documented By: Admin: 12/30/24 12:46 Dose: 15 mls/hr Documented By: SINAN Lorazepam (Lorazepam 0.5 Mg Tab) 0.5 mg PO HS [facility] Stop: 01/28/25 20:59 Last Admin: 12/29/24 20:19 Dose: 0.5 mg Documented By: TIFFANY Metoprolol Tartrate (Metoprolol Tartrate 25 Mg Tab) 12.5 mg PO BID THERESA Stop: 01/29/25 08:59 Last Admin: 12/30/24 07:53 Dose: 12.5 mg Documented By: SUKHWINDER Multivitamins (Multivitamin Tab) 1 tab PO QAM [facility] Stop: 01/29/25 08:59 Last Admin: 12/30/24 07:52 Dose: 1 tab Documented By: SUKHWINDER Potassium Citrate (Potassium Citrate 10 Meq Tab) 30 meq PO TID THERESA Stop: 01/28/25 15:58 Last Admin: 12/30/24 14:29 Dose: 30 meq Documented By: Admin: 12/30/24 07:52 Dose: 30 meq Documented By: Admin: 12/29/24 19:38 Dose: 30 meq Documented By: Admin: 12/29/24 17:36 Dose: 30 meq Documented By: SUKHWINDER Trazodone HCl (Trazodone Hcl 100 Mg Tab) 100 mg PO [facility] Stop: 01/28/25 20:59 Last Admin: 12/29/24 19:40 Dose: 100 mg Documented By: TIFFANY
[2024-12-30] MEDS ORDERED: POLYETHYLENE (MIRALAX) 17 GM PACK PO PRN (18:11)
[2024-12-30] MEDS: GADOBUTROL 65ML VIAL IV ONE (19:36)
--- NOTE | 2024-12-30 20:25 | Magnetic Resonance Report ---
Exam(s): MRI PELVIS W/WO Contrast IV Amt: 4.7mL Gadavist given existing IV EXAM: MR Pelvis Without and With Intravenous Contrast CLINICAL HISTORY: Reason for exam: cocnern for hematmetra. TECHNIQUE: Multiplanar magnetic resonance images of the pelvis without and with intravenous contrast. CONTRAST: Patient received 4.7mL Gadavist given existing IV of IV contrast COMPARISON: Ultrasound 12/30/2024. FINDINGS: Bowel: Unremarkable. No obstruction. No mucosal thickening. Bladder: Unremarkable. No stones. No mass. Ovaries: Left ovarian cyst measuring 6.2 x 4.2 x 3.6 cm. There is a single thin septation. No peripheral nodule for enhancement. Uterus/cervix: Fluid-filled endometrial cavity measuring 1.8 x 2.4 x 3. 0 cm. No hematometra. Bones/joints: Unremarkable. No acute fracture. No dislocation. Soft tissues: Unremarkable. Vasculature: Unremarkable. No lower abdominal aortic aneurysm. Lymph nodes: Unremarkable. No enlarged lymph nodes. IMPRESSION: 1. Fluid-filled endometrial cavity measuring 1.8 x 2.4 x 3.0 cm. No hematometra. 2. Left ovarian cyst measuring 6.2 x 4.2 x 3.6 cm. There is a single thin septation. No peripheral nodule for enhancement. Electronically signed by: Anurag Sylvester MD 12/30/24 20:24 PM
[2024-12-31 07:21] VITALS: RESP 18
[2024-12-31 07:24] LABS: Hematocrit (blood only) 28.3 % (37.0-47.0); Hemoglobin 9.1 g/dl (12.0-16.0); Mean Corpuscular Hemoglobin 30.3 pg (25.0-34.0); Mean Corpuscular Hgb Conc 32.2 g/dL (32.0-36.0); Mean Corpuscular Volume 94.3 fL (80.0-100.0); Mean Platelet Volume 9.7 fL (9.4-12.4); Platelet Count 275 K/uL (130-400); RDW Coefficient of Variation 20.4 % (11.5-14.5); RDW Standard Deviation 70.1 fL (36.4-46.3); White Blood Count 7.94 K/ul (4.8-10.8)
[2024-12-31 07:42] LABS: BUN Creatinine Ratio 25.6 (10-20); Calcium 9.1 mg/dl (8.6-10.3); Creatinine Clr Calc Pharmacy 31.2 ml/min; Potassium 4.8 mmol/L (3.5-5.1)
[2024-12-31] MEDS: CHOLECALCIFEROL 25 MCG (1000 UNITS) TAB PO SCH (08:43)
[2024-12-31 11:20] VITALS: BP 128/64; TEMP 97.9; O2SAT 92
[2024-12-31 12:15] VITALS: PULSE 80
--- NOTE | 2024-12-31 16:45 | Discharge Summary ---
Discharge Summary Date of Service December 31, 2024 Principal Dx & Hospital Course #1 = Principal Diagnosis (1) Melena: (2) Coffee ground emesis: (3) CKD (chronic kidney disease), stage III: (4) Hypertension: (5) Anxiety and depression: Plan This is a 74-year-old female with PMH of hypertension, history of gastric bypass, CKD 3, restless leg syndrome, mood disorder, giant cell arteritis, hyperparathyroidism and other medical problems listed below presents from home with epigastric pain, nausea and vomiting since yesterday evening. Upper GI bleed History of gastric bypass surgery -Coffee ground emesis and melena since last night -Hgb 9.9 (11.2 in Sep 2024), symptomatic with lightheadedness -s/p 1 unit of blood -EGD unrevealing for cause of bleed, recommend PPI and outpatient follow up PLan: -GI consult, appreciate recs, per GI patient stable for discharge home with outpatient f/u for capsule -bid protonix History of hypokalemia -Takes 30meq Kcl TID at home Abnormal CT abd/pelvis -Loculated fluid within the fundal endometrial cavity, considered pathologic in a postmenopausal patient. Gynecologic follow-up recommended -pelvic US recommended MRI pelvis -MR pelvis shows fluid collection and increased adnexal mass with septation Plan: -f/u with repairer typewriter Fall -Hit head at home overnight -No acute findings on CT head, cervical CT spine -Fall precautions, volume resuscitation -PT/OT ordered CKD III -Cr 1.1 (baseline 1.1-1.3) -Monitor with daily BMP Mood disorder Insomnia -Grieving recent loss of -Continue duloxetine, ativan, trazodone Notes For Next Care Provider 74-year-old female past medical history of hypertension, hyperlipidemia, anxiety who presents for melena. In the ED note, noted to have acute blood loss anemia requiring unit of blood. Admitted to medicine for further workup. On medicine, GI was consulted and recommended EGD. EGD D was performed without clear site of bleed. Hemoglobin stabilized. Cardiology was consulted for fast heart rate and was determined to have atrial tachycardia. On 12/31/2024 patient medically stable for discharge home, with approval of GI. Will need follow-up hemoglobin check in 1 week, follow-up with GAS EXAMINER, follow-up with cardiology, follow-up with GI. Medication Changes From Visit -omeprazole Admission HPI Per Admitting Provider This is a 74-year-old female with PMH of hypertension, history of gastric bypass, CKD 3, restless leg syndrome, mood disorder, giant cell arteritis, hyperparathyroidism and other medical problems listed below presents from home with epigastric pain, nausea and vomiting since yesterday evening. Symptoms started last evening and describes as sudden lower abdominal cramping pain that then moved towards her upper abdomen. Had a large volume emesis that was black in color, followed by 3 additional episodes of coffee-ground emesis. Also endorses 4 episodes of black stool that started last evening and continued overnight. Last episode of vomiting was around 10 AM this AM prior to arrival. Did have a fall overnight when she tried to get up from bed. No LOC. Still feels weak and lightheaded. Pain and nausea have improved since arrival. No additional emesis or melanotic events while in ER. Does have remote history of gastric bypass surgery. Does not use ibuprofen but has been on aspirin 81mg since knee surgery in September. Does not remember being instructed on how long to continue taking it. Otherwise uses PRN Tylenol for pain. Of note, patient's passed recently and has experiencing insomnia and reduced appetite. Had duloxetine increased from 60 to 90mg daily and has been using ativan and trazodone to sleep. No F/C, cough, congestion, CP, SOB, palpitations, dysuria. Discharge Exam Gen: A&O 3 NAD, anxious HEENT: NCAT, EOMI, not icteric. External ears normal. No rhinorrhea. Moist mucous membranes. Neck: Supple, full range of motion, no observable masses, No meningeal sign. Lungs: No Respiratory distress. CV: RRR, no edema. Abdomen: Soft, nondistended, No rebound tenderness. MSK: No joint swelling, no redness. Skin: No rashes, petechiae, lesions. Normal color per patient. Neuro: Normal Gait, Grossly intact. Psych: Appropriate for situation. Anxious Updated Medication List Medication Instructions Recorded Confirmed Type lorazepam 0.5 mg tablet (Ativan) 0.5 mg PO HS 09/21/18 12/29/24 History multivitamin 2 tab PO QAM 09/21/18 12/29/24 History acetaminophen 500 mg tablet 1,000 mg PO Q6H PRN Pain 09/23/19 12/29/24 History (Tylenol Extra Strength) cholecalciferol (vitamin D3) 25 50 mcg PO DAILY 02/28/23 12/29/24 History mcg (1,000 unit) tablet duloxetine 60 mg capsule,delayed 60 mg PO QAM 02/28/23 12/29/24 History release potassium citrate 10 mEq (1,080 30 meq PO TID 02/28/23 12/29/24 History mg) tablet,extended release trazodone 100 mg tablet 100 mg PO HS 02/28/23 12/29/24 History zolpidem 5 mg tablet 5 mg PO HS PRN Insomnia 02/28/23 12/29/24 History duloxetine 30 mg capsule,delayed 30 mg PO DAILY 12/29/24 12/29/24 History release metoprolol tartrate 25 mg tablet 12.5 mg (1/2 x 25 mg) PO BID #60 12/31/24 Rx tabs pantoprazole 40 mg granules 40 mg PO DAILY #30 ea 12/31/24 Rx delayed-release for susp in packet (Protonix) Hospital Stay Data Consultations 12/29/24 13:13 ED Decision to Admit Stat 12/29/24 14:20 Consult Gastroenterology Routine 12/29/24 23:20 Consult Cardiology Routine Procedures Performed Operation Date: 12/30/24 10:00 Actual Procedures p Esophagogastroduodenoscopy - Raul Segal MD Diagnostic Imagining Performed 12/29/24 12:08 CT abd pelvis IV con only Stat CT cervical spine wo con Stat CT head/brain wo con Stat 12/30/24 US pelvic complete Routine 12/30/24 18:09 MRI Pelvis [MR pelvis wo/w con] Urgent Pending Results Patient Have Any Pending Studies at Discharge: No Discharge Instructions Given to Patient (Per Discharging Provider) 1. Please follow up with PCP, GI, cardiology, and scarf gluer outpatient. 2. Follow up CBC lab test in one week. Total Time Total Time Spent Total Time Spent (In Minutes): I spent a total of 35 minutes in direct patient care, including [id number] time with the patient and/or family, reviewing medical records, ordering and reviewing diagnostic tests, and coordinating care with other healthcare providers. This time includes: history taking, physical examination, medical decision making, counseling, ECG interpretation, imaging interpretation, lab interpretation, orders, and education, excluding time spent in the performance of separately billed services.
== END 2024-12-31 14:16 | disposition home or self-care (01) | DRG 378 ==
LOC: ED 11:33 → 4W 13:20 → SUATTDRO 13:20 → 4W 15:43

== ENCOUNTER 2025-05-17 11:46 | Inpatient (IN) ==
[2025-05-17] MEDS: SODIUM CHLORIDE 0.9% 1,000 ML IV STA (12:14)
[2025-05-17 12:30] LABS: iSTAT Creatinine 2.9 mg/dl (0.6-1.3); iSTAT Hemoglobin 12.2 g/dl (12.0-16.0); iSTAT Ionized Calcium 0.98 mmol/l (1.12-1.32); iSTAT Potassium 4.5 mmol/L (3.3-5.0)
[2025-05-17 12:32] LABS: Hemoglobin 11.2 g/dl (12.0-16.0); Mean Corpuscular Hemoglobin 31.5 pg (25.0-34.0); Mean Corpuscular Volume 98.3 fL (80.0-100.0); Mean Platelet Volume 10.2 fL (9.4-12.4); Platelet Count 197 K/uL (130-400); RDW Coefficient of Variation 14.4 % (11.5-14.5); RDW Standard Deviation 52.5 fL (36.4-46.3); Red Blood Count 3.56 M/uL (4.20-5.40)
[2025-05-17] MEDS: ACETAMINOPHEN 1,000 MG/100 ML VIAL IV STA (12:38)
[2025-05-17] MEDS: FAMOTIDINE 20MG IV PUSH 20 MG/5 ML SYR IV STA (12:38)
[2025-05-17] MEDS: ONDANSETRON INJ 2 MG/ML 2 ML VIAL IV STA (12:38)
[2025-05-17 12:48] LABS: Albumin Globulin Ratio 0.9 (0.9-2); Albumin Level 3.1 gm/dl (3.4-5.0); BUN Creatinine Ratio 22.1 (10-20); Bilirubin,Total 1.4 mg/dl (0.2-1.0); Creatinine Clr Calc Pharmacy 14.4 ml/min; Globulin 3.3 gm/dl (2.5-4.0); Magnesium 1.6 mg/dl (1.7-2.4); Phosphorus 5.8 mg/dl (2.5-4.9); Potassium 4.6 mmol/L (3.5-5.1); Total Protein 6.4 gm/dl (6.0-8.3)
--- NOTE | 2025-05-17 12:48 | XRay Report ---
XR chest 1V portable CLINICAL HISTORY: Chest pain, nonspecific COMPARISON STUDY: 01/24/2021 FINDINGS: Heart size and pulmonary vasculature are normal. There is an interval small area of patchy opacity at the right lung base. No lobar consolidation or pleural effusion seen. No pneumothorax. IMPRESSION: Possible early pneumonia right lung base. ACT 112: Negative or not required by law. Electronically signed by: Tyson Perez M.D. 05/17/2025 12:46 PM
[2025-05-17 12:54] LABS: Troponin I High Sensitivity 11.4 pg/ml (0-14)
[2025-05-17 13:04] LABS: Thyroid Stimulating Hormone 2.117 uIu/ml (0.300-4.500)
--- NOTE | 2025-05-17 13:12 | CT Scan Report ---
ABDOMEN AND PELVIS CT WITHOUT CONTRAST CT DOSE: 1381 HISTORY: abd pain, n/v/d TECHNIQUE: Multiaxial CT images of the abdomen and pelvis were performed without contrast. A dose lo wering technique was utilized adhering to the principles of ALARA. COMPARISON STUDY: 12/29/2024 FINDINGS: There is a stable small area of consolidation with air bronchograms inferiorly at the right middle lobe with focal bronchiectasis which correlates with the chest x-ray finding earlier today. N o acute pneumonia is seen in the visualized lung bases. ABDOMEN: Gallbladder is surgically absent. Liver, spleen, pancreas, and adrenal glands have an unrema rkable noncontrast appearance. Stable operative changes at the stomach, likely gastric bypass. There is a stable tiny calculus left mid kidney. There are a few interval calculi distally in the left uret er, largest measuring 6 mm. There is minimal left hydronephrosis. No hydronephrosis on the right. Pelvis: Stable retained endometrial fluid at the uterus. Stable 6 cm oval left adnexal cyst. Urinary bladder is decompressed. There are a few sigmoid diverticula. No acute diverticulitis. No bowel infla mmation or obstruction. No free fluid, free air, or abscess. No enlarged adenopathy. Osseous structures: There is osteopenia. Stable old healed fractures pubic rami on the right. There i s diffuse lumbar degenerative disc disease. There are severe degenerative changes at the hips. IMPRESSION: 1. A few small calculi distally in the left ureter causing minimal left hydronephrosis. 2. No other acute findings seen. Otherwise as described. ACT 112: Negative or not required by law. The above report was generated using voice recognition software. It may contain grammatical, syntax o r spelling errors. Electronically signed by: Tyson Perez M.D. 05/17/2025 1:11 PM
--- NOTE | 2025-05-17 13:14 | CT Scan Report ---
CT SCAN OF THE BRAIN WITHOUT IV CONTRAST CLINICAL HISTORY: Headaches, nausea and vomiting. COMPARISON STUDY: MRI of the brain February 09, 2008. Head CT March 18, 2025. TECHNIQUE: Unenhanced axial CT scan of the brain was performed from the vertex to the skull base. A dose lowering technique was utilized adhering to the principles of ALARA. CT DOSE: 1380.6 mGy.cm FINDINGS: Brain parenchyma: No acute intracranial hemorrhage, midline shift or mass effect is present. Li-whi te matter differentiation is preserved. There are no extra-axial fluid collections. There are no find ings to suggest acute dural sinus thrombosis or acute territorial infarct. White matter hypodensities are unchanged and favor small vessel disease. Ventricles, sulci, cisterns: There is no hydrocephalus. The basal cisterns are patent. Calvarium: Unremarkable. IMPRESSION: No acute intracranial findings. No change in appearance of the brain. ACT 112: Negative or not required by law. Electronically signed by: Amado Ramirez M.D. 05/17/2025 1:13 PM
[2025-05-17] MEDS: SODIUM CHLORIDE 0.9% 1,000 ML IV SCH ×2 (13:15→20:09)
[2025-05-17 13:23] LABS: Basophils # (auto) 0.12 K/uL (0.00-0.20); Basophils % (auto) 0.4 %; Dohle Bodies 1+; Echinocytes 1+; Eosinophils # (auto) 0.29 K/uL (0.00-0.50); Eosinophils % (auto) 0.9 %; Immature Granulocytes % (auto) 8.5 %; Lymphocytes % (auto) 2.1 %; Monocytes # (auto) 1.31 K/uL (0.11-0.59); Neutrophils # (auto) 27.78 K/uL (1.40-6.50); Neutrophils % (auto) 84.1 %; Toxic Vacuolation 1+
[2025-05-17 13:29] LABS: INR 1.4 (0.9-1.1); Prothrombin Time 14.5 Seconds (9.0-12.0)
--- NOTE | 2025-05-17 13:33 | Emergency Department Note ---
Impression & Plan Sepsis, Left ureteral stone, Hydronephrosis due to obstruction of ureter, Acute renal failure, Complicated urinary tract infection, Diarrhea, Intractable nausea and vomiting ED Provider Note NAME: STEPHEN PIERRE AGE: 74 SEX: F : 1950 ARRIVES VIA: Walk-In INFORMANT: Patient ED PROVIDER(S): Edward Ross MD CHIEF COMPLAINT: Nausea, vomiting, diarrhea, low blood pressure, referred. PLAN: Disposition: Admit MEDICAL DECISION MAKING: The patient is a pleasant 74-year-old woman with a past medical history of recurrent urinary tract infections, hypertension, hyperlipidemia, sleep apnea who presents to the emergency department via walk-in accompanied by her for evaluation of generalized weakness, dizziness, low blood pressure referred by her PCP office in setting of being seen today for evaluation of her symptoms related to nausea, vomiting, diarrhea that began on Thursday. Patient reports she has been on repeat courses of antibiotics for urinary tract infection. She reports that she had a urine [id number] test which was suggestive of infection but she did not provide enough for a urine culture. She reports her nausea has persisted and has had poor appetite and oral intake. She reports stool is watery brown. She denies cough, congestion, chest pain or shortness of breath. She reports a dull headache. On arrival Emergency Department the patient is fatigued appearing with no distress, afebrile with blood pressure 80s-90s/40s-50s with maps 60 and greater and vital signs otherwise stable. She appears clinically dry. She exhibits generalized abdominal discomfort without discrete tenderness. EKG without overt acute ischemia. Chest x-ray with question of right basilar consolidation however better characterized on visualized lung bases on CT consistent with bronchiectasis. WBC 33K with neutrophilia and left shift concerning for sepsis. H/H improved from prior though suspect component of hemoconcentration. Platelets within normal limits. Creatinine is acutely elevated at 2.6 consistent with acute renal failure. Anion gap is normal. There is no metabolic acidosis with bicarbonate of 23. BUNs/creatinine 22 suggestive of prerenal etiology. Magnesium 1.6. High-sensitivity troponin 11.4, within normal limits. Lipase is normal. Procalcitonin is greater than 100 consistent with sepsis. TSH within normal limits. INR 1.4 nonspecific and may reflect sepsis with transaminitis noted with total bilirubin 1.4, AST and LT 288 and 252, respectively and alk phos 135. Lactic acid 1.5, within normal limits. UA pending. Straight cath ordered. CT of the head negative for acute abnormalities. C. difficile infection not completely excluded given the patient's report of significant diarrhea in the setting of antibiotics. However, CT of the abdomen pelvis demonstrates several distal left ureteral calculi with the largest measuring 6 mm with minimal left-sided hydronephrosis. Given patient's recurrent urinary infections with suspected UTI today concern for infected obstructed ureteral stone. Blood cultures obtained and empiric treatment initially with ceftriaxone which per review of Treva cultures should be effective against patient's prior E. coli culture in February. Case was discussed with Autumn Christian urologmamta MATHEWS with Dr. Duenas urology on-call. Appreciate consultation, evaluation at bedside and recommendations including plan for OR for stent placement given concern for sepsis with infected obstructing ureteral stone. Case was discussed with Treva Alves, with Dr. Scarlet abreu who will evaluate the patient for admission. Patient's blood pressure did initially respond to IV fluid hydration with 30cc/kg IV fluid hydration ordered. However blood pressures were somewhat labile until rate increased of second liter of normal saline. Admitting team to consult ICU for admission following the OR. Further management per admitting team. Triage Nursing notes reviewed and agree them. Prior/external medical records reviewed Vital Signs: reviewed Differential diagnosis: Infection, dehydration, metabolic abnormality, hypo/hyperglycemia, electrolyte disturbance, anemia, hypoxia, cardiac sources, intracerebral event, toxicologic, neurologic, as well as other pathologies. ER treatment provided: See below. Diagnostics interpreted by me: ECG: Normal sinus rhythm, 82 bpm, no ectopy, no overt ST ovation or depression, QTc 439, QRS 74. Cardiac Monitoring: An order for continuous cardiac monitoring was placed and demonstrated normal sinus rhythm, 82 bpm, no ectopy. Laboratory studies: See below Imaging studies: See below Consultation(s): canelo Lui with Dr. Duenas urologmamta on-call. Treva Alves, with Dr. Scarlet abreu HPI: Per MDM. ROS: See above HPI for pertinent positives & negatives. A total of 10 systems reviewed and were otherwise negative. VITALS:See Below PHYSICAL EXAMINATION: GENERAL: Awake, alert, fatigued-appearing, in no distress HENT: Normocephalic, atraumatic. Oropharynx with dry mucous membranes and otherwise unremarkable. EYES: Normal conjunctiva. Sclera non-icteric. EOMI. No nystamgus. PEARRL. NECK: Supple. No nuchal rigidity. FROM. No JVD. RESPIRATORY: Clear to auscultation. CARDIAC: Regular rate, normal rhythm. Extremities warm and well perfused. Pulses equal. ABDOMEN: Soft, non-distended. Generalized abdominal discomfort without discrete tenderness to palpation. No rebound or guarding.. MUSCULOSKELETAL: Chest examination reveals no tenderness. The back is symmetrical on inspection without obvious abnormality. There is no CVA tenderness to palpation. No joint edema. LOWER EXTREMITIES: Calves are equal size bilaterally and non-tender. No edema. No discoloration. NEURO: Normal sensorium. No sensory or motor deficits noted. SKIN: No rash or jaundice noted. ED COURSE: Critical Care: I have personally spent greater than 45 minutes of critical care time in the direct management of this patient. This includes bedside care, interpretation of diagnostic studies, and testing, discussion with consultants, patient, and family members, and other required patient management activities. This 45 minutes is in excess of all separately billable procedures. Edward Ross MD Past Med/Surg History Problem List Intractable nausea and vomiting (Acute) Diarrhea (Acute) Complicated urinary tract infection (Acute) Acute renal failure (Acute) Hydronephrosis due to obstruction of ureter (Acute) Left ureteral stone (Acute) Sepsis (Acute) Sepsis Left ureteral stone Atrial tachycardia Anemia (Acute) Acute GI bleeding (Acute) Acute upper gastrointestinal bleeding (Acute) Coffee ground emesis Melena Hypertension (Chronic) Hyperlipidemia (Chronic) Acute pancreatitis (Acute) Depression (Chronic) Benign neoplasm of colon (Chronic) Pancreatitis (Acute) Acute foreign body of right forearm (Acute) Shingles (Acute) Left flank pain (Acute) Pancreatitis Herpes zoster Hx of bariatric surgery (Chronic) "09/2013" ULISES (acute kidney injury) Encounter for pre-operative examination Nephrolithiasis Renal calculus, bilateral Calculus of left kidney Sleep apnea (Chronic) "resolved" with weight loss > no formal retesting Osteoarthritis (Chronic) BPPV (benign paroxysmal positional vertigo) (Chronic) No issues x 10+ years History of tubal ligation (Chronic) History of pubovaginal sling (Chronic) H/O esophagogastroduodenoscopy (Chronic) Medical History CKD (chronic kidney disease), stage III Hyperlipidemia no meds yet Kidney stones Hypertension Giant cell arteritis remote hx (2019) > resolved Degenerative disc disease Urinary urgency Chronic kidney disease Stage III, follows with [facility] nephrology (Dr. Hurd) > hasn't seen in a while> stable Hx of pancreatitis 5+ years ago > led to cholecystectomy Anemia "Mild"/no known hx of blood transfusion Anxiety and depression Restless leg syndrome Surgical History History of cystoscopy Cystoscopy, laser lithotripsy: 04/15/18: LMA#4 at [facility] History of lithotripsy History of repair of rotator cuff R/L History of colonoscopy History of gastric bypass 09/2013 History of cholecystectomy History of tooth extraction History of cataract surgery R/L Family History Sister Family history of diabetes mellitus Father Family history of esophageal cancer Mother Family history of reaction to anesthesia SLOW TO WAKE UP Social History Smoking Status: Never smoker Second Hand Exposure: No; Do You Dip or Chew Tobacco: No; Hx Alcohol Use: No Hx Substance Use: No Preferred Language: Surinamese Communication Ability: Effective [employer] Required: No Beliefs That Will Affect Care: None Current Living Situation: Alone Feels Safe at Home: Yes Assistive Devices: None Allergies Allergies Allergy/AdvReac Type Severity Reaction Status Date / Time YAIR Inhibitors AdvReac Intermediate Cough Verified 03/29/21 07:41 aspirin AdvReac Mild Advised to Verified 03/29/21 07:41 avoid 2/2 hx bariatric surgery ibuprofen AdvReac Mild Advised to Verified 03/29/21 07:41 avoid 2/2 hx bariatric surgery naproxen AdvReac Mild Advised to Verified 03/29/21 07:41 avoid 2/2 hx bariatric surgery Home Meds Home Medications Medication Instructions Recorded Confirmed lorazepam 0.5 mg tablet (Ativan) 0.5 mg PO HS 09/21/18 05/17/25 multivitamin 2 tab PO QAM 09/21/18 05/17/25 acetaminophen 500 mg tablet 1,000 mg PO Q6H PRN Pain 09/23/19 05/17/25 (Tylenol Extra Strength) cholecalciferol (vitamin D3) 25 50 mcg PO DAILY 02/28/23 05/17/25 mcg (1,000 unit) tablet duloxetine 60 mg capsule,delayed 60 mg PO QAM 02/28/23 05/17/25 release potassium citrate 10 mEq (1,080 30 meq PO TID 02/28/23 05/17/25 mg) tablet,extended release trazodone 100 mg tablet 100 mg PO HS 02/28/23 05/17/25 duloxetine 30 mg capsule,delayed 30 mg PO DAILY 12/29/24 05/17/25 release Previous Rx's Medication Instructions Recorded metoprolol tartrate 25 mg tablet 12.5 mg (1/2 x 25 mg) PO BID #60 12/31/24 tabs pantoprazole 40 mg granules 40 mg PO DAILY #30 ea 12/31/24 delayed-release for susp in packet (Protonix) Results & Data (ED) Vital Signs Vital Signs - 24 hr 05/17/25 11:47 05/17/25 11:53 05/17/25 12:07 Temperature 36.8 C Temperature Source Skin Pulse Rate 83 82 Pulse Rate [Apical] 83 Pulse Rate from SpO2 Sensor Pulse Rhythm Regular Pulse Rhythm [Apical] Regular Pulse Strength [Apical] Normal Respiratory Rate 20 20 19 Respiratory Effort / Characteristics Non-Labored Spontaneous Non-Labored Spontaneous Respiratory Depth Normal Normal Respiratory Pattern Regular Regular Blood Pressure 72/44 L Blood Pressure [Right Arm] 87/44 L Blood Pressure Mean 53 Blood Pressure Mean [Right Arm] 58 Blood Pressure Position Lying Blood Pressure Position [Right Arm] Sitting Pulse Oximetry 96 99 96 Oxygen Delivery Method Room Air Room Air Room Air Sepsis Recent Fever Within 48 Hours No Sepsis New/Unexplained Change in Mental Status No Sepsis Action Taken by Nursing No Action Required 05/17/25 12:31 05/17/25 13:09 05/17/25 13:21 Temperature Temperature Source Pulse Rate 78 75 Pulse Rate [Apical] 81 Pulse Rate from SpO2 Sensor 75 Pulse Rhythm Pulse Rhythm [Apical] Regular Pulse Strength [Apical] Normal Respiratory Rate 19 18 Respiratory Effort / Characteristics Non-Labored Spontaneous Respiratory Depth Normal Respiratory Pattern Regular Blood Pressure 86/48 L Blood Pressure [Right Arm] 93/54 L Blood Pressure Mean 60 Blood Pressure Mean [Right Arm] 67 Blood Pressure Position Blood Pressure Position [Right Arm] Sitting Pulse Oximetry 95 95 Oxygen Delivery Method Room Air Sepsis Recent Fever Within 48 Hours Sepsis New/Unexplained Change in Mental Status Sepsis Action Taken by Nursing 05/17/25 13:27 05/17/25 13:36 05/17/25 13:45 Temperature Temperature Source Pulse Rate 84 81 77 Pulse Rate [Apical] Pulse Rate from SpO2 Sensor 82 78 76 Pulse Rhythm Pulse Rhythm [Apical] Pulse Strength [Apical] Respiratory Rate 18 23 19 Respiratory Effort / Characteristics Respiratory Depth Respiratory Pattern Blood Pressure 82/52 L 82/49 L Blood Pressure [Right Arm] Blood Pressure Mean 62 60 Blood Pressure Mean [Right Arm] Blood Pressure Position Blood Pressure Position [Right Arm] Pulse Oximetry 97 84 L 96 Oxygen Delivery Method Sepsis Recent Fever Within 48 Hours Sepsis New/Unexplained Change in Mental Status Sepsis Action Taken by Nursing 05/17/25 13:54 Temperature Temperature Source Pulse Rate 89 Pulse Rate [Apical] Pulse Rate from SpO2 Sensor 76 Pulse Rhythm Pulse Rhythm [Apical] Pulse Strength [Apical] Respiratory Rate 23 Respiratory Effort / Characteristics Respiratory Depth Respiratory Pattern Blood Pressure 77/45 L Blood Pressure [Right Arm] Blood Pressure Mean 55 Blood Pressure Mean [Right Arm] Blood Pressure Position Blood Pressure Position [Right Arm] Pulse Oximetry 79 L Oxygen Delivery Method Sepsis Recent Fever Within 48 Hours Sepsis New/Unexplained Change in Mental Status Sepsis Action Taken by Nursing Laboratory Data Attestation: I reviewed the patient's lab results. 05/17/25 12:11 05/17/25 12:11 Lab Results 05/17/25 05/17/25 Range/Units 12:11 12:17 WBC 33.00 H* (4.8-10.8) K/ul RBC 3.56 L (4.20-5.40) M/uL Hgb 11.2 L (12.0-16.0) g/dl POC Hgb 12.2 (12.0-16.0) g/dl Hct 35.0 L (37.0-47.0) % POC Hct 36 L (37-47) % MCV 98.3 (80.0-100.0) fL MCH 31.5 (25.0-34.0) pg MCHC 32.0 (32.0-36.0) g/dL RDW Std Deviation 52.5 H (36.4-46.3) fL RDW Coeff of Brandon 14.4 (11.5-14.5) % Plt Count 197 (130-400) K/uL MPV 10.2 (9.4-12.4) fL Immature Gran % (Auto) 8.5 % Neut % (Auto) 84.1 % Lymph % (Auto) 2.1 % [place] % (Auto) 4.0 % Eos % (Auto) 0.9 % Baso % (Auto) 0.4 % Neut # (Auto) 27.78 H (1.40-6.50) K/uL Lymph # (Auto) 0.70 L (1.20-3.40) K/uL [place] # (Auto) 1.31 H (0.11-0.59) K/uL Eos # (Auto) 0.29 (0.00-0.50) K/uL Baso # (Auto) 0.12 (0.00-0.20) K/uL Immature Gran # (Auto) 2.80 H (0.01-0.20) K/uL Toxic Vacuolation 1+ Dohle Bodies 1+ Echinocytes 1+ PT 14.5 H (9.0-12.0) Seconds INR 1.4 H (0.9-1.1) POC Sodium 135 (135-144) mmol/L Sodium 135 L (136-145) mmol/L POC Potassium 4.5 (3.3-5.0) mmol/L Potassium 4.6 (3.5-5.1) mmol/L POC Chloride 101 (101-112) mmol/L Chloride 102 (98-107) mmol/L Carbon Dioxide 23 (21-32) mmol/L POC Total CO2 23 L (24-31) mmol/L Anion Gap 10 (3-11) POC Anion Gap 17.0 (16-25) mmol/L POC BUN 54 H (7-18) mg/dl BUN 59 H (6-23) mg/dl Creatinine 2.67 H (0.6-1.2) mg/dl POC Creatinine 2.9 H (0.6-1.3) mg/dl Est Cr Clr Drug Dosing 14.4 ml/min eGFR 18.08 BUN/Creatinine Ratio 22.1 H (10-20) Glucose 144 H (70-99(Fasting)) mg/dl POC Glucose (other) 145 H (70-99) mg/dl Calcium 8.0 L (8.6-10.3) mg/dl POC Ioniz Calcium Abdulkadir 0.98 L (1.12-1.32) mmol/l Phosphorus 5.8 H (2.5-4.9) mg/dl Magnesium 1.6 L (1.7-2.4) mg/dl Total Bilirubin 1.4 H (0.2-1.0) mg/dl AST 288 H (13-39) U/L ALT 252 H (7-52) U/L Alkaline Phosphatase 135 H (34-104) U/L Troponin I High Sens 11.4 (0-14) pg/ml Total Protein 6.4 (6.0-8.3) gm/dl Albumin 3.1 L (3.4-5.0) gm/dl Globulin 3.3 (2.5-4.0) gm/dl Albumin/Globulin Ratio 0.9 (0.9-2) Lipase 21 (11-82) U/L TSH 2.117 (0.300-4.500) uIu/ml Administered Medications Magnesium Sulfate/Dextrose (Magnesium Sulfate / D5w) 1 gm in 100 mls @ 50 mls/hr IV Q2H THERESA Stop: 05/17/25 21:59 Last Admin: 05/17/25 18:21 Dose: 50 mls/hr Documented By: RAMON Discontinued Medications Diatrizoate Meglumine (Diatrizoate Meglumine 30% 100ml Vial) 10 ml INSTIL UD ONE Stop: 05/17/25 15:51 Last Admin: 05/17/25 15:50 Dose: 10 ml Documented By: [id number] Sodium Chloride (Nss) 1,000 mls @ 999 mls/hr IV .Q1H1M STA Stop: 05/17/25 13:07 Last Infusion: 05/17/25 13:08 Dose: Infused Documented By: Admin: 05/17/25 12:14 Dose: 999 mls/hr Documented By: TRENTON Famotidine (Pepcid 20mg Iv Push) 20 mg in 5 mls @ 2.5 mls/min IV NOW STA Stop: 05/17/25 12:31 Last Admin: 05/17/25 12:38 Dose: 2.5 mls/min Documented By: TRENTON Sodium Chloride (Nss) 1,000 mls @ 125 mls/hr IV .Q8H THERESA Stop: 05/20/25 12:29 Last Infusion: 05/17/25 14:50 Dose: Infused Documented By: Admin: 05/17/25 13:15 Dose: 125 mls/hr Documented By: TRENTON Acetaminophen (Ofirmev) 1,000 mg in 100 mls @ 400 mls/hr IV NOW STA Stop: 05/17/25 12:46 Last Infusion: 05/17/25 13:07 Dose: Infused Documented By: Admin: 05/17/25 12:38 Dose: 400 mls/hr Documented By: TRENTON Cefepime HCl (Maxipime 2000mg) 2,000 mg in 20 mls @ 5 mls/min IV ONE ONE Stop: 05/17/25 14:03 Last Admin: 05/17/25 14:08 Dose: 5 mls/min Documented By: SHILPI Vancomycin HCl (Vancomycin Hcl) 1,000 mg in 270 mls @ 200 mls/hr IV ONE STA Stop: 05/17/25 15:25 Last Infusion: 05/17/25 16:20 Dose: Infused Documented By: Admin: 05/17/25 15:02 Dose: 200 mls/hr Documented By: BRIT Ondansetron HCl (Ondansetron Inj 2 Mg/Ml 2 Ml Vial) 4 mg IV NOW STA Stop: 05/17/25 12:33 Last Admin: 05/17/25 12:38 Dose: 4 mg Documented By: TRENTON Imaging Data Radiologist's Impression: Chest X-Ray 05/17/25 12:07 XR chest 1V portable CLINICAL HISTORY: Chest pain, nonspecific COMPARISON STUDY: 01/24/2021 FINDINGS: Heart size and pulmonary vasculature are normal. There is an interval small area of patchy opacity at the right lung base. No lobar consolidation or pleural effusion seen. No pneumothorax. IMPRESSION: Possible early pneumonia right lung base. ACT 112: Negative or not required by law. Electronically signed by: Tyson Perez M.D. 05/17/2025 12:46 PM Abdomen/Pelvis CT 05/17/25 12:[address] WITHOUT CONTRAST CT DOSE: 1381 HISTORY: abd pain, n/v/d TECHNIQUE: Multiaxial CT images of the abdomen and pelvis were performed without contrast. A dose lowering technique was utilized adhering to the principles of ALARA. COMPARISON STUDY: 12/29/2024 FINDINGS: There is a stable small area of consolidation with air bronchograms inferiorly at the right middle lobe with focal bronchiectasis which correlates with the chest x-ray finding earlier today. No acute pneumonia is seen in the visualized lung bases. ABDOMEN: Gallbladder is surgically absent. Liver, spleen, pancreas, and adrenal glands have an unremarkable noncontrast appearance. Stable operative changes at the stomach, likely gastric bypass. There is a stable tiny calculus left mid kidney. There are a few interval calculi distally in the left ureter, largest measuring 6 mm. There is minimal left hydronephrosis. No hydronephrosis on the right. Pelvis: Stable retained endometrial fluid at the uterus. Stable 6 cm oval left adnexal cyst. Urinary bladder is decompressed. There are a few sigmoid diverticula. No acute diverticulitis. No bowel inflammation or obstruction. No free fluid, free air, or abscess. No enlarged adenopathy. Osseous structures: There is osteopenia. Stable old healed fractures pubic rami on the right. There is diffuse lumbar degenerative disc disease. There are severe degenerative changes at the hips. IMPRESSION: 1. A few small calculi distally in the left ureter causing minimal left hydronephrosis. 2. No other acute findings seen. Otherwise as described. ACT 112: Negative or not required by law. The above report was generated using voice recognition software. It may contain grammatical, syntax or spelling errors. Electronically signed by: Tyson Perez M.D. 05/17/2025 1:[address] 05/17/25 12:32 CT SCAN OF THE BRAIN WITHOUT IV CONTRAST CLINICAL HISTORY: Headaches, nausea and vomiting. COMPARISON STUDY: MRI of the brain February 09, 2008. Head CT March 18, 2025. TECHNIQUE: Unenhanced axial CT scan of the brain was performed from the vertex to the skull base. A dose lowering technique was utilized adhering to the principles of ALARA. CT DOSE: 1380.6 mGy.cm FINDINGS: Brain parenchyma: No acute intracranial hemorrhage, midline shift or mass effect is present. Li-white matter differentiation is preserved. There are no extra- axial fluid collections. There are no findings to suggest acute dural sinus thrombosis or acute territorial infarct. White matter hypodensities are unchanged and favor small vessel disease. Ventricles, sulci, cisterns: There is no hydrocephalus. The basal cisterns are patent. Calvarium: Unremarkable. IMPRESSION: No acute intracranial findings. No change in appearance of the brain. ACT 112: Negative or not required by law. Electronically signed by: Amado Ramirez M.D. 05/17/2025 1:13 PM Discharge Plan Visit Data Chief Complaint: Dehydration Stated Complaint: DOC REF,DEHYDRATIION ED Provider: Edward Ross Discharge Problem: Sepsis, Left ureteral stone, Hydronephrosis due to obstruction of ureter, Acute renal failure, Complicated urinary tract infection, Diarrhea, Intractable nausea and vomiting Patient Disposition: Admitted As Inpatient Condition: Critical Discharge Instructions Interventions: ED Discharge Assessment Last Done: 05/17/25 14:43 Discharge Problem: Sepsis Qualifiers: Sepsis type: sepsis due to unspecified organism Sepsis acute organ dysfunction status: with acute organ dysfunction Severe sepsis acute organ dysfunction type: acute renal failure Acute renal failure type: unspecified Severe sepsis shock status: unspecified Qualified Code(s): A41.9 - Sepsis, unspecified organism Acute renal failure Qualifiers: Acute renal failure type: unspecified Qualified Code(s): N17.9 - Acute kidney failure, unspecified Diarrhea Qualifiers: Diarrhea type: unspecified type Qualified Code(s): R19.7 - Diarrhea, unspecified
[2025-05-17] MEDS ORDERED: cefTRIAXone SODIUM 2,000 MG/50 ML BAG IV STA (13:38)
[2025-05-17] MEDS ORDERED: VANCOMYCIN CONSULT ACTIVE PRN (13:53)
[2025-05-17] MEDS: CEFEPIME 2000MG 2,000 MG/20 ML SYR IV ONE (14:08)
--- NOTE | 2025-05-17 14:23 | Urology Consultation ---
Date of Consultation May 17, 2025 Assessment & Plan (1) ULISES (acute kidney injury): (2) Left ureteral stone: 74-year-old female with history of kidney stones presented to ED today for evaluation of left abdominal/flank pain and ill feelings. CT imaging demonstrates 2 obstructing left ureteral calculus. Labs and vitals concerning for sepsis. Patient currently afebrile, hypotensive Lab work showed significant leukocytosis, creatinine 2.67 Blood cultures are pending Recommend obtain UA and urine culture Recommend start broad-spectrum antibiotics Recommend emergent left ureteral stent placement due to obstructing left ureteral calculi and concern for infection/sepsis Patient is agreeable to proceed Proceed to OR for cystoscopy and left ureteral stent placement Recommend admit patient to the hospital medicine service Continue supportive care and medical management per hospital medicine service See attending note for further details of plan of care Supervising Physician Co-Signing Physician Notes Plan to go to the OR for cystoscopy, left retrograde left stent this patient appears to be septic from an obstructing stone and superimposed UTI. Consent obtained. Patient marked. History of Present Illness Reason for Consultation: Left ureteral stones Requesting Physician: Dr. Ross History of Present Illness This is a 74-year-old female with history of kidney stones who presented to the emergency department today for evaluation of left abdominal/flank pain and ill feelings. On arrival, she is afebrile, hypotensive. Lab work significant for WBC 33.0, hemoglobin 11.2, sodium 135, creatinine 2.67. Blood cultures collected. No urine testing at this time. Workup included CT abdomen pelvis. CT imaging personally reviewed and demonstrates to 6 mm distal left ureteral calculi with mild left hydronephrosis; additional nonobstructing left renal calculus. ED course: IV fluids, famotidine, acetaminophen, ondansetron. Urology is consulted for left ureteral calculi and concern for sepsis. Patient seen and examined in the emergency department. She is awake and resting in litter. She reports left flank pain for the past several days. She has history of kidney stones and follows with Dr. Solorzano at [facility] urology. She has had recurrent UTIs for the past few months. She completed a course of antibiotics last week. She reports nausea and low appetite/p.o. intake. She has been experiencing diarrhea. Reports fever and chills at home, but did not measure temperature. She last ate a thin hamburger at 1130 today. Allergies Allergy/AdvReac Type Severity Reaction Status Date / Time YAIR Inhibitors AdvReac Intermediate Cough Verified 03/29/21 07:41 aspirin AdvReac Mild Advised to Verified 03/29/21 07:41 avoid 2/2 hx bariatric surgery ibuprofen AdvReac Mild Advised to Verified 03/29/21 07:41 avoid 2/2 hx bariatric surgery naproxen AdvReac Mild Advised to Verified 03/29/21 07:41 avoid 2/2 hx bariatric surgery Home Medications Medication Instructions Recorded Confirmed Type lorazepam 0.5 mg tablet (Ativan) 0.5 mg PO HS 09/21/18 05/17/25 History multivitamin 2 tab PO QAM 09/21/18 05/17/25 History acetaminophen 500 mg tablet 1,000 mg PO Q6H PRN Pain 09/23/19 05/17/25 History (Tylenol Extra Strength) cholecalciferol (vitamin D3) 25 50 mcg PO DAILY 02/28/23 05/17/25 History mcg (1,000 unit) tablet duloxetine 60 mg capsule,delayed 60 mg PO QAM 02/28/23 05/17/25 History release potassium citrate 10 mEq (1,080 30 meq PO TID 02/28/23 05/17/25 History mg) tablet,extended release trazodone 100 mg tablet 100 mg PO HS 02/28/23 05/17/25 History duloxetine 30 mg capsule,delayed 30 mg PO DAILY 12/29/24 05/17/25 History release metoprolol tartrate 25 mg tablet 12.5 mg (1/2 x 25 mg) PO BID #60 12/31/24 05/17/25 Rx tabs pantoprazole 40 mg granules 40 mg PO DAILY #30 ea 12/31/24 05/17/25 Rx delayed-release for susp in packet (Protonix) Patient History Medical History CKD (chronic kidney disease), stage III Hyperlipidemia no meds yet Kidney stones Hypertension Giant cell arteritis remote hx (2018) > resolved Degenerative disc disease Urinary urgency Chronic kidney disease Stage III, follows with [facility] nephrology (Dr. Hurd) > hasn't seen in a while> stable Hx of pancreatitis 5+ years ago > led to cholecystectomy Anemia "Mild"/no known hx of blood transfusion Anxiety and depression Restless leg syndrome Surgical History History of cystoscopy Cystoscopy, laser lithotripsy: 04/15/18: LMA#4 at [facility] History of lithotripsy History of repair of rotator cuff R/L History of colonoscopy History of gastric bypass 09/2013 History of cholecystectomy History of tooth extraction History of cataract surgery R/L Family History Sister Family history of diabetes mellitus Father Family history of esophageal cancer Mother Family history of reaction to anesthesia SLOW TO WAKE UP Social History Smoking Status: Never smoker Second Hand Exposure: No; Do You Dip or Chew Tobacco: No; Hx Alcohol Use: No Hx Substance Use: No Preferred Language: Marshallese Communication Ability: Effective [employer] Required: No Beliefs That Will Affect Care: None Current Living Situation: Alone Feels Safe at Home: Yes Assistive Devices: None Review of Systems Constitutional: as per Subjective / HPI Genitourinary: as per Subjective / HPI Physical Exam Constitutional: + ill appearing; no acute distress Respiratory: normal respiratory effort; no respiratory distress and no labored breathing Gastrointestinal (Abdomen): Inspection/Auscultation: abdomen normal to inspection Musculoskeletal: Head/Neck/Chest: normocephalic Neurologic: moves all extremities and awake Psychiatric: Orientation: alert and oriented x 3 Results & Data Vital Signs (Past 12 Hours) Vital Signs Temp Pulse Pulse Resp BP BP Pulse Ox 05/17/25 13:09 78 05/17/25 12:31 81 19 93/54 L 95 05/17/25 12:07 82 19 96 05/17/25 11:53 36.8 C 83 20 72/44 L 99 05/17/25 11:47 83 20 87/44 L 96 O2 Del Method 05/17/25 13:09 05/17/25 12:31 Room Air 05/17/25 12:07 Room Air 05/17/25 11:53 Room Air 05/17/25 11:47 Room Air PG Care Time/CCT Total # of Minutes Spent Total Time Spent with Patient: Total time spent is greater than 50% in coordination of care (as documented) at patient's floor/unit and/or counseling patient: Coding Level of Care Code 89579 INT INP/OBS CARE MIN Diagnoses ULISES (acute kidney injury) N17.9 Left ureteral stone N20.1
--- NOTE | 2025-05-17 14:29 | Anesthesiology Consultation ---
Date of Service May 17, 2025 Assessment & Plan Chart Review Chart Review: Acceptable Risk for Surgery and Patient NOT seen in Pre Admission Testing Consults Requested none ASA [id number] Proposed Anesthesia Anesthesia Type: MAC History Surgery Operation Date: 05/17/25 10:20 Proposed Procedures p Cystoscopy, Left Retrograde Pyelogram, Left Stent Placement - Jm Duenas MD Height/Weight Height: 5 ft 2 in Weight: 54.3 kg Allergies Allergy/AdvReac Type Severity Reaction Status Date / Time YAIR Inhibitors AdvReac Intermediate Cough Verified 03/29/21 07:41 aspirin AdvReac Mild Advised to Verified 03/29/21 07:41 avoid 2/2 hx bariatric surgery ibuprofen AdvReac Mild Advised to Verified 03/29/21 07:41 avoid 2/2 hx bariatric surgery naproxen AdvReac Mild Advised to Verified 03/29/21 07:41 avoid 2/2 hx bariatric surgery Medications Home Medications Medication Instructions Recorded Confirmed Last Taken lorazepam 0.5 mg tablet (Ativan) 0.5 mg PO HS 09/21/18 05/17/25 03/28/21 multivitamin 2 tab PO QAM 09/21/18 05/17/25 03/28/21 acetaminophen 500 mg tablet 1,000 mg PO Q6H PRN Pain 09/23/19 05/17/25 02/03/21 18:30 (Tylenol Extra Strength) cholecalciferol (vitamin D3) 25 50 mcg PO DAILY 02/28/23 05/17/25 Unknown mcg (1,000 unit) tablet duloxetine 60 mg capsule,delayed 60 mg PO QAM 02/28/23 05/17/25 Unknown release potassium citrate 10 mEq (1,080 30 meq PO TID 02/28/23 05/17/25 Unknown mg) tablet,extended release trazodone 100 mg tablet 100 mg PO HS 02/28/23 05/17/25 Unknown duloxetine 30 mg capsule,delayed 30 mg PO DAILY 12/29/24 05/17/25 Unknown release metoprolol tartrate 25 mg tablet 12.5 mg (1/2 x 25 mg) PO BID #60 12/31/24 05/17/25 Unknown tabs pantoprazole 40 mg granules 40 mg PO DAILY #30 ea 12/31/24 05/17/25 Unknown delayed-release for susp in packet (Protonix) Active Medications Generic Name Dose Route Start Last Admin Trade Name Freq PRN Reason Stop Dose Admin Sodium Chloride 1,000 mls @ 125 mls/hr 05/17/25 12:30 05/17/25 13:15 Nss IV 05/20/25 12:29 125 mls/hr .Q8H THERESA Administration Past Medical History Medical History CKD (chronic kidney disease), stage III Hyperlipidemia no meds yet Kidney stones Hypertension Giant cell arteritis remote hx (2018) > resolved Degenerative disc disease Urinary urgency Chronic kidney disease Stage III, follows with [facility] nephrology (Dr. Hurd) > hasn't seen in a while> stable Hx of pancreatitis 5+ years ago > led to cholecystectomy Anemia "Mild"/no known hx of blood transfusion Anxiety and depression Restless leg syndrome ASCVD Ao [place] Benign paroxysmal positional vertigo s/p gastric bypass Hx/o GI bleed elevated LFT's urosepsis Exercise / Class Metabolic Activity III < 4 Walking/Shop/Light housework Past Family History Family History Sister Family history of diabetes mellitus Father Family history of esophageal cancer Mother Family history of reaction to anesthesia SLOW TO WAKE UP Past Surgical History Surgical History History of cystoscopy Cystoscopy, laser lithotripsy: 04/15/18: LMA#4 at [facility] History of lithotripsy History of repair of rotator cuff R/L History of colonoscopy History of gastric bypass 09/2013 History of cholecystectomy History of tooth extraction History of cataract surgery R/L Past Anesthesia History No Hx of Anesthesia Complications and No Family Hx of Anesthesia Complications History of PONV No Hx of PONV and No Hx of Motion Sickness Social History Smoking Status: Never smoker Do You Dip or Chew Tobacco: No Hx Alcohol Use: No Hx Substance Use: No substance use type: does not use Physical Exam Vital Signs Last Vital Signs Temp 36.8 C 05/17/25 11:53 Pulse 83 05/17/25 14:15 Resp 18 05/17/25 14:15 BP 79/54 L 05/17/25 14:15 Pulse Ox 97 05/17/25 14:03 O2 Del Method Room Air 05/17/25 12:31 Testing Laboratory Results 05/17/25 12:11 05/17/25 12:11 PT 14.5 Seconds (9.0-12.0) H 05/17/25 12:11 INR 1.4 (0.9-1.1) H 05/17/25 12:11 05/17/25 12:17 POC Glucose (other) 145 H Electrocardiogram Date: 05/17/25 Findings: + NSR @ (@ 82) Chest X-Ray Date: 05/17/25 Findings: + infiltrate (slight opacity,poss. early pneumonia @ [place] base) Echocardiogram Date: 12/30/24 EF: 60% LV Function: normal RWMA: + none Valvular Disease: + no significant valvular disease
[2025-05-17] MEDS ORDERED: PROMETHAZINE HCL 6.25 MG in SODIUM CHLORIDE 0.9% 50 ML IV PRN (14:57)
[2025-05-17] MEDS ORDERED: FLUMAZENIL 0.1 MG/1 ML 10 ML VIAL IV PRN (14:57)
[2025-05-17] MEDS ORDERED: ATROPINE SULFATE 0.1 MG/ML 10ML SYR IV PRN (14:57)
[2025-05-17] MEDS ORDERED: NALOXONE HCL 0.4 MG/1 ML VIAL/CARP IV PRN (14:57)
[2025-05-17] MEDS ORDERED: fentaNYL citrate PF 100 MCG/2 ML VIAL IV PRN (14:57)
[2025-05-17] MEDS ORDERED: ePHEDrine sulfate 50 MG/ML AMP IV PRN (14:57)
[2025-05-17] MEDS ORDERED: ONDANSETRON INJ 2 MG/ML 2 ML VIAL IV PRN (14:57)
[2025-05-17] MEDS: VANCOMYCIN HCL 1,000 MG/270 ML BAG IV STA (15:02)
[2025-05-17] MEDS ORDERED: MIDAZOLAM HCL 1 MG/ML 2ML VIAL ONE (15:04)
[2025-05-17] MEDS ORDERED: fentaNYL citrate PF 100 MCG/2 ML VIAL ONE (15:04)
[2025-05-17] MEDS ORDERED: LIDOCAINE 2% 2 ML VIAL/AMP(20MG/ML) INFIL ONE (15:04)
[2025-05-17] MEDS ORDERED: PROPOFOL IV EMULSION 10 MG/ML 20 ML VIAL IV ONE (15:04)
[2025-05-17] MEDS ORDERED: DEXAMETHASONE SOD INJ 4 MG/ML VIAL ONE (15:04)
[2025-05-17] MEDS ORDERED: ONDANSETRON INJ 2 MG/ML 2 ML VIAL ONE (15:04)
[2025-05-17] MEDS ORDERED: GLYCOPYRROLATE 0.2 MG/ML VIAL ONE (15:06)
--- NOTE | 2025-05-17 15:06 | History & Physical Report ---
Date of Service May 17, 2025 Assessment & Plan (1) Left ureteral stone: (2) Hypertension: (3) Hyperlipidemia: (4) Anxiety: (5) Left flank pain: (6) ULISES (acute kidney injury): (7) Osteoarthritis: (8) Sepsis: Plan The patient is a 74-year-old female who presents to the ED on 05/17/2025 with complaints of diarrhea, left flank pain over the past 3 days, found to be hypotensive in the PCPs office. Found to have left-sided ureteral stones with hydronephrosis and sepsis Sepsisrecurrent UTIs Left ureteral stones/hydronephrosis ULISES: Leukocytosis, hypotension, subjective fevers all indicative of sepsis ULISES with an elevated creatinine to 2.67, likely secondary to hydronephrosis Completed 3 courses of p.o. antibiotics for UTIE. coli positive outpatient with temporary relief Found to have a blood pressure in the 60s at the PCPs office, with blood pressure still labile in the 80s/90s in the ER. CT A/P with left-sided ureteral stones and hydronephrosis Will plan for OR today for left ureteral stent placement, Continue IV cefepime/Vanco Blood cultures pending, urine culture ordered, continue aggressive IV fluids If no improvement, will likely need pressors postoperatively, will discuss with Dr. Rick Zhang HTN/HLD: Hold metoprolol with hypotension Hx depression/anxiety: Continue duloxetine/trazodone/Ativan Total critical time of 60 minutes was spent on chart review/reviewing diagnostic data/discussion with consultants/facilitating plan of care Seen and examined with Dr. Novak. Attempted to update patient's son, Alexi. Voicemail is not set up. Will continue to attempt to reach him. Full code DVT prophylaxis: SCDs, avoid AC with upcoming procedure History of Present Illness Chief Complaint: hypotension, left flank pain Primary Care Provider: Juan Jay, The patient is a 74-year-old female with a past medical history of kidney stones, HLD, HTN, anxiety, depression, pancreatitis, sleep apnea, osteoarthritis who presents to the ED on 05/17/2025 after she was sent in by PCP for hypotension and infection. Reports ongoing urinary symptoms over the past 3-4 months of urinary frequency and burning. Was treated with full course of nitrofurantoin, Keflex, cefdinir over the past few months with temporary resolution of symptoms. Outpatient culture grew E. coli. Patient also reports some greenish/yellow discharge which she had a Pap smear completed a few months ago which was negative. Reports having a urogynecology appointment coming up in the next week. Reported to her PCPs office today with concerns of acute diarrhea over the past 3 days. On exam, noted her blood pressure was in the 60s. She was then directed to go to the ER for further workup. Patient's blood pressures in the 70s/80s on arrival to the ED, fluctuating with IV fluids. Patient reports ongoing night sweats over the past few months intermittently. Reports subjective fevers. Denies any nausea/vomiting. Reported some left flank pain that started about 3 days ago. Also reports some generalized body aches. On arrival to the ED, labs remarkable for WBC 33, hemoglobin 11.2, INR 1.4, BUN 54, creatinine 2.67, glucose 144, AST 288, ALT 252, procalcitonin over 100 Chest x-ray showed possible early pneumonia in right lung base A/P CT showed: Few small calculi distally in the left ureter causing minimal left hydronephrosis. Head CT negative Urology was consulted in the ER and recommended emergent left ureteral stent placement due to obstructing left ureteral calculi and concern for infection/sepsis. Patient was given IV antibiotics, IV fluids and will be admitted for further management of sepsis Allergies Allergy/AdvReac Type Severity Reaction Status Date / Time YAIR Inhibitors AdvReac Intermediate Cough Verified 03/29/21 07:41 aspirin AdvReac Mild Advised to Verified 03/29/21 07:41 avoid 2/2 hx bariatric surgery ibuprofen AdvReac Mild Advised to Verified 03/29/21 07:41 avoid 2/2 hx bariatric surgery naproxen AdvReac Mild Advised to Verified 03/29/21 07:41 avoid 2/2 hx bariatric surgery Home Medications Medication Instructions Recorded Confirmed Type lorazepam 0.5 mg tablet (Ativan) 0.5 mg PO HS 09/21/18 05/17/25 History multivitamin 2 tab PO QAM 09/21/18 05/17/25 History acetaminophen 500 mg tablet 1,000 mg PO Q6H PRN Pain 09/23/19 05/17/25 History (Tylenol Extra Strength) cholecalciferol (vitamin D3) 25 50 mcg PO DAILY 02/28/23 05/17/25 History mcg (1,000 unit) tablet duloxetine 60 mg capsule,delayed 60 mg PO QAM 02/28/23 05/17/25 History release potassium citrate 10 mEq (1,080 30 meq PO TID 02/28/23 05/17/25 History mg) tablet,extended release trazodone 100 mg tablet 100 mg PO HS 02/28/23 05/17/25 History duloxetine 30 mg capsule,delayed 30 mg PO DAILY 12/29/24 05/17/25 History release metoprolol tartrate 25 mg tablet 12.5 mg (1/2 x 25 mg) PO BID #60 12/31/24 05/17/25 Rx tabs pantoprazole 40 mg granules 40 mg PO DAILY #30 ea 12/31/24 05/17/25 Rx delayed-release for susp in packet (Protonix) Past Med/Surg History Problem List Sepsis Left ureteral stone Atrial tachycardia Anemia (Acute) Acute GI bleeding (Acute) Acute upper gastrointestinal bleeding (Acute) Coffee ground emesis Melena Hypertension (Chronic) Hyperlipidemia (Chronic) Acute pancreatitis (Acute) Depression (Chronic) Benign neoplasm of colon (Chronic) Pancreatitis (Acute) Acute foreign body of right forearm (Acute) Shingles (Acute) Left flank pain (Acute) Pancreatitis Herpes zoster Hx of bariatric surgery (Chronic) "09/2013" ULISES (acute kidney injury) Encounter for pre-operative examination Nephrolithiasis Renal calculus, bilateral Calculus of left kidney Sleep apnea (Chronic) "resolved" with weight loss > no formal retesting Osteoarthritis (Chronic) BPPV (benign paroxysmal positional vertigo) (Chronic) No issues x 10+ years History of tubal ligation (Chronic) History of pubovaginal sling (Chronic) H/O esophagogastroduodenoscopy (Chronic) Medical History CKD (chronic kidney disease), stage III Hyperlipidemia no meds yet Kidney stones Hypertension Giant cell arteritis remote hx (2019) > resolved Degenerative disc disease Urinary urgency Chronic kidney disease Stage III, follows with [facility] nephrology (Dr. Hurd) > hasn't seen in a while> stable Hx of pancreatitis 5+ years ago > led to cholecystectomy Anemia "Mild"/no known hx of blood transfusion Anxiety and depression Restless leg syndrome Surgical History History of cystoscopy Cystoscopy, laser lithotripsy: 04/15/18: LMA#4 at [facility] History of lithotripsy History of repair of rotator cuff R/L History of colonoscopy History of gastric bypass 09/2013 History of cholecystectomy History of tooth extraction History of cataract surgery R/L Family History Sister Family history of diabetes mellitus Father Family history of esophageal cancer Mother Family history of reaction to anesthesia SLOW TO WAKE UP Social History Smoking Status: Never smoker Second Hand Exposure: No; Do You Dip or Chew Tobacco: No; Hx Alcohol Use: No Hx Substance Use: No Preferred Language: Malawian Communication Ability: Effective Hotel Front Desk Agent Required: No Beliefs That Will Affect Care: None Current Living Situation: Alone Feels Safe at Home: Yes Assistive Devices: None Review of Systems Review of Systems: All systems reviewed & are unremarkable except as noted in HPI & below Physical Exam Constitutional: WD/WN, vitals as above (Hypotensive ) + ill appearing Eyes: PERRL, conjunctivae normal, anicteric sclerae ENMT: external ear and nose normal, oropharynx normal Neck: trachea midline, no thyromegaly Respiratory: normal respiratory effort, lungs clear to auscultation Cardiovascular: RRR, no murmur, no edema Gastrointestinal (Abdomen): normal bowel sounds, soft, nontender, no hepatosplenomegaly (Left flank pain with palpation, no guarding) Musculoskeletal: no cyanosis or clubbing, extremities motor strength 5/5 Skin: no rashes, warm and dry Neurologic: PERRL, EOMI, accommodation nl, no face palsy, no dysarthria Psychiatric: A+Ox3, euthymic affect Lymphatic: no cervical or axillary lymphadenopathy Results & Data Results & Data Vital Signs (Past 12 Hours) Vital Signs Temp Pulse Pulse Resp BP BP Pulse Ox 05/17/25 13:09 78 05/17/25 12:31 81 19 93/54 L 95 05/17/25 12:07 82 19 96 05/17/25 11:53 36.8 C 83 20 72/44 L 99 05/17/25 11:47 83 20 87/44 L 96 O2 Del Method 05/17/25 13:09 05/17/25 12:31 Room Air 05/17/25 12:07 Room Air 05/17/25 11:53 Room Air 05/17/25 11:47 Room Air Diagnostic Findings Laboratory Results WBC 33.00 K/ul (4.8-10.8) H* 05/17/25 12:11 RBC 3.56 M/uL (4.20-5.40) L 05/17/25 12:11 Hgb 11.2 g/dl (12.0-16.0) L 05/17/25 12:11 POC Hgb 12.2 g/dl (12.0-16.0) 05/17/25 12:17 Hct 35.0 % (37.0-47.0) L 05/17/25 12:11 POC Hct 36 % (37-47) L 05/17/25 12:17 MCV 98.3 fL (80.0-100.0) 05/17/25 12:11 MCH 31.5 pg (25.0-34.0) 05/17/25 12:11 MCHC 32.0 g/dL (32.0-36.0) 05/17/25 12:11 RDW Std Deviation 52.5 fL (36.4-46.3) H 05/17/25 12:11 RDW Coeff of [place] 14.4 % (11.5-14.5) 05/17/25 12:11 Plt Count 197 K/uL (130-400) 05/17/25 12:11 MPV 10.2 fL (9.4-12.4) 05/17/25 12:11 Immature Gran % (Auto) 8.5 % 05/17/25 12:11 Neut % (Auto) 84.1 % 05/17/25 12:11 Lymph % (Auto) 2.1 % 05/17/25 12:11 [place] % (Auto) 4.0 % 05/17/25 12:11 Eos % (Auto) 0.9 % 05/17/25 12:11 Baso % (Auto) 0.4 % 05/17/25 12:11 Neut # (Auto) 27.78 K/uL (1.40-6.50) H 05/17/25 12:11 Lymph # (Auto) 0.70 K/uL (1.20-3.40) L 05/17/25 12:11 [place] # (Auto) 1.31 K/uL (0.11-0.59) H 05/17/25 12:11 Eos # (Auto) 0.29 K/uL (0.00-0.50) 05/17/25 12:11 Baso # (Auto) 0.12 K/uL (0.00-0.20) 05/17/25 12:11 Immature Gran # (Auto) 2.80 K/uL (0.01-0.20) H 05/17/25 12:11 Toxic Vacuolation 1+ 05/17/25 12:11 Dohle Bodies 1+ 05/17/25 12:11 Echinocytes 1+ 05/17/25 12:11 PT 14.5 Seconds (9.0-12.0) H 05/17/25 12:11 INR 1.4 (0.9-1.1) H 05/17/25 12:11 POC Sodium 135 mmol/L (135-144) 05/17/25 12:17 Sodium 135 mmol/L (136-145) L 05/17/25 12:11 POC Potassium 4.5 mmol/L (3.3-5.0) 05/17/25 12:17 Potassium 4.6 mmol/L (3.5-5.1) 05/17/25 12:11 POC Chloride 101 mmol/L (101-112) 05/17/25 12:17 Chloride 102 mmol/L (98-107) 05/17/25 12:11 Carbon Dioxide 23 mmol/L (21-32) 05/17/25 12:11 POC Total CO2 23 mmol/L (24-31) L 05/17/25 12:17 Anion Gap 10 (3-11) 05/17/25 12:11 POC Anion Gap 17.0 mmol/L (16-25) 05/17/25 12:17 POC BUN 54 mg/dl (7-18) H 05/17/25 12:17 BUN 59 mg/dl (6-23) H 05/17/25 12:11 Creatinine 2.67 mg/dl (0.6-1.2) H 05/17/25 12:11 POC Creatinine 2.9 mg/dl (0.6-1.3) H 05/17/25 12:17 Est Cr Clr Drug Dosing 14.4 ml/min 05/17/25 12:11 eGFR 18.08 05/17/25 12:11 BUN/Creatinine Ratio 22.1 (10-20) H 05/17/25 12:11 Glucose 144 mg/dl (70-99(Fasting)) H 05/17/25 12:11 POC Glucose (other) 145 mg/dl (70-99) H 05/17/25 12:17 Lactate 1.5 mmol/L (0.4-2.0) 05/17/25 14:01 Calcium 8.0 mg/dl (8.6-10.3) L 05/17/25 12:11 POC Ioniz Calcium Abdulkadir 0.98 mmol/l (1.12-1.32) L 05/17/25 12:17 Phosphorus 5.8 mg/dl (2.5-4.9) H 05/17/25 12:11 Magnesium 1.6 mg/dl (1.7-2.4) L 05/17/25 12:11 Total Bilirubin 1.4 mg/dl (0.2-1.0) H 05/17/25 12:11 AST 288 U/L (13-39) H 05/17/25 12:11 ALT 252 U/L (7-52) H 05/17/25 12:11 Alkaline Phosphatase 135 U/L (34-104) H 05/17/25 12:11 Troponin I High Sens 11.4 pg/ml (0-14) 05/17/25 12:11 Total Protein 6.4 gm/dl (6.0-8.3) 05/17/25 12:11 Albumin 3.1 gm/dl (3.4-5.0) L 05/17/25 12:11 Globulin 3.3 gm/dl (2.5-4.0) 05/17/25 12:11 Albumin/Globulin Ratio 0.9 (0.9-2) 05/17/25 12:11 Lipase 21 U/L (11-82) 05/17/25 12:11 Procalcitonin > 100.00 ng/ml (0-0.5) H 05/17/25 14:01 TSH 2.117 uIu/ml (0.300-4.500) 05/17/25 12:11 Impressions Chest X-Ray 05/17/25 12:07 XR chest 1V portable CLINICAL HISTORY: Chest pain, nonspecific COMPARISON STUDY: 01/24/2021 FINDINGS: Heart size and pulmonary vasculature are normal. There is an interval small area of patchy opacity at the right lung base. No lobar consolidation or pleural effusion seen. No pneumothorax. IMPRESSION: Possible early pneumonia right lung base. ACT 112: Negative or not required by law. Electronically signed by: Tyson Perez M.D. 05/17/2025 12:46 PM Abdomen/Pelvis CT 05/17/25 12:[address] WITHOUT CONTRAST CT DOSE: 1381 HISTORY: abd pain, n/v/d TECHNIQUE: Multiaxial CT images of the abdomen and pelvis were performed without contrast. A dose lowering technique was utilized adhering to the principles of ALARA. COMPARISON STUDY: 12/29/2024 FINDINGS: There is a stable small area of consolidation with air bronchograms inferiorly at the right middle lobe with focal bronchiectasis which correlates with the chest x-ray finding earlier today. No acute pneumonia is seen in the visualized lung bases. ABDOMEN: Gallbladder is surgically absent. Liver, spleen, pancreas, and adrenal glands have an unremarkable noncontrast appearance. Stable operative changes at the stomach, likely gastric bypass. There is a stable tiny calculus left mid kidney. There are a few interval calculi distally in the left ureter, largest measuring 6 mm. There is minimal left hydronephrosis. No hydronephrosis on the right. Pelvis: Stable retained endometrial fluid at the uterus. Stable 6 cm oval left adnexal cyst. Urinary bladder is decompressed. There are a few sigmoid diverticula. No acute diverticulitis. No bowel inflammation or obstruction. No free fluid, free air, or abscess. No enlarged adenopathy. Osseous structures: There is osteopenia. Stable old healed fractures pubic rami on the right. There is diffuse lumbar degenerative disc disease. There are severe degenerative changes at the hips. IMPRESSION: 1. A few small calculi distally in the left ureter causing minimal left hydronephrosis. 2. No other acute findings seen. Otherwise as described. ACT 112: Negative or not required by law. The above report was generated using voice recognition software. It may contain grammatical, syntax or spelling errors. Electronically signed by: Tyson Perez M.D. 05/17/2025 1:[address] 05/17/25 12:32 CT SCAN OF THE BRAIN WITHOUT IV CONTRAST CLINICAL HISTORY: Headaches, nausea and vomiting. COMPARISON STUDY: MRI of the brain February 09, 2008. Head CT March 18, 2025. TECHNIQUE: Unenhanced axial CT scan of the brain was performed from the vertex t o the skull base. A dose lowering technique was utilized adhering to the principles of ALARA. CT DOSE: 1380.6 mGy.cm FINDINGS: Brain parenchyma: No acute intracranial hemorrhage, midline shift or mass effect is present. Li-white matter differentiation is preserved. There are no extra- axial fluid collections. There are no findings to suggest acute dural sinus thrombosis or acute territorial infarct. White matter hypodensities are unchanged and favor small vessel disease. Ventricles, sulci, cisterns: There is no hydrocephalus. The basal cisterns are patent. Calvarium: Unremarkable. IMPRESSION: No acute intracranial findings. No change in appearance of the brain. ACT 112: Negative or not required by law. Electronically signed by: Amado Ramirez M.D. 05/17/2025 1:13 PM Supervising Physician Co-Signing Physician Notes Patient seen and examined independently. Discussed with overnight provider. Patient presented to the hospital with concern of severe sepsis secondary to urinary tract infection associated with left ureteral stone. Also concern of C. difficile given diarrhea along with recent exposure with antibiotics. Patient underwent procedure by urology for stent placement. Plan to continue cefepime and vancomycin; follow-up on urine culture and blood culture; tailor antibiotic according to culture and sensitivity. Continue IV fluids. Obtain liver ultrasound given elevated liver enzyme(suspect shock liver due to hypertension). Will obtain C. difficile and stool PCR as well. I have reviewed the advanced practitioner's documentation, and I agree with, and take responsibility for the plan of care I spent a total of 30 minutes coordinating, documenting, and providing care for this patient excluding time spent in the performance of separately billed services. All of the aforementioned completed while collaborating with the assigned advanced practitioner for a full treatment plan
[2025-05-17] MEDS ORDERED: KETAMINE HCL 10MG/ML SYR ONE (15:07)
[2025-05-17] MEDS: DIATRIZOATE MEGLUMINE 30% 100ML VIAL INSTIL ONE (15:50)
--- NOTE | 2025-05-17 15:59 | Operative Report ---
PG Post Operative Report Pre & Post Diagnosis Operation Date: 05/17/25 10:20 Pre-Op Diagnosis: Acute kidney injury Left ureteral stone Post-Op Diagnosis: Acute kidney injury Left ureteral stone I identified the patient and participated in the time-out.: Yes Procedure Operation Date: 05/17/25 10:20 Actual Procedures p Cystoscopy, Left Retrograde Pyelogram with radiograph interpretation, Left Ureteral Stent Placement x2(Left) - Jm Duenas MD Surgeon Jm Duenas MD [employer] None Estimated Blood Loss 0 Findings See Below Partially duplicated left system, opted to place 2 stents due to sepsis Specimens None Drains 6 Moroccan by 26 cm left ureteral stents x 2 Anesthesia Type MAC Indications 74-year-old female with hypotension, leukocytosis, ULISES and 2 distal left ureteral calculi. Taken emergently to the OR for stent placement due to urosepsis Description of Procedure After informed consent was obtained, the patient was transported operative [facility]. MAC anesthesia was induced. The patient was placed in dorsal lithotomy position prepped and draped in a sterile fashion. They received preoperative vancomycin and cefepime for antibiotic prophylaxis. An appropriate surgical timeout was performed. A 22 Moroccan rigid scope was inserted per urethra into the bladder. Hare cystoscopy revealed no stones or lesions. I turned my attention the left ureteral orifice and intubated this with a 5 [place]oc[place] open-ended catheter. A left retrograde pyelogram was shot which showed a partially duplicated left collecting system with the ureters converging distally. I attempted to get wires into each moiety of the kidney but they both Following each other into the upper pole moiety. Opted to place an initial stent in the upper pole moiety and then attempt to get a wire into the lower pole moiety, suspecting would be easier after stent placement. A 6 Moroc[place] by 26 cm left ureteral stent was deployed with a good proximal coil in the left upper pole moiety and a good distal coil noted in the bladder. These were confirmed fluoroscopically and under direct visualization, respectively. I then advanced a sensor wire alongside the stent and was able to navigate this in the lower pole moiety. 6 [place]oc[place] by 26 cm left ureteral stent was deployed with a good coil in the lower pole moiety confirmed fluoroscopically. There is a good coil in the bladder confirmed visually. The bladder was left full and the scope was removed. 16 Moroccan Cordon catheter was placed and the balloon was inflated with 10 cc of sterile water. This concluded the end of the case. All counts were correct at the end of the case. I was present, scrubbed, and actively participated for the entirety of the procedure. I attest to the content of the Intraoperative Record and any orders documented therein. Any exceptions are noted below.
--- NOTE | 2025-05-17 16:26 | Anesthesiology Progress Note ---
Date of Service May 17, 2025 Anesthesia Post Procedure Vital Signs Vital Signs: Temp Pulse Pulse Pulse Resp BP BP 05/17/25 16:15 97 H 16 105/45 L 05/17/25 16:05 96 H 21 97/53 L 05/17/25 15:59 36.1 C L 103 H 16 116/59 L 05/17/25 14:48 36.4 C L 81 18 80/49 L 05/17/25 14:43 05/17/25 14:34 79 16 84/50 L 05/17/25 14:15 83 18 79/54 L 05/17/25 14:15 87/50 L 05/17/25 14:03 76 15 87/50 L 05/17/25 13:54 89 23 77/45 L 05/17/25 13:45 77 19 82/49 L 05/17/25 13:36 81 23 05/17/25 13:27 84 18 82/52 L 05/17/25 13:21 75 18 86/48 L 05/17/25 13:09 78 05/17/25 12:31 81 19 93/54 L 05/17/25 12:07 82 19 05/17/25 11:53 36.8 C 83 20 72/44 L 05/17/25 11:47 83 20 87/44 L Pulse Ox O2 Del Method O2 Flow Rate 05/17/25 16:15 98 Room Air 05/17/25 16:05 100 Oxymask 10 05/17/25 15:59 100 Oxymask 10 05/17/25 14:48 94 Room Air 05/17/25 14:43 Room Air 05/17/25 14:34 Room Air 05/17/25 14:15 05/17/25 14:15 05/17/25 14:03 97 05/17/25 13:54 79 L 05/17/25 13:45 96 05/17/25 13:36 84 L 05/17/25 13:27 97 05/17/25 13:21 95 05/17/25 13:09 05/17/25 12:31 95 Room Air 05/17/25 12:07 96 Room Air 05/17/25 11:53 99 Room Air 05/17/25 11:47 96 Room Air Pain Intensity Posterior Neck: Pain Intensity: 2 Transfer of Care Handoff Completed per policy Notes Mental Status: alert / awake / arousable Patient Amnestic to Procedure: Yes Nausea / Vomiting: adequately controlled Pain: adequately controlled Airway Patency, RR, SpO2: stable & adequate BP & HR: stable & adequate Hydration State: stable & adequate Anesthetic Complications: no major complications apparent
[2025-05-17] MEDS ORDERED: ACETAMINOPHEN 325 MG TAB PO PRN (17:07)
--- NOTE | 2025-05-17 17:53 | Anesthesiology Progress Note ---
Date of Service May 17, 2025 Anesthesia Post Procedure Vital Signs Vital Signs: Temp Pulse Pulse Pulse Resp BP BP 05/17/25 17:00 05/17/25 16:35 92 H 16 95/52 L 05/17/25 16:25 97.3 F L 94 H 16 98/60 L 05/17/25 16:15 97 H 16 105/45 L 05/17/25 16:05 96 H 21 97/53 L 05/17/25 15:59 97.0 F L 103 H 16 116/59 L 05/17/25 14:48 97.5 F L 81 18 80/49 L 05/17/25 14:43 05/17/25 14:34 79 16 84/50 L 05/17/25 14:15 83 18 79/54 L 05/17/25 14:15 87/50 L 05/17/25 14:03 76 15 87/50 L 05/17/25 13:54 89 23 77/45 L 05/17/25 13:45 77 19 82/49 L 05/17/25 13:36 81 23 05/17/25 13:27 84 18 82/52 L 05/17/25 13:21 75 18 86/48 L 05/17/25 13:09 78 05/17/25 12:31 81 19 93/54 L 05/17/25 12:07 82 19 05/17/25 11:53 98.2 F 83 20 72/44 L 05/17/25 11:47 83 20 87/44 L Pulse Ox O2 Del Method O2 Flow Rate 05/17/25 17:00 Room Air 05/17/25 16:35 97 Room Air 05/17/25 16:25 98 Room Air 05/17/25 16:15 98 Room Air 05/17/25 16:05 100 Oxymask 10 05/17/25 15:59 100 Oxymask 10 05/17/25 14:48 94 Room Air 05/17/25 14:43 Room Air 05/17/25 14:34 Room Air 05/17/25 14:15 05/17/25 14:15 05/17/25 14:03 97 05/17/25 13:54 79 L 05/17/25 13:45 96 05/17/25 13:36 84 L 05/17/25 13:27 97 05/17/25 13:21 95 06/18/25 13:09 05/17/25 12:31 95 Room Air 05/17/25 12:07 96 Room Air 05/17/25 11:53 99 Room Air 05/17/25 11:47 96 Room Air Pain Intensity Posterior Neck: Pain Intensity: 2 Transfer of Care Handoff Completed per policy Notes Mental Status: alert / awake / arousable and participated in evaluation Patient Amnestic to Procedure: Yes Nausea / Vomiting: adequately controlled Pain: adequately controlled Airway Patency, RR, SpO2: stable & adequate BP & HR: stable & adequate Hydration State: stable & adequate Anesthetic Complications: no major complications apparent and Pt Satisfied with anesthetic care
[2025-05-17] MEDS: MAGNESIUM SULFATE / D5W 1 GM/100 ML BAG IV SCH (18:21)
[2025-05-17] MEDS: LORazepam 0.5 MG TAB PO SCH (20:05)
[2025-05-17] MEDS: traZODone HCL 100 MG TAB PO SCH (20:15)
[2025-05-18] MEDS: CEFEPIME 1000MG 1,000 MG/10 ML SYR IV SCH ×2 (02:55→15:32)
[2025-05-18] MEDS: MELATONIN 3 MG TAB PO PRN (03:06)
--- NOTE | 2025-05-18 04:39 | Electrocardiogram Report ---
Test Reason : Blood Pressure : */* mmHG Vent. Rate : 82 BPM Atrial Rate : 82 BPM P-R Int : 168 ms QRS Dur : 74 ms QT Int : 376 ms P-R-T Axes : 30 13 65 degrees QTcB Int : 439 ms Normal sinus rhythm Possible Septal infarct When compared with ECG of 30-Dec-2024 08:43, No significant change was found Confirmed by James Box ([id number]) on 05/18/2025 4:39:41 AM Referred By: Confirmed By: James Box
[2025-05-18 06:20] LABS: Hematocrit (blood only) 31.8 % (37.0-47.0); Hemoglobin 10.2 g/dl (12.0-16.0); Mean Corpuscular Hemoglobin 31.6 pg (25.0-34.0); Mean Corpuscular Hgb Conc 32.1 g/dL (32.0-36.0); Mean Corpuscular Volume 98.5 fL (80.0-100.0); Mean Platelet Volume 9.7 fL (9.4-12.4); Platelet Count 154 K/uL (130-400); RDW Coefficient of Variation 14.6 % (11.5-14.5); RDW Standard Deviation 52.8 fL (36.4-46.3); Red Blood Count 3.23 M/uL (4.20-5.40); White Blood Count 29.49 K/ul (4.8-10.8)
[2025-05-18 06:42] LABS: Albumin Globulin Ratio 0.9 (0.9-2); Albumin Level 2.8 gm/dl (3.4-5.0); BUN Creatinine Ratio 25.3 (10-20); Bilirubin,Total 0.6 mg/dl (0.2-1.0); Calcium 7.2 mg/dl (8.6-10.3); Creatinine Clr Calc Pharmacy 17.7 ml/min; Magnesium 2.3 mg/dl (1.7-2.4); Potassium 4.8 mmol/L (3.5-5.1); Total Protein 5.8 gm/dl (6.0-8.3)
[2025-05-18 06:45] LABS: Appearance Urine Cloudy (Clear); Bacteria Urine Automated 1+ (None Seen); Bilirubin Urine Negative (Negative); Blood Urine 3+ (Negative); Color Urine Orange; Glucose Urine UA Negative (Negative); Ketones Urine Negative (Negative); Leukocyte Esterase Urine 2+ (Negative); Nitrite Urine Negative (Negative); Protein Urine 2+ (Negative); RBC Urine Automated >20 /hpf (0-2); Specific Gravity Urine 1.016 (1.000-1.030); Urobilinogen Urine Negative (Negative); WBC Urine Automated >50 /hpf (0-5); pH Urine 5.5 (4.5-7.5)
--- NOTE | 2025-05-18 07:32 | Fluoroscopy Report ---
FL retrograde includes kub CLINICAL HISTORY: LT CYSTO/STENT COMPARISON STUDY: None FLUOROSCOPY TIME: 50 seconds FLUOROSCOPY IMAGES: 3 EXPOSURE DOSE: 8 mGy FINDINGS: Fluoroscopy was provided for urologic procedure. IMPRESSION: Intraoperative fluoroscopy. ACT 112: Negative or not required by law. Electronically signed by: Tyson Perez M.D. 05/18/2025 7:30 AM
[2025-05-18 07:43] LABS: ALC (manual) 0.59 K/uL (1.2-3.4); ANC (manual) 28.31 K/uL (1.4-6.5); Dohle Bodies 1+; Echinocytes 2+; Lymphocytes # (manual) 0.59 K/uL (1.2-3.4); Lymphocytes % (manual) 2 %; Monocytes # (manual) 0.59 K/uL (0.11-0.59); Monocytes % (manual) 2 %; Neutrophils # (manual) 28.31 K/uL (1.40-6.50); Neutrophils % (manual) 96 %; Toxic Vacuolation 1+
[2025-05-18] MEDS: DULoxetine HCL 30 MG CAP PO SCH (08:36)
[2025-05-18] MEDS: PANTOprazole 40 MG TAB PO SCH (08:36)
[2025-05-18] MEDS: DULoxetine HCL 60 MG CAP PO SCH (08:36)
[2025-05-18 08:50] LABS: A calco-baum cmplx NotReported Not Detected (NotDetected); Bact fragilis Not Reported Not Detected (NotDetected); Blood Culture Id Panel See PCR Comment (NotDetected); C auris Not Reported Not Detected (NotDetected); CTX-M Resistant Gene Not Detected (NotDetected); Calbicans Not Reported Not Detected (NotDetected); Candida glabrata Not Reported Not Detected (NotDetected); Candida krusei Not Reported Not Detected (NotDetected); Cneoformans/gatti Not Reported Not Detected (NotDetected); Cparapsilosis Not Reported Not Detected (NotDetected); Ctropicalis Not Reported Not Detected (NotDetected); E cloacae compx Not Reported Not Detected (NotDetected); Efaecalis Not Reported Not Detected (NotDetected); Efaecium Not Reported Not Detected (NotDetected); Enterobacterales DETECTED (NotDetected); Enterobacterales Not Reported DETECTED (NotDetected); Escherichia coli Not Reported DETECTED (NotDetected); H influenzae Not Reported Not Detected (NotDetected); IMP Resistant Gene Not Detected (NotDetected); K aerogenes Not Reported Not Detected (NotDetected); KPC Resistant Gene Not Detected (NotDetected); Koxytoca Not Reported Not Detected (NotDetected); Kpneumoniae grp Not Reported Not Detected (NotDetected); Lmonocyt Not Reported Not Detected (NotDetected); N meningitidis Not Reported Not Detected (NotDetected); NDM Resistant Gene Not Detected (NotDetected); OXA 48 Like Resistant Gene Not Detected (NotDetected); P aeruginosa Not Reported Not Detected (NotDetected); Proteus spp Not Reported Not Detected (NotDetected); Salmonella spp Not Reported Not Detected (NotDetected); Staph lugdunensis Not Reported Not Detected (NotDetected); Staph spp. Not Reported Not Detected (NotDetected); Staphaureus Not Reported Not Detected (NotDetected); Staphepi Not Reported Not Detected (NotDetected); Stenmaltophilia Not Reported Not Detected (NotDetected); Strep agal(GrpB) Not Reported Not Detected (NotDetected); Strep pneum Not Reported Not Detected (NotDetected); Strep pyog (GrpA) Not Reported Not Detected (NotDetected); Strep spp Not Reported Not Detected (NotDetected); VIM Resistant Gene Not Detected (NotDetected); mcr-1 Colistin Resistant Gene Not Detected (NotDetected)
--- NOTE | 2025-05-18 08:57 | Ultrasound Report ---
US liver CLINICAL HISTORY: elevated liver enzymes COMPARISON STUDY: 06/17/[address] of 05/17/2025 and 12/29/2024 FINDINGS: There is a 1.3 cm round cystic finding adjacent to or arising from the anterior aspect of t he pancreas. This finding is grossly stable compared with the contrast CT of 12/29/2024. Liver demonst rates mild diffusely increased echogenicity suggesting mild fatty liver. Liver measures 16 cm. Gallbl adder is surgically absent. Common bile duct measures normal diameter for age of 8 mm. Right kidney s hows no hydronephrosis. IMPRESSION: 1. Mild fatty liver. 2. Stable finding anterior to or arising from the anterior aspect of the pancreatic head. Suggest fol low-up CT scan with contrast in 6-12 months to make sure this finding remains stable. ACT 112: Positive. There are findings on this exam that require communication between the performing entity and the patient following Patient Test Result Information Act ([place] Act 112) guidelines. Electronically signed by: Tyson Perez M.D. 05/18/2025 8:56 AM
--- NOTE | 2025-05-18 09:12 | Pharmacy Report ---
Pharmacy PK ABX Note - Date of Service May 18, 2025 - Assessment and Plan Assessment 74 year old F who presented for evaluation of L abdominal/flank pain and fever. Hypotensive with severe leukocytosis, ULISES on CKD. CT revealed two obstructing left ureteral calculi. Patient is s/p emergent let ureteral stent placement. Ordered empiric vancomycin and cefepime. Blood and urine cultures pending. Patient given a one time dose of vancomycin 1000 mg last evening. Random level this am resulted at 8.9. ULISES improving, however, SCr remains significantly above baseline. Will continue to dose per drug level for now. Plan Vancomycin * Loading dose: 1000 mg IV given 05/17 at 1500 * Re-dose with another 1000 mg IV now and repeat random level 05/19 AM * Regimen is predicted to achieve target AUC/ML of 400-600 mg/L.hr Note - vancomycin ordered with indication of "empiric-sepsis" - 48 hour stop Pharmacy will continue to follow and will adjust dose/frequency as necessary. Thank you.
[2025-05-18] MEDS: VANCOMYCIN HCL 1,000 MG/270 ML BAG IV ONE (10:06)
--- NOTE | 2025-05-18 13:54 | Urology Progress Note ---
Date of Service May 18, 2025 Assessment & Plan (1) Hydronephrosis due to obstruction of ureter: (2) Complicated urinary tract infection: (3) Acute renal failure: (4) Sepsis: Plan: - Pt POD#1 s/p emergent cystoscopy and left ureteral stent placement x 2 - Patient found to have a partially duplicated left system, 2 ureteral stents were placed in the setting of sepsis - Doing well, progressing as expected - Afebrile, lab work reviewed - creatinine 2.17, WBC 29.49 - Urine culture pending - Blood cultures prelim with gram-negative bacilli - Tolerating left ureteral stents with minimal bother - Continue broad-spectrum antibiotics and narrow per sensitivity when available - Maintain Cordon catheter for now for maximum drainage, possible removal tomorrow for void trial - Continue supportive care and medical management per hospital medicine service - Will arrange outpatient follow-up with our service - will sign off, please contact service with any additional questions or concerns Admission and Anticipated Discharge Date Admission Date: May 17, 2025 Subjective Patient seen and examined at bedside this afternoon She is awake and sitting up in bedside chair Reports she feels a little bit better today No fever or chills overnight No nausea or vomiting Cordon intact Review of Systems Constitutional: as per Subjective / HPI Genitourinary: as per Subjective / HPI Physical Exam Constitutional: well developed and well nourished; no acute distress Respiratory: normal respiratory effort; no respiratory distress and no labored breathing Gastrointestinal (Abdomen): Inspection/Auscultation: abdomen normal to inspection Musculoskeletal: Head/Neck/Chest: normocephalic Neurologic: moves all extremities and awake Psychiatric: Orientation: alert and oriented x 3 Results & Data Vital Signs (Past 12 Hours) Vital Signs Temp Pulse Pulse Resp BP Pulse Ox O2 Del Method 05/18/25 12:03 36.7 C 74 16 153/69 H 95 Room Air 05/18/25 08:08 64 05/18/25 08:00 36.9 C 67 18 123/70 95 Room Air 05/18/25 03:13 36.6 C 71 18 111/66 96 Room Air PG Care Time/CCT Total # of Minutes Spent Total Time Spent with Patient: Total time spent is greater than 50% in coordination of care (as documented) at patient's floor/unit and/or counseling patient: Coding Level of Care Code 43254 SUB INP/OBS CARE 1/25MIN Diagnoses Hydronephrosis due to obstruction of ureter N13.1 Complicated urinary tract infection N39.0 Acute renal failure N17.9 Acute renal failure type: unspecified Sepsis A41.9; R65.20; N17.9 Acute renal failure type: unspecified Sepsis acute organ dysfunction status: with acute organ dysfunction Sepsis type: sepsis due to unspecified organism Severe sepsis acute organ dysfunction type: acute renal failure Severe sepsis shock status: unspecified (3) Acute renal failure Acute renal failure type: unspecified Qualified Code(s): N17.9 - Acute kidney failure, unspecified (4) Sepsis Acute renal failure type: unspecified Sepsis acute organ dysfunction status: with acute organ dysfunction Sepsis type: sepsis due to unspecified organism Severe sepsis acute organ dysfunction type: acute renal failure Severe sepsis shock status: unspecified Qualified Code(s): A41.9 - Sepsis, unspecified organism; R65.20 - Severe sepsis without septic shock; N17.9 - Acute kidney failure, unspecified
[2025-05-18] MEDS: POLYETHYLENE (MIRALAX) 17 GM PACK PO SCH (15:32)
[2025-05-18] MEDS ORDERED: ZOLPIDEM TARTRATE 5 MG TAB PO PRN (17:12)
--- NOTE | 2025-05-18 17:18 | Hospitalist Progress Note ---
Date of Service May 18, 2025 Assessment & Plan (1) Left ureteral stone: (2) Hypertension: (3) Hyperlipidemia: (4) Anxiety: (5) Left flank pain: (6) ULISES (acute kidney injury): (7) Osteoarthritis: (8) Sepsis: Plan Ms. Cervantes is a 74-year-old female with a past medical history of kidney stones, HLD, HTN, anxiety, depression, pancreatitis, sleep apnea, osteoarthritis who was noted to have sepsis 2/2 left-sided ureteral stones with hydronephrosis. Patient admitted for management of sepsis and underwent urologic evaluation. Patient is now s/p emergent cystoscopy and left ureteral stent placement x 2 on 05/17 #Sepsis 2/2 complicated cystitis iso obstructing ureteral stones #Bacteremia 2/2 GNB #ULISES improving -CT A/P with left-sided ureteral stones and hydronephrosis Leukocytosis, hypotension, subjective fevers all indicative of sepsis ULISES with an elevated creatinine to 2.67, likely secondary to hydronephrosis, improving Discontinue vancomycin continue cefepime 2/4 blood cultures +GNB Urine pending Narrow abx based upon cultures encourage ambulation BMP in am #HTN/HLD: Hold metoprolol with hypotension, resume as able #depression/anxiety: Continue duloxetine/trazodone/Ativan Full [facility] Admission and Anticipated Discharge Date Admission Date: May 17, 2025 Subjective NAEO s/p left ureteral stent placement Reports subjective improvement, but notes she slept poorly overnight Denies nausea, vomiting, fevers, chills some left flank discomfort intermittently Physical Exam Constitutional: WD/WN, vitals as above Respiratory: normal respiratory effort, lungs clear to auscultation Cardiovascular: RRR, no murmur, no edema Gastrointestinal (Abdomen): normal bowel sounds, soft, nontender, no hepatosplenomegaly Results & Data Results & Data Vital Signs (Past 12 Hours) Vital Signs Temp Pulse Pulse Resp BP Pulse Ox Pulse Ox 05/18/25 17:07 90 05/18/25 15:29 36.5 C 73 16 133/70 94 05/18/25 14:31 70 05/18/25 12:03 36.7 C 74 16 153/69 H 95 05/18/25 08:08 64 05/18/25 08:00 36.9 C 67 18 123/70 95 O2 Del Method O2 Del Method O2 Flow Rate 05/18/25 17:07 Nasal Cannula 2 05/18/25 15:29 Room Air 05/18/25 14:31 05/18/25 12:03 Room Air 05/18/25 08:08 05/18/25 08:00 Room Air Laboratory Results Short CBC 05/18/25 Range/Units 06:04 WBC 29.49 H (4.8-10.8) K/ul Hgb 10.2 L (12.0-16.0) g/dl Hct 31.8 L (37.0-47.0) % Plt Count 154 (130-400) K/uL BMP 05/18/25 06:04 Sodium 138 Potassium 4.8 Chloride 112 H Carbon Dioxide 19 L BUN 55 H Creatinine 2.17 H D Glucose 135 H Calcium 7.2 L Liver Function 05/18/25 Range/Units 06:04 Total Bilirubin 0.6 D (0.2-1.0) mg/dl AST 108 H (13-39) U/L ALT 149 H (7-52) U/L Alkaline Phosphatase 112 H (34-104) U/L Albumin 2.8 L (3.4-5.0) gm/dl Urine 05/18/25 Range/Units Unknown Urine Color [place] Urine Appearance Cloudy A (Clear) Urine pH 5.5 (4.5-7.5) Ur Specific [place] 1.016 (1.000-1.030) Urine Protein 2+ H (Negative) Urine Glucose (UA) Negative (Negative) Medications Administered Home Medications Medication Instructions Recorded Confirmed Last Taken lorazepam 0.5 mg tablet (Ativan) 0.5 mg PO HS 09/21/18 05/17/25 03/28/21 multivitamin 2 tab PO QAM 09/21/18 05/17/25 03/28/21 acetaminophen 500 mg tablet 1,000 mg PO Q6H PRN Pain 09/23/19 05/17/25 02/03/21 18:30 (Tylenol Extra Strength) cholecalciferol (vitamin D3) 25 50 mcg PO DAILY 02/28/23 05/17/25 Unknown mcg (1,000 unit) tablet duloxetine 60 mg capsule,delayed 60 mg PO QAM 02/28/23 05/17/25 Unknown release potassium citrate 10 mEq (1,080 30 meq PO TID 02/28/23 05/17/25 Unknown mg) tablet,extended release trazodone 100 mg tablet 100 mg PO HS 02/28/23 05/17/25 Unknown duloxetine 30 mg capsule,delayed 30 mg PO DAILY 12/29/24 05/17/25 Unknown release metoprolol tartrate 25 mg tablet 12.5 mg (1/2 x 25 mg) PO BID #60 12/31/24 05/17/25 Unknown tabs pantoprazole 40 mg granules 40 mg PO DAILY #30 ea 12/31/24 05/17/25 Unknown delayed-release for susp in packet (Protonix) Active Medications Generic Name Dose Route Start Last Admin Trade Name Freq PRN Reason Stop Dose Admin Duloxetine HCl 30 mg 05/18/25 09:00 05/18/25 08:36 Duloxetine Hcl 30 Mg Cap PO 06/17/25 08:59 30 mg DAILY THERESA Administration Duloxetine HCl 60 mg 05/18/25 09:00 05/18/25 08:36 Duloxetine Hcl 60 Mg Cap PO 06/17/25 08:59 60 mg QAM THERESA Administration Sodium Chloride 1,000 mls @ 125 mls/hr 05/17/25 19:30 05/18/25 11:38 Nss IV 05/20/25 19:29 125 mls/hr .Q8H THERESA Administration Cefepime HCl 1,000 mg in 10 mls @ 5 mls/min 05/18/25 16:00 05/18/25 15:32 Maxipime 2000mg IV 05/31/25 13:59 5 mls/min Q12H THERESA Administration Lorazepam 0.5 mg 05/17/25 21:00 05/17/25 20:05 Lorazepam 0.5 Mg Tab PO 06/16/25 20:59 0.5 mg HS TEHRESA Administration Pantoprazole Sodium 40 mg 05/18/25 09:00 05/18/25 08:36 Pantoprazole 40 Mg Tab PO 06/17/25 08:59 40 mg DAILY THERESA Administration Polyethylene Glycol 17 gm 05/18/25 14:15 05/18/25 15:32 Polyethylene (Miralax) 17 Gm Pack PO 06/17/25 14:14 17 gm DAILY THERESA Administration Trazodone HCl 100 mg 05/17/25 21:00 05/17/25 20:15 Trazodone Hcl 100 Mg Tab PO 06/16/25 20:59 100 mg HS THERESA Administration
--- NOTE | 2025-05-18 19:07 | XRay Report ---
EXAM: XR chest 1V portable CLINICAL HISTORY: Hypoxia TECHNIQUE: X-ray of chest was performed in AP projection COMPARISON: CT dated 02/28/2023 and CR dated 01/24/2021 were reviewed. FINDINGS: Cardiac size is within normal limits. Normal hilar shadows. Prominence of perihilar vascular markings Probable infiltrates in the right paracardiac region. The left costophrenic angle appears clear. Minimal blunting of right costophrenic angle could suggest mild pleural effusion. Soft tissues and visualized bony rib cage appear normal. IMPRESSION: 1. Prominence of perihilar vascular markings, Likely nonspecific finding; however possible mild pulmonary vascular congestion cannot be excluded. 2. Probable infiltrates seen in the right paracardiac region. Interval more conspicuous since prior study. Clinical correlation and follow-up are suggested. 3. Suggestion of small right pleural effusion. Electronically signed by Isaiah Aviles 05-18-2025 7:06 PM
[2025-05-18] MEDS: FUROSEMIDE INJ 20 MG/2 ML VIAL IV ONE (20:16)
[2025-05-18] MEDS: METOPROLOL TARTRATE 25 MG TAB PO SCH (21:02)
[2025-05-19 06:02] LABS: Hematocrit (blood only) 30.9 % (37.0-47.0); Mean Corpuscular Hemoglobin 31.7 pg (25.0-34.0); Mean Corpuscular Hgb Conc 32.4 g/dL (32.0-36.0); Mean Corpuscular Volume 98.1 fL (80.0-100.0); Mean Platelet Volume 10.2 fL (9.4-12.4); Platelet Count 171 K/uL (130-400); RDW Coefficient of Variation 14.9 % (11.5-14.5); RDW Standard Deviation 53.3 fL (36.4-46.3); Red Blood Count 3.15 M/uL (4.20-5.40); White Blood Count 27.77 K/ul (4.8-10.8)
--- NOTE | 2025-05-19 06:08 | Electrocardiogram Report ---
Test Reason : Blood Pressure : */* mmHG Vent. Rate : 60 BPM Atrial Rate : 60 BPM P-R Int : 182 ms QRS Dur : 78 ms QT Int : 422 ms P-R-T Axes : 73 30 61 degrees QTcB Int : 422 ms Normal sinus rhythm Low voltage QRS Borderline ECG When compared with ECG of 17-May-2025 12:03, No significant change was found Confirmed by James Box ([id number] on 05/19/2025 6:07:28 AM Referred By: REFERRED SELF Confirmed By: James Box
[2025-05-19 06:22] LABS: BUN Creatinine Ratio 25.6 (10-20); Calcium 8.5 mg/dl (8.6-10.3); Creatinine Clr Calc Pharmacy 19.7 ml/min; Magnesium 2.1 mg/dl (1.7-2.4); Potassium 4.5 mmol/L (3.5-5.1)
--- NOTE | 2025-05-19 10:11 | Hospitalist Progress Note ---
Date of Service May 19, 2025 Assessment & Plan (1) Left ureteral stone: (2) Hypertension: (3) Hyperlipidemia: (4) Anxiety: (5) Left flank pain: (6) ULISES (acute kidney injury): (7) Osteoarthritis: (8) Sepsis: Plan Ms. Cervantes is a 74-year-old female with a past medical history of kidney stones, HLD, HTN, anxiety, depression, pancreatitis, sleep apnea, osteoarthritis who was noted to have sepsis 2/2 left-sided ureteral stones with hydronephrosis. Patient admitted for management of sepsis and underwent urologic evaluation. Patient is now s/p emergent cystoscopy and left ureteral stent placement x 2 on 05/17 Cultures with 4/4 ecoli, pending sensitivities. Clinically improving with plans for void trial today #Sepsis 2/2 complicated cystitis iso obstructing ureteral stones #Bacteremia 2/2 ecoli #ULISES improving 2/2 obstructive uropathy -CT A/P with left-sided ureteral stones and hydronephrosis Leukocytosis, hypotension, subjective fevers all indicative of sepsis ULISES with an elevated creatinine to 2.67, likely secondary to hydronephrosis, improving Discontinue vancomycin continue cefepime 4/4 blood cultures +ecoli Urine pending Narrow abx based upon cultures encourage ambulation Trend bmp Void trial today with plans for OP follow up Urology #HTN/HLD: continue metoprolol #depression/anxiety: Continue duloxetine/trazodone/Ativan Full code DVT prophylaxis: SCDs Possible dispo tomorrow to home once cultures result for total 14 days abx Admission and Anticipated Discharge Date Admission Date: May 17, 2025 Subjective NAEO Reports feeling well over all--noting that her appetite has returned and she is ambulating without difficulty. Eager for void trial Physical Exam Constitutional: WD/WN, vitals as above Respiratory: normal respiratory effort, lungs clear to auscultation Cardiovascular: RRR, no murmur, no edema Gastrointestinal (Abdomen): normal bowel sounds, soft, nontender, no hepatosplenomegaly Results & Data Results & Data Vital Signs (Past 12 Hours) Vital Signs Temp Pulse Pulse Resp BP Pulse Ox O2 Del Method 05/19/25 07:38 36.7 C 78 18 174/81 H 97 Room Air 05/19/25 07:34 Room Air 05/19/25 03:37 36.6 C 67 18 137/73 96 Room Air 05/18/25 23:40 70 05/18/25 23:17 36.5 C 77 18 127/69 95 Room Air Laboratory Results Short CBC 05/19/25 Range/Units 05:42 WBC 27.77 H (4.8-10.8) K/ul Hgb 10.0 L (12.0-16.0) g/dl Hct 30.9 L (37.0-47.0) % Plt Count 171 (130-400) K/uL BMP 05/19/25 05:42 Sodium 141 Potassium 4.5 Chloride 114 H Carbon Dioxide 21 BUN 50 H Creatinine 1.95 H Glucose 83 Calcium 8.5 L Medications Administered Home Medications Medication Instructions Recorded Confirmed Last Taken lorazepam 0.5 mg tablet (Ativan) 0.5 mg PO HS 09/21/18 05/17/25 03/28/21 multivitamin 2 tab PO QAM 09/21/18 05/17/25 03/28/21 acetaminophen 500 mg tablet 1,000 mg PO Q6H PRN Pain 09/23/19 05/17/25 02/03/21 18:30 (Tylenol Extra Strength) cholecalciferol (vitamin D3) 25 50 mcg PO DAILY 02/28/23 05/17/25 Unknown mcg (1,000 unit) tablet duloxetine 60 mg capsule,delayed 60 mg PO QAM 02/28/23 05/17/25 Unknown release potassium citrate 10 mEq (1,080 30 meq PO TID 02/28/23 05/17/25 Unknown mg) tablet,extended release trazodone 100 mg tablet 100 mg PO HS 02/28/23 05/17/25 Unknown duloxetine 30 mg capsule,delayed 30 mg PO DAILY 12/29/24 05/17/25 Unknown release metoprolol tartrate 25 mg tablet 12.5 mg (1/2 x 25 mg) PO BID #60 12/31/24 05/17/25 Unknown tabs pantoprazole 40 mg granules 40 mg PO DAILY #30 ea 12/31/24 05/17/25 Unknown delayed-release for susp in packet (Protonix) Active Medications Generic Name Dose Route Start Last Admin Trade Name Freq PRN Reason Stop Dose Admin Duloxetine HCl 30 mg 05/18/25 09:00 05/19/25 08:14 Duloxetine Hcl 30 Mg Cap PO 06/17/25 08:59 30 mg DAILY THERESA Administration Duloxetine HCl 60 mg 05/18/25 09:00 05/19/25 08:14 Duloxetine Hcl 60 Mg Cap PO 06/17/25 08:59 60 mg QAM THERESA Administration Lorazepam 0.5 mg 05/17/25 21:00 05/18/25 20:16 Lorazepam 0.5 Mg Tab PO 06/16/25 20:59 0.5 mg HS THERESA Administration Metoprolol Tartrate 12.5 mg 05/18/25 20:15 05/19/25 08:14 Metoprolol Tartrate 25 Mg Tab PO 06/17/25 20:14 12.5 mg BID THERESA Administration Pantoprazole Sodium 40 mg 05/18/25 09:00 05/19/25 08:14 Pantoprazole 40 Mg Tab PO 06/17/25 08:59 40 mg DAILY THERESA Administration Polyethylene Glycol 17 gm 05/18/25 14:15 05/19/25 08:14 Polyethylene (Miralax) 17 Gm Pack PO 06/17/25 14:14 17 gm DAILY THERESA Administration Trazodone HCl 100 mg 05/17/25 21:00 05/18/25 20:16 Trazodone Hcl 100 Mg Tab PO 06/16/25 20:59 100 mg HS THERESA Administration
[2025-05-19] MEDS: cefTRIAXone SODIUM 2,000 MG/50 ML BAG IV SCH (16:21)
[2025-05-19] MEDS: amLODIPine BESYLATE 5 MG TAB PO ONE (17:22)
[2025-05-19] MEDS: bisacodyL 5 MG TABEC PO ONE (17:22)
[2025-05-20 06:12] LABS: Hematocrit (blood only) 33.2 % (37.0-47.0); Hemoglobin 10.5 g/dl (12.0-16.0); Mean Corpuscular Hemoglobin 30.9 pg (25.0-34.0); Mean Corpuscular Hgb Conc 31.6 g/dL (32.0-36.0); Mean Corpuscular Volume 97.6 fL (80.0-100.0); Mean Platelet Volume 10.2 fL (9.4-12.4); Platelet Count 183 K/uL (130-400); RDW Coefficient of Variation 14.6 % (11.5-14.5); White Blood Count 14.37 K/ul (4.8-10.8)
[2025-05-20 06:26] LABS: BUN Creatinine Ratio 24.9 (10-20); Calcium 8.6 mg/dl (8.6-10.3); Creatinine Clr Calc Pharmacy 22.7 ml/min; Potassium 4.1 mmol/L (3.5-5.1)
[2025-05-20] MEDS: METOPROLOL SUCC 25MG EXT REL TAB PO SCH (08:11)
[2025-05-20] MEDS: amLODIPine BESYLATE 5 MG TAB PO SCH (08:11)
[2025-05-20] MEDS: METOPROLOL TARTRATE 1 MG/ML VIAL IV PRN (08:25)
[2025-05-20] MEDS: MAGNESIUM SULFATE / D5W 1 GM/100 ML BAG IV ONE (09:31)
[2025-05-20 11:27] LABS: Albumin Level 2.7 gm/dl (3.4-5.0); Bilirubin Direct 0.1 mg/dl (0-0.2); Bilirubin,Total 0.5 mg/dl (0.2-1.0); Total Protein 5.8 gm/dl (6.0-8.3)
[2025-05-20] MEDS: dilTIAZem HCl 5 MG/ML 5 ML VIAL IV STA (11:28)
--- NOTE | 2025-05-20 11:29 | Cardiology Consultation ---
Date of Consultation May 20, 2025 Assessment & Plan (1) Atrial fibrillation with RVR: (2) Sepsis: (3) Hydronephrosis due to obstruction of ureter: (4) Atrial tachycardia: (5) Elevated LFTs: (6) History of GI bleed: Plan Patient admitted on 05/17 with acute urosepsis, with elevated WBC, + BC with E.Coli, ureter obstruction requiring stent placement. Treated with broad spectrum antibiotics since admission and symptoms improving. ULISES on admission, also now improving with creatinine of 1.69. This morning patient developed afib RVR with symptoms of palpitations, starting at 7:53 AM Initially treated with 2 doses of IV metoprolol without significant improvement in her rates. She had been receiving metoprolol succinate 12.5 mg during admission for history of atrial tach/SVT. Recommend transitioning to metoprolol tartrate 12.5 mg QID this morning One dose IV diltiazem also initiated. Consider initiation of amiodarone IV, however patient's LFT's were elevated earlier this admission. Recheck LFT's this morning. If normalized, consider IV amiodarone to hopefully convert patient to back to NSR. She was admitted with significant GI bleed in Nov 2024 and given recent ureteral stents and anemia, would avoid anticoagulation at this time unless afib persists. CHADSVASC score of 4 (female, age, HTN) IV mag ordered by hospitalist. Recommend echo given elevated WBC, new onset afib, and +Blood cultures. Further recommendations pending response to IV dilt and oral metoprolol. Case discussed with Dr. Terrell I spent a total of 60 minutes on the date of service in preparation, delivery, and documentation of the care provided to this patient, excluding any time spent in the performance of separately billed services. Nancy Dickinson PA-C Department of Cardiology, [facility] This chart was completed in part utilizing Speech Voice Recognition Software. Grammatical errors, random word insertions, pronoun errors, and incomplete sentences are an occasional consequence of this system due to software limitations, ambient noise, and hardware issues. Any formal questions or concerns about the content, text, or information contained within the body of this dictation should be directly addressed to the provider for clarification. Supervising Physician Co-Signing Physician Notes Attending attestation: Case reviewed with the advanced practitioner. I have personally performed a history and physical examination on the patient. I have reviewed the advanced practitioner's documentation on the date of service referenced in note, and I agree with, and take responsibility for the plan of care. Atrial fibrillation Urosepsis with E. coli bacteremia status post ureteral stent * discontinue amlodipine * change to metoprolol tartrate 12.5 mg PO QID * Rate improved with diltiazem 10 mg IV x 1, will start diltiazem infusion * Not a candidate for anticoagulation given hospitalization for GI bleed in November,. * Resting echo will be completed. I spent a total of 20 minutes coordinating, documenting, and providing care for this patient excluding time spent in the performance of separately billed services or time spent by another provider. Igor Terrell, History of Present Illness Reason for Consultation: Atrial fibrillation RVR Requesting Physician: Dr. Loaiza Attending Physician: Dr. Terrell History of Present Illness Patient is a 74 year old female who was admitted to [facility] on Patient admitted on 05/17/2025 with left flank pain found to have left sided ureteral stones with hydronephrosis and sepsis with an elevated white count of 33 and positive blood cultures with E. coli. Followed by urology and underwent ureteral stent On 05/17. Elevated LFTs also noted on admission with ULISES creatinine of 2.67. Treated with ongoing antibiotic therapy. History includes: 1. Atrial Tach/SVT, noted during admission in Nov 2024 - follow up with cardiology (Dr. Lea) March 2025 - Metoprolol tartrate transitioned to metoprolol succinate 12.5 mg daily. 2. Borderline bradycardia 3. HTN 4. History of upper GI bleed Nov 2024. Negative EGD. PPI recommended. No transfusion needed This morning at 7:53, patient developed several short runs of atrial tachycardia, and then developed atrial fibrillation with RVR in the 110-150's. Initially patient felt palpitations but now improved. She denies chest pain or SOB. Allergies Allergy/AdvReac Type Severity Reaction Status Date / Time YAIR Inhibitors AdvReac Intermediate Cough Verified 03/29/21 07:41 aspirin AdvReac Mild Advised to Verified 03/29/21 07:41 avoid 2/2 hx bariatric surgery ibuprofen AdvReac Mild Advised to Verified 03/29/21 07:41 avoid 2/2 hx bariatric surgery naproxen AdvReac Mild Advised to Verified 03/29/21 07:41 avoid 2/2 hx bariatric surgery Home Medications Medication Instructions Recorded Confirmed Type lorazepam 0.5 mg tablet (Ativan) 0.5 mg PO HS 09/21/18 05/17/25 History multivitamin 2 tab PO QAM 09/21/18 05/17/25 History acetaminophen 500 mg tablet 1,000 mg PO Q6H PRN Pain 09/23/19 05/17/25 History (Tylenol Extra Strength) cholecalciferol (vitamin D3) 25 50 mcg PO DAILY 02/28/23 05/17/25 History mcg (1,000 unit) tablet duloxetine 60 mg capsule,delayed 60 mg PO QAM 02/28/23 05/17/25 History release potassium citrate 10 mEq (1,080 30 meq PO TID 02/28/23 05/17/25 History mg) tablet,extended release trazodone 100 mg tablet 100 mg PO HS 02/28/23 05/17/25 History duloxetine 30 mg capsule,delayed 30 mg PO DAILY 12/29/24 05/17/25 History release pantoprazole 40 mg granules 40 mg PO DAILY #30 ea 12/31/24 05/17/25 Rx delayed-release for susp in packet (Protonix) metoprolol succinate 25 mg 12.5 mg PO QAM 05/19/25 05/19/25 History tablet,extended release 24 hr Patient History Medical History CKD (chronic kidney disease), stage III Hyperlipidemia no meds yet Kidney stones Hypertension Giant cell arteritis remote hx (2018) > resolved Degenerative disc disease Urinary urgency Chronic kidney disease Stage III, follows with [facility] nephrology (Dr. Hurd) > hasn't seen in a while> stable Hx of pancreatitis 5+ years ago > led to cholecystectomy Anemia "Mild"/no known hx of blood transfusion Anxiety and depression Restless leg syndrome Surgical History History of cystoscopy Cystoscopy, laser lithotripsy: 04/15/18: LMA#4 at [facility] History of lithotripsy History of repair of rotator cuff R/L History of colonoscopy History of gastric bypass 09/2013 History of cholecystectomy History of tooth extraction History of cataract surgery R/L Family History Sister Family history of diabetes mellitus Father Family history of esophageal cancer Mother Family history of reaction to anesthesia SLOW TO WAKE UP Social History Smoking Status: Never smoker Second Hand Exposure: No; Do You Dip or Chew Tobacco: No; Hx Alcohol Use: No Hx Substance Use: No Preferred Language: Jamaican Communication Ability: Effective 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 Beliefs That Will Affect Care: None Current Living Situation: Alone Feels Safe at Home: Yes Assistive Devices: None Review of Systems Review of Systems: All systems reviewed & are unremarkable except as noted in HPI & below Physical Exam Constitutional: WD/WN, vitals as above average body habitus; no acute distress Neck: trachea midline, no thyromegaly Respiratory: normal respiratory effort; no labored breathing Auscultation: lungs clear to auscultation bilaterally Cardiovascular: Rate/Rhythm: + tachycardic and + irregularly irregular Heart Sounds: no murmur Vessels: no JVD Extremities: no edema Gastrointestinal (Abdomen): normal bowel sounds, soft, nontender, no hepatosplenomegaly Musculoskeletal: no cyanosis or clubbing, extremities motor strength 5/5 Neurologic: PERRL, EOMI, accommodation nl, no face palsy, no dysarthria Results & Data Vital Signs (Past 12 Hours) Vital Signs Temp Pulse Pulse Resp BP BP Pulse Ox 05/20/25 09:40 112 H 122/78 05/20/25 09:15 132 H 102/79 05/20/25 08:40 130 H 110/80 05/20/25 08:25 142 H 135/98 05/20/25 08:18 36.7 C 134 H 20 135/98 96 05/20/25 06:54 05/20/25 03:19 69 05/20/25 02:56 36.8 C 75 18 121/68 96 O2 Del Method 05/20/25 09:40 05/20/25 09:15 05/20/25 08:40 05/20/25 08:25 05/20/25 08:18 Room Air 05/20/25 06:54 Room Air 05/20/25 03:19 05/20/25 02:56 Room Air Laboratory Results CBC 05/20/25 Range/Units 05:48 WBC 14.37 H (4.8-10.8) K/ul RBC 3.40 L (4.20-5.40) M/uL Hgb 10.5 L (12.0-16.0) g/dl Hct 33.2 L (37.0-47.0) % Plt Count 183 (130-400) K/uL Comprehensive Metabolic Panel 05/20/25 Range/Units 05:48 Sodium 140 (136-145) mmol/L Potassium 4.1 (3.5-5.1) mmol/L Chloride 112 H (98-107) mmol/L Carbon Dioxide 24 (21-32) mmol/L BUN 42 H (6-23) mg/dl Creatinine 1.69 H (0.6-1.2) mg/dl Glucose 81 (70-99(Fasting)) mg/dl Calcium 8.6 (8.6-10.3) mg/dl Intake and Output 05/19/25 05/20/25 05/20/25 22:59 06:59 14:59 Intake Total 250 / 250 Output Total 250 / 850 Balance 0 / -600 Intake: IV 50 / 50 cefTRIAXone SODIUM 2,000 mg In 50 / 50 50 ml @ 100 mls/hr IV Q24H THERESA Rx#:[id number] Oral 200 / 200 Output: Urine 250 / 250 Other: # Unmeasured Voids 2 3 Weight 57.5 kg Weight Measurement Method Built in [facility] Diagnostic Findings Telemetry reviewed: Currently, at time of consult, Afib with RVR ranging 110-150s. Previously she was NSR throughout the admission with HR's in the 60's. EKG this morning 05/20: Atrial fibrillation with RVR old anteroseptal infarct EKG reviewed from 05/18/25: NSR at 60 bmp low voltage QRS no change from prior EKG ZIO results reviewed from Dec 2024: Preliminary Findings Prepared by Desi Romero, 02/03/25 Patient had a min HR of 44 bpm, max HR of 164 bpm, and avg HR of 69 bpm. Predominant underlying rhythm was Sinus Rhythm. 65 Supraventricular Tachycardia runs occurred, the run with the fastest interval lasting 6 beats with a max rate of 164 bpm, the longest lasting 14.2 secs with an avg rate of 110 bpm. Some episodes of Supraventricular Tachycardia may be possible Atrial Tachycardia with variable block. Isolated SVEs were rare (<1.0%), SVE Couplets were rare (<1.0%), and SVE Triplets were rare (<1.0%). Isolated VEs were rare (<1.0%, 88), VE Couplets were rare (<1.0%, 1), and VE Triplets were rare (<1.0%, 1). The patient recorded 2 diary entries without documented times or information IMPRESSION: Sinus rhythm, average rate 69 beats per minute with paroxysmal supraventricular tachycardia. Sixty-five episodes observed with longest episode 26 beats in duration Medications Administered Current Inpatient Medications Acetaminophen (Acetaminophen 325 Mg Tab) 650 mg PO Q4H PRN PRN Reason: Pain or Fever Stop: 06/16/25 17:06 Amlodipine Besylate (Amlodipine Besylate 5 Mg Tab) 5 mg PO QAM [facility] Stop: 06/19/25 08:59 Last Admin: 05/20/25 08:11 Dose: 5 mg Duloxetine HCl (Duloxetine Hcl 30 Mg Cap) 30 mg PO DAILY THERESA Stop: 06/17/25 08:59 Last Admin: 05/20/25 08:10 Dose: 30 mg Duloxetine HCl (Duloxetine Hcl 60 Mg Cap) 60 mg PO QAM [facility] Stop: 06/17/25 08:59 Last Admin: 05/20/25 08:10 Dose: 60 mg Ceftriaxone Sodium (Rocephin) 2,000 mg in 50 mls @ 100 mls/hr IV Q24H THERESA Stop: 05/31/25 14:59 Last Infusion: 05/19/25 16:54 Dose: Infused Lorazepam (Lorazepam 0.5 Mg Tab) 0.5 mg PO HS [facility] Stop: 06/16/25 20:59 Last Admin: 05/19/25 20:29 Dose: 0.5 mg Metoprolol Tartrate (Metoprolol Tartrate 1 Mg/Ml Vial) 5 mg IV Q5M PRN PRN Reason: Tachycardia Stop: 06/19/25 08:07 Last Admin: 05/20/25 09:15 Dose: 5 mg Metoprolol Tartrate (Metoprolol Tartrate 25 Mg Tab) 12.5 mg PO QID THERESA Stop: 06/19/25 12:59 Pantoprazole Sodium (Pantoprazole 40 Mg Tab) 40 mg PO DAILY [facility] Stop: 06/17/25 08:59 Last Admin: 05/20/25 08:10 Dose: 40 mg Polyethylene Glycol (Polyethylene (Miralax) 17 Gm Pack) 17 gm PO DAILY THERESA Stop: 06/17/25 14:14 Last Admin: 05/20/25 08:13 Dose: Not Given Trazodone HCl (Trazodone Hcl 100 Mg Tab) 100 mg PO HS THERESA Stop: 06/16/25 20:59 Last Admin: 05/19/25 20:29 Dose: 100 mg Zolpidem Tartrate (Zolpidem Tartrate 5 Mg Tab) 5 mg PO HS PRN PRN Reason: Sleep Stop: 06/17/25 17:11 (2) Sepsis Acute renal failure type: unspecified Sepsis acute organ dysfunction status: with acute organ dysfunction Sepsis type: sepsis due to unspecified organism Severe sepsis acute organ dysfunction type: acute renal failure Severe sepsis shock status: unspecified Qualified Code(s): A41.9 - Sepsis, unspecified organism; R65.20 - Severe sepsis without septic shock; N17.9 - Acute kidney failure, unspecified
[2025-05-20] MEDS ORDERED: STAT IV Infusion **Titration per Protocol STA (12:14)
[2025-05-20] MEDS: dilTIAZem HCL 125 MG in DEXTROSE 5% 100 ML IV SCH (13:16)
[2025-05-20] MEDS: METOPROLOL TARTRATE 25 MG TAB PO SCH (13:23)
--- NOTE | 2025-05-20 15:19 | Hospitalist Progress Note ---
Date of Service May 20, 2025 Assessment & Plan (1) Left ureteral stone: (2) Hypertension: (3) Hyperlipidemia: (4) Anxiety: (5) Left flank pain: (6) ULISES (acute kidney injury): (7) Osteoarthritis: (8) Sepsis: Plan Ms. Cervantes is a 74-year-old female with a past medical history of kidney stones, HLD, HTN, anxiety, depression, pancreatitis, sleep apnea, osteoarthritis who was noted to have sepsis 2/2 left-sided ureteral stones with hydronephrosis. Patient admitted for management of sepsis and underwent urologic evaluation. Patient is now s/p emergent cystoscopy and left ureteral stent placement x 2 on 05/17 Cultures with /4 ecoli, pending sensitivities. Clinically improving with plans for void trial today #Sepsis 2/2 complicated cystitis iso obstructing ureteral stones #Bacteremia 2/2 ecoli #ULISES improving 2/2 obstructive uropathy -CT A/P with left-sided ureteral stones and hydronephrosis. Leukocytosis, hypotension, subjective fevers all indicative of sepsis ULISES with an elevated creatinine to 2.67, likely secondary to hydronephrosis, improving Discontinued vancomycin continue cefepime --> rocephin 05/19/ blood cultures +ecoli, likely renal source for bacteremia, will repeat cultures in AM. Urine Cx no growth Plan atb 14 d Rx. encourage ambulation Trend bmp Void trial 05/19 with plans for OP follow up Urology Afib RVR: pt noted to be in afib rvr 05/20 around 753 am w/ palpitation, no chest pain or sob, new diagnosis. TSH this adm wnl. ECHO done, EF 55-60%, LV wall motion nl, lv systolic fxn nl, no valvular abn. Cardio on board, on qid metoprolol tart., and cardizem drip. C/w tele monitoring. #HTN/HLD: continue metoprolol #depression/anxiety: Continue duloxetine/trazodone/Ativan Full code DVT prophylaxis: SCDs P Admission and Anticipated Discharge Date Admission Date: May 17, 2025 Subjective Patient was seen and examined at bedside. Patient was lying in bed, on room air, NAD, resting comfortably. Patient denies any shortness of breath or chest pain or palpitation. Patient reports no new acute events overnight. Patient reports eating okay. Physical Exam Physical Exam: Constitutional: WD/WN, vitals as a gely Respiratory: normal respiratory effort, lungs chacha ar to auscultation Cardiovascular: irregularly irregu lar, in low 120s, no murmur, no franklin a Gastrointestinal ( Abdomen): normal bowel sound s, soft, nontender , no hepatosplenom egaly Results & Data Results & Data Vital Signs (Past 12 Hours) Vital Signs Temp Pulse Pulse Resp BP BP Pulse Ox 05/20/25 13:53 94 H 05/20/25 12:15 102 H 05/20/25 12:00 36.8 C 55 L 18 127/78 95 05/20/25 09:40 112 H 122/78 05/20/25 09:15 132 H 102/79 05/20/25 08:40 130 H 110/80 05/20/25 08:25 142 H 135/98 05/20/25 08:18 36.7 C 134 H 20 135/98 96 05/20/25 06:54 05/20/25 03:19 69 O2 Del Method 05/20/25 13:53 05/20/25 12:15 05/20/25 12:00 Room Air 05/20/25 09:40 05/20/25 09:15 05/20/25 08:40 05/20/25 08:25 05/20/25 08:18 Room Air 05/20/25 06:54 Room Air 05/20/25 03:19
[2025-05-21 06:06] LABS: Hematocrit (blood only) 36.2 % (37.0-47.0); Hemoglobin 11.7 g/dl (12.0-16.0); Mean Corpuscular Hemoglobin 31.6 pg (25.0-34.0); Mean Corpuscular Hgb Conc 32.3 g/dL (32.0-36.0); Mean Corpuscular Volume 97.8 fL (80.0-100.0); Platelet Count 223 K/uL (130-400); RDW Coefficient of Variation 14.2 % (11.5-14.5); RDW Standard Deviation 51.1 fL (36.4-46.3); White Blood Count 11.69 K/ul (4.8-10.8)
[2025-05-21 06:25] LABS: Albumin Level 3.1 gm/dl (3.4-5.0); Bilirubin Direct 0.1 mg/dl (0-0.2); Bilirubin,Total 0.5 mg/dl (0.2-1.0); Magnesium 1.8 mg/dl (1.7-2.4); Phosphorus 2.7 mg/dl (2.5-4.9); Total Protein 6.3 gm/dl (6.0-8.3)
[2025-05-21 08:26] VITALS: BP 136/80; RESP 18; TEMP 98.4; O2SAT 95
[2025-05-21 08:49] LABS: BUN Creatinine Ratio 25.5 (10-20); Calcium 8.6 mg/dl (8.6-10.3); Creatinine Clr Calc Pharmacy 27.3 ml/min
[2025-05-21] MEDS ORDERED: METOPROLOL SUCC 25MG EXT REL TAB PO SCH (09:00)
--- NOTE | 2025-05-21 10:24 | Cardiology Progress Note ---
Date of Service May 21, 2025 Assessment & Plan (1) Atrial fibrillation with RVR: (2) Sepsis: (3) Hydronephrosis due to obstruction of ureter: (4) Atrial tachycardia: (5) Elevated LFTs: (6) History of GI bleed: Plan 05/20/25 Patient admitted on 05/17 with acute urosepsis, with elevated WBC, + BC with E.Coli, ureter obstruction requiring stent placement. Treated with broad spectrum antibiotics since admission and symptoms improving. ULISES on admission, also now improving with creatinine of 1.69. This morning patient developed afib RVR with symptoms of palpitations, starting at 7:53 AM Initially treated with 2 doses of IV metoprolol without significant improvement in her rates. She had been receiving metoprolol succinate 12.5 mg during admission for history of atrial tach/SVT. Recommend transitioning to metoprolol tartrate 12.5 mg QID this morning One dose IV diltiazem also initiated. Consider initiation of amiodarone IV, however patient's LFT's were elevated earlier this admission. Recheck LFT's this morning. If normalized, consider IV amiodarone to hopefully convert patient to back to NSR. She was admitted with significant GI bleed in Nov 2024 and given recent ureteral stents and anemia, would avoid anticoagulation at this time unless afib persist s. CHADSVASC score of 4 (female, age, HTN) IV mag ordered by hospitalist. Recommend echo given elevated WBC, new onset afib, and +Blood cultures. 05/21/2025: Patient successfully converted to normal sinus rhythm on IV diltiazem yesterday afternoon. No recurrent atrial fibrillation overnight. Echo yesterday revealed normal LVEF without significant valvular heart disease. Given recent GI bleed and recent urologic procedures, would not recommend anticoagulation on discharge. A-fib episode only lasted several hours in the setting of acute illness. Recommend increasing metoprolol succinate from 12.5 to full 25 mg daily upon discharge. Will arrange cardiology follow up in about 1 month. No further cardiac testing warranted. May be discharged from cardiovascular perspective. Message sent to hospitalist. Case to be discussed with Dr. Terrell I spent a total of 30 minutes on the date of service in preparation, delivery, and documentation of the care provided to this patient, excluding any time spent in the performance of separately billed services. Nancy Dickinson PA-C Department of Cardiology, [facility] This chart was completed in part utilizing Speech Voice Recognition Software. Grammatical errors, random word insertions, pronoun errors, and incomplete sentences are an occasional consequence of this system due to software limitations, ambient noise, and hardware issues. Any formal questions or concerns about the content, text, or information contained within the body of this dictation should be directly addressed to the provider for clarification. Admission and Anticipated Discharge Date Admission Date: May 17, 2025 Supervising Physician Co-Signing Physician Notes Attending attestation: Case reviewed with the advanced practitioner. Patient discharged before I had the opportunity to examine her. Patient converted to sinus rhythm while on a diltiazem infusion yesterday which was subsequently discontinued. EKG performed 05/21/2025 revealed sinus rhythm at 71 bpm with first-degree AV block. Agree with plan to discharge patient on metoprolol. She is not a candidate for anticoagulation given relatively recent GI bleed. Igor Terrell, DO Subjective Patient resting in bed feeling well. She denies acute cardiac complaints. A- fib resolved yesterday afternoon with IV diltiazem infusion. IV diltiazem discontinued. She has maintained normal sinus rhythm overnight. No recent chest pain or unusual shortness of breath. No sense of palpitations or dizziness. Review of Systems Review of Systems: All systems reviewed & are unremarkable except as noted in HPI & below Physical Exam Constitutional: WD/WN, vitals as above average body habitus; no acute distress Neck: trachea midline, no thyromegaly Respiratory: normal respiratory effort; no labored breathing Auscultation: lungs clear to auscultation bilaterally Cardiovascular: Rate/Rhythm: regular rate and regular rhythm Heart Sounds: no murmur Vessels: no JVD Extremities: no edema Gastrointestinal (Abdomen): normal bowel sounds, soft, nontender, no hepatosplenomegaly Musculoskeletal: no cyanosis or clubbing, extremities motor strength 5/5 Neurologic: PERRL, EOMI, accommodation nl, no face palsy, no dysarthria Results & Data Vital Signs (Past 12 Hours) Vital Signs Temp Pulse Pulse Resp BP Pulse Ox O2 Del Method 05/21/25 09:00 62 05/21/25 08:26 36.9 C 60 18 136/80 95 Room Air 05/21/25 03:19 36.8 C 63 16 125/67 98 Room Air 05/21/25 02:25 72 05/20/25 23:17 36.6 C 64 14 92/40 L 96 Room Air Laboratory Results Cardiac Enzymes 05/20/25 05/21/25 Range/Units 05:48 05:51 AST 22 14 (13-39) U/L CBC 05/21/25 Range/Units 05:51 WBC 11.69 H (4.8-10.8) K/ul RBC 3.70 L (4.20-5.40) M/uL Hgb 11.7 L (12.0-16.0) g/dl Hct 36.2 L (37.0-47.0) % Plt Count 223 (130-400) K/uL Comprehensive Metabolic Panel 05/20/25 05/21/25 Range/Units 05:48 05:51 Sodium 141 (136-145) mmol/L Potassium 4.0 (3.5-5.1) mmol/L Chloride 107 (98-107) mmol/L Carbon Dioxide 24 (21-32) mmol/L BUN 36 H (6-23) mg/dl Creatinine 1.41 H (0.6-1.2) mg/dl Glucose 86 (70-99(Fasting)) mg/dl Calcium 8.6 (8.6-10.3) mg/dl Direct Bilirubin 0.1 0.1 (0-0.2) mg/dl AST 22 14 (13-39) U/L ALT 66 H 47 (7-52) U/L Alkaline Phosphatase 126 H 127 H (34-104) U/L Total Protein 5.8 L 6.3 (6.0-8.3) gm/dl Albumin 2.7 L 3.1 L (3.4-5.0) gm/dl Intake and Output 05/20/25 05/21/25 05/21/25 22:59 06:59 14:59 Intake Total 502.25 / 722.25 120 / 722.25 Balance 502.25 / 722.25 120 / 722.25 Intake: IV 62.25 / 162.25 cefTRIAXone SODIUM 2,000 mg In 50 / 50 50 ml @ 100 mls/hr IV Q24H [facility] Rx#:[id number] dilTIAZem HCL 125 mg In 12.25 / 12.25 Dextrose 5% 100 ml @ 0 MG/HR IV .Q0M [facility] Rx#:[id number] Oral 440 / 560 120 / 560 Other: Weight 54.1 kg Weight Measurement Method Built in [facility] Diagnostic Findings Telemetry reviewed: Normal sinus rhythm in the 60s and 70s. No atrial fibrillation overnight. She converted from atrial fibrillation to normal sinus rhythm yesterday afternoon. Echocardiogram report reviewed dated 05/20/2025: A-fib with mildly elevated rates were present during the echo study. LV wall motion is normal. Mild concentric LVH. LV systolic function is normal at 55 to 60%. No significant valvular disease. Medications Administered Current Inpatient Medications Acetaminophen (Acetaminophen 325 Mg Tab) 650 mg PO Q4H PRN PRN Reason: Pain or Fever Stop: 06/16/25 17:06 Amlodipine Besylate (Amlodipine Besylate 5 Mg Tab) 5 mg PO QAM [facility] Stop: 06/19/25 08:59 Last Admin: 05/20/25 08:11 Dose: 5 mg Duloxetine HCl (Duloxetine Hcl 30 Mg Cap) 30 mg PO DAILY [facility] Stop: 06/17/25 08:59 Last Admin: 05/21/25 08:06 Dose: 30 mg Duloxetine HCl (Duloxetine Hcl 60 Mg Cap) 60 mg PO QAM [facility] Stop: 06/17/25 08:59 Last Admin: 05/21/25 08:06 Dose: 60 mg Ceftriaxone Sodium (Rocephin) 2,000 mg in 50 mls @ 100 mls/hr IV Q24H [facility] Stop: 05/31/25 14:59 Last Infusion: 05/20/25 17:02 Dose: Infused Diltiazem HCl 125 mg/ Dextrose 125 mls @ 0 mls/hr IV .Q0M [facility]; Protocol Stop: 06/19/25 12:14 Last Titration: 05/20/25 17:39 Dose: Infused Lorazepam (Lorazepam 0.5 Mg Tab) 0.5 mg PO HS [facility] Stop: 06/16/25 20:59 Last Admin: 05/20/25 20:22 Dose: 0.5 mg Metoprolol Tartrate (Metoprolol Tartrate 1 Mg/Ml Vial) 5 mg IV Q5M PRN PRN Reason: Tachycardia Stop: 06/19/25 08:07 Last Admin: 05/20/25 09:15 Dose: 5 mg Metoprolol Tartrate (Metoprolol Tartrate 25 Mg Tab) 12.5 mg PO QID [facility] Stop: 06/19/25 12:59 Last Admin: 05/21/25 08:06 Dose: 12.5 mg Pantoprazole Sodium (Pantoprazole 40 Mg Tab) 40 mg PO DAILY [facility] Stop: 06/17/25 08:59 Last Admin: 05/21/25 08:06 Dose: 40 mg Polyethylene Glycol (Polyethylene (Miralax) 17 Gm Pack) 17 gm PO DAILY [facility] Stop: 06/17/25 14:14 Last Admin: 05/21/25 08:06 Dose: Not Given Trazodone HCl (Trazodone Hcl 100 Mg Tab) 100 mg PO HS [facility] Stop: 06/16/25 20:59 Last Admin: 05/20/25 20:22 Dose: 100 mg Zolpidem Tartrate (Zolpidem Tartrate 5 Mg Tab) 5 mg PO HS PRN PRN Reason: Sleep Stop: 06/17/25 17:11 (2) Sepsis Acute renal failure type: unspecified Sepsis acute organ dysfunction status: with acute organ dysfunction Sepsis type: sepsis due to unspecified organism Severe sepsis acute organ dysfunction type: acute renal failure Severe sepsis shock status: unspecified Qualified Code(s): A41.9 - Sepsis, unspecified organism; R65.20 - Severe sepsis without septic shock; N17.9 - Acute kidney failure, unspecified
--- NOTE | 2025-05-21 10:56 | Discharge Summary ---
Date of Service May 21, 2025 Admission HPI Per Admitting Provider The patient is a 74-year-old female with a past medical history of kidney stones, HLD, HTN, anxiety, depression, pancreatitis, sleep apnea, osteoarthritis who presents to the ED on 05/17/2025 after she was sent in by PCP for hypotension and infection. Reports ongoing urinary symptoms over the past 3-4 months of urinary frequency and burning. Was treated with full course of nitrofurantoin, Keflex, cefdinir over the past few months with temporary resolution of symptoms. Outpatient culture grew E. coli. Patient also reports some greenish/yellow discharge which she had a Pap smear completed a few months ago which was negative. Reports having a urogynecology appointment coming up in the next week. Reported to her PCPs office today with concerns of acute diarrhea over the past 3 days. On exam, noted her blood pressure was in the 60s. She was then directed to go to the ER for further workup. Patient's blood pressures in the 70s/80s on arrival to the ED, fluctuating with IV fluids. Patient reports ongoing night sweats over the past few months intermittently. Reports subjective fevers. Denies any nausea/vomiting. Reported some left flank pain that started about 3 days ago. Also reports some generalized body aches. On arrival to the ED, labs remarkable for WBC 33, hemoglobin 11.2, INR 1.4, BUN 54, creatinine 2.67, glucose 144, AST 288, ALT 252, procalcitonin over 100 Chest x-ray showed possible early pneumonia in right lung base A/P CT showed: Few small calculi distally in the left ureter causing minimal left hydronephrosis. Head CT negative Urology was consulted in the ER and recommended emergent left ureteral stent placement due to obstructing left ureteral calculi and concern for infection/sepsis. Patient was given IV antibiotics, IV fluids and will be admitted for further management of sepsis Admission Exam Per Admitting Provider Constitutional: WD/WN, vitals as above (Hypotensive ) + ill appearing Eyes: PERRL, conjunctivae normal, anicteric sclerae ENMT: external ear and nose normal, oropharynx normal Neck: trachea midline, no thyromegaly Respiratory: normal respiratory effort, lungs clear to auscultation Cardiovascular: RRR, no murmur, no edema Gastrointestinal (Abdomen): normal bowel sounds, soft, nontender, no hepatosplenomegaly (Left flank pain with palpation, no guarding) Musculoskeletal: no cyanosis or clubbing, extremities motor strength 5/5 Skin: no rashes, warm and dry Neurologic: PERRL, EOMI, accommodation nl, no face palsy, no dysarthria Psychiatric: A+Ox3, euthymic affect Lymphatic: no cervical or axillary lymphadenopathy Principal Diagnosis Sepsis 2/2 complicated cystitis iso obstructing ureteral stones Bacteremia 2/2 e. coli ULISES improving 2/2 obstructive uropathy Afib RVR Discharge Exam Constitutional: WD/WN, vitals as above Respiratory: normal respiratory effort, lungs clear to auscultation Cardiovascular: RRR, no murmur, no edema Gastrointestinal (Abdomen): normal bowel sounds, soft, nontender, no hepatosplenomegaly Discharge Data Allergies Allergy/AdvReac Type Severity Reaction Status Date / Time YAIR Inhibitors AdvReac Intermediate Cough Verified 03/29/21 07:41 aspirin AdvReac Mild Advised to Verified 03/29/21 07:41 avoid 2/2 hx bariatric surgery ibuprofen AdvReac Mild Advised to Verified 03/29/21 07:41 avoid 2/2 hx bariatric surgery naproxen AdvReac Mild Advised to Verified 03/29/21 07:41 avoid 2/2 hx bariatric surgery Consultations 05/17/25 13:40 ED Decision to Admit Stat 05/17/25 17:07 Consult Urology Routine 05/20/25 09:12 Consult Cardiology Routine Procedures Performed Operation Date: 05/17/25 10:20 Actual Procedures p Cystoscopy, Left Retrograde Pyelogram, Left Ureteral Stent Placement x2(Left) - Jm Duenas MD Ordered Studies 05/17/25 12:30 CT abd pelvis wo con Stat 05/17/25 12:32 CT head/brain wo con Stat 05/17/25 14:20 FL retrograde includes kub Routine 05/18/25 US liver Routine Hospital Course (1) Left ureteral stone: (2) Hypertension: (3) Hyperlipidemia: (4) Anxiety: (5) Left flank pain: (6) ULISES (acute kidney injury): (7) Osteoarthritis: (8) Sepsis: Plan Ms. Cervantes is a 74-year-old female with a past medical history of kidney stones, HLD, HTN, anxiety, depression, pancreatitis, sleep apnea, osteoarthritis who was noted to have sepsis 2/2 left-sided ureteral stones with hydronephr osis. Patient admitted for management of sepsis and underwent urologic evaluation. Patient is now s/p emergent cystoscopy and left ureteral stent placement x 2 on 05/17 #Sepsis 2/2 complicated cystitis iso obstructing ureteral stones #Bacteremia 2/2 ecoli #ULISES improving 2/2 obstructive uropathy -CT A/P with left-sided ureteral stones and hydronephrosis. Leukocytosis, hypotension, subjective fevers all indicative of sepsis ULISES with an elevated creatinine to 2.67, likely secondary to hydronephrosis, improving Discontinued vancomycin continue cefepime --> rocephin 05/19 to cipro on dc to complete 14 d therapy, weekly EKG while on cipro, currently QTc wnl. 03/03 blood cultures +ecoli, likely renal source for bacteremia, f/u repeat cultures from 05/21/25. Urine Cx no growth f/u w/ uro as OP. Afib RVR: pt noted to be in afib rvr 05/20 around 753 am w/ palpitation, no chest pain or sob, new diagnosis. TSH this adm wnl. ECHO done, EF 55-60%, LV wall motion nl, lv systolic fxn nl, no valvular abn.converted to nsr, cardio evaled. D/w cardio, metoprolol dose increased to 25 mg daily, ok for dc. #HTN/HLD: continue metoprolol #depression/anxiety: Continue duloxetine/trazodone/Ativan Full code DVT prophylaxis: SCDs Patient is being discharged to home with following instructions at the point of discharge: Follow-up with your primary care physician within a week time and likely you will need labs CBC/CMP/magnesium/phosphorus. You were noted to have blood infection secondary to E. coli [likely urinary source for infection], you will be discharged on antibiotic to complete 14 days of treatment. Your repeat blood culture has been drawn on 05/21, follow-up on the final results of this blood culture during your PCP visit within a week time. You will need repeat EKG [for QTc monitoring] weekly while on antibiotic, coordinate with your PCP office to set up the test. You also were noted to have atrial fibrillation with rapid ventricular response, cardiology evaluated you, your metoprolol dose has been increased from 12.5 to 25 mg daily. Follow-up with cardiology in 1 to 2 months time upon discharge. You are also noted to have left ureteral stones, you underwent left ureteral stent placement, recommend that you follow-up with urology in 2-4 weeks time upon discharge. Take your medications as prescribed. Please make sure that you are able to get your medications today by calling your pharmacy before you leave the hospital so that your treatment continuity is not broken. Home Health Attestation I certify that this patient is under my care and that I, or a physicians research program assistant working with me, had a face to-face encounter that meets the home health [id number] encounter requirements with this patient. The encounter with the patient was in whole, or in part, for the following medical condition, which is the primary reason for home health care (list medical condition): I certify that, based on my findings, the following services are medically necessary home health services: My clinical findings support the need for the above services because: Further, I certify that my clinical findings support that this patient is homebound (i.e. absences from home require considerable and taxing effort and are for medical reasons or mormonism services or infrequently or of short duration when for other reasons) because: Certification for Home Health Services: Based on the above findings, I certify that this patient is confined to the home and needs intermittent [facility] care, physical therapy and/or speech therapy or continues to need occupational therapy. The patient is under my care, and I have initiated the establishment of the plan of care. This patient will be followed by a physician who will periodically review the plan of care. Total Time Total Time Spent Total Time Spent (In Minutes): 45 Discharge Plan Discharge Items Patient Disposition: Home - Self-Care Reason For Visit: SEPSIS, HYPOTENSION Discharge Diagnosis: Sepsis 2/2 complicated cystitis iso obstructing ureteral stones Bacteremia 2/2 e. coli ULISES improving 2/2 obstructive uropathy Afib RVR Condition on Discharge: Critical Activity: Resume your previous activity Non-emergency contact: Primary Care Provider Call non-emergency contact if: you have any medication questions Follow-up/Referrals: Juan Jay DO [Primary Care Provider] - (Date & Time 05/29/2025 11:00 AM Provider: Juan Jay DO [facility] ) Diet: Heart Healthy Addtl Attending Provider Instructions: Follow-up with your primary care physician within a week time and likely you will need labs CBC/CMP/magnesium/phosphorus. You were noted to have blood infection secondary to E. coli [likely urinary source for infection], you will be discharged on antibiotic to complete 14 days of treatment. Your repeat blood culture has been drawn on 05/21, follow-up on the final results of this blood culture during your PCP visit within a week time. You will need repeat EKG [for QTc monitoring] weekly while on antibiotic, coordinate with your PCP office to set up the test. You also were noted to have atrial fibrillation with rapid ventricular response, cardiology evaluated you, your metoprolol dose has been increased from 12.5 to 25 mg daily. Follow-up with cardiology in 1 to 2 months time upon discharge. You are also noted to have left ureteral stones, you underwent left ureteral stent placement, recommend that you follow-up with urology in 2-4 weeks time upon discharge. Take your medications as prescribed. Please make sure that you are able to get your medications today by calling your pharmacy before you leave the hospital so that your treatment continuity is not broken. Pending Studies at Discharge: Yes Stand-Alone Forms: My [facility] [employer], Smoking Cessation Medications and DC Order Prescriptions: New ciprofloxacin HCl 500 mg tablet 500 mg PO BID 11 Days Qty: 22 0RF Probiotic 3 billion cell capsule 3,000 mmu cells PO DAILY 14 Days Qty: 14 0RF Rx Instructions: administer with a meal metoprolol succinate [Toprol XL] 25 mg tablet extended release 24 hr 25 mg PO DAILY Qty: 30 0RF Continued lorazepam [Ativan] 0.5 mg Tablet 0.5 mg PO HS multivitamin Tablet 2 tab PO QAM Rx Instructions: TAKE TWO FLINTSTONE CHEWABLES EVERY MORNING 05/17-otc unable to verify acetaminophen [Tylenol Extra Strength] 500 mg Tablet 1,000 mg PO Q6H PRN (Reason: Pain) Rx Instructions: 05/17-otc unable to verify trazodone 100 mg tablet 100 mg PO HS duloxetine 60 mg capsule,delayed release(DR/EC) 60 mg PO QAM cholecalciferol (vitamin D3) 25 mcg (1,000 unit) Tablet 50 mcg PO DAILY Rx Instructions: 05/17-otc unable to verify duloxetine 30 mg capsule,delayed release(DR/EC) 30 mg PO DAILY Rx Instructions: takes in addition to 60mg daily for total of 90 mg pantoprazole [Protonix] [address] for susp in packet 40 mg PO DAILY Qty: 30 0RF Discontinued potassium citrate 10 mEq (1,080 mg) tablet extended release 30 meq PO TID metoprolol succinate 25 mg tablet extended release 24 hr 12.5 mg PO QAM Discharge Orders: Discharge Order (Routine); Ordered 05/21/25 Ordered By: Nichole Loaiza Admission Data Admit Date/Time: 05/17/25 13:59 Attending Provider: Nichole Loaiza Admit Provider: Didier Novak Primary Care Provider: Juan Jay Other Providers: Didier Novak; Igor Terrell
[2025-05-21 11:04] VITALS: PULSE 92
--- NOTE | 2025-05-23 13:42 | Electrocardiogram Report ---
Test Reason : Blood Pressure : */* mmHG Vent. Rate : 135 BPM Atrial Rate : * BPM P-R Int : * ms QRS Dur : 80 ms QT Int : 278 ms P-R-T Axes : * 165 -11 degrees QTcB Int : 417 ms Suspect arm lead reversal, interpretation assumes no reversal Atrial fibrillation with rapid ventricular response Abnormal ECG When compared with ECG of 18-May-2025 05:54, Atrial fibrillation is now Present HR has increased Confirmed by Angel Sanchez ([id number]) on 05/23/2025 1:41:43 PM Referred By: REFERRED SELF Confirmed By: Angel Sanchez
--- NOTE | 2025-05-23 16:26 | Electrocardiogram Report ---
Test Reason : Blood Pressure : */* mmHG Vent. Rate : 71 BPM Atrial Rate : 71 BPM P-R Int : 220 ms QRS Dur : 70 ms QT Int : 392 ms P-R-T Axes : 56 15 65 degrees QTcB Int : 425 ms Sinus rhythm with 1st degree A-V block Otherwise normal ECG When compared with ECG of 20-May-2025 08:17, (unconfirmed) Sinus rhythm has replaced Atrial fibrillation Vent. rate has decreased by 64 bpm Prior tracing appears to have arm lead reversal Confirmed by Angel Sanchez ([id number]) on 05/23/2025 4:26:10 PM Referred By: REFERRED SELF Confirmed By: Angel Sanchez
== END 2025-05-21 13:02 | disposition home or self-care (01) | DRG 854 ==
LOC: ED 11:46 → SUATTDRO 13:59 → 4W 13:59